=== PATIENT | female | born 1980 | race Caucasian/White ===

== ENCOUNTER 2020-05-21 07:53 | Outpatient (CLI) | payer OTHER, SELFPAY ==
[2020-05-21 08:39] LABS: Basophils # 0.1 10^3/uL (0.0-0.1); Basophils % 0.7 %; Eosinophils # 0.2 10^3/uL (0.0-0.8); Eosinophils % 2.9 %; Hematocrit 43.7 % (37.0-47.0); Hemoglobin 13.1 g/dL (11.5-15.3); Lymphocytes # 1.4 10^3/uL (0.8-4.8); Lymphocytes % 18.8 %; Mean Corpuscular Hemoglobin 26.8 pg (28.0-34.0); Mean Corpuscular Volume 89.4 fL (81-99); Mean Platelet Volume 10.6 fL (7.4-10.4); Monocytes # 0.5 10^3/uL (0.2-0.9); Monocytes % 6.6 %; Neutrophils # 5.1 10^3/uL (1.8-7.7); Neutrophils % 70.6 %; Nucleated Red Blood Cells % 0 %; Platelet Count 306 10^3/cmm (130-400); Red Blood Count 4.89 10^6/uL (4.1-5.3); White Blood Count 7.2 10^3/uL (4.0-10.0)
[2020-05-21] MEDS: sodium chloride 0.9% 250 ML 999 ML IV (12:40)
--- NOTE | 2020-05-23 17:30 | ONC CON_ITS ---
Dr. Garcia New Patient Note Patient: Reta Gipson Unit #: [id number]: 1980 Dicatated By: Kris Garcia M.D.Date of Visit: May 21, 2020 Onc MED New Patient/Consult Referring Physician: Viviana Gill A.P.N. History of Present Illness: . Ms. Dulce Gipson, is a 39-year-old female with a history of polycythemia vera Benja 2+, history of tiny subsegmental pulmonary embolism diagnosed in October 2019 since then she is on Eliquis 5 mg twice a day.As per patient she has history of diverticulitis and In addition to abdominal pain she was also having some chest pain so underwent CT scan of chest abdomen pelvis in October [address] scan of the chest showed small blood clot As per patient in 2016, she was having progressive headaches for which she went for evaluation found to have 'thick' blood, subsequently she was diagnosed with polycythemia as her hematocrit was more than 60, underwent twice a week phlebotomy initially followed by weekly and then every 2 weeks for 6 months to get her hematocrit to the target range e.g. below 43 patient was referred to family independence case manager and [facility] in [facility] where she underwent genetic testing and Bejna 2 mutation came back positive., As per patient she was treated with aspirin and phlebotomies on as-needed basis and last phlebotomy was done in November 2019, in December 2019 she also underwent bone marrow evaluation as her family independence case manager was considering hydroxyurea so she was started on hydroxyurea 1000 mg p.o. daily, which she took till March 2020 and then stopped taking as she ran out of prescription and she moved to [place] from [place] thus could not get prescription. Patient denies smoking, occasional alcohol. Denies any headaches blurred vision double vision today, denies any fever chills, denies any nausea vomiting denies any diarrhea or constipation. But generalized weakness and fatigue and some time restless sleep and excessive sleep during daytime. Past Medical History: Ms. Looney medical history consists of diverticulitis. Past Surgical History: Ms. Looney surgical/procedural history consists of tubal ligation. Medications: Eliquis 1 Tablet (of 5 mg) Oral b.i.d., Gabapentin 1 Capsule (of 300 mg) Oral b.i.d. Allergies: Esthela Allergy, Flagyl, and guaiFENesin. Social History: Ms. Gipson is and she is a disabled. Ms. Gipson has never smoked. She has no history of drinking. Ms. Gipson reports the following support systems: lives with spouse, significant other, family, or friends, lives in own house, supportive family/friends willing to assist with needs, and adequate transportation available for expected visits. Her diet consists of regular meals. She indicates her activity level as: regular exercise. Family History: Ms. Gipson's mother is alive. Ms. Gipson's father at age 78: melanoma. Review Of Symptoms: Review of Systems is not available for this patient. Vital Signs: Performed on May 21, 2020 11:21: 0, 45.71 (HIGH), 2.52 sq.m, 69.50 in, 98 %, 77 /min, 20 /min, 125/76 mm(hg), 98.0 F (LOW), and 314.0 lbs (HIGH). Performance Status: 0 - Fully active, able to carry on all predisease activities without restrictions. (ECOG) Physical Examination: ENMT - No mouth sores, no thrush, no jaundice, Respiratory - Lungs are clear, Cardiovascular - Regular rate and rhythm of heart, Abdomen - Soft, bowel sounds present, Extremities - No visible edema or rash. Lab/Imaging: Test performed on May 21, 2020 08:10 WBC 7.2 10 3/uL RBC 4.89 10 6/uL HGB 13.1 g/dL HCT 43.7 % MCV 89.4 fL MCH 26.8 pg MCHC 30.0 g/dL RDW 15.0 % Platelet Count 306 10 3/cmm MPV 10.6 fL Neutrophils 5.1 10 3/uL Lymphocytes 1.4 10 3/uL Monocytes 0.5 10 3/uL Eosinophils 0.2 10 3/uL Basophils 0.1 10 3/uL Neutrophil % 70.6 % Lymphocyte % 18.8 % Monocyte % 6.6 % Eosinophil % 2.9 % Basophils % 0.7 % NRBC % 0 % Impression: Polycythemia vera, Benja 2 mutation positive, diagnosed in 2016 in hematology clinic at [facility] in [facility] which she initially presented with hematocrit more than 60, treated with aggressive phlebotomies to get hematocrit below 43. Underwent bone marrow evaluation in November 2019 for hydroxyurea therapy, and patient was started on hydroxyurea thousand milligrams p.o. daily, which she tolerated well and then ran out of prescription in March 2020, since then she is off History of tiny subsegmental pulmonary embolism diagnosed in October 2019, on Eliquis 5 mg p.o. twice daily History of diverticulitis Obesity. 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 At this point we will consider phlebotomy to keep her hematocrit equal to or below 42 as she has history of pulmonary embolism and on anticoagulation. In the meantime we will suggest sleep study to rule out sleep apnea and if confirmed, she may benefit from CPAP machine and it may improve her polycythemia too.I will also obtain records from hematology clinic at [facility] in [place] in [place]. We will hold her hydroxyurea while continue with phlebotomy every 2 weeks to keep hematocrit equal to less than 42. While patient is being evaluated for sleep apnea and if confirmed then we will monitor her for any additional benefit from CPAP machine on the other hand if she required phlebotomies frequently then will consider restarting her on hydroxyurea. Patient was advised to continue daily aspirin and maintain good hydration. Return to clinic in 1 month with CBC Signed By: Kris Garcia M.D. <<Signature on File>>
== END 2020-05-21 07:54 | disposition home or self-care (01) ==
LOC: ONCMED 07:56
PROVIDERS: PCP Nurse Practitioner; Visit Provider Internal Medicine Hematology & Oncology
DX: D45 Polycythemia vera (principal); E66.9 Obesity, unspecified; R53.1 Weakness; R53.83 Other fatigue; G47.10 Hypersomnia, unspecified; Z86.711 Personal history of pulmonary embolism; Z79.01 Long term (current) use of anticoagulants; Z87.19 Personal history of other diseases of the digestive system; Z79.899 Other long term (current) drug therapy; Z79.82 Long term (current) use of aspirin
CPT/HCPCS: 36415; 85025; 99195; 99203; J7050

== ENCOUNTER 2020-06-04 09:01 | Outpatient (CLI) | payer OTHER, SELFPAY ==
[2020-06-04 09:50] LABS: Basophils # 0.1 10^3/uL (0.0-0.1); Basophils % 0.6 %; Eosinophils # 0.3 10^3/uL (0.0-0.8); Eosinophils % 3.2 %; Hematocrit 41.4 % (37.0-47.0); Hemoglobin 12.3 g/dL (11.5-15.3); Lymphocytes # 1.4 10^3/uL (0.8-4.8); Lymphocytes % 17.5 %; Mean Corpuscular HGB Conc 29.7 g/dL (30.0-36.0); Mean Corpuscular Hemoglobin 26.6 pg (28.0-34.0); Mean Corpuscular Volume 89.4 fL (81-99); Mean Platelet Volume 10.8 fL (7.4-10.4); Monocytes # 0.5 10^3/uL (0.2-0.9); Monocytes % 5.6 %; Neutrophils # 5.93 10^3/uL (1.8-7.7); Neutrophils % 72.4 %; Nucleated Red Blood Cells % 0 %; Platelet Count 348 10^3/cmm (130-400); Red Blood Count 4.63 10^6/uL (4.1-5.3); Red Cell Distribution Width 15.3 % (12.1-15.1); White Blood Count 8.2 10^3/uL (4.0-10.0)
== END 2020-06-04 09:02 | disposition home or self-care (01) ==
LOC: ONCMED 09:04
PROVIDERS: PCP Nurse Practitioner; Visit Provider Internal Medicine Hematology & Oncology
DX: D45 Polycythemia vera (principal)
CPT/HCPCS: 85025

== ENCOUNTER 2020-06-18 09:00 | Outpatient (CLI) | payer OTHER, SELFPAY ==
[2020-06-18 09:25] LABS: Basophils # 0.1 10^3/uL (0.0-0.1); Basophils % 0.7 %; Eosinophils # 0.2 10^3/uL (0.0-0.8); Eosinophils % 2.6 %; Hematocrit 42.7 % (37.0-47.0); Hemoglobin 12.5 g/dL (11.5-15.3); Lymphocytes # 1.4 10^3/uL (0.8-4.8); Mean Corpuscular HGB Conc 29.3 g/dL (30.0-36.0); Mean Corpuscular Hemoglobin 24.6 pg (28.0-34.0); Mean Corpuscular Volume 84.1 fL (81-99); Mean Platelet Volume 10.8 fL (7.4-10.4); Monocytes # 0.4 10^3/uL (0.2-0.9); Monocytes % 5.1 %; Neutrophils # 6.43 10^3/uL (1.8-7.7); Neutrophils % 75.1 %; Nucleated Red Blood Cells % 0 %; Platelet Count 352 10^3/cmm (130-400); Red Blood Count 5.08 10^6/uL (4.1-5.3); Red Cell Distribution Width 15.7 % (12.1-15.1); White Blood Count 8.6 10^3/uL (4.0-10.0)
--- NOTE | 2020-06-18 16:25 | ONC FU_ITS ---
Dr. Garcia follow up note Patient: Reta Gipson Unit #: [id number]: 1980 Dicatated By: Kris Garcia M.D.Date of Visit:Jun 18, 2020 Onc Med Follow-up/Prog Note History of Present Illness: Ms. Ms. Dulce Gipson, is a 39-year-old female with a history of polycythemia vera Benja 2+, history of tiny subsegmental pulmonary embolism diagnosed in October 2019 since then she is on Eliquis 5 mg twice a day.As per patient she has history of diverticulitis and In addition to abdominal pain she was also having some chest pain so underwent CT scan of chest abdomen pelvis in October [address] scan of the chest showed small blood clot As per patient in 2015, she was having progressive headaches for which she went for evaluation found to have 'thick' blood, subsequently she was diagnosed with polycythemia as her hematocrit was more than 60, underwent twice a week phlebotomy initially followed by weekly and then every 2 weeks for 6 months to get her hematocrit to the target range e.g. below 43 patient was referred to director chemistry and [facility] in [facility] where she underwent genetic testing and Benja 2 mutation came back positive., As per patient she was treated with aspirin and phlebotomies on as-needed basis and last phlebotomy was done in November 2019, in December 2019 she also underwent bone marrow evaluation as her director chemistry was considering hydroxyurea so she was started on hydroxyurea 1000 mg p.o. daily, which she took till March 2020 and then stopped taking as she ran out of prescription and she moved to [place] from [place] thus could not get prescription. Patient denies smoking, occasional alcohol. Came for follow-up, denies any specific complaints except occasional headaches, no fever chills, no nausea or vomiting, no diarrhea or constipation, no blurred vision or double vision, patient says she did talk to her PMD regarding sleep study and awaiting appointment. Patient said when she used to take hydroxyurea her headaches did resolve Medications: Eliquis 1 Tablet (of 5 mg) Oral b.i.d., Gabapentin 1 Capsule (of 300 mg) Oral b.i.d. Allergies: Esthela Allergy, Flagyl, and guaiFENesin. Review of Systems: Review of Systems is not available for this patient. Vital Signs: Performed on Jun 18, 2020 11:20 Height - 69.50 in Weight - 313.6 lbs (LOW) BSA - 2.51 sq.m BMI - 45.65 (HIGH) Temperature - 97.6 F (LOW) Pulse - 81 /min Respiration - 24 /min BP - 144/78 mm(hg) (HIGH) O2 Sat - 97 % Pain - 3 Performance Status: 0 - Fully active, able to carry on all predisease activities without restrictions. (ECOG) Physical Examination: ENMT - No mouth sores, no thrush, no jaundice, Respiratory - Lungs are clear, Cardiovascular - Regular rate and rhythm of heart, Abdomen - Soft, bowel sounds present, Extremities - No visible edema. Lab/Imaging: Test performed on Jun 18, 2020 09:08 WBC 8.6 10 3/uL RBC 5.08 10 6/uL HGB 12.5 g/dL HCT 42.7 % MCV 84.1 fL MCH 24.6 pg MCHC 29.3 g/dL RDW 15.7 % Platelet Count 352 10 3/cmm MPV 10.8 fL Neutrophils 6.43 10 3/uL Lymphocytes 1.4 10 3/uL Monocytes 0.4 10 3/uL Eosinophils 0.2 10 3/uL Basophils 0.1 10 3/uL Neutrophil % 75.1 % Lymphocyte % 16.0 % Monocyte % 5.1 % Eosinophil % 2.6 % Basophils % 0.7 % NRBC % 0 % Impression: Polycythemia vera, Benja 2 mutation positive, diagnosed in 2015 in hematology clinic at [facility] in [facility] which she initially presented with hematocrit more than 60, treated with aggressive phlebotomies to get hematocrit below 43. Underwent bone marrow evaluation in November 2019 for hydroxyurea therapy, and patient was started on hydroxyurea thousand milligrams p.o. daily, which she tolerated well and then ran out of prescription in March 2020, since then she is off History of tiny subsegmental pulmonary embolism diagnosed in October 2019, on Eliquis 5 mg p.o. twice daily History of diverticulitis Obesity. Plan: Discussed with patient regarding her labs white blood count 8.6 hemoglobin 12.5 g, hematocrit 42.7 platelets 352,000 Clinically, patient is doing well with no new signs symptoms except occasionally headaches but her hematocrit is in desirable range. At this point we will consider starting her on hydroxyurea 500 mg p.o. twice daily, patient was given prescription and she will obtain her medication from [facility], usually take about 1 week to get it in the mail. She will return to clinic in 3 weeks with a CBC, patient was also advised to call PMD office regarding sleep study to rule out sleep apnea as if confirmed, sleep apnea management can improve her polycythemia. Signed By: Kris Garcia M.D. <<Signature on File>>
== END 2020-06-18 09:01 | disposition home or self-care (01) ==
LOC: ONCMED 09:02
PROVIDERS: PCP Nurse Practitioner; Visit Provider Internal Medicine Hematology & Oncology
DX: D45 Polycythemia vera (principal); E66.9 Obesity, unspecified; Z86.711 Personal history of pulmonary embolism; Z79.01 Long term (current) use of anticoagulants; Z87.19 Personal history of other diseases of the digestive system; Z68.42 Body mass index [BMI] 45.0-49.9, adult
CPT/HCPCS: 85025; 99214

== ENCOUNTER 2020-07-09 09:17 | Outpatient (CLI) | payer OTHER, SELFPAY ==
[2020-07-09 09:50] LABS: Basophils # 0.1 10^3/uL (0.0-0.1); Basophils % 0.7 %; Eosinophils # 0.2 10^3/uL (0.0-0.8); Eosinophils % 2.4 %; Hemoglobin 12.8 g/dL (11.5-15.3); Lymphocytes # 1.3 10^3/uL (0.8-4.8); Lymphocytes % 18.6 %; Mean Corpuscular HGB Conc 29.1 g/dL (30.0-36.0); Mean Corpuscular Hemoglobin 24.3 pg (28.0-34.0); Mean Corpuscular Volume 83.7 fL (81-99); Monocytes # 0.4 10^3/uL (0.2-0.9); Monocytes % 4.9 %; Neutrophils # 5.24 10^3/uL (1.8-7.7); Neutrophils % 72.8 %; Nucleated Red Blood Cells % 0 %; Platelet Count 293 10^3/cmm (130-400); Red Blood Count 5.26 10^6/uL (4.1-5.3); Red Cell Distribution Width 17.3 % (12.1-15.1); White Blood Count 7.2 10^3/uL (4.0-10.0)
--- NOTE | 2020-07-09 14:02 | ONC FU_ITS ---
Dr. Garcia follow up note Patient: Reta Gipson Unit #: [id number]: 1980 Dicatated By: Kris Garcia M.D.Date of Visit:Jul 09, 2020 Onc Med Follow-up/Prog Note History of Present Illness: Ms. Ms. Dulce Gipson, is a 39-year-old female with a history of polycythemia vera Benja 2+, history of tiny subsegmental pulmonary embolism diagnosed in October 2019 since then she is on Eliquis 5 mg twice a day.As per patient she has history of diverticulitis and In addition to abdominal pain she was also having some chest pain so underwent CT scan of chest abdomen pelvis in October [address] scan of the chest showed small blood clot As per patient in 2016, she was having progressive headaches for which she went for evaluation found to have 'thick' blood, subsequently she was diagnosed with polycythemia as her hematocrit was more than 60, underwent twice a week phlebotomy initially followed by weekly and then every 2 weeks for 6 months to get her hematocrit to the target range e.g. below 43 patient was referred to mechanics supervisor and [facility] in [facility] where she underwent genetic testing and Benja 2 mutation came back positive., As per patient she was treated with aspirin and phlebotomies on as-needed basis and last phlebotomy was done in November 2019, in December 2019 she also underwent bone marrow evaluation as her mechanics supervisor was considering hydroxyurea so she was started on hydroxyurea 1000 mg p.o. daily, which she took till March 2020 and then stopped taking as she ran out of prescription and she moved to [place] from [place] thus could not get prescription. Patient denies smoking, occasional alcohol. Came for follow-up, denies any specific complaint except generalized weakness and fatigue otherwise no fever chills no nausea or vomiting no diarrhea constipation, no headaches blurred vision or double vision, tolerating hydroxyurea and as needed phlebotomy, well Medications: Eliquis 1 Tablet (of 5 mg) Oral b.i.d., Gabapentin 1 Capsule (of 300 mg) Oral b.i.d., Hydroxyurea 1 Capsule (of 500 mg) Oral b.i.d. Allergies: Esthela Allergy, Flagyl, and guaiFENesin. Review of Systems: Review of Systems is not available for this patient. Vital Signs: Performed on Jul 09, 2020 10:56 Height - 69.50 in Weight - 316.0 lbs (HIGH) BSA - 2.52 sq.m BMI - 46.00 (HIGH) Temperature - 97.9 F (LOW) Pulse - 94 /min Respiration - 20 /min BP - 115/73 mm(hg) O2 Sat - 96 % Pain - 0 Performance Status: 0 - Fully active, able to carry on all predisease activities without restrictions. (ECOG) Physical Examination: ENMT - No mouth sores, no thrush, no jaundice, Respiratory - Lungs are clear, Cardiovascular - Regular rate and rhythm of heart, Abdomen - Soft, bowel sounds present, Extremities - No visible edema or rash. Lab/Imaging: Test performed on Jun 18, 2020 09:08 WBC 8.6 10 3/uL RBC 5.08 10 6/uL HGB 12.5 g/dL HCT 42.7 % MCV 84.1 fL MCH 24.6 pg MCHC 29.3 g/dL RDW 15.7 % Platelet Count 352 10 3/cmm MPV 10.8 fL Neutrophils 6.43 10 3/uL Lymphocytes 1.4 10 3/uL Monocytes 0.4 10 3/uL Eosinophils 0.2 10 3/uL Basophils 0.1 10 3/uL Neutrophil % 75.1 % Lymphocyte % 16.0 % Monocyte % 5.1 % Eosinophil % 2.6 % Basophils % 0.7 % NRBC % 0 % Impression: Polycythemia vera, Benja 2 mutation positive, diagnosed in 2015 in hematology clinic at [facility] in [facility] which she initially presented with hematocrit more than 60, treated with aggressive phlebotomies to get hematocrit below 43. Underwent bone marrow evaluation in November 2019 for hydroxyurea therapy, and patient was started on hydroxyurea thousand milligrams p.o. daily, which she tolerated well and then ran out of prescription in March 2020, since then she is off, Restarted on June 18, 2020 History of tiny subsegmental pulmonary embolism diagnosed in October 2019, on Eliquis 5 mg p.o. twice daily History of diverticulitis Obesity. Plan: Discussed with patient regarding her labs white blood count 7.2 hemoglobin 12.8 hematocrit 44 platelets 293,000 Clinically, patient doing well, with no new signs symptom, tolerating hydroxyurea 500 mg p.o. twice daily, well, her follow-up lab is in a desirable range. We will continue with same and return to clinic in 2 months with CBC Patient is still awaiting for appointment with PMD regarding sleep apnea evaluation Signed By: Kris Garcia M.D. <<Signature on File>>
== END 2020-07-09 09:18 | disposition home or self-care (01) ==
LOC: ONCMED 09:21
PROVIDERS: PCP Nurse Practitioner; Visit Provider Internal Medicine Hematology & Oncology
DX: D45 Polycythemia vera (principal); E66.9 Obesity, unspecified; R53.1 Weakness; R53.83 Other fatigue; Z86.718 Personal history of other venous thrombosis and embolism; Z79.01 Long term (current) use of anticoagulants; Z79.899 Other long term (current) drug therapy; Z68.42 Body mass index [BMI] 45.0-49.9, adult; Z87.19 Personal history of other diseases of the digestive system
CPT/HCPCS: 85025; 99214

== ENCOUNTER 2020-09-02 12:00 | Outpatient (CLI) | payer OTHER, SELFPAY | END 2020-09-02 12:01 | disposition home or self-care (01) | LOC: SLEEP 09-06 11:50 | PROVIDERS: PCP Nurse Practitioner; Visit Provider Nurse Practitioner | DX: G47.33 Obstructive sleep apnea (adult) (pediatric) (principal); R06.83 Snoring | CPT/HCPCS: G0399 ==

== ENCOUNTER 2020-09-06 08:46 | Outpatient (CLI) | payer OTHER, SELFPAY ==
[2020-09-06 09:10] LABS: Basophils # 0.1 10^3/uL (0.0-0.1); Basophils % 1.2 %; Eosinophils # 0.1 10^3/uL (0.0-0.8); Eosinophils % 1.8 %; Hematocrit 44.8 % (37.0-47.0); Hemoglobin 12.9 g/dL (11.5-15.3); Lymphocytes # 1.2 10^3/uL (0.8-4.8); Lymphocytes % 18.2 %; Mean Corpuscular HGB Conc 28.8 g/dL (30.0-36.0); Mean Corpuscular Hemoglobin 24.6 pg (28.0-34.0); Mean Corpuscular Volume 85.5 fL (81-99); Mean Platelet Volume 9.8 fL (7.4-10.4); Monocytes # 0.4 10^3/uL (0.2-0.9); Monocytes % 5.2 %; Neutrophils # 4.91 10^3/uL (1.8-7.7); Neutrophils % 73.3 %; Nucleated Red Blood Cells % 0 %; Platelet Count 317 10^3/cmm (130-400); Red Blood Count 5.24 10^6/uL (4.1-5.3); White Blood Count 6.7 10^3/uL (4.0-10.0)
--- NOTE | 2020-09-06 11:20 | ONC FU_ITS ---
Dr. Garcia follow up note Patient: Reta Gipson Unit #: [id number]: 1980 Dicatated By: Kris Garcia M.D.Date of Visit:Sep 06, 2020 Onc Med Follow-up/Prog Note History of Present Illness: Ms. Ms. Dulce Gipson, is a 39-year-old female with a history of polycythemia vera Benja 2+, history of tiny subsegmental pulmonary embolism diagnosed in October 2019 since then she is on Eliquis 5 mg twice a day.As per patient she has history of diverticulitis and In addition to abdominal pain she was also having some chest pain so underwent CT scan of chest abdomen pelvis in October [address] scan of the chest showed small blood clot As per patient in 2016, she was having progressive headaches for which she went for evaluation found to have 'thick' blood, subsequently she was diagnosed with polycythemia as her hematocrit was more than 60, underwent twice a week phlebotomy initially followed by weekly and then every 2 weeks for 6 months to get her hematocrit to the target range e.g. below 43 patient was referred to finance insurance manager and [facility] in [facility] where she underwent genetic testing and Benja 2 mutation came back positive., As per patient she was treated with aspirin and phlebotomies on as-needed basis and last phlebotomy was done in November 2019, in December 2019 she also underwent bone marrow evaluation as her finance insurance manager was considering hydroxyurea so she was started on hydroxyurea 1000 mg p.o. daily, which she took till March 2020 and then stopped taking as she ran out of prescription and she moved to [place] from [place] thus could not get prescription. Patient denies smoking, occasional alcohol. Came for follow-up, denies any specific complaints, except generalized weakness and fatigue, and recently underwent overnight pulse oximetry as screening for sleep apnea/sleep study, otherwise no fever chills, no nausea or vomiting, no diarrhea constipation, Tolerating hydroxyurea well otherwise Medications: Eliquis 1 Tablet (of 5 mg) Oral b.i.d., Gabapentin 1 Capsule (of 300 mg) Oral b.i.d., Hydroxyurea 1 Capsule (of 500 mg) Oral b.i.d. Allergies: Esthela Allergy, Flagyl, and guaiFENesin. Review of Systems: Review of Systems is not available for this patient. Vital Signs: Performed on Sep 06, 2020 10:02 Height - 69.50 in Weight - 318.6 lbs (HIGH) BSA - 2.53 sq.m BMI - 46.37 (HIGH) Temperature - 98.2 F (LOW) Pulse - 69 /min Respiration - 24 /min BP - 140/82 mm(hg) O2 Sat - 96 % Pain - 0 Performance Status: 0 - Fully active, able to carry on all predisease activities without restrictions. (ECOG) Physical Examination: ENMT - No mouth sores, no thrush, no jaundice, Respiratory - Lungs are clear to auscultation, Cardiovascular - Regular rate and rhythm of heart, Abdomen - Soft, bowel sounds present, Extremities - No visible edema. Lab/Imaging: Test performed on Jul 09, 2020 09:30 WBC 7.2 10 3/uL RBC 5.26 10 6/uL HGB 12.8 g/dL HCT 44.0 % MCV 83.7 fL MCH 24.3 pg MCHC 29.1 g/dL RDW 17.3 % Platelet Count 293 10 3/cmm MPV 10.0 fL Neutrophils 5.24 10 3/uL Lymphocytes 1.3 10 3/uL Monocytes 0.4 10 3/uL Eosinophils 0.2 10 3/uL Basophils 0.1 10 3/uL Neutrophil % 72.8 % Lymphocyte % 18.6 % Monocyte % 4.9 % Eosinophil % 2.4 % Basophils % 0.7 % NRBC % 0 % Impression: Polycythemia vera, Benja 2 mutation positive, diagnosed in 2016 in hematology clinic at [facility] in [facility] which she initially presented with hematocrit more than 60, treated with aggressive phlebotomies to get hematocrit below 43. Underwent bone marrow evaluation in November 2019 for hydroxyurea therapy, and patient was started on hydroxyurea thousand milligrams p.o. daily, which she tolerated well and then ran out of prescription in March 2020, since then she is off, Restarted on June 18, 2020 History of tiny subsegmental pulmonary embolism diagnosed in October 2019, on Eliquis 5 mg p.o. twice daily History of diverticulitis Obesity. Plan: Discussed with patient regarding her labs white blood count 6.7 hemoglobin 12.9 hematocrit 44.8 platelets 317,000 Clinically, patient is doing well with no new signs symptom except chronic generalized weakness and fatigue which could be multifactorial including underlying sleep apnea, patient recently underwent overnight pulse oximetry as a screening for sleep study/sleep apnea, if it shows any abnormality then further testing will be done. In the meantime patient will continue with hydroxyurea as her follow-up labs shows hematocrit is under 45 which is a desired range, will continue to monitor return to clinic in 1 month with CBC Signed By: Kris Garcia M.D. <<Signature on File>>
== END 2020-09-06 08:47 | disposition home or self-care (01) ==
LOC: ONCMED 08:50
PROVIDERS: PCP Nurse Practitioner; Visit Provider Internal Medicine Hematology & Oncology
DX: D45 Polycythemia vera (principal); E66.9 Obesity, unspecified; R53.1 Weakness; R53.83 Other fatigue; Z79.899 Other long term (current) drug therapy; Z86.711 Personal history of pulmonary embolism; Z79.01 Long term (current) use of anticoagulants; Z68.42 Body mass index [BMI] 45.0-49.9, adult
CPT/HCPCS: 36415; 85025; 99214

== ENCOUNTER 2020-10-08 11:37 | Outpatient (CLI) | payer OTHER, SELFPAY ==
[2020-10-08 12:32] LABS: Alanine Aminotransferase 22 U/L (0-33); Aspartate Amino Transferase 19 U/L (0-32); Gamma Glutamyl Transferase 28 U/L (5-36); Lactate Dehydrogenase 183 U/L (135-214)
== END 2020-10-08 11:38 | disposition home or self-care (01) ==
LOC: ONCMED 11:40
PROVIDERS: Absent Provider Podiatrist Foot & Ankle Surgery; PCP Nurse Practitioner; Visit Provider Internal Medicine Hematology & Oncology
DX: B35.3 Tinea pedis (principal)
CPT/HCPCS: 36415; 82977; 83615; 84450; 84460

== ENCOUNTER → 2020-10-16 13:29 | Outpatient (BNVA) | payer OTHER, SELFPAY | PROVIDERS: PCP Nurse Practitioner; Visit Provider Obstetrics & Gynecology | DX: Z01.419 Encounter for gynecological examination (general) (routine) without abnormal findings (principal) | CPT/HCPCS: 88175 ==

== ENCOUNTER 2020-11-27 14:42 | Outpatient (CLI) | payer OTHER, SELFPAY ==
[2020-11-27 15:54] LABS: Basophils # 0.1 10^3/uL (0.0-0.1); Basophils % 1.2 %; Eosinophils # 0.2 10^3/uL (0.0-0.8); Eosinophils % 1.8 %; Hematocrit 47.8 % (37.0-47.0); Lymphocytes # 1.6 10^3/uL (0.8-4.8); Lymphocytes % 17.5 %; Mean Corpuscular HGB Conc 29.3 g/dL (30.0-36.0); Mean Corpuscular Hemoglobin 25.1 pg (28.0-34.0); Mean Corpuscular Volume 85.8 fL (81-99); Mean Platelet Volume 10.1 fL (7.4-10.4); Monocytes # 0.6 10^3/uL (0.2-0.9); Monocytes % 6.8 %; Neutrophils % 72.1 %; Nucleated Red Blood Cells % 0 %; Platelet Count 294 10^3/cmm (130-400); Red Blood Count 5.57 10^6/uL (4.1-5.3); Red Cell Distribution Width 17.8 % (12.1-15.1)
== END 2020-11-27 14:43 | disposition home or self-care (01) ==
LOC: ONCMED 14:44
PROVIDERS: PCP Nurse Practitioner; Visit Provider Internal Medicine Hematology & Oncology
DX: D75.1 Secondary polycythemia (principal)
CPT/HCPCS: 36415; 85025

== ENCOUNTER 2020-11-29 05:48 | Outpatient (CLI) | payer OTHER, MEDICARE, SELFPAY ==
--- NOTE | 2020-11-29 10:46 | ONC FU_ITS ---
Dr. Garcia follow up note Patient: Reta Gipson Unit #: [id number]: 1980 Dicatated By: Kris Garcia M.D.Date of Visit:Nov 29, 2020 Onc Med Follow-up/Prog Note History of Present Illness: Ms. Ms. Dulce Gipson, is a 40 -year-old female with a history of polycythemia vera Benja 2+, history of tiny subsegmental pulmonary embolism diagnosed in October 2019 since then she is on Eliquis 5 mg twice a day.As per patient she has history of diverticulitis and In addition to abdominal pain she was also having some chest pain so underwent CT scan of chest abdomen pelvis in October [address] scan of the chest showed small blood clot As per patient in 2016, she was having progressive headaches for which she went for evaluation found to have 'thick' blood, subsequently she was diagnosed with polycythemia as her hematocrit was more than 60, underwent twice a week phlebotomy initially followed by weekly and then every 2 weeks for 6 months to get her hematocrit to the target range e.g. 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 daily, which she took till March 2020 and then stopped taking as she ran out of prescription and she moved to [place] from [place] thus could not get prescription. Patient denies smoking, occasional alcohol. Tolerating hydroxyurea Came for follow-up, complaining of off and on headaches for the last 2 weeks, as per patient she did not take her hydroxyurea for the last couple of weeks because she ran out of her prescription and [facility] did not send it to her and when she inquired this it may take another week or 2 before she gets it, as per patient in the past every time when she do not take hydroxyurea her hemoglobin/hematocrit goes up and then give her headaches and in the past, her headaches used to improve with phlebotomy. But denies any blurred vision or double vision denies any chest pain or shortness of breath denies any nausea or vomiting denies any fever chills. Patient states she also had sleep study done in August 2020, we will obtain results and recommendations. Medications: Eliquis 1 Tablet (of 5 mg) Oral b.i.d., Gabapentin 1 Capsule (of 300 mg) Oral b.i.d., Hydroxyurea 1 Capsule (of 500 mg) Oral b.i.d., Terbinafine HCl 1 Tablet (of 250 mg) Oral daily Allergies: Esthela Allergy, Flagyl, and guaiFENesin. Review of Systems: Review of Systems is not available for this patient. Vital Signs: Performed on Nov 29, 2020 10:17 Height - 69.50 in Weight - 322.2 lbs (HIGH) BSA - 2.54 sq.m BMI - 46.90 (HIGH) Temperature - 98.4 F Pulse - 73 /min Respiration - 16 /min BP - 140/86 mm(hg) O2 Sat - 98 % Pain - 6 Performance Status: 0 - Fully active, able to carry on all predisease activities without restrictions. (ECOG) Physical Examination: ENMT - No mouth sores, no thrush, no jaundice, Respiratory - Lungs are clear to auscultation, Cardiovascular - Regular rate and rhythm of heart, Abdomen - Soft, bowel sounds present, Extremities - No visible edema. Lab/Imaging: Test performed on Sep 06, 2020 08:57 WBC 6.7 10 3/uL RBC 5.24 10 6/uL HGB 12.9 g/dL HCT 44.8 % MCV 85.5 fL MCH 24.6 pg MCHC 28.8 g/dL RDW 22.0 % Platelet Count 317 10 3/cmm MPV 9.8 fL Neutrophils 4.91 10 3/uL Lymphocytes 1.2 10 3/uL Monocytes 0.4 10 3/uL Eosinophils 0.1 10 3/uL Basophils 0.1 10 3/uL Neutrophil % 73.3 % Lymphocyte % 18.2 % Monocyte % 5.2 % Eosinophil % 1.8 % Basophils % 1.2 % NRBC % 0 % Impression: Polycythemia vera, Benja 2 mutation positive, diagnosed in 2016 in hematology clinic at [facility] in [facility] which she initially presented with hematocrit more than 60, treated with aggressive phlebotomies to get hematocrit below 43. Underwent bone marrow evaluation in November 2019 for hydroxyurea therapy, and patient was started on hydroxyurea thousand milligrams p.o. daily, which she tolerated well and then ran out of prescription in March 2020, since then she is off, Restarted on June 18, 2020 History of tiny subsegmental pulmonary embolism diagnosed in October 2019, on Eliquis 5 mg p.o. twice daily History of diverticulitis Obesity. Plan: Discussed with patient regarding her labs white blood count 9 hemoglobin 14 hematocrit 47.8 compared to 44.8 on September 06, 2020 and platelets 294,000 Clinically, patient doing reasonably well with no new signs symptom except off and on headaches for the last couple of weeks as she ran out of her hydroxyurea prescription and the last time she took hydroxyurea was about 2 weeks ago, patient said she gets her [facility], this has happened in the past too, and when she inquired from [facility], she was informed it might take a week or 2 before she get her medication. So patient is requesting prescription so we will give her prescription for hydroxyurea 1000 mg p.o. daily and because of her concern but headache and her hematocrit has gone up since last visit so we will consider phlebotomy with 500 cc and replacement with a 250 cc normal saline to avoid hypovolemia and she will return to clinic in 1 month after start taking hydroxyurea with CBC. Patient was advised in case her headaches persist or there is a worsening, she need to call us or go to hospital for evaluation. Signed By: Kris Garcia M.D. <<Signature on File>>
[2020-11-29] MEDS: sodium chloride 0.9% 250 ML 999 ML IV (11:00)
== END 2020-11-29 05:49 | disposition home or self-care (01) ==
PROVIDERS: PCP Nurse Practitioner; Visit Provider Internal Medicine Hematology & Oncology
DX: D75.1 Secondary polycythemia (principal); E66.01 Morbid (severe) obesity due to excess calories; Q50.39 Other congenital malformation of ovary; Z86.711 Personal history of pulmonary embolism; Z87.19 Personal history of other diseases of the digestive system
CPT/HCPCS: 76830; 99195; 99214; J7050

== ENCOUNTER 2020-12-10 13:21 | Emergency (ER) | payer OTHER, MEDICARE, SELFPAY ==
[2020-12-10 13:33] VITALS: BP 138/84; PULSE 77; RESP 16; TEMP 36.6; O2SAT 97; BMI 44.4
--- NOTE | 2020-12-10 13:53 | CT_ITS ---
WS: [id number] CT ABDOMEN PELVIS TECHNIQUE: Contrast-enhanced CT of the abdomen and pelvis with coronal and sagittal reformatted image s. CLINICAL INFORMATION: LLQ pain, left flank pain COMPARISON: Ultrasound November 29, 2020 DLP: 2019.[address] scans at [facility] use at least one of these dose optimization techniques: automat ed exposure control; mA and/or kV adjustment per patient size (includes targeted exams where dose is matched to clinical indication); or iterative reconstruction. FINDINGS: Sigmoid diverticulosis. No evidence of acute diverticulitis. Normal colon. No evidence of high-grade small or large bowel obstruction. Normal ileocecal valve. Mild diffuse fatty infiltration of the liver. Hepatomegaly and splenomegaly. Spleen measures 13.1 cm. Lung bases are well aerated. Normal GE junction. Normal pancreas and gallbladder. Normal portal vein and splenic vein. Normal caliber abdominal aorta. No abdominal or pelvic lymphadenopathy. No inguinal lymphadenopathy. Fibroid uterus with heterogeneou s enhancement. Enhancing left ovarian cyst measuring 2.5 x 3.1 CM. Soft tissue thickening at the endo cervical junction and internal cervical loss as described on the recent ultrasound. Neoplasm is not e xcluded. No free fluid in the pelvis. Normal lumbar spine. CT/CT abdomen pelvis w con* [id number] IMPRESSION: 1. Diverticulosis. No evidence of acute diverticulitis. 2. No obstructing renal or ureteral calculi. No hydronephrosis. 3. Heterogeneous lobulated fibroid uterus. Exophytic lesion at the dome of the uterus likely fibroid measuring 2.5 x 3.1 cm. Soft tissue thickening at the en docervical junction and internal cervical os as seen on the recent ultrasound. Neoplasm is not excluded and recommend [facility] [employer] consultation. 4. Heterogeneous enhancing left ovarian cyst measuring 2.5 x 3.1 cm 5. No abdominal or pelvic lymphadenopathy. 6. Hepatomegaly and splenomegaly.
[2020-12-10 14:40] VITALS: BP 128/90; PULSE 78; RESP 18; O2SAT 99
[2020-12-10 14:48] LABS: Basophils # 0.1 10^3/uL (0.0-0.1); Basophils % 1.1 %; Eosinophils # 0.2 10^3/uL (0.0-0.8); Eosinophils % 1.6 %; Hematocrit 47.1 % (37.0-47.0); Hemoglobin 13.3 g/dL (11.5-15.3); Lymphocytes # 1.6 10^3/uL (0.8-4.8); Lymphocytes % 16.5 %; Mean Corpuscular HGB Conc 28.2 g/dL (30.0-36.0); Mean Corpuscular Hemoglobin 24.7 pg (28.0-34.0); Mean Corpuscular Volume 87.4 fL (81-99); Mean Platelet Volume 10.5 fL (7.4-10.4); Monocytes # 0.4 10^3/uL (0.2-0.9); Monocytes % 4.7 %; Neutrophils # 7.18 10^3/uL (1.8-7.7); Neutrophils % 75.8 %; Nucleated Red Blood Cells % 0 %; Platelet Count 365 10^3/cmm (130-400); Red Blood Count 5.39 10^6/uL (4.1-5.3); Red Cell Distribution Width 17.6 % (12.1-15.1); White Blood Count 9.5 10^3/uL (4.0-10.0)
[2020-12-10 14:54] LABS: Add Urine Microscopic? YES; Bilirubin Urine Neg (Negative); Blood Urine Neg (Negative); Glucose Urine UA Norm (Normal); Ketones Urine Negative (Negative); Leukocyte Esterase Urine Negative (Negative); Nitrate Urine Negative (Negative); Protein Urine Neg (Negative); Urine Appearance Hazy (CLEAR); Urine Color Yellow (Yellow); Urobilinogen Urine Norm (Negative); pH Urine 7 (5-7)
[2020-12-10 14:55] LABS: HCG Qualitative Urine. Negative (Negative)
[2020-12-10 15:00] LABS: Add Urine Culture? No; Bacteria Urine 2+ /hpf; RBC Urine 0-4 /hpf (0-2); Squamous Epithelial Cell Urine 15-25 /hpf (0-5)
[2020-12-10] MEDS: iohexol 300 mg/mL 100 mL Btl IV (15:04)
[2020-12-10 15:08] LABS: Alanine Aminotransferase 25 U/L (0-33); Albumin Level 4.1 g/dL (3.5-5.2); Alkaline Phosphatase 110 IU/L (35-105); Blood Urea Nitrogen 9 mg/dL (6-20); C Reactive Protein 4.8 mg/L (0.0-4.9); Carbon Dioxide 23 mmol/L (22-29); Chloride 103 mmol/L (98-107); Creatine Phosphokinase 56 U/L (26-192); Globulin 3.3 g/dL (1.3-4.6); Glomerular Filtration Rate 92.7 mL/min (90-130); Glucose 84 mg/dL (65-115); Lipase 24 U/L (13-60); Osmolality Calculated 280 mOsm/kg (285-295); Sodium 136 mmol/L (136-145); Total Bilirubin 0.4 mg/dL (0.15-1.2); Total Protein 7.4 g/dL (6.6-8.7)
[2020-12-10 15:10] LABS: Anion Gap 14.2 (5-19); Potassium 4.2 mmol/L (3.5-5.1)
[2020-12-10 15:11] LABS: Aspartate Amino Transferase 33 U/L (0-32)
[2020-12-10 15:40] VITALS: BP 144/88; PULSE 88; RESP 18; O2SAT 99
[2020-12-10 16:00] VITALS: BP 132/90; PULSE 78; RESP 18; O2SAT 99
--- NOTE | 2020-12-10 16:12 | W.ED.ABDPA2 ---
HPI - Abdominal Pain General: Chief Complaint: Abdominal Pain Stated Complaint: abd pain/loss of appetite Time Seen by Provider: 12/10/20 13:49 Source: patient Mode of arrival: ambulatory Limitations: no limitations History of Present Illness: HPI narrative: Patient is a 40-year-old female with a history of diverticulitis who presents to the emergency department with left lower quadrant pain that has been on and off for about a week. She is concerned that this may be a recurrence of her diverticulitis. She is therefore here to be seen. She endorses nausea and diarrhea but no vomiting. She denies any fever, denies any urinary symptoms. She also has a prior history of kidney stones. MD elicited complaint: abdominal pain Onset (ago): week(s) (1) Pain Consistency: constant Location: Diffuse Severity: moderate Quality: cramping Radiation: LLQ Migration to: no migration Exacerbating factors: nothing Relieving factors: nothing Associated Symptoms: Reports GI cramping, diarrhea and nausea; Denies anorexia, belching, bloating, change in bowel habits, change in stool character, chills, coffee ground emesis, constipation, dyspepsia, dysuria, excessive flatus, fever(s), heartburn, hematochezia, hematuria, hematemesis, fecal incontinence, loose stools, melena, poor appetite, syncope and vomiting Treatments prior to arrival: NSAIDs Related Data: Date of Last Menstrual Period: 11/23/20 Review of Systems General: Reports: 10 or more systems reviewed and unremarkable except in HPI and below Const: Denies: fever(s) or chills Eyes: Denies: change in vision or blurry vision ENMT: Denies: throat pain, enlarged tonsils, odynophagia, hoarseness, mouth pain or swelling of lips/tongue Card: Denies: syncope Resp: Denies: dyspnea, productive cough or non-productive cough GI: Reports: nausea, diarrhea and GI cramping; Denies: vomiting, hematemesis, coffee ground emesis, heartburn, constipation, bloating, belching, excessive flatus, fecal incontinence, change in bowel habits, change in stool character, hematochezia or melena : Denies: dysuria or hematuria Musc: Denies: neck pain, back pain or extremity swelling Skin/Breast: Denies: rash, pruritus or erythema Neuro: Denies: headache(s), numbness in extremities or weakness in extremities Endo: Denies: polyuria, polydipsia or tired all the time PFSH ED PFSH: Medical History Diverticulitis Diagnosed in 2018- Enlarged thyroid gland This is currently being evaluated and managed by Dr. Ferro. She thinks that her thyroid levels were normal. Polycythemia vera Has had symptoms since about 2013 and was diagnosed in 2015. She currently sees heme oncology-Dr. Garcia and is on medication for this. Pulmonary embolism In November 2019 and she has been on Eliquis since then managed by her primary care provider. Denies history of DVT. Surgical History History of tubal ligation March 2009--laparoscopic procedure Family History Father Chronic kidney disease (CKD) Hypertension Sister Chronic kidney disease (CKD) Psychiatric illness Mother Thyroid disease Grandmother Thyroid disease Maternal Denies family history of Colon cancer Ovarian cancer Diabetes Heart disease Breast cancer Bleeding disorder Uterine cancer Stroke Social History Smoking and tobacco status: never smoked Alcohol intake: former Female Reproductive History: Date of last menstrual period: 11/23/20 Physical Exam Const: COMMON NORMALS: no acute distress, average body habitus, patient oriented x3, no limitations, healthy appearing, alert and well nourished HENMT: COMMON NORMALS: normocephalic, atraumatic and moist oral mucous membranes HEAD & SCALP: normocephalic and atraumatic Neck/C-Spine: COMMON NORMALS: no meningeal signs and no JVD Resp: COMMON NORMALS: normal respiratory effort, No retractions, No use of accessory muscles, clear to auscultation bilaterally and percussion normal AUSCULTATION: clear to auscultation bilaterally PERCUSSION: percussion normal Cardio: COMMON NORMALS: no JVD, regular rate, regular rhythm, S1 normal heart sound present, S2 normal heart sound present, No gallops present (Cardio), No clicks present (Cardio), No murmurs present (Cardio), No rub (Cardio) and Peripheral pulses 2+ throughout RATE: regular rate RHYTHM: regular rhythm HEART SOUNDS: S1 normal heart sound present and S2 normal heart sound present PERIPHERAL PULSES: Peripheral pulses 2+ throughout GI: COMMON NORMALS: Normal to inspection, nondistended, normoactive bowel sounds present, Soft to palpation, non-tender, No hepatosplenomegaly present, no masses and no bruits PALPATION: Yes Soft to palpation and Yes No hepatosplenomegaly present Back/Pelvis: GENERAL BACK: Yes CVA tenderness CVA tenderness: left Extremity: COMMON NORMALS: normal to inspection, full ROM, capillary refill normal, no calf tenderness and no pedal edema Neuro: COMMON NORMALS: patient oriented x3 SENSORIUM/ORIENTATION: Yes alert MENINGEAL SIGNS: Yes no meningeal signs Skin: COMMON NORMALS: no rashes or lesions noted, no wounds, turgor normal, no jaundice, no petechiae and no mottling GENERAL SKIN EXAM: no rashes or lesions noted and turgor normal Course Reevaluation(s): Reevaluation #1: Discussed her lab and imaging findings with her. No diverticulitis noticed, however she has fibroids and thickening of her cervix. She states she just had a Pap smear done and based on the report she is to get a further procedure that she calls a scope which I believe is likely a colposcopy. We will therefore discharge her home with no new orders. She voiced understanding and is in agreement with the plan. Time: 16:13 Vital Signs: Vital signs: Vital Signs Temperature 97.9 F 12/10/20 13:33 Pulse Rate 78 12/10/20 16:28 Respiratory Rate 18 12/10/20 16:28 Blood Pressure 132/90 12/10/20 16:28 Pulse Oximetry 99 12/10/20 16:28 MDM - Abdominal Pain MDM Narrative: Medical decision making narrative: 40 year old female with a history of diverticulitis presents to the ED with complaints of LLQ pain that she felt was a flare of diverticulitis. Evaluation in the ED was negative for diverticulitis or other acute findings. She however has fibroids and a thickening of her cervix concerning for malignancy. She recently had a pap smear and is scheduled for a colposcopy. She is discharged home with no new orders. Medical Records: Attestation: I reviewed the patient's medical records. Lab Data: Attestation: I reviewed the patient's lab results. Labs: Lab Results 12/10/20 12/10/20 12/10/20 Range/Units 14:30 14:30 14:30 WBC 9.5 (4.0-10.0) 10^3/ uL RBC 5.39 H (4.1-5.3) 10^6/u L Hgb 13.3 (11.5-15.3) g/dL Hct 47.1 H (37.0-47.0) % MCV 87.4 (81-99) fL MCH 24.7 L (28.0-34.0) pg MCHC 28.2 L (30.0-36.0) g/dL RDW 17.6 H (12.1-15.1) % Plt Count 365 (130-400) 10^3/c mm MPV 10.5 H (7.4-10.4) fL Neut % (Auto) 75.8 % Lymph % (Auto) 16.5 % Ashley % (Auto) 4.7 % Eos % (Auto) 1.6 % Baso % (Auto) 1.1 % Neut # (Auto) 7.18 (1.8-7.7) 10^3/u L Lymph # (Auto) 1.6 (0.8-4.8) 10^3/u L Ashley # (Auto) 0.4 (0.2-0.9) 10^3/u L Eos # (Auto) 0.2 (0.0-0.8) 10^3/u L Baso # (Auto) 0.1 (0.0-0.1) 10^3/u L Nucleated RBC % (a uto) 0 % Nucleated RBCs # 0.0 /100WBC Sodium 136 (136-145) mmol/L Potassium 4.2 (3.5-5.1) mmol/L Chloride 103 (98-107) mmol/L Carbon Dioxide 23 (22-29) mmol/L Anion Gap 14.2 (5-19) BUN 9 (6-20) mg/dL Creatinine 0.7 (0.5-0.9) mg/dL GFR Calculation 92.7 (90-130) mL/min Glucose 84 (65-115) mg/dL Calculated Osmolal ity 280 L (285-295) mOsm/k g Lactate 1.0 (0.5-2.2) mmol/L Calcium 9.0 (8.5-10.5) mg/dL Total Bilirubin 0.4 (0.15-1.2) mg/dL AST 33 H (0-32) U/L ALT 25 (0-33) U/L Alkaline Phosphata se 110 H (35-105) IU/L Creatine Kinase 56 (26-192) U/L C-Reactive Protein 4.8 (0.0-4.9) mg/L Total Protein 7.4 (6.6-8.7) g/dL Albumin 4.1 (3.5-5.2) g/dL Globulin 3.3 (1.3-4.6) g/dL Lipase 24 (13-60) U/L HCG, Qual (Negative) Urine Color (Yellow) Urine Appearance (CLEAR) Urine pH (5-7) Ur Specific Gravit y (1.005-1.030) Urine Protein (Negative) Urine Glucose (UA) (Normal) Urine Ketones (Negative) Urine Blood (Negative) Urine Nitrate (Negative) Urine Bilirubin (Negative) Urine Urobilinogen (Negative) mg/dL Ur Leukocyte Denice ase (Negative) Urine RBC (0-2) /hpf Urine WBC (0-5) /hpf Ur Squamous Epith Cells (0-5) /hpf Amorphous Sediment Urine Bacteria (NONE) /hpf 12/10/20 12/10/20 Range/Units 14:30 14:30 WBC (4.0-10.0) 10^3/ uL RBC (4.1-5.3) 10^6/u L Hgb (11.5-15.3) g/dL Hct (37.0-47.0) % MCV (81-99) fL MCH (28.0-34.0) pg MCHC (30.0-36.0) g/dL RDW (12.1-15.1) % Plt Count (130-400) 10^3/c mm MPV (7.4-10.4) fL Neut % (Auto) % Lymph % (Auto) % Ashley % (Auto) % Eos % (Auto) % Baso % (Auto) % Neut # (Auto) (1.8-7.7) 10^3/u L Lymph # (Auto) (0.8-4.8) 10^3/u L Ashley # (Auto) (0.2-0.9) 10^3/u L Eos # (Auto) (0.0-0.8) 10^3/u L Baso # (Auto) (0.0-0.1) 10^3/u L Nucleated RBC % (a uto) % Nucleated RBCs # /100WBC Sodium (136-145) mmol/L Potassium (3.5-5.1) mmol/L Chloride (98-107) mmol/L Carbon Dioxide (22-29) mmol/L Anion Gap (5-19) BUN (6-20) mg/dL Creatinine (0.5-0.9) mg/dL GFR Calculation (90-130) mL/min Glucose (65-115) mg/dL Calculated Osmolal ity (285-295) mOsm/k g Lactate (0.5-2.2) mmol/L Calcium (8.5-10.5) mg/dL Total Bilirubin (0.15-1.2) mg/dL AST (0-32) U/L ALT (0-33) U/L Alkaline Phosphata se (35-105) IU/L Creatine Kinase (26-192) U/L C-Reactive Protein (0.0-4.9) mg/L Total Protein (6.6-8.7) g/dL Albumin (3.5-5.2) g/dL Globulin (1.3-4.6) g/dL Lipase (13-60) U/L HCG, Qual Negative (Negative) Urine Color Yellow (Yellow) Urine Appearance Hazy A (CLEAR) Urine pH 7 (5-7) Ur Specific Gravit y 1.010 (1.005-1.030) Urine Protein Neg (Negative) Urine Glucose (UA) Norm (Normal) Urine Ketones Negative (Negative) Urine Blood Neg (Negative) Urine Nitrate Negative (Negative) Urine Bilirubin Neg (Negative) Urine Urobilinogen Norm (Negative) mg/dL Ur Leukocyte Denice ase Negative (Negative) Urine RBC 0-4 H (0-2) /hpf Urine WBC None (0-5) /hpf Ur Squamous Epith Cells 15-25 H (0-5) /hpf Amorphous Sediment Not Reportable Urine Bacteria 2+ H (NONE) /hpf Imaging Data ^: CT Abd/Pel: Attestation: I personally reviewed and interpreted this imaging study as follows: Radiologist's impression: [address] [address] XRay Report Signed Patient: Lluvia Norman #: [id number] : 09/03/1967Acct#:[id number] Age/Sex: 53 / FADM Date: 12/10/20 Loc: ERRoom/Bed: Attending Dr: Ordering Provider/Ordering MD: Letty Temple MD, [facility] [place] Date of Service: 12/10/20 Procedure(s): XR chest 1V portable [id number] Accession Number(s): [id number] Report Number: [id number] WS: [id number] Exam: XR chest 1V portable [id number] Date/Time of Exam: 12/10/2020 1:22 PM Reason For Exam: chest pain Comparison 01/26/2020. Findings: The lungs are clear and fully expanded. Costophrenic angles are sharp. No infiltrates. Bronchovascular relief appears normal. Cardiac silhouette is unremarkable. Bony elements are intact. XR/XR chest 1V portable [id number] IMPRESSION: Unremarkable chest radiograph. Dictated By:Marcelo Hoyt DO Signed By:Reina Hall Date/Time:12/10/20 1338 DD/ 1336 Discharge Plan Discharge Patient Disposition: Home Clinical Impression: Fibroids Abdominal pain Qualifiers: Abdominal location: left lower quadrant Qualified Code(s): R10.32 - Left lower quadrant pain Condition: Stable Prescriptions: Continued triamcinolone acetonide 0.1 % ointment 1 applic topical BID PRN (Reason: Skin Irritation) RF: 0 Eliquis 5 mg tablet 5 mg PO BID RF: 0 gabapentin 300 mg capsule 600 mg PO BEDTIME RF: 0 hydroxyurea 500 mg capsule 500 mg PO BID RF: 0 terbinafine HCl 250 mg tablet 250 mg PO DAILY 90 Days Qty: 30 RF: 0 Discharge Orders: Discharge ED (Routine); Ordered 12/10/20 Ordered By: Letty Temple Referrals: Viviana Gill FNP [Primary Care Provider] - 1-3 days Discharge Diet: Usual diet Discharge Activity: Increase activity as tolerated Patient Instructions: Abdominal Pain (ED) Activity Restrictions/Additional Instructions: Return for any new or worsening symptoms. Follow-up with your primary care provider within 3 days. 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
[2020-12-10 16:28] VITALS: BP 132/90; PULSE 78; RESP 18; O2SAT 99
== END 2020-12-10 16:28 | disposition home or self-care (01) ==
PROVIDERS: Emergency Provider Family Medicine; PCP Nurse Practitioner
DX: R10.32 Left lower quadrant pain (principal); D21.9 Benign neoplasm of connective and other soft tissue, unspecified; Z79.01 Long term (current) use of anticoagulants
CPT/HCPCS: 12345; 74177; 80053; 81001; 81025; 82550; 83605; 83690; 85025; 86140; 99283; Q9967

== ENCOUNTER 2021-01-10 07:54 | Outpatient (CLI) | payer OTHER, MEDICARE, SELFPAY ==
[2021-01-10 08:19] LABS: Basophils # 0.1 10^3/uL (0.0-0.1); Basophils % 1.1 %; Eosinophils # 0.1 10^3/uL (0.0-0.8); Eosinophils % 1.4 %; Hematocrit 45.9 % (37.0-47.0); Hemoglobin 13.2 g/dL (11.5-15.3); Lymphocytes # 1.2 10^3/uL (0.8-4.8); Lymphocytes % 14.8 %; Mean Corpuscular HGB Conc 28.8 g/dL (30.0-36.0); Mean Corpuscular Hemoglobin 24.8 pg (28.0-34.0); Mean Corpuscular Volume 86.3 fL (81-99); Mean Platelet Volume 9.7 fL (7.4-10.4); Monocytes # 0.6 10^3/uL (0.2-0.9); Monocytes % 6.6 %; Neutrophils # 6.31 10^3/uL (1.8-7.7); Neutrophils % 75.5 %; Nucleated Red Blood Cells % 0 %; Platelet Count 310 10^3/cmm (130-400); Red Blood Count 5.32 10^6/uL (4.1-5.3); White Blood Count 8.4 10^3/uL (4.0-10.0)
== END 2021-01-10 07:55 | disposition home or self-care (01) ==
LOC: ONCMED 07:55
PROVIDERS: PCP Nurse Practitioner; Visit Provider Internal Medicine Hematology & Oncology
DX: D75.1 Secondary polycythemia (principal)
CPT/HCPCS: 85025

== ENCOUNTER 2021-01-13 05:29 | Outpatient (CLI) | payer OTHER, MEDICARE, SELFPAY ==
[2021-01-13] MEDS: sodium chloride 0.9% 250 ML 999 ML IV (12:00)
--- NOTE | 2021-01-13 15:13 | ONC FU_ITS ---
Dr. Garcia follow up note Patient: Reta Gipson Unit #: [id number]: 1980 Dicatated By: Kris Garcia M.D.Date of Visit:Jan 13, 2021 Onc Med Follow-up/Prog Note History of Present Illness: Ms. Ms. Dulce Gipson, is a 40 -year-old female with a history of polycythemia vera Benja 2+, history of tiny subsegmental pulmonary embolism diagnosed in October 2019 since then she is on Eliquis 5 mg twice a day.As per patient she has history of diverticulitis and In addition to abdominal pain she was also having some chest pain so underwent CT scan of chest abdomen pelvis in October [address] scan of the chest showed small blood clot As per patient in 2016, she was having progressive headaches for which she went for evaluation found to have 'thick' blood, subsequently she was diagnosed with polycythemia as her hematocrit was more than 60, underwent twice a week phlebotomy initially followed by weekly and then every 2 weeks for 6 months to get her hematocrit to the target range e.g. 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 daily, which she took till March 2020 and then stopped taking as she ran out of prescription and she moved to [place] from [place] thus could not get prescription. Patient denies smoking, occasional alcohol. Tolerating hydroxyurea Came for follow-up, denies any specific complaints, no nausea or vomiting no diarrhea no fever no melena or hematochezia no abdominal pain as per patient she went to [facility] on December 10, 2020 with abdominal pain and CT scan of abdomen was done which showed enhancing left ovarian cyst measuring 2.5 x 3.1 cm. Soft tissue thickening at endocervical junction and internal cervical os, neoplasm is not excluded, as per patient she is being followed by [facility] for excessive menses, now colposcopy is under consideration. Otherwise tolerating hydroxyurea well and tolerated phlebotomy on November 29, 2020 well. Medications: Eliquis 1 Tablet (of 5 mg) Oral b.i.d., Gabapentin 1 Capsule (of 300 mg) Oral b.i.d., Hydroxyurea 1 Capsule (of 500 mg) Oral b.i.d., Terbinafine HCl 1 Tablet (of 250 mg) Oral daily Allergies: Esthela Allergy, Flagyl, and guaiFENesin. Review of Systems: Review of Systems is not available for this patient. Vital Signs: Performed on Jan 13, 2021 10:34 Height - 69.50 in Weight - 320.8 lbs (LOW) BSA - 2.54 sq.m BMI - 46.70 (HIGH) Temperature - 97.1 F (LOW) Pulse - 81 /min Respiration - 18 /min BP - 147/81 mm(hg) (HIGH) O2 Sat - 97 % Pain - 3 Fatigue - 4 Performance Status: 0 - Fully active, able to carry on all predisease activities without restrictions. (ECOG) Physical Examination: ENMT - No mouth sores, no thrush, no jaundice, Respiratory - Lungs are clear to auscultation, Cardiovascular - Regular rate and rhythm of heart, Abdomen - Soft, bowel sounds present, Extremities - No visible edema. Lab/Imaging: Test performed on Nov 27, 2020 15:45 WBC 9.0 10 3/uL RBC 5.57 10 6/uL HGB 14.0 g/dL HCT 47.8 % MCV 85.8 fL MCH 25.1 pg MCHC 29.3 g/dL RDW 17.8 % Platelet Count 294 10 3/cmm MPV 10.1 fL Neutrophils 6.50 10 3/uL Lymphocytes 1.6 10 3/uL Monocytes 0.6 10 3/uL Eosinophils 0.2 10 3/uL Basophils 0.1 10 3/uL Neutrophil % 72.1 % Lymphocyte % 17.5 % Monocyte % 6.8 % Eosinophil % 1.8 % Basophils % 1.2 % NRBC % 0 % Impression: Polycythemia vera, Benja 2 mutation positive, diagnosed in 2016 in hematology clinic at [facility] in [facility] which she initially presented with hematocrit more than 60, treated with aggressive phlebotomies to get hematocrit below 43. Underwent bone marrow evaluation in November 2019 for hydroxyurea therapy, and patient was started on hydroxyurea thousand milligrams p.o. daily, which she tolerated well and then ran out of prescription in March 2020, since then she is off, Restarted on June 18, 2020 History of tiny subsegmental pulmonary embolism diagnosed in October 2019, on Eliquis 5 mg p.o. twice daily History of diverticulitis Obesity. Plan: Discussed with patient regarding her labs white blood count 8.4 hemoglobin 13.2 hematocrit 45.9, platelets 310,000 Clinically, patient is doing well with no new signs symptoms, tolerating hydroxyurea well, her follow-up labs shows hematocrit more than 45%, plan is to keep it between 40 to 45%, will consider another phlebotomy with 500 cc with 250 cc normal saline replacement to prevent hypovolemia in the meantime she will continue with hydroxyurea 1000 mg daily return to clinic in 1 month with CBC. As far as endocervical abnormality seen on recently done CT scan of abdomen pelvis is concerned, patient is being followed by [facility] and as per patient, colposcopy is under consideration. Signed By: Kris Garcia M.D. <<Signature on File>>
== END 2021-01-13 05:30 | disposition home or self-care (01) ==
LOC: ONCMED 05:31
PROVIDERS: PCP Nurse Practitioner; Visit Provider Internal Medicine Hematology & Oncology
DX: D45 Polycythemia vera (principal); E66.9 Obesity, unspecified; K57.92 Diverticulitis of intestine, part unspecified, without perforation or abscess without bleeding; Z86.711 Personal history of pulmonary embolism; Z79.01 Long term (current) use of anticoagulants; Z79.899 Other long term (current) drug therapy
CPT/HCPCS: 99195; 99214; J7050

== ENCOUNTER 2021-01-22 12:51 | Outpatient (CLI) | payer OTHER, SELFPAY ==
--- NOTE | 2021-01-22 12:57 | MM_ITS ---
WS: [id number] BILATERAL DIGITAL SCREENING MAMMOGRAPHY WITH CAD CLINICAL INFORMATION: SCREENING HISTORY: Screening mammogram. No current complaints. COMPARISON: None. TECHNIQUE: Bilateral CC and MLO views. FINDINGS: Scattered fibroglandular densities bilaterally. No suspicious focal mass, asymmetry, calcifications, or architectural distortion. No evidence of malignancy. MM/[place] [id number] IMPRESSION: BI-RADS: 1-Negative FOLLOW UP: 1 Year Follow-up Recommend return to annual screening mammography.
== END 2021-01-22 12:52 | disposition home or self-care (01) ==
LOC: RADSHAW 12:53
PROVIDERS: PCP Nurse Practitioner; Visit Provider Nurse Practitioner
DX: Z12.31 Encounter for screening mammogram for malignant neoplasm of breast (principal)
CPT/HCPCS: 77067

== ENCOUNTER → 2021-01-31 10:30 | Outpatient (BNVA) | payer OTHER, MEDICARE, SELFPAY | PROVIDERS: PCP Nurse Practitioner; Referring Provider Obstetrics & Gynecology; Visit Provider Obstetrics & Gynecology | DX: N84.0 Polyp of corpus uteri (principal); N93.9 Abnormal uterine and vaginal bleeding, unspecified | CPT/HCPCS: 87635 ==

== ENCOUNTER 2021-02-06 10:59 | Day surgery (SDC) | payer OTHER, MEDICARE, SELFPAY ==
[2021-01-29 13:31] VITALS: BMI 45.8
--- NOTE | 2021-01-29 14:04 | ANES.PREANE2 ---
Pre-Anesthetic Assessment Pre-Anesthetic Assessment: Height/Weight: Height 1.78 m Weight 144.696 kg Proposed Procedure: Operation Date: 02/06/21 12:40 Proposed Procedures p Hysteroscopy 48129 [id number] N93.9 N84.0(Not Applicable) - Joselin Agrawal MD s Dilation And Curettage (D&C) with myosure(Not Applicable) - Joselin Agrawal MD Was Beta Ricki taken within 24 hours: N/A Was Clonidine taken within 24 hours: N/A Social: Social History: No alcohol and No tobacco Exam: Pre-Anes Outpt Exam: alert, oriented x 3, clear to auscultation bilaterally and regular rate & rhythm Airway: Submandibular: WNL Cervical ROM: WNL MP: 2 Dentition: Full CV/HEM: CV/HEM: DVT (PE) Comments: PCV--blood thinners Metabolic: Metabolic: Morbid obesity Anesthetic Plan: ASA status: 3 Anesthesia: General Risk of > 500 ml blood loss (7ml/kg in children): No PFSH Anesthesia PFSH: Medical History (Reviewed 12/10/20 @ 17:30 by Letty Temple MD, [facility] Diverticulitis Diagnosed in 2018- Enlarged thyroid gland This is currently being evaluated and managed by Dr. Ferro. She thinks that her thyroid levels were normal. Polycythemia vera Has had symptoms since about 2013 and was diagnosed in 2015. She currently sees heme oncology-Dr. Garcia and is on medication for this. Pulmonary embolism In November 2019 and she has been on Eliquis since then managed by her primary care provider. Denies history of DVT. Surgical History (Reviewed 12/10/20 @ 17:30 by Letty Temple MD, [facility] [place] History of tubal ligation March 2009--laparoscopic procedure Family History (Reviewed 12/10/20 @ 17:30 by Letty Temple MD, [facility] [place]) Father Chronic kidney disease (CKD) Hypertension Sister Chronic kidney disease (CKD) Psychiatric illness Mother Thyroid disease Grandmother Thyroid disease Maternal Denies family history of Colon cancer Ovarian cancer Diabetes Heart disease Breast cancer Bleeding disorder Uterine cancer Stroke Social History (Reviewed 12/10/20 @ 17:30 by Letty Temple MD, [facility] [place]) Smoking and tobacco status: never smoked Alcohol intake: former Female Reproductive History: Date of last menstrual period: 11/23/20 Data Anesthesia Cardiac Studies: No Data to Display
[2021-02-06] MEDS: sodium chloride 0.9% 1,000 ML 30 ML IV (11:00)
[2021-02-06 11:13] VITALS: BP 141/113; PULSE 87; RESP 16; TEMP 36.4; O2SAT 99
--- NOTE | 2021-02-06 11:29 | P.ANESUD_ITS ---
Pre-Anesthetic Update Pre-Anesthetic Assessment: Date of Surgery/Procedure: 02/06/21 Preop Elisha gnosis: Endometrial polyp Proposed Procedure: Operation Date: 02/06/21 12:40 Proposed Procedures p Hysteroscopy 03382 25071 N93.9 N84.0(Not Applicable) - Joselin Agrawal MD s Dilation And Curettage (D&C) with myosure(Not Applicable) - Joselin Gross MD Any changes to Pre-Anesthetic Assessment?: No Last Intake: Intake Last Liquid Date 02/05/21 Last Liquid Time 18:00 Last Solid Date 02/05/21 Last Solid Time 18:00 Vitals: Temperature 97.5 F L 02/06/21 11:13 Temperature Source Temporal Artery S can 02/06/21 11:13 Pulse Rate 87 02/06/21 11:13 Respiratory Rate 16 02/06/21 11:13 Blood Pressure 141/113 02/06/21 11:13 Blood Pressure Ioana n 122 02/06/21 11:13 Pulse Oximetry 99 02/06/21 11:13 Oxygen Delivery Me thod 02/06/21 11:13 Exam: Pre-Anes Outpt Exam: alert, oriented x 3, clear to auscultation bilaterally and regular rate & rhythm Cardiac Studies: No Data to Display
--- NOTE | 2021-02-06 11:30 | W.PM.OPSUD ---
Surgery/Procedure H&P Update DATE OF PROCEDURE: February 06, 2021 DATE H&P PERFORMED: 01/29/21 H&P UPDATE INFORMATION: I have reviewed H&P completed within last 30 days, I have examined patient prior to procedure, No changes to prior documentation and [place] [facility] indicated PREOP DIAGNOSIS: Endometrial polyp PLANNED PROCEDURE: Operation Date: 02/06/21 12:40 Proposed Procedures p Hysteroscopy 25873 82100 N93.9 N84.0(Not Applicable) - Joselin Agrawal MD s Dilation And Curettage (D&C) with myosure(Not Applicable) - Joselin Agrawal MD
[2021-02-06 11:46] LABS: Basophils # 0.1 10^3/uL (0.0-0.1); Basophils % 1.1 %; Eosinophils # 0.1 10^3/uL (0.0-0.8); Eosinophils % 1.7 %; Hemoglobin 13.1 g/dL (11.5-15.3); Lymphocytes # 1.4 10^3/uL (0.8-4.8); Lymphocytes % 17.4 %; Mean Corpuscular HGB Conc 29.8 g/dL (30.0-36.0); Mean Corpuscular Hemoglobin 25.4 pg (28.0-34.0); Mean Corpuscular Volume 85.4 fL (81-99); Mean Platelet Volume 10.4 fL (7.4-10.4); Monocytes # 0.5 10^3/uL (0.2-0.9); Monocytes % 6.4 %; Neutrophils # 6.04 10^3/uL (1.8-7.7); Neutrophils % 72.9 %; Nucleated Red Blood Cells % 0 %; Platelet Count 280 10^3/cmm (130-400); Red Blood Count 5.15 10^6/uL (4.1-5.3); Red Cell Distribution Width 17.7 % (12.1-15.1); White Blood Count 8.3 10^3/uL (4.0-10.0)
[2021-02-06] MEDS: silver nitrate applicator 1 EACH TOPICAL (12:29)
[2021-02-06 12:34] VITALS: BP 123/92; PULSE 82; RESP 18; TEMP 36.1; O2SAT 92
--- NOTE | 2021-02-06 12:35 | PM.OP ---
Operative Report Date of procedure: February 06, 2021 OPERATIVE REPORT Date of surgery: 02/06/2021 Date of dictation: 02/06/2021 Preoperative diagnosis: Menorrhagia, a UB, possible endocervical polyp Postoperative diagnosis/findings: 8-week size midposition anteverted uterus, grade 1 uterine descent, grade 1 cystocele, minimal rectocele. On hysteroscopy no lesions noted in the endocervical or endometrial canal, thickened endometrium. Procedure done: Hysteroscopy, D&C with MyoSure Specimens removed/disposition of specimens: Endometrial curettings Surgeon: Dr. Joselin Ambrose pest controller assistant:torey Anesthesia:MAC Estimated blood loss: 5 ml Intravenous fluids: 1000 mL of LR Urine output: 20 ml Medications: As per anesthesia records Complications: None, patient taken to the recovery room in a stable condition PROCEDURE: After consent was obtained patient was taken to the operating room where she is placed under MAC without any difficulty. She was placed supine on the table in lithotomy position. Care was taken to ensure that her legs were well positioned to avoid pressure points. She was then prepped and draped in the usual sterile fashion. Exam under anesthesia was done at this time which showed findings noted above. The weighted speculum and lateral vaginal wall retractors were placed in the vagina and the cervix was visualized. Cervix appeared normal. The cervix was dilated to a 15 Gerber dilator. This allowed placement of a the Myosure hysteroscope into the uterine cavity without any difficulty. Once the hysteroscope was placed in the uterine cavity, the endocervical canal was visualized and appeared normal .the uterine cavity was visualized and endometrium appeared thickened but normal. Bilateral ostia were visualized without any difficulty. No obvious clots were noted at the endocervical junction.Using the light [employer] sure D&C was performed and endometrial curettings were sent to pathology . No active bleeding was noted from the cervix. Tenaculum was removed and hemostasis was achieved with silver nitrate. Good hemostasis was achieved. All instruments were removed from the vagina. Patient was cleaned well and anesthesia was reversed without any difficulty. She was taken to the recovery in a stable condition. FOLLOW UP: Follow-up in 2 weeks and 6 weeks with surgeon MEDICATION ON DISCHARGE: Colace 100 mg by mouth every 12 hours when necessary constipation, 30 tablets, no refills Thayer 5/325 mg 1 tablet by mouth every 6 hours when necessary pain,10tablets, no refills Continue other home medication DISPOSITION: Home in a stable condition This documentation was created by [employer] punch press operator helper software (known for inherent punch press operator helper error). Every effort was made to assure accuracy of punch press operator helper. Any obvious errors or omissions should be clarified with the author of the document. Pre-op Diagnosis: Endometrial polyp
[2021-02-06 12:40] VITALS: BP 134/90; PULSE 78; RESP 16; O2SAT 98
[2021-02-06 12:45] VITALS: BP 130/89; PULSE 76; RESP 17; TEMP 36.5; O2SAT 98
[2021-02-06 12:54] VITALS: BP 125/95; PULSE 72; RESP 18; TEMP 36.5; O2SAT 100
[2021-02-06] MEDS: HYDROcodone-acetaminophen 5-325 mg Tablet 1 TAB PO (13:14)
[2021-02-06 13:23] VITALS: BP 135/91; PULSE 70; RESP 18; TEMP 36.5; O2SAT 99
--- NOTE | 2021-02-06 20:51 | ANE.PACU2 ---
Inpatient post-anesthesia follow up: Airway intact: Yes Vital signs: Temperature 97.7 F Pulse Rate 70 Respiratory Rate 18 Blood Pressure 135/91 Pulse Oximetry 99 Oxygen Delivery Me thod Room Air Oxygen Flow Rate Fraction of Inspir ed Oxygen Hydration adequate: Yes Nausea and vomiting: No Pain level: 2 Mental status: Baseline
== END 2021-02-06 13:35 | disposition home or self-care (01) ==
PROVIDERS: PCP Nurse Practitioner; Visit Provider Obstetrics & Gynecology
PROC: 0UDB8ZZ Extraction of Endometrium, Via Natural or Artificial Opening Endoscopic (ICD-10-PCS; CPT 58558; principal; 2021-02-06 12:30)
PROC: (CPT 58120; 2021-02-06 12:30)
DX: N92.0 Excessive and frequent menstruation with regular cycle (principal); Z86.718 Personal history of other venous thrombosis and embolism; Z86.711 Personal history of pulmonary embolism; E66.01 Morbid (severe) obesity due to excess calories; Z68.42 Body mass index [BMI] 45.0-49.9, adult
CPT/HCPCS: 58558; 36415; 85025; 88305; J2405; J2704; J3010; J7030

== ENCOUNTER 2021-02-10 13:44 | Emergency (ER) | payer OTHER, MEDICARE, SELFPAY ==
[2021-02-10 13:48] VITALS: BP 152/102; PULSE 101; RESP 16; TEMP 36.5; O2SAT 96; BMI 45.1
[2021-02-10 13:57] VITALS: BP 152/102; PULSE 89; RESP 16; O2SAT 96
--- NOTE | 2021-02-10 13:57 | ED_ITS ---
HPI - Abdominal Pain General: Chief Complaint: Abdominal Pain Stated Complaint: ABD PAIN/CONSTIPATION DUE TO PAIN MEDS AFTER DNC Time Seen by Provider: 02/10/21 13:49 History of Present Illness: HPI narrative: Patient is a 40-year-old female comes to the ED with abdominal pain and constipation. Patient had a D&C performed on February 06. She states that she has not had a bowel movement since February 05. She has been taking hydrocodone post surgery to help with pain. She states that yesterday she took 3 stool softener pills and some magnesium pills. She also took magnesium citrate today. She says she feels like she needs to have is a bowel movement when she sits down she cannot pass any stool. She says she has generalized abdominal pain. Denies any fever, chills, vomiting, dysuria or hematuria. Patient does report some nausea occasionally. Associated Symptoms: Reports constipation; Denies chills, diarrhea, dysuria, fever(s), hematochezia, hematuria, nausea and vomiting Related Data: Date of Last Menstrual Period: 11/23/20 Review of Systems Const: Denies: fever(s), chills or fatigue Eyes: Denies: change in vision or eye discomfort ENMT: Denies: throat pain, odynophagia, nasal discharge or nasal congestion Card: Denies: chest pain, palpitations, edema, swelling of feet/ankles, dyspnea on exertion or orthopnea Resp: Denies: dyspnea, productive cough or non-productive cough GI: Reports: abdominal pain and constipation; Denies: nausea, vomiting, diarrhea or hematochezia : Denies: flank pain, dysuria or hematuria Musc: Denies: neck pain, back pain or extremity swelling Skin/Breast: Denies: rash or new lesions Neuro: Denies: headache(s), numbness in extremities or weakness in extremities PFS ED PFSH: Medical History Diverticulitis Diagnosed in 2019- Enlarged thyroid gland This is currently being evaluated and managed by Dr. Ferro. She thinks that her thyroid levels were normal. No pertinent past medical history Denies diabetes, asthma, seizures, DVT. PMD: ABI [place] Polycythemia vera Has had symptoms since about 2013 and was diagnosed in 2016. She currently sees heme oncology-Dr. Garcia and is on medication for this. Pulmonary embolism In November 2019 and she has been on Eliquis since then managed by her primary care provider. Denies history of DVT. Surgical History History of tubal ligation March 2009--laparoscopic procedure Family History Father Chronic kidney disease (CKD) Hypertension Sister Chronic kidney disease (CKD) Psychiatric illness Mother Thyroid disease Grandmother Thyroid disease Maternal Denies family history of Colon cancer Ovarian cancer Diabetes Heart disease Breast cancer Bleeding disorder Uterine cancer Stroke Social History Smoking and tobacco status: never smoked Alcohol intake: former Female Reproductive History: Date of last menstrual period: 11/23/20 Physical Exam Const: COMMON NORMALS: no acute distress, patient oriented x3 and alert GENERAL APPEARANCE: cooperative and comfortable NUTRITIONAL APPEARANCE: obese HENMT: COMMON NORMALS: normocephalic HEAD & SCALP: normocephalic MOUTH: Normal oral and palatal mucosa present THROAT: posterior oropharynx normal and uvula midline Neck/C-Spine: COMMON NORMALS: supple GENERAL: Yes normal visual inspection Resp: COMMON NORMALS: normal respiratory effort, No retractions, No use of accessory muscles and clear to auscultation bilaterally AUSCULTATION: clear to auscultation bilaterally Cardio: COMMON NORMALS: regular rate, regular rhythm, S1 normal heart sound present, S2 normal heart sound present, No gallops present (Cardio), No clicks present (Cardio), No murmurs present (Cardio) and Peripheral pulses 2+ throughout RATE: regular rate RHYTHM: regular rhythm HEART SOUNDS: S1 normal heart sound present and S2 normal heart sound present PERIPHERAL PULSES: Peripheral pulses 2+ throughout GI: COMMON NORMALS: Normal to inspection, nondistended, normoactive bowel soun ds present, Soft to palpation and no masses INSPECTION: Yes central obesity PALPATION: Yes Soft to palpation and Yes Tenderness to palpation present (GI) (Generalized mild tenderness throughout the abdomen. No localized tendernes) : COMMON NORMALS: Yes no CVA tenderness BLADDER/KIDNEY EXAM: Yes no CVA tenderness Back/Pelvis: COMMON NORMALS: no CVA tenderness Extremity: COMMON NORMALS: normal to inspection Neuro: COMMON NORMALS: patient oriented x3 SENSORIUM/ORIENTATION: Yes alert GAIT: Yes Normal gait present Skin: GENERAL SKIN EXAM: dry skin Course Consultations: Consultation #1: pt did pass some stool after enema and felt relief. she is ready to go home. Vital Signs: Vital signs: Vital Signs Temperature 97.7 F 02/10/21 13:48 Pulse Rate 90 02/10/21 15:26 Respiratory Rate 16 02/10/21 15:26 Blood Pressure 142/79 02/10/21 15:26 Pulse Oximetry 98 02/10/21 15:26 MDM - Abdominal Pain MDM Narrative: Medical decision making narrative: pt is a 40 y/o female who comes to the ED with constipation and abdominal pain. Pt had D&C last and has not had a bowel movement since. She is taking hydrocodone for pain and just tried taking some stool softner and mag citrate within the last 24 hours. Exam remarkable for some generalized abdominal tenderness. Labs wer normal and vitals stable. pt appears non toxic and in no acute distress. ct abd showed low grade diverticulitis and impending fecal impaction. pt was given milk and molasses enema here in the ED and she past some stool and symptoms improved. She was diagnosed with diverticulitis and fecal impaction. Patient was discharged on Zofran, ciprofloxacin and Flagyl. She was told to continue taking stool softeners and take MiraLAX to help with bowel movements. Return to ED precautions given. Patient agreed with plan. Lab Data: Labs: Lab Results 02/10/21 02/10/21 Range/Units 15:15 15:15 WBC 12.2 H (4.0-10.0) 10^3/ uL RBC 5.21 (4.1-5.3) 10^6/u L Hgb 13.2 (11.5-15.3) g/dL Hct 44.7 (37.0-47.0) % MCV 85.8 (81-99) fL MCH 25.3 L (28.0-34.0) pg MCHC 29.5 L (30.0-36.0) g/dL RDW 17.7 H (12.1-15.1) % Plt Count 297 (130-400) 10^3/c mm MPV 10.3 (7.4-10.4) fL Neut % (Auto) 82.0 % Lymph % (Auto) 10.0 % [place] % (Auto) 5.8 % Eos % (Auto) 0.9 % Baso % (Auto) 0.7 % Neut # (Auto) 9.97 H (1.8-7.7) 10^3/u L Lymph # (Auto) 1.2 (0.8-4.8) 10^3/u L [place] # (Auto) 0.7 (0.2-0.9) 10^3/u L Eos # (Auto) 0.1 (0.0-0.8) 10^3/u L Baso # (Auto) 0.1 (0.0-0.1) 10^3/u L Nucleated RBC % (a uto) 0 % Nucleated RBCs # 0.0 /100WBC Sodium 139 (136-145) mmol/L Potassium 4.2 (3.5-5.1) mmol/L Chloride 102 (98-107) mmol/L Carbon Dioxide 25 (22-29) mmol/L Anion Gap 16.2 (5-19) BUN 9 (6-20) mg/dL Creatinine 0.7 (0.5-0.9) mg/dL GFR Calculation 92.7 (90-130) mL/min Glucose 94 (65-115) mg/dL Calculated Osmolal ity 286 (285-295) mOsm/k g Calcium 9.1 (8.5-10.5) mg/dL Total Bilirubin 0.5 (0.15-1.2) mg/dL AST 22 (0-32) U/L ALT 18 (0-33) U/L Alkaline Phosphata se 98 (35-105) IU/L Total Protein 7.5 (6.6-8.7) g/dL Albumin 4.2 (3.5-5.2) g/dL Globulin 3.3 (1.3-4.6) g/dL Lipase 18 (13-60) U/L Imaging Data ^: CT Abd/Pel: Attestation: I personally reviewed and interpreted this imaging study as follows: Radiologist's impression: [address] [address] [address] Scan Report Signed Patient: Reta Gipson Unit #: [id number] : 1980 [id number] Age/Sex: 40 / F ADM Date: 02/10/21 Loc: ER Room/Bed: Attending Dr: Ordering Provider/Ordering MD: Ovidio Boothe Date of Service: 02/10/21 Procedure(s): CT abdomen pelvis w con* [id number] Accession Number(s): [id number] Report Number: [id number] PROCEDURE INFORMATION: Exam: CT Abdomen And Pelvis With Contrast Exam date and time: 02/10/2021 2:26 PM Age: 40 years old Clinical indication: Constipation; Abdominal pain; Prior surgery; Surgery type: Tubal, d c; Additional info: Abdominal pain and constipation TECHNIQUE: Imaging protocol: Computed tomography of the abdomen and pelvis with contrast. Total images: 288 Radiation optimization: All CT scans at this facility use at least one of these dose optimization techniques: automated exposure control; mA and/or kV adjustment per patient size (includes targeted exams where dose is matched to clinical indication); or iterative reconstruction. Contrast material: OMNI 300; Contrast volume: 95 ml; Contrast route: INTRAVENOUS (IV); COMPARISON: CT abdomen pelvis w con* [id number] 12/10/2020 2:55 PM RADIATION DOSE METRICS: Total DLP (mGy-cm): 2122.96 FINDINGS: Lungs: Limited assessment of the lung bases fails to reveal evidence for active cardiopulmonary process. Stable tiny granuloma posterior basal segment right lower lobe. Liver: Mild hepatomegaly. No visible hepatic mass or cystic structure. Gallbladder and bile ducts: Normal. No calcified stones. No ductal dilation. Pancreas: Pancreas unremarkable. No visible pancreatic ductal ectasia. Spleen: Splenomegaly. Adrenal glands: Adrenal glands unremarkable. Kidneys and ureters: No hydronephrosis or perinephric fluid. No visible nephrolithiasis. No visible ureterolithiasis. Stomach and bowel: Low-grade uncomplicated acute proximal sigmoid diverticulitis. No visible diverticular abscess or extraluminal gas. Focal pericolonic fat inflammatory response. Potential fecal impaction. Nonobstructive bowel pattern. No visible significant adynamic or reactive ileus. Appendix: The appendix is visualized and appears noninflamed. Intraperitoneal space: No visible pneumoperitoneum or intraperitoneal ascites. Vasculature: Portal vein patent. The abdominal aorta is nonaneurysmal. Lymph nodes: No current visible evidence of active mesenteric or retroperitoneal lymphadenopathy. Urinary bladder: Urinary bladder unremarkable. Reproductive: Unremarkable as visualized. Bones/joints: No visible active or acute osseous pathology. Soft tissues: Small periumbilical ventral hernia containing fat only. Other findings: Marked obesity. CT/CT abdomen pelvis w con* [id number] IMPRESSION: 1. Low-grade uncomplicated acute proximal sigmoid diverticulitis. No visible diverticular abscess or extraluminal gas. Focal pericolonic fat inflammatory response. 2. Hepatosplenomegaly. 3. Potential fecal impaction. Radiation Dose CTDIVOL = (mGy): DLP = 2122.96 (mGy-cm) Dictated By: Jignesh Cervantes Signed By: Jignesh Cervantes Signed Date/Time: 02/10/211611 DD/ 11 Discharge Plan Discharge Patient Disposition: Home Clinical Impression: Fecal impaction, Diverticulitis Condition: Stable Prescriptions: New ciprofloxacin HCl 750 mg tablet 750 mg PO Q12H 7 Days Qty: 14 RF: 0 Zofran 4 mg tablet 4 mg PO Q8H Qty: 15 RF: 0 Flagyl 500 mg tablet 500 mg PO Q8H 7 Days Qty: 21 RF: 0 No Action triamcinolone acetonide 0.1 % ointment 1 applic topical BID PRN (Reason: Skin Irritation) RF: 0 Eliquis 5 mg tablet 5 mg PO BID RF: 0 gabapentin 300 mg capsule 600 mg PO BEDTIME RF: 0 hydroxyurea 500 mg capsule 500 mg PO BID RF: 0 hydrocodone-acetaminophen 5-325 mg tablet 1 tab PO Q6H Qty: 10 RF: 0 Discharge Orders: Discharge ED (Routine); Ordered 02/10/21 Ordered By: Ovidio Boothe Referrals: Viviana Gill FNP [Primary Care Provider] - Discharge Diet: Advance as tolerated Discharge Activity: Increase activity as tolerated Patient Instructions: Diverticulitis (ED), Diverticulitis Diet (ED), Fecal Impaction (ED) Activity Restrictions/Additional Instructions: Follow-up with medical provider as directed in 7 to 10 days for reevaluation. Take medications as prescribed. Advance diet as tolerated. Continue taking [id number] stool softeners and jxhl-sog-hadompd MiraLAX to help with bowel movements. Return to the ER or your medical provider if condition worsens. Please read and understand discharge instructions. If any questions, please ask. Coding Level of Care Code ED [employer] Manager for Chg Fwd Exam Comprehensive
--- NOTE | 2021-02-10 14:23 | CTR_ITS ---
PROCEDURE INFORMATION: Exam: CT Abdomen And Pelvis With Contrast Exam date and time: 02/10/2021 2:26 PM Age: 40 years old Clinical indication: Constipation; Abdominal pain; Prior surgery; Surgery type: Tubal, d & c; Additional info: Abdominal pain and constipation TECHNIQUE: Imaging protocol: Computed tomography of the abdomen and pelvis with contrast. Total images: 288 Radiation optimization: All CT scans at this facility use at least one of these dose optimization techniques: automated exposure control; mA and/or kV adjustment per patient size (includes targeted exams where dose is matched to clinical indication); or iterative reconstruction. Contrast material: OMNI 300; Contrast volume: 95 ml; Contrast route: INTRAVENOUS (IV); COMPARISON: CT abdomen pelvis w con* [id number] 12/10/2020 2:55 PM RADIATION DOSE METRICS: Total DLP (mGy-cm): 2122.96 FINDINGS: Lungs: Limited assessment of the lung bases fails to reveal evidence for active cardiopulmonary process. Stable tiny granuloma posterior basal segment right lower lobe. Liver: Mild hepatomegaly. No visible hepatic mass or cystic structure. Gallbladder and bile ducts: Normal. No calcified stones. No ductal dilation. Pancreas: Pancreas unremarkable. No visible pancreatic ductal ectasia. Spleen: Splenomegaly. Adrenal glands: Adrenal glands unremarkable. Kidneys and ureters: No hydronephrosis or perinephric fluid. No visible nephrolithiasis. No visible ureterolithiasis. Stomach and bowel: Low-grade uncomplicated acute proximal sigmoid diverticulitis. No visible diverticular abscess or extraluminal gas. Focal pericolonic fat inflammatory response. Potential fecal impaction. Nonobstructive bowel pattern. No visible significant adynamic or reactive ileus. Appendix: The appendix is visualized and appears noninflamed. Intraperitoneal space: No visible pneumoperitoneum or intraperitoneal ascites. Vasculature: Portal vein patent. The abdominal aorta is nonaneurysmal. Lymph nodes: No current visible evidence of active mesenteric or retroperitoneal lymphadenopathy. Urinary bladder: Urinary bladder unremarkable. Reproductive: Unremarkable as visualized. Bones/joints: No visible active or acute osseous pathology. Soft tissues: Small periumbilical ventral hernia containing fat only. Other findings: Marked obesity. CT/CT abdomen pelvis w con* [id number] IMPRESSION: 1. Low-grade uncomplicated acute proximal sigmoid diverticulitis. No visible diverticular abscess or extraluminal gas. Focal pericolonic fat inflammatory response. 2. Hepatosplenomegaly. 3. Potential fecal impaction. Radiation Dose CTDIVOL = (mGy): DLP = 2122.96 (mGy-cm)
[2021-02-10 15:26] VITALS: BP 142/79; PULSE 90; RESP 16; O2SAT 98
[2021-02-10 15:32] LABS: Basophils # 0.1 10^3/uL (0.0-0.1); Basophils % 0.7 %; Eosinophils # 0.1 10^3/uL (0.0-0.8); Eosinophils % 0.9 %; Hematocrit 44.7 % (37.0-47.0); Hemoglobin 13.2 g/dL (11.5-15.3); Lymphocytes # 1.2 10^3/uL (0.8-4.8); Mean Corpuscular HGB Conc 29.5 g/dL (30.0-36.0); Mean Corpuscular Hemoglobin 25.3 pg (28.0-34.0); Mean Corpuscular Volume 85.8 fL (81-99); Mean Platelet Volume 10.3 fL (7.4-10.4); Monocytes # 0.7 10^3/uL (0.2-0.9); Monocytes % 5.8 %; Neutrophils # 9.97 10^3/uL (1.8-7.7); Nucleated Red Blood Cells % 0 %; Platelet Count 297 10^3/cmm (130-400); Red Blood Count 5.21 10^6/uL (4.1-5.3); Red Cell Distribution Width 17.7 % (12.1-15.1); White Blood Count 12.2 10^3/uL (4.0-10.0)
[2021-02-10] MEDS: iohexol 300 mg/mL 100 mL Btl IV (15:37)
[2021-02-10 15:57] LABS: Alanine Aminotransferase 18 U/L (0-33); Albumin Level 4.2 g/dL (3.5-5.2); Alkaline Phosphatase 98 IU/L (35-105); Anion Gap 16.2 (5-19); Aspartate Amino Transferase 22 U/L (0-32); Blood Urea Nitrogen 9 mg/dL (6-20); Calcium 9.1 mg/dL (8.5-10.5); Carbon Dioxide 25 mmol/L (22-29); Chloride 102 mmol/L (98-107); Globulin 3.3 g/dL (1.3-4.6); Glomerular Filtration Rate 92.7 mL/min (90-130); Glucose 94 mg/dL (65-115); Lipase 18 U/L (13-60); Osmolality Calculated 286 mOsm/kg (285-295); Potassium 4.2 mmol/L (3.5-5.1); Sodium 139 mmol/L (136-145); Total Bilirubin 0.5 mg/dL (0.15-1.2); Total Protein 7.5 g/dL (6.6-8.7)
[2021-02-10] MEDS: metroNIDAZOLE 500 MG Tablet PO (17:53)
[2021-02-10] MEDS: ciprofloxacin 500 mg Tablet PO (17:53)
== END 2021-02-10 19:23 | disposition home or self-care (01) ==
PROVIDERS: Emergency Provider Physician Assistant; PCP Nurse Practitioner
DX: K56.41 Fecal impaction (principal); K57.92 Diverticulitis of intestine, part unspecified, without perforation or abscess without bleeding; Z79.01 Long term (current) use of anticoagulants
CPT/HCPCS: 36415; 74177; 80053; 83690; 85025; 99283; Q9967

== ENCOUNTER 2021-02-17 11:18 | Outpatient (CLI) | payer OTHER, MEDICARE, SELFPAY ==
[2021-02-17 11:50] LABS: Basophils # 0.1 10^3/uL (0.0-0.1); Basophils % 1.2 %; Eosinophils # 0.1 10^3/uL (0.0-0.8); Eosinophils % 1.7 %; Hematocrit 43.4 % (37.0-47.0); Hemoglobin 12.3 g/dL (11.5-15.3); Lymphocytes # 1.3 10^3/uL (0.8-4.8); Mean Corpuscular HGB Conc 28.3 g/dL (30.0-36.0); Mean Corpuscular Hemoglobin 24.9 pg (28.0-34.0); Mean Platelet Volume 10.8 fL (7.4-10.4); Monocytes # 0.4 10^3/uL (0.2-0.9); Monocytes % 5.6 %; Neutrophils # 5.44 10^3/uL (1.8-7.7); Neutrophils % 73.1 %; Nucleated Red Blood Cells % 0 %; Platelet Count 291 10^3/cmm (130-400); Red Blood Count 4.93 10^6/uL (4.1-5.3); Red Cell Distribution Width 17.1 % (12.1-15.1); White Blood Count 7.5 10^3/uL (4.0-10.0)
--- NOTE | 2021-02-17 14:06 | ONC FU_ITS ---
Dr. Garcia follow up note Patient: Reta Gipson Unit #: [id number]: 1980 Dicatated By: Kris Garcia M.D.Date of Visit:Feb 17, 2021 Onc Med Follow-up/Prog Note History of Present Illness: Ms. Ms. Dulce Gipson, is a 40 -year-old female with a history of polycythemia vera Benja 2+, history of tiny subsegmental pulmonary embolism diagnosed in October 2019 since then she is on Eliquis 5 mg twice a day.As per patient she has history of diverticulitis and In addition to abdominal pain she was also having some chest pain so underwent CT scan of chest abdomen pelvis in October [address] scan of the chest showed small blood clot As per patient in 2016, she was having progressive headaches for which she went for evaluation found to have 'thick' blood, subsequently she was diagnosed with polycythemia as her hematocrit was more than 60, underwent twice a week phlebotomy initially followed by weekly and then every 2 weeks for 6 months to get her hematocrit to the target range e.g. 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 daily, which she took till March 2020 and then stopped taking as she ran out of prescription and she moved to [place] from [place] thus could not get prescription. Patient denies smoking, occasional alcohol. Tolerating hydroxyurea, Phlebotomy done on January 13, 2021 for hematocrit more than 45 she went to [facility] on December 10, 2020 with abdominal pain and CT scan of abdomen was done which showed enhancing left ovarian cyst measuring 2.5 x 3.1 cm. Soft tissue thickening at endocervical junction and internal cervical os, neoplasm is not excluded, as per patient she is being followed by [employer] [facility] for excessive menses,And underwent D&C on February 06, 2021, as per patient no abnormality was seen Came for follow-up, denies any specific complaints, no fever chills, no nausea or vomiting, no diarrhea or constipation, no peripheral lymphadenopathy, no night sweats, no melena or hematochezia, no vaginal bleeding, no hematuria. Patient recently underwent D&C for excessive menses and soft tissue thickening seen at endocervical junction on CT scan of abdomen pelvis done on December 10, 2020.Patient underwent phlebotomy on January 13, 2021, tolerated well, now taking hydroxyurea 1000 mg p.o. daily and tolerating well Medications: Eliquis 1 Tablet (of 5 mg) Oral b.i.d., Gabapentin 1 Capsule (of 300 mg) Oral b.i.d., Hydroxyurea 1 Capsule (of 500 mg) Oral b.i.d., Terbinafine HCl 1 Tablet (of 250 mg) Oral daily Allergies: Esthela Allergy, Flagyl, and guaiFENesin. Review of Systems: Review of Systems is not available for this patient. Vital Signs: Vitals are not available for this patient. Performance Status: 0 - Fully active, able to carry on all predisease activities without restrictions. (ECOG) Physical Examination: ENMT - No mouth sores, no thrush, no jaundice, Respiratory - Lungs are clear to auscultation, Cardiovascular - Regular rate and rhythm of heart, Abdomen - Soft, Bowel sounds present, Extremities - No visible edema. Lab/Imaging: Test performed on Nov 27, 2020 15:45 WBC 9.0 10 3/uL RBC 5.57 10 6/uL HGB 14.0 g/dL HCT 47.8 % MCV 85.8 fL MCH 25.1 pg MCHC 29.3 g/dL RDW 17.8 % Platelet Count 294 10 3/cmm MPV 10.1 fL Neutrophils 6.50 10 3/uL Lymphocytes 1.6 10 3/uL Monocytes 0.6 10 3/uL Eosinophils 0.2 10 3/uL Basophils 0.1 10 3/uL Neutrophil % 72.1 % Lymphocyte % 17.5 % Monocyte % 6.8 % Eosinophil % 1.8 % Basophils % 1.2 % NRBC % 0 % Impression: Polycythemia vera, Benja 2 mutation positive, diagnosed in 2016 in hematology clinic at [facility] in [facility] [place] which she initially presented with hematocrit more than 60, treated with aggressive phlebotomies to get hematocrit below 43. Underwent bone marrow evaluation in November 2019 for hydroxyurea therapy, and patient was started on hydroxyurea thousand milligrams p.o. daily, which she tolerated well and then ran out of prescription in March 2020, since then she is off, Restarted on June 18, 2020 History of tiny subsegmental pulmonary embolism diagnosed in October 2019, on Eliquis 5 mg p.o. twice daily History of diverticulitis Obesity. Plan: Patient regarding her labs white blood count 7.5 hemoglobin 12.3, hematocrit 43.4 platelets 291,000 Clinically, patient doing well with no new signs symptoms tolerating hydroxyurea 1000 mg p.o. daily well, follow-up CBC shows hematocrit in a desirable range e.g. below 45, patient underwent phlebotomy for hematocrit more than 45.9, on January 13, 2021, tolerated well, will continue with phlebotomies on as-needed basis and the in the meantime she will continue hydroxyurea 1000 mg p.o. daily return to clinic in [address] scan of abdomen pelvis done on December 10, 2020 showed soft tissue thickening and endocervical area and patient underwent endometrial curettage on February 06, 2021 which shows no atypia, hyperplasia or malignancy identified Signed By: Kris Garcia M.D. <<Signature on File>>
== END 2021-02-17 11:19 | disposition home or self-care (01) ==
LOC: ONCMED 11:21
PROVIDERS: PCP Nurse Practitioner; Visit Provider Internal Medicine Hematology & Oncology
DX: D45 Polycythemia vera (principal); Z79.899 Other long term (current) drug therapy; Z86.711 Personal history of pulmonary embolism; Z79.01 Long term (current) use of anticoagulants
CPT/HCPCS: 36415; 85025; 99214

== ENCOUNTER 2021-02-17 11:32 | Outpatient (CLI) | payer OTHER, SELFPAY ==
--- NOTE | 2021-02-17 11:36 | US_ITS ---
WS: [id number] LEFT DIGITAL MAMMOGRAPHY WITH CAD CLINICAL INFORMATION: ABNORMAL MAMMOGRAM COMPARISON: January 22, 2021 TECHNIQUE: 3 views of the left breast were obtained. FINDINGS: Scattered fibroglandular densities of the left breast. Previously described 7 mm lesion upper outer l eft breast is again seen. No significant interval changes. Ultrasound is pending. ULTRASOUND BREAST LEFT TECHNIQUE: Ultrasound left breast focused area of concern. CLINICAL INFORMATION: ABNORMAL MAMMOGRAM COMPARISON: None. FINDINGS: Ultrasound left breast at the 12 to 3:00 position. No evidence of underlying mass or lesion. No cysti c or solid lesions. No lesions to target for biopsy. US/US breast LT limited* [id number] IMPRESSION: BI-RADS: 2-Benign FOLLOW UP: 1 Year Follow-up Recommend return to annual screening mammography.
== END 2021-02-17 11:33 | disposition home or self-care (01) ==
LOC: RADSHAW 11:33
PROVIDERS: PCP Nurse Practitioner; Visit Provider Nurse Practitioner
DX: R92.8 Other abnormal and inconclusive findings on diagnostic imaging of breast (principal)
CPT/HCPCS: 76642; 77065

== ENCOUNTER 2021-03-24 10:00 | Outpatient (CLI) | payer OTHER, SELFPAY ==
[2021-03-24 10:27] LABS: Basophils # 0.1 10^3/uL (0.0-0.1); Basophils % 1.2 %; Eosinophils # 0.1 10^3/uL (0.0-0.8); Eosinophils % 1.7 %; Hematocrit 45.4 % (37.0-47.0); Hemoglobin 13.1 g/dL (11.5-15.3); Lymphocytes # 1.3 10^3/uL (0.8-4.8); Lymphocytes % 15.9 %; Mean Corpuscular HGB Conc 28.9 g/dL (30.0-36.0); Mean Corpuscular Hemoglobin 25.5 pg (28.0-34.0); Mean Corpuscular Volume 88.3 fL (81-99); Mean Platelet Volume 10.2 fL (7.4-10.4); Monocytes # 0.6 10^3/uL (0.2-0.9); Monocytes % 6.6 %; Neutrophils # 6.19 10^3/uL (1.8-7.7); Neutrophils % 74.2 %; Nucleated Red Blood Cells % 0 %; Platelet Count 258 10^3/cmm (130-400); Red Blood Count 5.14 10^6/uL (4.1-5.3); Red Cell Distribution Width 17.2 % (12.1-15.1); White Blood Count 8.3 10^3/uL (4.0-10.0)
== END 2021-03-24 10:01 | disposition home or self-care (01) ==
LOC: ONCMED 10:01
PROVIDERS: PCP Nurse Practitioner; Visit Provider Internal Medicine Medical Oncology
DX: D75.1 Secondary polycythemia (principal)
CPT/HCPCS: 36415; 85025

== ENCOUNTER 2021-03-26 05:42 | Outpatient (CLI) | payer OTHER, MEDICARE, SELFPAY ==
--- NOTE | 2021-03-26 08:49 | ONC FU_ITS ---
Dr. Garcia follow up note Patient: Reta Gipson Unit #: [id number]: 1980 Dicatated By: Kris Garcia M.D.Date of Visit:March 26, 2021 Onc Med Follow-up/Prog Note History of Present Illness: Ms. Ms. Dulce Gipson, is a 40 -year-old female with a history of polycythemia vera Benja 2+, history of tiny subsegmental pulmonary embolism diagnosed in October 2019 since then she is on Eliquis 5 mg twice a day.As per patient she has history of diverticulitis and In addition to abdominal pain she was also having some chest pain so underwent CT scan of chest abdomen pelvis in October [address] scan of the chest showed small blood clot As per patient in 2016, she was having progressive headaches for which she went for evaluation found to have 'thick' blood, subsequently she was diagnosed with polycythemia as her hematocrit was more than 60, underwent twice a week phlebotomy initially followed by weekly and then every 2 weeks for 6 months to get her hematocrit to the target range e.g. below 43 patient was referred to dealer sales manager and [facility] in [facility] where she underwent genetic testing and Benja 2 mutation came back positive., As per patient she was treated with aspirin and phlebotomies on as-needed basis and last phlebotomy was done in November 2019, in December 2019 she also underwent bone marrow evaluation as her dealer sales manager was considering hydroxyurea so she was started on hydroxyurea 1000 mg p.o. daily, which she took till March 2020 and then stopped taking as she ran out of prescription and she moved to [place] from [place] thus could not get prescription. Patient denies smoking, occasional alcohol. Tolerating hydroxyurea, Phlebotomy done on January 13, 2021 for hematocrit more than 45 she went to [facility] on December 10, [address] with abdominal pain and CT scan of abdomen was done which showed enhancing left ovarian cyst measuring 2.5 x 3.1 cm. Soft tissue thickening at endocervical junction and internal cervical os, neoplasm is not excluded, as per patient she is being followed by [facility] for excessive menses,And underwent D&C on February 06, 2021, as per patient no abnormality was seen on hydroxyurea 1000 mg p.o. daily and tolerating well Came for follow-up, denies any specific complaints, no fever chills, no nausea or vomiting, no diarrhea constipation, no headaches or blurred vision or double vision, tolerating hydroxyurea 1000 mg p.o. daily well but patient admits she has been noncompliant missing her dose off and on. Patient also had sleep study done, and August or September 2020, at that time [facility] told her to come back for further investigation, as per patient she never got a call from them but now she will stop by a [facility] and reschedule her sleep study or any further work-up needed to confirm sleep apnea., As per patient she usually feels weak and tired during daytime, also after phlebotomy she feels weak for day or 2. Medications: Eliquis 1 Tablet (of 5 mg) Oral b.i.d., Gabapentin 1 Capsule (of 300 mg) Oral b.i.d., Hydroxyurea 1 Capsule (of 500 mg) Oral b.i.d., Terbinafine HCl 1 Tablet (of 250 mg) Oral daily Allergies: Esthela Allergy, Flagyl, and guaiFENesin. Review of Systems: Review of Systems is not available for this patient. Vital Signs: Performed on March 26, 2021 08:27 Height - 69.50 in Weight - 317.2 lbs (LOW) BSA - 2.53 sq.m BMI - 46.17 (HIGH) Temperature - 97.3 F (LOW) Pulse - 88 /min Respiration - 18 /min BP - 123/70 mm(hg) O2 Sat - 98 % Pain - 0 Fatigue - 2 Performance Status: 0 - Fully active, able to carry on all predisease activities without restrictions. (ECOG) Physical Examination: ENMT - No mouth sores, no thrush, no jaundice, Respiratory - Lungs are clear to auscultation, Cardiovascular - Regular rate and rhythm of heart, Abdomen - Soft, bowel sounds present, Extremities - No visible edema or rash. Lab/Imaging: Test performed on Nov 27, 2020 15:45 WBC 9.0 10 3/uL RBC 5.57 10 6/uL HGB 14.0 g/dL HCT 47.8 % MCV 85.8 fL MCH 25.1 pg MCHC 29.3 g/dL RDW 17.8 % Platelet Count 294 10 3/cmm MPV 10.1 fL Neutrophils 6.50 10 3/uL Lymphocytes 1.6 10 3/uL Monocytes 0.6 10 3/uL Eosinophils 0.2 10 3/uL Basophils 0.1 10 3/uL Neutrophil % 72.1 % Lymphocyte % 17.5 % Monocyte % 6.8 % Eosinophil % 1.8 % Basophils % 1.2 % NRBC % 0 % Impression: Polycythemia vera, Benja 2 mutation positive, diagnosed in 2016 in hematology clinic at [facility] in [facility] which she initially presented with hematocrit more than 60, treated with aggressive phlebotomies to get hematocrit below 43. Underwent bone marrow evaluation in November 2019 for hydroxyurea therapy, and patient was started on hydroxyurea thousand milligrams p.o. daily, which she tolerated well and then ran out of prescription in March 2020, since then she is off, Restarted on June 18, 2020 History of tiny subsegmental pulmonary embolism diagnosed in October 2019, on Eliquis 5 mg p.o. twice daily History of diverticulitis Obesity. Questionable sleep apnea CT scan of abdomen pelvis done on December 10, 2020 showed soft tissue thickening and endocervical area and patient underwent endometrial curettage on February 06, 2021 which shows no atypia, hyperplasia or malignancy identified Plan: Discussed with patient regarding her labs white blood count 8.3 hemoglobin 13.1 hematocrit 45.4 platelets 258,000 Clinically, patient doing well with no new signs symptoms, follow-up labs shows hematocrit slightly above 45 which is desirable range. As per patient she has been noncompliant with her recommended hydroxyurea dose, patient was advised to be diligent regarding her hydroxyurea dose and schedule and phlebotomy was offered but patient is reluctant and said usually she feels weak and tired a day and 2 after phlebotomy, clinically it appears, her polycythemia could be multifactorial, considering her weight and possibility of underlying sleep apnea, which may be contributing to her polycythemia, patient was advised to take her recommended hydroxyurea which is 1000 mg p.o. daily on a regular basis and then return to clinic in 1 month with CBC, in the meantime if she develops any new symptoms headaches or heaviness she need to call and if repeat CBC shows progressive polycythemia, will consider phlebotomy on the other hand patient was also advised to see or call [facility] physician regarding sleep study which was done earlier in September 2020 or if any further work-up is needed to confirm sleep apnea, as she may benefit from CPAP machine, which may improve her polycythemia and may reduce need for hydroxyurea and also may improve quality of life. Signed By: Kris Garcia M.D. <<Signature on File>>
== END 2021-03-26 05:43 | disposition home or self-care (01) ==
LOC: ONCMED 05:45
PROVIDERS: PCP Nurse Practitioner; Visit Provider Internal Medicine Hematology & Oncology
DX: D45 Polycythemia vera (principal); I26.99 Other pulmonary embolism without acute cor pulmonale; Z79.01 Long term (current) use of anticoagulants; K57.92 Diverticulitis of intestine, part unspecified, without perforation or abscess without bleeding; E66.9 Obesity, unspecified; G47.33 Obstructive sleep apnea (adult) (pediatric); Z79.899 Other long term (current) drug therapy
CPT/HCPCS: 99214

== ENCOUNTER 2021-03-30 15:15 | Emergency (ER) | payer OTHER, MEDICARE, SELFPAY ==
[2021-03-30 15:21] VITALS: BP 138/88; PULSE 89; RESP 17; TEMP 36.7; O2SAT 95; BMI 44.3
--- NOTE | 2021-03-30 15:42 | ED_ITS ---
HPI - GI Bleed General: Chief complaint: GI Bleed Stated complaint: BLOODY STO[facility] Time Seen by Provider: 03/30/21 15:30 History of Present Illness: HPI Narrative: Patient with a history of diverticulitis. Think she might be having a flareup. She denies abdominal pain. But she did have some blood with her stool yesterday. MD complaint: blood streaked stool Onset (ago): hour(s) Associated symptoms: Denies abdominal pain, chills, easy bruising, fever(s), headache(s), nausea, rash or vomiting Review of Systems Const: Denies: fever(s), chills or body aches Eyes: Denies: change in vision or blurry vision ENMT: Denies: throat pain or nasal congestion Card: Denies: chest pain or dyspnea on exertion Resp: Denies: dyspnea, productive cough or non-productive cough GI: Reports: hematochezia; Denies: abdominal pain, nausea, vomiting, melena, mucus in stool or white/light colored stool Musc: Denies: extremity pain Skin/Breast: Denies: rash Neuro: Denies: headache(s) Psych: Denies: anxiety or depression Tirso/Lymph: Denies: easy bruising PFSH ED PFSH: Medical History (Updated 03/30/21 @ 16:33 by JAIME Howard) Diverticulitis Diagnosed in 2018- Enlarged thyroid gland This is currently being evaluated and managed by Dr. Ferro. She thinks that her thyroid levels were normal. No pertinent past medical history Denies diabetes, asthma, seizures, DVT. PMD: ABI [place] Polycythemia vera Has had symptoms since about 2013 and was diagnosed in 2015. She currently sees heme oncology-Dr. Garcia and is on medication for this. Pulmonary embolism In November 2019 and she has been on Eliquis since then managed by her primary care provider. Denies history of DVT. Surgical History (Updated 03/20/21 @ 10:21 by Joselin Agrawal MD) History of tubal ligation March 2009--laparoscopic procedure Status post hysteroscopy 02/06/2021--hysteroscopy performed for possible endometrial polyp on ultrasound-performed by Dr. Ambrose at [facility]. At hysteroscopy no obvious intracavitary abnormalities including polyp identified. D&C performed and pathology showed secretory and proliferative endometrium without atypia hyperplasia or malignancy. Family History Father Chronic kidney disease (CKD) Hypertension Sister Chronic kidney disease (CKD) Psychiatric illness Mother Thyroid disease Grandmother Thyroid disease Maternal Denies family history of Colon cancer Ovarian cancer Diabetes Heart disease Breast cancer Bleeding disorder Uterine cancer Stroke Social History Smoking and tobacco status: never smoked Alcohol intake: former Female Reproductive History: Date of last menstrual period: 11/23/20 Physical Exam Const: COMMON NORMALS: no acute distress, average body habitus and patient oriented x3 HENMT: COMMON NORMALS: normocephalic HEAD & SCALP: normal to inspection and normocephalic FACE & SINUS: normal facial exam Eye: COMMON NORMALS: conjunctivae normal GENERAL EYE: appearance normal, both eyes and all related structures CONJUNCTIVA: Yes conjunctivae normal Neck/C-Spine: COMMON NORMALS: no JVD Chest: COMMONS NORMALS: normal inspection of the chest Resp: COMMON NORMALS: normal respiratory effort and clear to auscultation bilaterally AUSCULTATION: clear to auscultation bilaterally Cardio: COMMON NORMALS: no JVD, regular rate and regular rhythm RATE: regular rate RHYTHM: regular rhythm GI: COMMON NORMALS: Normal to inspection, nondistended, normoactive bowel so unds present PALPATION: Yes Tenderness to palpation present (GI) Details: LLQ Extremity: COMMON NORMALS: normal to inspection and full ROM Neuro: COMMON NORMALS: patient oriented x3 Course Vital Signs: Vital signs: Vital Signs Temperature 98.1 F 03/30/21 15:21 Pulse Rate 80 03/30/21 17:25 Respiratory Rate 17 03/30/21 15:21 Blood Pressure 138/88 03/30/21 15:21 Pulse Oximetry 98 03/30/21 17:25 MDM - GI Bleed MDM Narrative: Medical decision making narrative: Patient in no acute distress. Patient's 1 make sure blood was not too thin to possibly cause any stools. Patient remained stable throughout the visit H&H has not changed from labs she had done on Wednesday patient is encouraged to follow-up with her family medical provider[facility] Lab Data: Labs: Lab Results 03/30/21 03/30/21 Range/Units 15:57 15:57 WBC 7.4 (4.0-10.0) 10^3/ uL RBC 5.08 (4.1-5.3) 10^6/u L Hgb 13.1 (11.5-15.3) g/dL Hct 45.3 (37.0-47.0) % MCV 89.2 (81-99) fL MCH 25.8 L (28.0-34.0) pg MCHC 28.9 L (30.0-36.0) g/dL RDW 17.5 H (12.1-15.1) % Plt Count 401 H (130-400) 10^3/c mm MPV 9.8 (7.4-10.4) fL Neut % (Auto) 71.0 % Lymph % (Auto) 18.5 % Mariposa % (Auto) 6.8 % Eos % (Auto) 2.2 % Baso % (Auto) 1.1 % Neut # (Auto) 5.26 (1.8-7.7) 10^3/u L Lymph # (Auto) 1.4 (0.8-4.8) 10^3/u L Mar[place]osa # (Auto) 0.5 (0.2-0.9) 10^3/u L Eos # (Auto) 0.2 (0.0-0.8) 10^3/u L Baso # (Auto) 0.1 (0.0-0.1) 10^3/u L Nucleated RBC % (a uto) 0 % Nucleated RBCs # 0.0 /100WBC PT 13.70 (12.1-14.9) SECO NDS INR 1.02 (0.8-1.2) Discharge Plan Discharge Patient Disposition: Home Clinical Impression: Hematochezia Condition: Stable Prescriptions: New Cipro 500 mg tablet 500 mg PO BID Qty: 14 RF: 0 clindamycin HCl 300 mg capsule 300 mg PO Q8H 7 Days Qty: 21 RF: 0 No Action triamcinolone acetonide 0.1 % ointment 1 applic topical BID PRN (Reason: Skin Irritation) RF: 0 Eliquis 5 mg tablet 5 mg PO BID RF: 0 gabapentin 300 mg capsule 600 mg PO BEDTIME RF: 0 hydroxyurea 500 mg capsule 500 mg PO BID RF: 0 Discharge Orders: Discharge ED (Routine); Ordered 03/30/21 Ordered By: Alo Brennan Referrals: Viviana Gill FNP [Primary Care Provider] - Discharge Diet: Usual diet Discharge Activity: Resume usual activity Patient Instructions: Diverticulitis (ED), Diverticulitis Diet (ED) Activity Restrictions/Additional Instructions: Follow-up with medical provider as directed. Take medications as prescribed. Return to the ER or your medical provider if condition worsens. Please read and understand discharge instructions. If any questions ask please. Coding Level of Care Code ED Skein Straightener for Chg Fwd Exam Comprehensive
[2021-03-30] MEDS: ciprofloxacin 500 mg Tablet PO (15:50)
[2021-03-30] MEDS: sulfamethoxazole-trimeth DS 160-800 mg Tablet 1 TAB PO (15:50)
[2021-03-30 16:00] VITALS: PULSE 106; O2SAT 96
[2021-03-30 16:05] LABS: Basophils # 0.1 10^3/uL (0.0-0.1); Basophils % 1.1 %; Eosinophils # 0.2 10^3/uL (0.0-0.8); Eosinophils % 2.2 %; Hematocrit 45.3 % (37.0-47.0); Hemoglobin 13.1 g/dL (11.5-15.3); Lymphocytes # 1.4 10^3/uL (0.8-4.8); Lymphocytes % 18.5 %; Mean Corpuscular HGB Conc 28.9 g/dL (30.0-36.0); Mean Corpuscular Hemoglobin 25.8 pg (28.0-34.0); Mean Corpuscular Volume 89.2 fL (81-99); Mean Platelet Volume 9.8 fL (7.4-10.4); Monocytes # 0.5 10^3/uL (0.2-0.9); Monocytes % 6.8 %; Neutrophils # 5.26 10^3/uL (1.8-7.7); Nucleated Red Blood Cells % 0 %; Platelet Count 401 10^3/cmm (130-400); Red Blood Count 5.08 10^6/uL (4.1-5.3); Red Cell Distribution Width 17.5 % (12.1-15.1); White Blood Count 7.4 10^3/uL (4.0-10.0)
[2021-03-30 16:18] LABS: INR 1.02 (0.8-1.2)
[2021-03-30 17:25] VITALS: PULSE 80; O2SAT 98
== END 2021-03-30 17:25 | disposition home or self-care (01) ==
PROVIDERS: Emergency Provider Nurse Practitioner Family; PCP Nurse Practitioner
DX: K92.1 Melena (principal); Z79.01 Long term (current) use of anticoagulants
CPT/HCPCS: 85025; 85610; 99283

== ENCOUNTER → 2021-04-01 15:08 | Outpatient (BNVA) | payer OTHER, MEDICARE, SELFPAY | PROVIDERS: PCP Nurse Practitioner; Visit Provider Obstetrics & Gynecology | DX: Z30.9 Encounter for contraceptive management, unspecified (principal); N93.9 Abnormal uterine and vaginal bleeding, unspecified | CPT/HCPCS: 81025 ==

== ENCOUNTER 2021-04-14 11:30 | Emergency (ER) | payer OTHER, MEDICARE, SELFPAY ==
[2021-04-14 11:39] VITALS: BP 124/81; PULSE 86; RESP 18; TEMP 36.8; O2SAT 97; BMI 44.3
--- NOTE | 2021-04-14 11:43 | CTR_ITS ---
PROCEDURE INFORMATION: Exam: CTA Chest With Contrast Exam date and time: 04/14/2021 11:45 AM Age: 40 years old Clinical indication: Abdominal pain; Localized; Left lower quadrant (llq); Chest wall pain; Prior surgery; Surgery type: Tubal; Patient HX: Chest, back, and llq pain. History of pe and diverticulitis. Currently on blood thinners. Angio repeated. Best run submitted. ; Additional info: Chest pain similar to when had pe, llq pain, h/o diverticuli TECHNIQUE: Imaging protocol: Computed tomographic angiography of the chest with contrast. 3D rendering (Not supervised by radiologist): MIP and/or 3D reconstructed images were created by the technologist. Radiation optimization: All CT scans at this facility use at least one of these dose optimization techniques: automated exposure control; mA and/or kV adjustment per patient size (includes targeted exams where dose is matched to clinical indication); or iterative reconstruction. Contrast material: OMNI 350; Contrast volume: 155 ml; Contrast route: INTRAVENOUS (IV); COMPARISON: No relevant prior studies available. RADIATION DOSE METRICS: Total DLP (mGy-cm): 3338.06 FINDINGS: Pulmonary arteries: Normal. No pulmonary emboli. Aorta: Unremarkable. No aortic aneurysm. No aortic dissection. Lungs: Unremarkable. No consolidation. No masses. Pleural spaces: Unremarkable. No pneumothorax. No pleural effusion. Heart: Unremarkable. No cardiomegaly. No pericardial effusion. Lymph nodes: Unremarkable. No enlarged lymph nodes. Bones/joints: Unremarkable. No acute fracture. Soft tissues: Unremarkable. IMPRESSION: No pulmonary embolus or other acute pathology in the chest. PROCEDURE INFORMATION: Exam: CT Abdomen And Pelvis With Contrast Exam date and time: 04/14/2021 11:45 AM Age: 40 years old Clinical indication: Abdominal pain; Localized; Left lower quadrant (llq); Chest wall pain; Prior surgery; Surgery type: Tubal; Patient HX: Chest, back, and llq pain. History of pe and diverticulitis. Currently on blood thinners. Angio repeated. Best run submitted. ; Additional info: Chest pain similar to when had pe, llq pain, h/o diverticuli TECHNIQUE: Imaging protocol: Computed tomography of the abdomen and pelvis with contrast. Radiation optimization: All CT scans at this facility use at least one of these dose optimization techniques: automated exposure control; mA and/or kV adjustment per patient size (includes targeted exams where dose is matched to clinical indication); or iterative reconstruction. Contrast material: OMNI 350; Contrast volume: 155 ml; Contrast route: INTRAVENOUS (IV); COMPARISON: No relevant prior studies available. RADIATION DOSE METRICS: Total DLP (mGy-cm): 3338.06 FINDINGS: Liver: Normal. No mass. Gallbladder and bile ducts: Normal. No calcified stones. No ductal dilation. Pancreas: Normal. No ductal dilation. Spleen: Unchanged enlarged spleen measuring 16.3 cm in CC dimension. Adrenal glands: Normal. No mass. Kidneys and ureters: Normal. No hydronephrosis. Stomach and bowel: There is diverticulosis without evidence of diverticulitis. Appendix: No evidence of appendicitis. Intraperitoneal space: Unremarkable. No free air. No significant fluid collection. Vasculature: Unremarkable. No abdominal aortic aneurysm. Lymph nodes: Unremarkable. No enlarged lymph nodes. Urinary bladder: Unremarkable as visualized. Reproductive: An intrauterine device is in place. Normal uterus. Bones/joints: Unremarkable. No acute fracture. Soft tissues: A small fat containing umbilical hernia is present. CT/CT angio chest w abd pel w con IMPRESSION: No acute intra-abdominal or intrapelvic pathology. Radiation Dose CTDIVOL = (mGy): DLP = 3338.06~3338.06 (mGy-cm)
--- NOTE | 2021-04-14 11:44 | ECG_ITS ---
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 Measurements Intervals [facility] Rate: 81 P: 41 NE: 159 QRS: -34 QRSD: 93 T: 34 QT: 366 QTc: 426 Interpretive Statements SINUS RHYTHM LEFT AXIS DEVIATION [QRS AXIS < -30] LOW QRS VOLTAGE IN PRECORDIAL LEADS [QRS DEFLECTION < 1.0 mV IN CHEST LEADS] POSSIBLE ANTERIOR MYOCARDIAL INFARCTION , PROBABLY OLD [30 ms Q WAVE IN V3/V4, OR R < 0.2 mV IN V4] No previous ECG available for comparison Electronically Signed On 04-14-2021 18:23:52 CDT by Joel Voss M.D. [id number]
--- NOTE | 2021-04-14 11:46 | ED_ITS ---
HPI - Chest Pain General: Chief Complaint: Chest Pain Stated Complaint: Lower Stomach Pain/Chest Pain/Hx of Blood Clots Time Seen by Provider: 04/14/21 11:35 Source: patient Mode of arrival: ambulatory Limitations: no limitations History of Present Illness: HPI narrative: 40-year-old female patient presents to the emergency department with chest pain that started about 3 days ago. Pain is on bilateral chest and radiates to her back. She states that this feels exactly the same when she felt when she had PEs in the past. She is currently on Eliquis 5 mg twice daily but is concerned about a DVT. She also has left lower quadrant pain that has been going on around the same time, she has a history of diverticulitis. No diaphoresis, no nausea or vomiting. No diarrhea. No fever, no cough. MD complaint: chest pain Onset (ago): day(s) (3) Timing of current episode: episodic Prior episodes: Yes Onset: during rest Pain location: left chest and right chest Pain radiation: back Severity: moderate Quality: sharp Relieving factors: nothing Exacerbating factors: nothing Associated symptoms: Reports abdominal pain; Deny diaphoresis, dyspnea, fever(s), leg edema, nausea, palpitations, sense of impending doom, syncope or vomiting Review of Systems General: Reports: 10 or more systems reviewed and unremarkable except in HPI and below Const: Denies: fever(s) or diaphoresis Card: Denies: palpitations or syncope Resp: Denies: dyspnea GI: Reports: abdominal pain; Denies: nausea or vomiting [facility] ED PFSH: Medical History Diverticulitis Diagnosed in 2019- Enlarged thyroid gland This is currently being evaluated and managed by Dr. Ferro. She thinks that her thyroid levels were normal. No pertinent past medical history Denies diabetes, asthma, seizures, DVT. PMD: ABI Victoria Polycythemia vera Has had symptoms since about 2013 and was diagnosed in 2016. She currently sees heme oncology-Dr. Garcia and is on medication for this. Pulmonary embolism In November 2019 and she has been on Eliquis since then managed by her primary care provider. Denies history of DVT. Surgical History History of tubal ligation March 2009--laparoscopic procedure Status post hysteroscopy 02/06/2021--hysteroscopy performed for possible endometrial polyp on ultrasound-performed by Dr. Ambrose at [facility]. At hysteroscopy no obvious intracavitary abnormalities including polyp identified. D&C performed and pathology showed secretory and proliferative endometrium without atypia hyperplasia or malignancy. Family History Father Chronic kidney disease (CKD) Hypertension Sister Chronic kidney disease (CKD) Psychiatric illness Mother Thyroid disease Grandmother Thyroid disease Maternal Denies family history of Colon cancer Ovarian cancer Diabetes Heart disease Breast cancer Bleeding disorder Uterine cancer Stroke Social History Smoking and tobacco status: never smoked Alcohol intake: former Female Reproductive History: Date of last menstrual period: 11/23/20 Physical Exam Const: COMMON NORMALS: no acute distress, average body habitus, patient oriented x3, no limitations, healthy appearing, alert and well nourished HENMT: COMMON NORMALS: normocephalic, atraumatic and moist oral mucous membranes HEAD & SCALP: normocephalic and atraumatic Neck/C-Spine: COMMON NORMALS: no meningeal signs and no JVD Chest: COMMONS NORMALS: normal inspection of the chest and normal palpation of entire chest wall Resp: COMMON NORMALS: normal respiratory effort, No retractions, No use of accessory muscles, clear to auscultation bilaterally and percussion normal AUSCULTATION: clear to auscultation bilaterally PERCUSSION: percussion normal Cardio: COMMON NORMALS: no JVD, regular rate, regular rhythm, S1 normal heart sound present, S2 normal heart sound present, No gallops present (Cardio), No clicks present (Cardio), No murmurs present (Cardio), No rub (Cardio) and Peripheral pulses 2+ throughout RATE: regular rate RHYTHM: regular rhythm HEART SOUNDS: S1 normal heart sound present and S2 normal heart sound present PERIPHERAL PULSES: Peripheral pulses 2+ throughout GI: COMMON NORMALS: Normal to inspection, nondistended, normoactive bowel sounds present, Soft to palpation, non-tender, No hepatosplenomegaly present, no masses and no bruits PALPATION: Yes Soft to palpation and Yes No hepatosplenomegaly present Extremity: COMMON NORMALS: normal to inspection, full ROM, capillary refill n ormal, no calf tenderness and no pedal edema Neuro: COMMON NORMALS: patient oriented x3 SENSORIUM/ORIENTATION: Yes alert MENINGEAL SIGNS: Yes no meningeal signs Skin: COMMON NORMALS: no rashes or lesions noted, no wounds, turgor normal, no jaundice, no petechiae and no mottling GENERAL SKIN EXAM: no rashes or lesions noted and turgor normal Course Reevaluation(s): Reevaluation #1: Discussed her lab and imaging findings with her. Negative for PE, negative for diverticulitis. We will discharge her home with no new orders. She voiced understanding and is in agreement with the plan. Time: 13:54 Vital Signs: Vital signs: Vital Signs Temperature 98.2 F 04/14/21 11:39 Pulse Rate 77 04/14/21 14:03 Respiratory Rate 16 04/14/21 14:03 Blood Pressure 102/80 04/14/21 14:03 Pulse Oximetry 99 04/14/21 14:03 MDM - Chest Pain MDM Narrative: Medical decision making narrative: 40-year-old female patient with a prior history of pulmonary embolisms and diverticulitis who presents to the emergency department with chest pain that she said felt like she did when she was diagnosed with pulmonary embolism. She also had left lower quadrant pain. She is currently on Eliquis for anticoagulation. Evaluation in the emergency department was unremarkable and CTA of her lungs was negative for PE. CT of her abdomen and pelvis also negative for diverticulitis or other acute findings. She is discharged home with no new orders. Medical Records: Attestation: I reviewed the patient's medical records. Lab Data: Attestation: I reviewed the patient's lab results. Labs: Lab Results 04/14/21 04/14/21 04/14/21 Range/Units 11:55 11:55 11:55 WBC 7.4 (4.0-10.0) 10^3/ uL RBC 5.19 (4.1-5.3) 10^6/u L Hgb 13.4 (11.5-15.3) g/dL Hct 45.5 (37.0-47.0) % MCV 87.7 (81-99) fL MCH 25.8 L (28.0-34.0) pg MCHC 29.5 L (30.0-36.0) g/dL RDW 17.3 H (12.1-15.1) % Plt Count 254 (130-400) 10^3/c mm MPV 10.1 (7.4-10.4) fL Neut % (Auto) 75.3 % Lymph % (Auto) 16.1 % [place] % (Auto) 5.7 % Eos % (Auto) 1.4 % Baso % (Auto) 1.2 % Neut # (Auto) 5.54 (1.8-7.7) 10^3/u L Lymph # (Auto) 1.2 (0.8-4.8) 10^3/u L [place] # (Auto) 0.4 (0.2-0.9) 10^3/u L Eos # (Auto) 0.1 (0.0-0.8) 10^3/u L Baso # (Auto) 0.1 (0.0-0.1) 10^3/u L Nucleated RBC % (a uto) 0 % Nucleated RBCs # 0.0 /100WBC Sodium 139 (136-145) mmol/L Potassium 4.0 (3.5-5.1) mmol/L Chloride 105 (98-107) mmol/L Carbon Dioxide 24 (22-29) mmol/L Anion Gap 14.0 (5-19) BUN 10 (6-20) mg/dL Creatinine 0.8 (0.5-0.9) mg/dL GFR Calculation 79.4 L (90-130) mL/min Glucose 115 (65-115) mg/dL Calculated Osmolal ity 288 (285-295) mOsm/k g Calcium 8.9 (8.5-10.5) mg/dL Total Bilirubin 0.5 (0.15-1.2) mg/dL AST 19 (0-32) U/L ALT 22 (0-33) U/L Alkaline Phosphata se 93 (35-105) IU/L Troponin T Baselin e 6 (0-10) ng/L C-Reactive Protein 5.6 H (0.0-4.9) mg/L Total Protein 6.7 (6.6-8.7) g/dL Albumin 4.1 (3.5-5.2) g/dL Globulin 2.6 (1.3-4.6) g/dL Lipase 23 (13-60) U/L Imaging Data^: Other CT: Attestation: I personally reviewed and interpreted this imaging study as follows: Radiologist's impression: [facility] PowerV[facility] [id number] [facility].[place], [place] [address]CY Scan ReportSigned Patient: Nadia Gipson #: [id number]: 1980Acct#:[id number]/Sex: 40 / FADM Date: 04/14/21Loc: ER Room/Bed:Attending Dr: Ordering Provider/Ordering MD: Letty Temple MD, [facility] Date of Service: 04/14/21 Procedure(s): CT angio chest w abd pel w con Accession Number(s): [id number] Report Number: [id number] PROCEDURE INFORMATION: Exam: CTA Chest With Contrast Exam date and time: 04/14/2021 11:45 AM Age: 40 years old Clinical indication: Abdominal pain; Localized; Left lower quadrant (llq); Chest wall pain; Prior surgery; Surgery type: Tubal; Patient HX: Chest, back, and llq pain. History of pe and diverticulitis. Currently on blood thinners. Angio repeated. Best run submitted. ; Additional info: Chest pain similar to when had pe, llq pain, h/o diverticuli TECHNIQUE: Imaging protocol: Computed tomographic angiography of the chest with contrast. 3D rendering (Not supervised by radiologist): MIP and/or 3D reconstructed images were created by the technologist. Radiation optimization: All CT scans at this facility use at least one of these dose optimization techniques: automated exposure control; mA and/or kV adjustment per patient size (includes targeted exams where dose is matched to clinical indication); or iterative reconstruction. Contrast material: OMNI 350; Contrast volume: 155 ml; Contrast route: INTRAVENOUS (IV); COMPARISON: No relevant prior studies available. RADIATION DOSE METRICS: Total DLP (mGy-cm): 3338.06 FINDINGS: Pulmonary arteries: Normal. No pulmonary emboli. Aorta: Unremarkable. No aortic aneurysm. No aortic dissection. Lungs: Unremarkable. No consolidation. No masses. Pleural spaces: Unremarkable. No pneumothorax. No pleural effusion. Heart: Unremarkable. No cardiomegaly. No pericardial effusion. Lymph nodes: Unremarkable. No enlarged lymph nodes. Bones/joints: Unremarkable. No acute fracture. Soft tissues: Unremarkable. IMPRESSION: No pulmonary embolus or other acute pathology in the chest. PROCEDURE INFORMATION: Exam: CT Abdomen And Pelvis With Contrast Exam date and time: 04/14/2021 11:45 AM Age: 40 years old Clinical indication: Abdominal pain; Localized; Left lower quadrant (llq); Chest wall pain; Prior surgery; Surgery type: Tubal; Patient HX: Chest, back, and llq pain. History of pe and diverticulitis. Currently on blood thinners. Angio repeated. Best run submitted. ; Additional info: Chest pain similar to when had pe, llq pain, h/o diverticuli TECHNIQUE: Imaging protocol: Computed tomography of the abdomen and pelvis with contrast. Radiation optimization: All CT scans at this facility use at least one of these dose optimization techniques: automated exposure control; mA and/or kV adjustment per patient size (includes targeted exams where dose is matched to clinical indication); or iterative reconstruction. Contrast material: OMNI 350; Contrast volume: 155 ml; Contrast route: INTRAVENOUS (IV); COMPARISON: No relevant prior studies available. RADIATION DOSE METRICS: Total DLP (mGy-cm): 3338.06 FINDINGS: Liver: Normal. No mass. Gallbladder and bile ducts: Normal. No calcified stones. No ductal dilation. Pancreas: Normal. No ductal dilation. Spleen: Unchanged enlarged spleen measuring 16.3 cm in CC dimension. Adrenal glands: Normal. No mass. Kidneys and ureters: Normal. No hydronephrosis. Stomach and bowel: There is diverticulosis without evidence of diverticulitis. Appendix: No evidence of appendicitis. Intraperitoneal space: Unremarkable. No free air. No significant fluid collection. Vasculature: Unremarkable. No abdominal aortic aneurysm. Lymph nodes: Unremarkable. No enlarged lymph nodes. Urinary bladder: Unremarkable as visualized. Reproductive: An intrauterine device is in place. Normal uterus. Bones/joints: Unremarkable. No acute fracture. Soft tissues: A small fat containing umbilical hernia is present. CT/CT angio chest w abd pel w con IMPRESSION: No acute intra-abdominal or intrapelvic pathology. Radiation Dose CTDIVOL = (mGy): DLP = 3338.06~3338.06 (mGy-cm) Dictated By:Jim Gallo By:Jim Gallo Date/Time:04/14/21 1303DD/ 1301 EKG Data^: EKG 1: Attestation: I personally reviewed and interpreted this EKG as follows: EKG interpretation date: 04/14/21 EKG interpretation time: 11:58 Prior EKG tracings: not available for review Interpretation: Sinus rhythm. Heart rate 81 bpm. Left axis deviation. No ST changes. EKG 2: Attestation: I personally reviewed and interpreted this EKG as follows: EKG interpretation date: 04/14/21 EKG interpretation time: 13:49 Prior EKG tracings: available for review Interpretation: Sinus rhythm. Heart rate [address] changes. No significant change from earlier today Discharge Plan Discharge Patient Disposition: Home Clinical Impression: Non-cardiac chest pain Condition: Stable Prescriptions: Continued triamcinolone acetonide 0.1 % ointment 1 applic topical BID@0900,2100 PRN (Reason: Skin Irritation) RF: 0 Mirena 20 mcg/24 hours (6 yrs) 52 mg intrauterine device 1 device intrauterine .every 5 years Qty: 1 RF: 0 Eliquis 5 mg tablet 5 mg PO BID@0900,2100 RF: 0 gabapentin 300 mg capsule 600 mg PO BEDTIME@2100 RF: 0 hydroxyurea 500 mg capsule 500 mg PO BID@0900,2100 RF: 0 Discharge Orders: Discharge ED (Routine); Ordered 04/14/21 Ordered By: Letty Temple Referrals: Viviana Gill FNP [Primary Care Provider] - 1-3 days Discharge Diet: Usual diet Discharge Activity: Increase activity as tolerated Patient Instructions: Noncardiac Chest Pain (ED) Activity Restrictions/Additional Instructions: Return for any new or worsening symptoms. Follow-up with your primary care provider within 3 days. Continue home medications. Coding Level of Care Code ED Gis Mapping Technician for Chg Fwd Exam Comprehensive
[2021-04-14 12:05] LABS: Basophils # 0.1 10^3/uL (0.0-0.1); Basophils % 1.2 %; Eosinophils # 0.1 10^3/uL (0.0-0.8); Eosinophils % 1.4 %; Hematocrit 45.5 % (37.0-47.0); Hemoglobin 13.4 g/dL (11.5-15.3); Lymphocytes # 1.2 10^3/uL (0.8-4.8); Lymphocytes % 16.1 %; Mean Corpuscular HGB Conc 29.5 g/dL (30.0-36.0); Mean Corpuscular Hemoglobin 25.8 pg (28.0-34.0); Mean Corpuscular Volume 87.7 fL (81-99); Mean Platelet Volume 10.1 fL (7.4-10.4); Monocytes # 0.4 10^3/uL (0.2-0.9); Monocytes % 5.7 %; Neutrophils # 5.54 10^3/uL (1.8-7.7); Neutrophils % 75.3 %; Nucleated Red Blood Cells % 0 %; Platelet Count 254 10^3/cmm (130-400); Red Blood Count 5.19 10^6/uL (4.1-5.3); Red Cell Distribution Width 17.3 % (12.1-15.1); White Blood Count 7.4 10^3/uL (4.0-10.0)
[2021-04-14] MEDS: iohexol 350 mg/mL 100 mL Btl IV ×2 (12:11→12:20)
[2021-04-14 12:49] LABS: Troponin(5th) Baseline 6 ng/L (0-10)
[2021-04-14 12:50] LABS: Alanine Aminotransferase 22 U/L (0-33); Albumin Level 4.1 g/dL (3.5-5.2); Alkaline Phosphatase 93 IU/L (35-105); Aspartate Amino Transferase 19 U/L (0-32); Blood Urea Nitrogen 10 mg/dL (6-20); C Reactive Protein 5.6 mg/L (0.0-4.9); Calcium 8.9 mg/dL (8.5-10.5); Carbon Dioxide 24 mmol/L (22-29); Chloride 105 mmol/L (98-107); Globulin 2.6 g/dL (1.3-4.6); Glomerular Filtration Rate 79.4 mL/min (90-130); Glucose 115 mg/dL (65-115); Lipase 23 U/L (13-60); Osmolality Calculated 288 mOsm/kg (285-295); Sodium 139 mmol/L (136-145); Total Bilirubin 0.5 mg/dL (0.15-1.2); Total Protein 6.7 g/dL (6.6-8.7)
--- NOTE | 2021-04-14 13:44 | ECG_ITS ---
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 Measurements Intervals [place] Rate: 80 P: 45 OH: 162 QRS: -22 QRSD: 93 T: 17 QT: 370 QTc: 428 Interpretive Statements SINUS RHYTHM LOW QRS VOLTAGE IN PRECORDIAL LEADS [QRS DEFLECTION < 1.0 mV IN CHEST LEADS] POSSIBLE ANTERIOR MYOCARDIAL INFARCTION , PROBABLY OLD [30 ms Q WAVE IN V3/V4, OR R < 0.2 mV IN V4] Compared to ECG 04/14/2021 11:57:18 Left-axis deviation no longer present Myocardial infarct finding still present Electronically Signed On 04-14-2021 18:25:18 CDT by Joel Voss M.D. [email or web address]
[2021-04-14 14:03] VITALS: BP 102/80; PULSE 77; RESP 16; O2SAT 99
== END 2021-04-14 14:04 | disposition home or self-care (01) ==
PROVIDERS: Emergency Provider Family Medicine; PCP Nurse Practitioner
DX: R07.89 Other chest pain (principal); Z79.01 Long term (current) use of anticoagulants
CPT/HCPCS: 71275; 74177; 80053; 83690; 84484; 85025; 86140; 93005; 99283; Q9967

== ENCOUNTER 2021-04-18 16:23 | Emergency (ER) | payer OTHER, MEDICARE, SELFPAY ==
[2021-04-18 16:28] VITALS: BP 138/87; PULSE 91; RESP 18; TEMP 36.6; O2SAT 97; BMI 44.3
--- NOTE | 2021-04-18 17:14 | USR_ITS ---
PROCEDURE INFORMATION: Exam: US Duplex Right Lower Extremity Veins, Limited Exam date and time: 04/18/2021 5:33 PM Age: 40 years old Clinical indication: Pain; Arm, lower; Right; Additional info: Tenderness, swelling, high risk dvt TECHNIQUE: Imaging protocol: Real-time Duplex ultrasound of the Right Lower Extremity with 2-D restrepo scale, color Doppler flow and spectral waveform analysis with image documentation. Limited exam was focused on the right lower extremity veins. COMPARISON: No relevant prior studies available. FINDINGS: Real-time grayscale, Doppler, color Doppler and duplex imaging of the right lower extremity was performed. Spectral analysis was performed. There is normal flow and compressibility of the common femoral, superficial femoral and popliteal veins. There is normal augmentation. There is no intraluminal thrombus. The visualized calf veins were unremarkable. US/[place] [id number] IMPRESSION: No evidence for deep venous thrombosis.
--- NOTE | 2021-04-18 17:15 | ED_ITS ---
HPI - General Adult General: Chief complaint: General Medical Stated complaint: lumps on R. Leg/Hx of Blood Clots Time Seen by Provider: 04/18/21 17:03 History of Present Illness: HPI narrative: 40-year-old female comes in today for concerns of bruising and swelling to the right lower anterior extremity. Patient has a history of polycythemia vera which puts her at high risk for blood clots. Patient is concerned that she is developing a blood clot. Patient appears well. Patient appears in no acute distress. Distal pulses and sensations are intact. Patient does take apixaban and hydroxyurea routinely. Review of Systems General: Reports: 10 or more systems reviewed and unremarkable except in HPI and below Musc: Reports: other (Right lower leg area of bruising and swelling.) PFSH ED PFSH: Medical History (Reviewed 04/14/21 @ 11:48 by Letty Temple MD, [facility] [place]) Diverticulitis Diagnosed in 2019- Enlarged thyroid gland This is currently being evaluated and managed by Dr. Ferro. She thinks that her thyroid levels were normal. No pertinent past medical history Denies diabetes, asthma, seizures, DVT. PMD: ABI Victoria Polycythemia vera Has had symptoms since about 2013 and was diagnosed in 2016. She currently sees heme oncology-Dr. Garcia and is on medication for this. Pulmonary embolism In November 2019 and she has been on Eliquis since then managed by her primary care provider. Denies history of DVT. Surgical History (Reviewed 04/14/21 @ 11:48 by Letty Temple MD, [facility] [place] [facility]) History of tubal ligation March 2009--laparoscopic procedure Status post hysteroscopy 02/06/2021--hysteroscopy performed for possible endometrial polyp on ultrasound-performed by Dr. Ambrose at [facility] [place] [facility]. At hysteroscopy no obvious in tracavitary abnormalities including polyp identified. D&C performed and pathology showed secretory and proliferative endometrium without atypia hyperplasia or malignancy. Family History (Reviewed 04/14/21 @ 11:48 by Letty Temple MD, [facility] [place]) Father Chronic kidney disease (CKD) Hypertension Sister Chronic kidney disease (CKD) Psychiatric illness Mother Thyroid disease Grandmother Thyroid disease Maternal Denies family history of Colon cancer Ovarian cancer Diabetes Heart disease Breast cancer Bleeding disorder Uterine cancer Stroke Social History (Reviewed 05/31/21 @ 11:48 by Letty Temple MD, [facility] [place]) Smoking and tobacco status: never smoked Alcohol intake: former Female Reproductive History: Date of last menstrual period: 11/23/20 Physical Exam Const: COMMON NORMALS: no acute distress and patient oriented x3 GENERAL APPEARANCE: cooperative HENMT: COMMON NORMALS: normocephalic and Normal external nose present HEAD & SCALP: normal to inspection and normocephalic NOSE: Normal external nose present Eye: GENERAL EYE: appearance normal, both eyes and all related structures Neck/C-Spine: COMMON NORMALS: full ROM Chest: COMMONS NORMALS: normal inspection of the chest Resp: COMMON NORMALS: normal respiratory effort EFFORT & INSPECTION: Yes able to speak in complete sentences Cardio: COMMON NORMALS: regular rate and regular rhythm RATE: regular rate RHYTHM: regular rhythm GI: COMMON NORMALS: non-tender Extremity: COMMON NORMALS: normal to inspection NARRATIVE EXTREMITY EXAM: A 4 cm circular area of tenderness and ballottement noted to the anterior right lower leg. It appears to be a varicose valvular area. No calf or popliteal angle tenderness is noted. Distal pulses and sensation are normal. Neuro: COMMON NORMALS: patient oriented x3 and moves all extremities Psych: COMMON NORMALS: mental status grossly normal and cooperative Skin: COMMON NORMALS: no rashes or lesions noted GENERAL SKIN EXAM: no rashes or lesions noted Course Vital Signs: Vital signs: Vital Signs Temperature 97.8 F 04/18/21 16:28 Pulse Rate 91 04/18/21 16:28 Respiratory Rate 18 04/18/21 16:28 Blood Pressure 138/87 04/18/21 16:28 Pulse Oximetry 97 04/18/21 16:28 MDM - General Adult MDM Narrative: Medical decision making narrative: Patient comes in for an area of bruising to her right lower leg. On exam we note a fluctuant discolored area approximately 4 cm to the right lower anterior leg. No calf pain or popliteal pain was noted. Patient was concerned for a blood clot due to polycythemia vera diagnosis. Differential diagnosis includes varicose veins, hematoma, contusion, DVT. Ultrasound of the extremity noted no DVT. Reviewed exam with patient with recommendations for treatment and follow-up. Patient reported understanding and agreed to plan. Discharge Plan Discharge Patient Disposition: Home Clinical Impression: Contusion of right lower leg Qualifiers: Encounter type: initial encounter Qualified Code(s): S80.11XA - Contusion of right lower leg, initial encounter Varicose vein of leg Qualifiers: Varicose vein complication: unspecified Laterality: right Qualified Code(s): I83.91 - Asymptomatic varicose veins of right lower extremity Condition: Stable Prescriptions: No Action triamcinolone acetonide 0.1 % ointment 1 applic topical BID@0900,2100 PRN (Reason: Skin Irritation) RF: 0 Mirena 20 mcg/24 hours (6 yrs) 52 mg intrauterine device 1 device intrauterine .every 5 years Qty: 1 RF: 0 Eliquis 5 mg tablet 5 mg PO BID@0900,2100 RF: 0 gabapentin 300 mg capsule 600 mg PO BEDTIME@2100 RF: 0 hydroxyurea 500 mg capsule 500 mg PO BID@0900,2100 RF: 0 Discharge Orders: Discharge ED (Routine); Ordered 04/18/21 Ordered By: Jay Longoria Referrals: Viviana Gill FNP [Primary Care Provider] - Discharge Diet: Usual diet Discharge Activity: Increase activity as tolerated Patient Instructions: Contusion in Adults (ED), Opioid Safety Activity Restrictions/Additional Instructions: Home and rest. Activity as tolerated. Wear compression stockings to the lower extremities for varicosities. Continue with routine medications. Use ice or heat to the area for discomfort. Use acetaminophen for further pain relief. Follow-up with primary care as needed. Return to the emergency department for new concerns or worsening symptoms. Coding Level of Care Code ED Metal Alloy Scientist for Ezequiel Ulrich Exam Comprehensive
[2021-04-18 18:21] VITALS: BP 148/90; PULSE 73; RESP 18; O2SAT 96
[2021-04-18 18:22] VITALS: BP 148/90; PULSE 73; RESP 18; O2SAT 96
== END 2021-04-18 18:16 | disposition home or self-care (01) ==
PROVIDERS: Emergency Provider Nurse Practitioner Family; PCP Nurse Practitioner
DX: S80.11XA Contusion of right lower leg, initial encounter (principal); I83.91 Asymptomatic varicose veins of right lower extremity; Z79.01 Long term (current) use of anticoagulants; X58.XXXA Exposure to other specified factors, initial encounter
CPT/HCPCS: 93971; 99282

== ENCOUNTER 2021-05-23 09:20 | Outpatient (CLI) | payer OTHER, MEDICARE, SELFPAY ==
[2021-05-23 10:07] LABS: Basophils # 0.1 10^3/uL (0.0-0.1); Basophils % 1.3 %; Eosinophils # 0.1 10^3/uL (0.0-0.8); Eosinophils % 2.1 %; Hematocrit 45.2 % (37.0-47.0); Hemoglobin 13.2 g/dL (11.5-15.3); Lymphocytes # 1.2 10^3/uL (0.8-4.8); Lymphocytes % 18.9 %; Mean Corpuscular HGB Conc 29.2 g/dL (30.0-36.0); Mean Corpuscular Hemoglobin 26.8 pg (28.0-34.0); Mean Corpuscular Volume 91.9 fL (81-99); Mean Platelet Volume 9.9 fL (7.4-10.4); Monocytes # 0.4 10^3/uL (0.2-0.9); Monocytes % 7.2 %; Neutrophils # 4.27 10^3/uL (1.8-7.7); Neutrophils % 70.2 %; Nucleated Red Blood Cells % 0 %; Platelet Count 258 10^3/cmm (130-400); Red Blood Count 4.92 10^6/uL (4.1-5.3); Red Cell Distribution Width 17.3 % (12.1-15.1); White Blood Count 6.1 10^3/uL (4.0-10.0)
--- NOTE | 2021-06-08 17:24 | ONC FU_ITS ---
Dr. Garcia follow up note Patient: Reta Gipson Unit #: [id number]: 1980 Dicatated By: Kris Garcia M.D.Date of Visit:May 23, 2021 Onc Med Follow-up/Prog Note History of Present Illness: Ms. Ms. Dulce Gipson, is a 40 -year-old female with a history of polycythemia vera Benja 2+, history of tiny subsegmental pulmonary embolism diagnosed in October 2019 since then she is on Eliquis 5 mg twice a day.As per patient she has history of diverticulitis and In addition to abdominal pain she was also having some chest pain so underwent CT scan of chest abdomen pelvis in October [address] scan of the chest showed small blood clot As per patient in 2016, she was having progressive headaches for which she went for evaluation found to have 'thick' blood, subsequently she was diagnosed with polycythemia as her hematocrit was more than 60, underwent twice a week phlebotomy initially followed by weekly and then every 2 weeks for 6 months to get her hematocrit to the target range e.g. below 43 patient was referred to putty worker [facility] in [facility] where she underwent genetic testing and Benja 2 mutation came back positive., As per patient she was treated with aspirin and phlebotomies on as-needed basis and last phlebotomy was done in November 2019, in December 2019 she also underwent bone marrow evaluation as her putty worker was considering hydroxyurea so she was started on hydroxyurea 1000 mg p.o. daily, which she took till March 2020 and then stopped taking as she ran out of prescription and she moved to [place] from [place] thus could not get prescription. Patient denies smoking, occasional alcohol. Tolerating hydroxyurea, Phlebotomy done on January 13, 2021 for hematocrit more than 45 she went to [facility] ER on December 10, 2020 with abdominal pain and CT scan of abdomen was done which showed enhancing left ovarian cyst measuring 2.5 x 3.1 cm. Soft tissue thickening at endocervical junction and internal cervical os, neoplasm is not excluded, as per patient she is being followed by [facility] for excessive menses,And underwent D&C on February 06, 2021, as per patient no abnormality was seen on hydroxyurea 1000 mg p.o. daily and tolerating well Came for follow-up, denies any specific complaints, no fever chills, no nausea or vomiting, no diarrhea or constipation as per patient she is still taking hydroxyurea as recommended and compliant. But no headaches no blurred vision no double vision Medications: Eliquis 1 Tablet (of 5 mg) Oral b.i.d., Gabapentin 1 Capsule (of 300 mg) Oral b.i.d., Hydroxyurea 1 Capsule (of 500 mg) Oral b.i.d., Terbinafine HCl 1 Tablet (of 250 mg) Oral daily Allergies: Esthela Allergy, Flagyl, and guaiFENesin. Review of Systems: Review of Systems is not available for this patient. Vital Signs: Performed on May 23, 2021 11:12 Height - 69.50 in Weight - 314 lbs (LOW) BSA - 2.52 sq.m BMI - 45.71 (HIGH) Temperature - 97.3 F (LOW) Pulse - 73 /min Respiration - 18 /min BP - 138/85 mm(hg) O2 Sat - 98 % Pain - 0 Fatigue - 7 Performance Status: 0 - Fully active, able to carry on all predisease activities without restrictions. (ECOG) Physical Examination: ENMT - No mouth sores, no thrush, no jaundice, Respiratory - Lungs are clear to auscultation, Cardiovascular - Regular rate and rhythm of heart, Abdomen - Soft, bowel sounds present, Extremities - No visible edema. Lab/Imaging: Test performed on March 24, 2021 10:05 WBC 8.3 10 3/uL RBC 5.14 10 6/uL HGB 13.1 g/dL HCT 45.4 % MCV 88.3 fL MCH 25.5 pg MCHC 28.9 g/dL RDW 17.2 % Platelet Count 258 10 3/cmm MPV 10.2 fL Neutrophils 6.19 10 3/uL Lymphocytes 1.3 10 3/uL Monocytes 0.6 10 3/uL Eosinophils 0.1 10 3/uL Basophils 0.1 10 3/uL Neutrophil % 74.2 % Lymphocyte % 15.9 % Monocyte % 6.6 % Eosinophil % 1.7 % Basophils % 1.2 % NRBC % 0 % Impression: Polycythemia vera, Benja 2 mutation positive, diagnosed in 2016 in hematology clinic at [facility] in [facility] which she initially presented with hematocrit more than 60, treated with aggressive phlebotomies to get hematocrit below 43. Underwent bone marrow evaluation in November 2019 for hydroxyurea therapy, and patient was started on hydroxyurea thousand milligrams p.o. daily, which she tolerated well and then ran out of prescription in March 2020, since then she is off, Restarted on June 18, 2020 History of tiny subsegmental pulmonary embolism diagnosed in October 2019, on Eliquis 5 mg p.o. twice daily History of diverticulitis Obesity. Questionable sleep apnea CT scan of abdomen pelvis done on December 10, 2020 showed soft tissue thickening and endocervical area and patient underwent endometrial curettage on February 06, 2021 which shows no atypia, hyperplasia or malignancy identified Plan: Discussed with patient regarding her labs white blood count 6.1 hemoglobin 13.2 hematocrit 45.2 platelets 258,000 Clinically, patient doing well with no new signs symptoms, tolerating hydroxyurea well her follow-up CBC shows her hematocrit is above desired level which is less than 42, at this point will proceed with phlebotomy 250 cc and replacement with 250 C normal saline and then she will return to 2 weeks with CBC and if hematocrit still above 42, for phlebotomy while continue on hydroxyurea and return to clinic in 1 month with CBC at that time we will decide whether to increase hydroxyurea dose to minimize need for phlebotomies to keep hematocrit below 42 while maintaining white blood count and platelets normal range. Signed By: Kris Garcia M.D. <<Signature on File>>
== END 2021-05-23 09:21 | disposition home or self-care (01) ==
LOC: ONCMED 09:25
PROVIDERS: PCP Nurse Practitioner; Visit Provider Internal Medicine Hematology & Oncology
DX: D45 Polycythemia vera (principal); Z86.711 Personal history of pulmonary embolism; Z79.01 Long term (current) use of anticoagulants; Z79.899 Other long term (current) drug therapy; E66.9 Obesity, unspecified
CPT/HCPCS: 36415; 85025; 99195; 99214

== ENCOUNTER 2021-06-03 09:42 | Emergency (ER) | payer OTHER, MEDICARE, SELFPAY ==
[2021-06-03 09:55] VITALS: BP 119/89; PULSE 87; RESP 16; TEMP 36.5; O2SAT 99; BMI 45.4
--- NOTE | 2021-06-03 10:22 | ED_ITS ---
HPI - Extremity Problem General: Chief complaint: Extremity Problem,Nontraumatic Stated complaint: Left hip pain Time Seen by Provider: 06/03/21 10:07 History of Present Illness: HPI Narrative: Patient is a 40-year-old female comes to the ED with left hip pain. She denies any injury or trauma to cause pain. Symptoms have been going on for the past 3 months. Hip pain is worse whenever she weightbears or putting any pressure on sore area of hip. She says it hurts to lay on her left side. Denies any pain radiating down the legs or weakness to the legs. Denies any bladder or bowel incontinence or pelvic anesthesia. Associated symptoms: Deny chest pain, fever(s) or rash Review of Systems Const: Denies: fever(s), chills or fatigue Eyes: Denies: change in vision or eye discomfort ENMT: Denies: throat pain, odynophagia, nasal discharge or nasal congestion Card: Denies: chest pain, palpitations, edema, swelling of feet/ankles, dyspnea on exertion or orthopnea Resp: Denies: dyspnea, productive cough or non-productive cough GI: Denies: abdominal pain, nausea, vomiting, diarrhea, constipation or hematochezia : Denies: flank pain, dysuria or hematuria Musc: Reports: joint pain (left hip pain); Denies: neck pain, back pain or extremity swelling Skin/Breast: Denies: rash or new lesions Neuro: Denies: headache(s), numbness in extremities or weakness in extremities PFS ED PFSH: Medical History Diverticulitis Diagnosed in 2018- Enlarged thyroid gland This is currently being evaluated and managed by Dr. Ferro. She thinks that her thyroid levels were normal. No pertinent past medical history Denies diabetes, asthma, seizures, DVT. PMD: ABI [place] Polycythemia vera Has had symptoms since about 2013 and was diagnosed in 2016. She currently sees heme oncology-Dr. Garcia and is on medication for this. Pulmonary embolism In November 2019 and she has been on Eliquis since then managed by her primary care provider. Denies history of DVT. Surgical History History of tubal ligation March 2009--laparoscopic procedure Status post hysteroscopy 02/06/2021--hysteroscopy performed for possible endometrial polyp on ultrasound-performed by Dr. Ambrose at [facility]. At hysteroscopy no obvious intracavitary abnormalities including polyp identified. D&C performed and pathology showed secretory and proliferative endometrium without atypia hyperplasia or malignancy. Family History Father Chronic kidney disease (CKD) Hypertension Sister Chronic kidney disease (CKD) Psychiatric illness Mother Thyroid disease Grandmother Thyroid disease Maternal Denies family history of Colon cancer Ovarian cancer Diabetes Heart disease Breast cancer Bleeding disorder Uterine cancer Stroke Social History Smoking and tobacco status: never smoked Alcohol intake: former Female Reproductive History: Date of last menstrual period: 11/23/20 Physical Exam Const: COMMON NORMALS: no acute distress, patient oriented x3 and alert GENERAL APPEARANCE: cooperative and comfortable NUTRITIONAL APPEARANCE: obese HENMT: COMMON NORMALS: normocephalic HEAD & SCALP: normocephalic MOUTH: Normal oral and palatal mucosa present THROAT: posterior oropharynx normal and uvula midline Neck/C-Spine: COMMON NORMALS: supple GENERAL: Yes normal visual inspection Resp: COMMON NORMALS: normal respiratory effort, No retractions, No use of accessory muscles and clear to auscultation bilaterally AUSCULTATION: clear to auscultation bilaterally Cardio: COMMON NORMALS: regular rate, regular rhythm, S1 normal heart sound present, S2 normal heart sound present, No gallops present (Cardio), No clicks present (Cardio), No murmurs present (Cardio) and Peripheral pulses 2+ throughout RATE: regular rate RHYTHM: regular rhythm HEART SOUNDS: S1 normal heart sound present and S2 normal heart sound present PERIPHERAL PULSES: Peripheral pulses 2+ throughout GI: COMMON NORMALS: Normal to inspection, nondistended, normoactive bowel sounds present, Soft to palpation, non-tender and no masses PALPATION: Yes Soft to palpation : COMMON NORMALS: Yes no CVA tenderness BLADDER/KIDNEY EXAM: Yes no CVA tenderness Back/Pelvis: COMMON NORMALS: no CVA tenderness Extremity: NARRATIVE EXTREMITY EXAM: Left hip?patient has point tenderness over the trochanteric region of the left hip. GENERAL: Yes normal exam except as noted Neuro: COMMON NORMALS: patient oriented x3 and moves all extremities SENSORIUM/ORIENTATION: Yes alert Skin: GENERAL SKIN EXAM: dry skin Course Vital Signs: Vital signs: Vital Signs Temperature 97.7 F 06/03/21 09:55 Pulse Rate 80 06/03/21 11:38 Respiratory Rate 14 06/03/21 11:38 Blood Pressure 112/81 06/03/21 11:38 Pulse Oximetry 98 06/03/21 11:38 MDM - Extremity (Nontraumatic) MDM Narrative: Medical decision making narrative: Patient is a 40-year-old female comes to the ED with left hip pain. She has been having this pain for the past couple months. Denies any injury or trauma to cause pain. Exam with patient shows point tenderness on the lateral aspect of the hip over the trochanter region. Patient was diagnosed with hip bursitis and given a dose of Decadron while here in the ED. She was discharged home with a prescription for Decadron and Flexeril. Return to ED precautions given. Follow-up with PCP in 7 to 10 days. Patient understood agree with plan. Discharge Plan Discharge Patient Disposition: Home Clinical Impression: Bursitis of hip Qualifiers: Hip bursitis location: unspecified Laterality: left Qualified Code(s): M70.72 - Other bursitis of hip, left hip Condition: Stable Prescriptions: New Decadron 6 mg tablet 6 mg PO DAILY 7 Days Qty: 7 RF: 0 cyclobenzaprine 10 mg tablet 10 mg PO BID PRN (Reason: muscle spasm) Qty: 15 RF: 0 No Action triamcinolone acetonide 0.1 % ointment 1 applic topical BID@0900,2100 PRN (Reason: Skin Irritation) RF: 0 Eliquis 5 mg tablet 5 mg PO BID@0900,2100 RF: 0 gabapentin 300 mg capsule 600 mg PO BEDTIME@2100 RF: 0 hydroxyurea 500 mg capsule 500 mg PO BID@0900,2100 RF: 0 Discharge Orders: Discharge ED (Routine); Ordered 06/03/21 Ordered By: Ovidio Boothe Referrals: Viviana Gill FNP [Primary Care Provider] - Discharge Diet: Regular Discharge Activity: Increase activity as tolerated Patient Instructions: Hip Bursitis (ED) Activity Restrictions/Additional Instructions: Follow-up with medical provider as directed in 7 days for reevaluation. Stretch left hip, apply cold pack on hip and limit activity until improved symptoms. Take medications as prescribed. You can take [id number] Tylenol per bottle instructions for pain. Return to the ER or your medical provider if condition worsens. Please read and understand discharge instructions. Thank you for choosing [facility] for your healthcare needs today. Please realize this is an emergency room and that we are providing you with a medical screening exam and this may not be complete and all inclusive of all the testing and or work up that you may need to determine your ailment or severity of your illness. It is very important that you follow up as instructed or that you return to the Emergency Department should you have concerns or if your condition changes or worsens in any way. Coding Level of Care Code ED Drug And Alcohol Counselor for Ezequiel Fwmilagro Exam Comprehensive
[2021-06-03] MEDS: dexamethasone 10 mg/mL INJ IM (10:48)
[2021-06-03 10:59] VITALS: BP 112/81; PULSE 80; RESP 14; O2SAT 98
[2021-06-03 11:38] VITALS: BP 112/81; PULSE 80; RESP 14; O2SAT 98
== END 2021-06-03 11:04 | disposition home or self-care (01) ==
PROVIDERS: Emergency Provider Physician Assistant; PCP Nurse Practitioner
DX: M70.72 Other bursitis of hip, left hip (principal); Z79.01 Long term (current) use of anticoagulants; Z86.711 Personal history of pulmonary embolism
CPT/HCPCS: 96372; 99283; J1100

== ENCOUNTER 2021-06-06 05:55 | Outpatient (CLI) | payer OTHER, MEDICARE, SELFPAY ==
[2021-06-06 09:20] LABS: Basophils # 0.1 10^3/uL (0.0-0.1); Basophils % 0.8 %; Eosinophils # 0.1 10^3/uL (0.0-0.8); Eosinophils % 1.2 %; Hematocrit 46.3 % (37.0-47.0); Hemoglobin 13.6 g/dL (11.5-15.3); Lymphocytes # 1.6 10^3/uL (0.8-4.8); Mean Corpuscular HGB Conc 29.4 g/dL (30.0-36.0); Mean Corpuscular Hemoglobin 26.9 pg (28.0-34.0); Mean Corpuscular Volume 91.5 fL (81-99); Mean Platelet Volume 10.6 fL (7.4-10.4); Monocytes # 0.5 10^3/uL (0.2-0.9); Monocytes % 5.5 %; Neutrophils # 6.96 10^3/uL (1.8-7.7); Neutrophils % 74.7 %; Nucleated Red Blood Cells % 0 %; Platelet Count 287 10^3/cmm (130-400); Red Blood Count 5.06 10^6/uL (4.1-5.3); Red Cell Distribution Width 16.5 % (12.1-15.1); White Blood Count 9.3 10^3/uL (4.0-10.0)
[2021-06-06] MEDS: sodium chloride 0.9% 250 ML 999 ML IV (11:00)
== END 2021-06-06 05:56 | disposition home or self-care (01) ==
LOC: ONCMED 05:58
PROVIDERS: PCP Nurse Practitioner; Visit Provider Internal Medicine Hematology & Oncology
DX: D45 Polycythemia vera (principal); Z86.711 Personal history of pulmonary embolism; Z79.01 Long term (current) use of anticoagulants; Z79.899 Other long term (current) drug therapy; E66.9 Obesity, unspecified
CPT/HCPCS: 36415; 85025; 99195; J7050

== ENCOUNTER 2021-06-21 17:58 | Emergency (ER) | payer OTHER, MEDICARE, SELFPAY ==
--- NOTE | 2021-06-21 18:00 | ECG_ITS ---
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 Measurements Intervals [place] Rate: 75 P: 44 MD: 163 QRS: -20 QRSD: 98 T: 34 QT: 385 QTc: 433 Interpretive Statements SINUS RHYTHM Compared to ECG 04/14/2021 13:49:26 Myocardial infarct finding no longer present Electronically Signed On 06-26-2021 9:39:00 CDT by Emilee Garcia M.D. [email or web address] [id number]
[2021-06-21 18:18] VITALS: BP 152/108; PULSE 77; RESP 18; TEMP 37.1; O2SAT 96; BMI 45.8
[2021-06-21 19:55] LABS: Basophils # 0.1 10^3/uL (0.0-0.1); Basophils % 0.9 %; Eosinophils # 0.1 10^3/uL (0.0-0.8); Eosinophils % 1.7 %; Hematocrit 43.2 % (37.0-47.0); Hemoglobin 12.7 g/dL (11.5-15.3); Lymphocytes # 1.5 10^3/uL (0.8-4.8); Lymphocytes % 18.1 %; Mean Corpuscular HGB Conc 29.4 g/dL (30.0-36.0); Mean Corpuscular Volume 91.9 fL (81-99); Mean Platelet Volume 10.6 fL (7.4-10.4); Monocytes # 0.6 10^3/uL (0.2-0.9); Monocytes % 7.4 %; Neutrophils # 5.82 10^3/uL (1.8-7.7); Neutrophils % 71.5 %; Nucleated Red Blood Cells % 0 %; Platelet Count 178 10^3/cmm (130-400); White Blood Count 8.1 10^3/uL (4.0-10.0)
--- NOTE | 2021-06-21 19:58 | CTR_ITS ---
PROCEDURE INFORMATION: Exam: CTA Chest With Contrast Exam date and time: 06/21/2021 7:58 PM Age: 40 years old Clinical indication: Pain; Chest pressure; Patient HX: C/O cp w HX of pe TECHNIQUE: Imaging protocol: Computed tomographic angiography of the chest with contrast. 3D rendering (Not supervised by radiologist): MIP and/or 3D reconstructed images were created by the technologist. Radiation optimization: All CT scans at this facility use at least one of these dose optimization techniques: automated exposure control; mA and/or kV adjustment per patient size (includes targeted exams where dose is matched to clinical indication); or iterative reconstruction. Contrast material: OMNI 350; Contrast volume: 63 ml; Contrast route: INTRAVENOUS (IV); COMPARISON: CT angio chest w abd pel w con 04/14/2021 12:02 PM RADIATION DOSE METRICS: Total DLP (mGy-cm): 543.43 FINDINGS: Pulmonary arteries: No pulmonary embolus or aortic dissection. Aorta: Unremarkable. No aortic aneurysm. No aortic dissection. Lungs: Unremarkable. No consolidation. No masses. Pleural spaces: Unremarkable. No pneumothorax. No pleural effusion. Heart: Unremarkable. No cardiomegaly. No pericardial effusion. Lymph nodes: Unremarkable. No enlarged lymph nodes. Spleen: 13.3 cm mild splenomegaly. Bones/joints: Unremarkable. No acute fracture. Soft tissues: Unremarkable. CT/CT angio chest PE protcl [id number] IMPRESSION: 1. No pulmonary embolus or aortic dissection. 2. 13.3 cm mild splenomegaly. Radiation Dose CTDIVOL = (mGy): DLP = 543.43 (mGy-cm)
--- NOTE | 2021-06-21 20:00 | ECG_ITS ---
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 Measurements Intervals [place] Rate: 74 P: 46 AL: 173 QRS: -20 QRSD: 96 T: 22 QT: 390 QTc: 435 Interpretive Statements SINUS RHYTHM Compared to ECG 04/14/2021 13:49:26 Myocardial infarct finding no longer present Electronically Signed On 06-22-2021 12:22:29 CDT by Joel Voss M.D. [email or web address] [email or web address] [email or web address] [facility] [email or web address]/store/[id number]
--- NOTE | 2021-06-21 20:07 | ED_ITS ---
HPI - Chest Pain General: Chief Complaint: Chest Pain Stated Complaint: Chest pain Time Seen by Provider: 06/21/21 19:59 Source: patient Mode of arrival: ambulatory Limitations: no limitations History of Present Illness: HPI narrative: 40-year-old female history of blood clots states she been having chest pain over the last day. States been sharp in nature was concerned due to her history of blood clot. She is on Eliquis. She denies any worsening improving factors. States her pain is currently a 2 out of 10. Denies any shortness of breath or nausea. Associated symptoms: Deny abdominal pain, dyspnea, fever(s), nausea or vomiting Review of Systems Const: Denies: fever(s), chills, body aches or change in appetite Eyes: Denies: blurry vision or eye discomfort ENMT: Denies: throat pain or dental pain Card: Reports: chest pain Resp: Denies: dyspnea GI: Denies: abdominal pain, nausea, vomiting or diarrhea : Denies: dysuria Musc: Denies: neck pain or back pain Skin/Breast: Denies: rash Neuro: Denies: headache(s) Psych: Denies: depression Tirso/Lymph: Denies: easy bruising All/Imm: Denies: urticaria PFSH ED PFSH: Medical History Diverticulitis Diagnosed in 2019- Enlarged thyroid gland This is currently being evaluated and managed by Dr. Ferro. She thinks that her thyroid levels were normal. No pertinent past medical history Denies diabetes, asthma, seizures, DVT. PMD: ABI Victoria Polycythemia vera Has had symptoms since about 2013 and was diagnosed in 2016. She currently sees heme oncology-Dr. Garcia and is on medication for this. Pulmonary embolism In November 2019 and she has been on Eliquis since then managed by her primary care provider. Denies history of DVT. Surgical History History of tubal ligation March 2009--laparoscopic procedure Status post hysteroscopy 02/06/2021--hysteroscopy performed for possible endometrial polyp on ultrasound[place] Amb[place] [facility] [place] At hysteroscopy no obvious intracavitary abnormalities including polyp identified. D&C performed and pathology showed secretory and proliferative endometrium without atypia hyperplasia or malignancy. Family History Father Chronic kidney disease (CKD) Hypertension Sister Chronic kidney disease (CKD) Psychiatric illness Mother Thyroid disease Grandmother Thyroid disease Maternal Denies family history of Colon cancer Ovarian cancer Diabetes Heart disease Breast cancer Bleeding disorder Uterine cancer Stroke Social History Smoking and tobacco status: never smoked Alcohol intake: former Female Reproductive History: Date of last menstrual period: 11/23/20 Physical Exam Const: COMMON NORMALS: no acute distress, patient oriented x3 and healthy appearing HENMT: COMMON NORMALS: normocephalic and atraumatic HEAD & SCALP: normocephalic and atraumatic Eye: COMMON NORMALS: Equal, round and reactive pupils present and EOMs intact bilaterally PUPIL: Yes Equal, round and reactive pupils present Neck/C-Spine: COMMON NORMALS: full ROM and supple Chest: COMMONS NORMALS: normal inspection of the chest and normal palpation of entire chest wall Resp: COMMON NORMALS: normal respiratory effort, No retractions, No use of accessory muscles and clear to auscultation bilaterally AUSCULTATION: clear to auscultation bilaterally Cardio: COMMON NORMALS: regular rate, regular rhythm and No murmurs present (Cardio) RATE: regular rate RHYTHM: regular rhythm GI: COMMON NORMALS: Normal to inspection, nondistended, normoactive bowel sounds present, Soft to palpation, non-tender and no masses PALPATION: Yes Soft to palpation Extremity: COMMON NORMALS: normal to inspection and full ROM Neuro: COMMON NORMALS: patient oriented x3, moves all extremities and no focal motor deficits Psych: COMMON NORMALS: mental status grossly normal, Normal thought process present and cooperative THOUGHT PROCESS: Normal thought process present Skin: COMMON NORMALS: no rashes or lesions noted and no wounds GENERAL SKIN EXAM: no rashes or lesions noted Course Vital Signs: Vital signs: Vital Signs Temperature 98.7 F 06/21/21 18:18 Pulse Rate 75 06/21/21 22:00 Respiratory Rate 18 06/21/21 22:00 Blood Pressure 125/87 06/21/21 22:00 Pulse Oximetry 100 06/21/21 22:00 MDM - Chest Pain MDM Narrative: Medical decision making narrative: Patient presents here with chest pain concern for pulmonary embolism. Troponins EKG and CT here are all normal. Patient is stable for discharge and she feels improved here. She has had no pain here. She is to return to ER if worsening. She is to follow-up with PCP in 3 to 5 days. Lab Data: Labs: Lab Results 06/21/21 06/21/21 06/21/21 Range/Units 19:32 19:32 19:32 WBC 8.1 (4.0-10.0) 10^3/ uL RBC 4.70 (4.1-5.3) 10^6/u L Hgb 12.7 (11.5-15.3) g/dL Hct 43.2 (37.0-47.0) % MCV 91.9 (81-99) fL MCH 27.0 L (28.0-34.0) pg MCHC 29.4 L (30.0-36.0) g/dL RDW 16.0 H (12.1-15.1) % Plt Count 178 (130-400) 10^3/c mm MPV 10.6 H (7.4-10.4) fL Neut % (Auto) 71.5 % Lymph % (Auto) 18.1 % [place] % (Auto) 7.4 % Eos % (Auto) 1.7 % Baso % (Auto) 0.9 % Neut # (Auto) 5.82 (1.8-7.7) 10^3/u L Lymph # (Auto) 1.5 (0.8-4.8) 10^3/u L [place] # (Auto) 0.6 (0.2-0.9) 10^3/u L Eos # (Auto) 0.1 (0.0-0.8) 10^3/u L Baso # (Auto) 0.1 (0.0-0.1) 10^3/u L Nucleated RBC % (a uto) 0 % Nucleated RBCs # 0.0 /100WBC PT (12.1-14.9) SECO NDS INR (0.8-1.2) Sodium 140 (136-145) mmol/L Potassium 4.3 (3.5-5.1) mmol/L Chloride 104 (98-107) mmol/L Carbon Dioxide 26 (22-29) mmol/L Anion Gap 14.3 (5-19) BUN 13 (6-20) mg/dL Creatinine 0.8 (0.5-0.9) mg/dL GFR Calculation 79.4 L (90-130) mL/min Glucose 86 (65-115) mg/dL Calculated Osmolal ity 289 (285-295) mOsm/k g Calcium 9.1 (8.5-10.5) mg/dL Total Bilirubin 0.4 (0.15-1.2) mg/dL AST 18 (0-32) U/L ALT 24 (0-33) U/L Alkaline Phosphata se 87 (35-105) IU/L Troponin T Baselin e 6 (0-10) ng/L Troponin T 120 Min beaver (0-10) ng/L Delta Troponin T (0-10) ABS# Total Protein 6.3 L (6.6-8.7) g/dL Albumin 4.1 (3.5-5.2) g/dL Globulin 2.2 (1.3-4.6) g/dL Lipase 26 (13-60) U/L HCG, Qual (Negative) Urine Color (Yellow) Urine Appearance (CLEAR) Urine pH (5-7) Ur Specific Gravit y (1.005-1.030) Urine Protein (Negative) Urine Glucose (UA) (Normal) Urine Ketones (Negative) Urine Blood (Negative) Urine Nitrate (Negative) Urine Bilirubin (Negative) Urine Urobilinogen (Negative) mg/dL Ur Leukocyte Denice ase (Negative) Urine RBC (0-2) /hpf Urine WBC (0-5) /hpf Ur Squamous Epith Cells (0-5) /hpf Amorphous Sediment Urine Bacteria (NONE) /hpf 06/21/21 06/21/21 06/21/21 Range/Units 19:32 20:40 20:52 WBC (4.0-10.0) 10^3/ uL RBC (4.1-5.3) 10^6/u L Hgb (11.5-15.3) g/dL Hct (37.0-47.0) % MCV (81-99) fL MCH (28.0-34.0) pg MCHC (30.0-36.0) g/dL RDW (12.1-15.1) % Plt Count (130-400) 10^3/c mm MPV (7.4-10.4) fL Neut % (Auto) % Lymph % (Auto) % [place] % (Auto) % Eos % (Auto) % Baso % (Auto) % Neut # (Auto) (1.8-7.7) 10^3/u L Lymph # (Auto) (0.8-4.8) 10^3/u L [place] # (Auto) (0.2-0.9) 10^3/u L Eos # (Auto) (0.0-0.8) 10^3/u L Baso # (Auto) (0.0-0.1) 10^3/u L Nucleated RBC % (a uto) % Nucleated RBCs # /100WBC PT 13.50 (12.1-14.9) SECO NDS INR 1.00 (0.8-1.2) Sodium (136-145) mmol/L Potassium (3.5-5.1) mmol/L Chloride (98-107) mmol/L Carbon Dioxide (22-29) mmol/L Anion Gap (5-19) BUN (6-20) mg/dL Creatinine (0.5-0.9) mg/dL GFR Calculation (90-130) mL/min Glucose (65-115) mg/dL Calculated Osmolal ity (285-295) mOsm/k g Calcium (8.5-10.5) mg/dL Total Bilirubin (0.15-1.2) mg/dL AST (0-32) U/L ALT (0-33) U/L Alkaline Phosphata se (35-105) IU/L Troponin T Baselin e (0-10) ng/L Troponin T 120 Min beaver (0-10) ng/L Delta Troponin T (0-10) ABS# Total Protein (6.6-8.7) g/dL Albumin (3.5-5.2) g/dL Globulin (1.3-4.6) g/dL Lipase (13-60) U/L HCG, Qual Negative (Negative) Urine Color Yellow (Yellow) Urine Appearance Clear (CLEAR) Urine pH 5 (5-7) Ur Specific Gravit y 1.025 (1.005-1.030) Urine Protein Neg (Negative) Urine Glucose (UA) Norm (Normal) Urine Ketones Negative (Negative) Urine Blood 2+ H (Negative) Urine Nitrate Negative (Negative) Urine Bilirubin Neg (Negative) Urine Urobilinogen Norm (Negative) mg/dL Ur Leukocyte Dencie ase Negative (Negative) Urine RBC 5-10 H (0-2) /hpf Urine WBC 0-4 H (0-5) /hpf Ur Squamous Epith Cells 10-15 H (0-5) /hpf Amorphous Sediment Not Reportable Urine Bacteria 1+ H (NONE) /hpf 06/21/21 Range/Units 21:54 WBC (4.0-10.0) 10^3/ uL RBC (4.1-5.3) 10^6/u L Hgb (11.5-15.3) g/dL Hct (37.0-47.0) % MCV (81-99) fL MCH (28.0-34.0) pg MCHC (30.0-36.0) g/dL RDW (12.1-15.1) % Plt Count (130-400) 10^3/c mm MPV (7.4-10.4) fL Neut % (Auto) % Lymph % (Auto) % [place] % (Auto) % Eos % (Auto) % Baso % (Auto) % Neut # (Auto) (1.8-7.7) 10^3/u L Lymph # (Auto) (0.8-4.8) 10^3/u L [place] # (Auto) (0.2-0.9) 10^3/u L Eos # (Auto) (0.0-0.8) 10^3/u L Baso # (Auto) (0.0-0.1) 10^3/u L Nucleated RBC % (a uto) % Nucleated RBCs # /100WBC PT (12.1-14.9) SECO NDS INR (0.8-1.2) Sodium (136-145) mmol/L Potassium (3.5-5.1) mmol/L Chloride (98-107) mmol/L Carbon Dioxide (22-29) mmol/L Anion Gap (5-19) BUN (6-20) mg/dL Creatinine (0.5-0.9) mg/dL GFR Calculation (90-130) mL/min Glucose (65-115) mg/dL Calculated Osmolal ity (285-295) mOsm/k g Calcium (8.5-10.5) mg/dL Total Bilirubin (0.15-1.2) mg/dL AST (0-32) U/L ALT (0-33) U/L Alkaline Phosphata se (35-105) IU/L Troponin T Baselin e (0-10) ng/L Troponin T 120 Min beaver 6.00 (0-10) ng/L Delta Troponin T 0 (0-10) ABS# Total Protein (6.6-8.7) g/dL Albumin (3.5-5.2) g/dL Globulin (1.3-4.6) g/dL Lipase (13-60) U/L HCG, Qual (Negative) Urine Color (Yellow) Urine Appearance (CLEAR) Urine pH (5-7) Ur Specific Gravit y (1.005-1.030) Urine Protein (Negative) Urine Glucose (UA) (Normal) Urine Ketones (Negative) Urine Blood (Negative) Urine Nitrate (Negative) Urine Bilirubin (Negative) Urine Urobilinogen (Negative) mg/dL Ur Leukocyte Denice ase (Negative) Urine RBC (0-2) /hpf Urine WBC (0-5) /hpf Ur Squamous Epith Cells (0-5) /hpf Amorphous Sediment Urine Bacteria (NONE) /hpf Imaging Data^: CT Chest: Radiologist's impression: [address] [address] [address] Scan Report Signed Patient: Reta Gipson Unit #: [id number] : 1980 Age/Sex: 40 / F ADM Date: 06/21/21 Loc: ER Room/Bed: Attending Dr: Ordering Provider/Ordering MD: Jean Gonzales MD Date of Service: 06/21/21 Procedure(s): CT angio chest PE protcl [id number] Accession Number(s): [id number] Report Number: [id number] PROCEDURE INFORMATION: Exam: CTA Chest With Contrast Exam date and time: 06/21/2021 7:58 PM Age: 40 years old Clinical indication: Pain; Chest pressure; Patient HX: C/O cp w HX of pe TECHNIQUE: Imaging protocol: Computed tomographic angiography of the chest with contrast. 3D rendering (Not supervised by radiologist): MIP and/or 3D reconstructed images were created by the technologist. Radiation optimization: All CT scans at this facility use at least one of these dose optimization techniques: automated exposure control; mA and/or kV adjustment per patient size (includes targeted exams where dose is matched to clinical indication); or iterative reconstruction. Contrast material: OMNI 350; Contrast volume: 63 ml; Contrast route: INTRAVENOUS (IV); COMPARISON: CT angio chest w abd pel w con 04/14/2021 12:02 PM RADIATION DOSE METRICS: Total DLP (mGy-cm): 543.43 FINDINGS: Pulmonary arteries: No pulmonary embolus or aortic dissection. Aorta: Unremarkable. No aortic aneurysm. No aortic dissection. Lungs: Unremarkable. No consolidation. No masses. Pleural spaces: Unremarkable. No pneumothorax. No pleural effusion. Heart: Unremarkable. No cardiomegaly. No pericardial effusion. Lymph nodes: Unremarkable. No enlarged lymph nodes. Spleen: 13.3 cm mild splenomegaly. Bones/joints: Unremarkable. No acute fracture. Soft tissues: Unremarkable. CT/CT angio chest PE protcl [id number] IMPRESSION: 1. No pulmonary embolus or aortic dissection. 2. 13.3 cm mild splenomegaly. Radiation Dose CTDIVOL = (mGy): DLP = 543.43 (mGy-cm) Dictated By: Lloyd Mazariegos MD Signed By: Lloyd Mazariegos MD Signed Date/Time: 06/21/212243 DD/ 41 EKG Data^: EKG 1: Attestation: I personally reviewed and interpreted this EKG as follows: EKG interpretation date: 06/21/21 EKG interpretation time: 18:29 Interpretation: nsr hr [address] or t wave abnormalities qrs 92 qtc 392 EKG 2: Attestation: I personally reviewed and interpreted this EKG as follows: EKG interpretation date: 06/21/21 EKG interpretation time: 20:18 Interpretation: nsr hr [address] or t wave abnormalities qrs 98 qtc 415 Discharge Plan Discharge Patient Disposition: Home Clinical Impression: Chest pain Qualifiers: Chest pain type: unspecified Qualified Code(s): R07.9 - Chest pain, unspecified Condition: Stable Prescriptions: No Action triamcinolone acetonide 0.1 % ointment 1 applic topical BID@00,2099 PRN (Reason: Skin Irritation) RF: 0 Eliquis 5 mg tablet 5 mg PO BID@899,2099 RF: 0 gabapentin 300 mg capsule 600 mg PO BEDTIME@2099 RF: 0 hydroxyurea 500 mg capsule 500 mg PO BID@899,2099 RF: 0 cyclobenzaprine 10 mg tablet 10 mg PO BID PRN (Reason: muscle spasm) Qty: 15 RF: 0 Discharge Orders: Discharge ED (Routine); Ordered 06/21/21 Ordered By: Jean Gonzales Referrals: [facility] [Primary Care Provider] - Discharge Diet: Advance as tolerated Discharge Activity: Resume usual activity Patient Instructions: Chest Pain (ED) Coding Level of Care Code ED Retail Marketing Executive for Chg Fwd Exam Comprehensive
[2021-06-21 20:15] LABS: Alanine Aminotransferase 24 U/L (0-33); Albumin Level 4.1 g/dL (3.5-5.2); Alkaline Phosphatase 87 IU/L (35-105); Anion Gap 14.3 (5-19); Aspartate Amino Transferase 18 U/L (0-32); Blood Urea Nitrogen 13 mg/dL (6-20); Calcium 9.1 mg/dL (8.5-10.5); Carbon Dioxide 26 mmol/L (22-29); Chloride 104 mmol/L (98-107); Globulin 2.2 g/dL (1.3-4.6); Glomerular Filtration Rate 79.4 mL/min (90-130); Glucose 86 mg/dL (65-115); Lipase 26 U/L (13-60); Osmolality Calculated 289 mOsm/kg (285-295); Potassium 4.3 mmol/L (3.5-5.1); Sodium 140 mmol/L (136-145); Total Bilirubin 0.4 mg/dL (0.15-1.2); Total Protein 6.3 g/dL (6.6-8.7)
[2021-06-21 20:23] LABS: HCG, Serum Qual Negative (Negative)
[2021-06-21 20:36] LABS: Troponin(5th) Baseline 6 ng/L (0-10)
[2021-06-21 21:00] VITALS: BP 128/88; PULSE 80; RESP 18; O2SAT 100
[2021-06-21 21:35] LABS: Add Urine Microscopic? YES; Bilirubin Urine Neg (Negative); Blood Urine 2+ (Negative); Glucose Urine UA Norm (Normal); Ketones Urine Negative (Negative); Leukocyte Esterase Urine Negative (Negative); Nitrate Urine Negative (Negative); Protein Urine Neg (Negative); Specific Gravity, Urine 1.025 (1.005-1.030); Urine Appearance Clear (CLEAR); Urine Color Yellow (Yellow); Urobilinogen Urine Norm (Negative); pH Urine 5 (5-7)
[2021-06-21 21:38] LABS: Add Urine Culture? No; Bacteria Urine 1+ /hpf; WBC Urine 0-4 /hpf (0-5)
[2021-06-21 22:00] VITALS: BP 125/87; PULSE 75; RESP 18; O2SAT 100
[2021-06-21] MEDS: iohexol 350 mg/mL 100 mL Btl IV (22:16)
[2021-06-21 22:56] LABS: Troponin 5 2HR Delta 0 ABS# (0-10)
[2021-06-21 23:00] VITALS: BP 125/85; PULSE 70; RESP 18; O2SAT 98
== END 2021-06-21 23:18 | disposition home or self-care (01) ==
PROVIDERS: Nurse Practitioner Family; Emergency Provider Emergency Medicine
DX: R07.9 Chest pain, unspecified (principal); Z79.01 Long term (current) use of anticoagulants; Z86.711 Personal history of pulmonary embolism
CPT/HCPCS: 71275; 80053; 81001; 83690; 84484; 84703; 85025; 85610; 93005; 99284; Q9967

== ENCOUNTER 2021-06-23 06:00 | Outpatient (CLI) | payer OTHER, MEDICARE, SELFPAY ==
[2021-06-23 14:26] LABS: Basophils # 0.1 10^3/uL (0.0-0.1); Basophils % 1.1 %; Eosinophils # 0.1 10^3/uL (0.0-0.8); Eosinophils % 2.1 %; Hematocrit 39.1 % (37.0-47.0); Hemoglobin 11.6 g/dL (11.5-15.3); Lymphocytes # 1.2 10^3/uL (0.8-4.8); Lymphocytes % 18.5 %; Mean Corpuscular HGB Conc 29.7 g/dL (30.0-36.0); Mean Corpuscular Volume 90.9 fL (81-99); Mean Platelet Volume 10.6 fL (7.4-10.4); Monocytes # 0.3 10^3/uL (0.2-0.9); Monocytes % 5.2 %; Neutrophils # 4.82 10^3/uL (1.8-7.7); Neutrophils % 72.9 %; Nucleated Red Blood Cells % 0 %; Platelet Count 247 10^3/cmm (130-400); White Blood Count 6.6 10^3/uL (4.0-10.0)
--- NOTE | 2021-06-23 15:40 | ONC FU_ITS ---
Dr. Garcia follow up note Patient: Reta Gipson Unit #: [id number]: 1980 Dicatated By: Kris Garcia M.D.Date of Visit:Jun 23, 2021 Onc Med Follow-up/Prog Note History of Present Illness: Ms. Ms. Dulce Gipson, is a 40 -year-old female with a history of polycythemia vera Benja 2+, history of tiny subsegmental pulmonary embolism diagnosed in October 2019 since then she is on Eliquis 5 mg twice a day.As per patient she has history of diverticulitis and In addition to abdominal pain she was also having some chest pain so underwent CT scan of chest abdomen pelvis in October [address] scan of the chest showed small blood clot As per patient in 2016, she was having progressive headaches for which she went for evaluation found to have 'thick' blood, subsequently she was diagnosed with polycythemia as her hematocrit was more than 60, underwent twice a week phlebotomy initially followed by weekly and then every 2 weeks for 6 months to get her hematocrit to the target range e.g. below 43 patient was referred to command and control officer and [facility] in [facility] where she underwent genetic testing and Benja 2 mutation came back positive., As per patient she was treated with aspirin and phlebotomies on as-needed basis and last phlebotomy was done in November 2019, in December 2019 she also underwent bone marrow evaluation as her command and control officer was considering hydroxyurea so she was started on hydroxyurea 1000 mg p.o. daily, which she took till March 2020 and then stopped taking as she ran out of prescription and she moved to [place] from [place] thus could not get prescription. Patient denies smoking, occasional alcohol. Tolerating hydroxyurea, Phlebotomy done on January 13, 2021 for hematocrit more than 45 she went [place] [facility] on December 10, [address] with abdominal pain and CT scan of abdomen was done which showed enhancing left ovarian cyst measuring 2.5 x 3.1 cm. Soft tissue thickening at endocervical junction and internal cervical os, neoplasm is not excluded, as per patient she is being followed by [employer] for excessive menses,And underwent D&C on February 06, 2021, as per patient no abnormality was seen on hydroxyurea 1000 mg p.o. daily and tolerating well Came for follow-up, denies any specific complaint except heavy menstrual periods since Wednesday, now with blood clots as per patient before the used to last 4 days but now heavier and last longer. Denies any melena or hematochezia denies any hemoptysis or hematemesis denies any nosebleed or gum bleed denies any hematuria denies any jaundice denies any shortness of breath or chest pain, tolerating hydroxyurea well Medications: Eliquis 1 Tablet (of 5 mg) Oral b.i.d., Gabapentin 1 Capsule (of 300 mg) Oral b.i.d., Hydroxyurea 1 Capsule (of 500 mg) Oral b.i.d., Terbinafine HCl 1 Tablet (of 250 mg) Oral daily Allergies: Esthela Allergy, Flagyl, and guaiFENesin. Review of Systems: Review of Systems is not available for this patient. Vital Signs: Performed on Jun 23, 2021 15:15 Height - 69.50 in Weight - 310.2 lbs (LOW) BSA - 2.50 sq.m BMI - 45.15 (HIGH) Temperature - 97.4 F (LOW) Pulse - 87 /min Respiration - 18 /min BP - 131/76 mm(hg) O2 Sat - 98 % Pain - 0 Performance Status: 0 - Fully active, able to carry on all predisease activities without restrictions. (ECOG) Physical Examination: ENMT - No mouth sores, no thrush, no jaundice, Respiratory - Lungs are clear to auscultation, Cardiovascular - Regular rate and rhythm of heart, Abdomen - Soft, bowel sounds present, Extremities - No visible edema. Lab/Imaging: Test performed on March 24, 2021 10:05 WBC 8.3 10 3/uL RBC 5.14 10 6/uL HGB 13.1 g/dL HCT 45.4 % MCV 88.3 fL MCH 25.5 pg MCHC 28.9 g/dL RDW 17.2 % Platelet Count 258 10 3/cmm MPV 10.2 fL Neutrophils 6.19 10 3/uL Lymphocytes 1.3 10 3/uL Monocytes 0.6 10 3/uL Eosinophils 0.1 10 3/uL Basophils 0.1 10 3/uL Neutrophil % 74.2 % Lymphocyte % 15.9 % Monocyte % 6.6 % Eosinophil % 1.7 % Basophils % 1.2 % NRBC % 0 % Impression: Polycythemia vera, Benja 2 mutation positive, diagnosed in 2016 in hematology clinic at [facility] in [facility] which she initially presented with hematocrit more than 60, treated with aggressive phlebotomies to get hematocrit below 43. Underwent bone marrow evaluation in November 2019 for hydroxyurea therapy, and patient was started on hydroxyurea thousand milligrams p.o. daily, which she tolerated well and then ran out of prescription in March 2020, since then she is off, Restarted on June 18, 2020 History of tiny subsegmental pulmonary embolism diagnosed in October 2019, on Eliquis 5 mg p.o. twice daily History of diverticulitis Obesity. Questionable sleep apnea CT scan of abdomen pelvis done on December 10, 2020 showed soft tissue thickening and endocervical area and patient underwent endometrial curettage on February 06, 2021 which shows no atypia, hyperplasia or malignancy identified Plan: Discussed with patient regarding her labs white blood count 6.6 hemoglobin 11.6 g compared to 13.6 on June 06, 2021 hematocrit 39.1 platelets 247,000 Clinically, patient doing well with no new signs symptom, her follow-up labs shows significant drop in her hemoglobin/hematocrit probably due to heavy menstrual periods. Patient is being followed by [employer], But patient is not symptomatic, tolerating hydroxyurea well will continue with same and return to clinic in 1 month with CBC Signed By: Kris Garcia M.D. <<Signature on File>>
== END 2021-06-23 06:01 | disposition home or self-care (01) ==
LOC: ONCMED 06:03
PROVIDERS: PCP Nurse Practitioner; Visit Provider Internal Medicine Hematology & Oncology
DX: D45 Polycythemia vera (principal); Z86.711 Personal history of pulmonary embolism; Z79.01 Long term (current) use of anticoagulants; Z79.899 Other long term (current) drug therapy; E66.9 Obesity, unspecified
CPT/HCPCS: 36415; 85025; 99214

== ENCOUNTER 2021-06-26 15:58 | Emergency (ER) | payer OTHER, MEDICARE, SELFPAY ==
[2021-06-26 16:28] VITALS: BP 141/86; PULSE 85; RESP 18; TEMP 36.2; O2SAT 99; BMI 45.8
[2021-06-26 18:08] VITALS: BP 125/81; PULSE 78; RESP 16; O2SAT 100
[2021-06-26 18:55] LABS: Basophils # 0.1 10^3/uL (0.0-0.1); Basophils % 0.6 %; Eosinophils # 0.2 10^3/uL (0.0-0.8); Eosinophils % 2.2 %; Hemoglobin 10.9 g/dL (11.5-15.3); Lymphocytes # 1.7 10^3/uL (0.8-4.8); Lymphocytes % 21.6 %; Mean Corpuscular HGB Conc 29.5 g/dL (30.0-36.0); Mean Corpuscular Hemoglobin 27.7 pg (28.0-34.0); Mean Corpuscular Volume 93.9 fL (81-99); Mean Platelet Volume 10.2 fL (7.4-10.4); Monocytes # 0.5 10^3/uL (0.2-0.9); Neutrophils # 5.36 10^3/uL (1.8-7.7); Neutrophils % 69.1 %; Nucleated Red Blood Cells % 0 %; Platelet Count 385 10^3/cmm (130-400); Red Blood Count 3.94 10^6/uL (4.1-5.3); Red Cell Distribution Width 16.4 % (12.1-15.1); White Blood Count 7.8 10^3/uL (4.0-10.0)
--- NOTE | 2021-06-26 19:04 | USR_ITS ---
PROCEDURE INFORMATION: Exam: US Pelvis Complete, Transabdominal and US Pelvis, Transvaginal Exam date and time: 06/26/2021 7:04 PM Age: 40 years old Clinical indication: Menstruation abnormalities; Excessive menstruation; With regular cycle; Prior surgery; Surgery date: 6+ months; Surgery type: Tubal; Patient HX: ; Additional info: Vaginal bleeding TECHNIQUE: Imaging protocol: Real-time transabdominal and transvaginal pelvic ultrasound (complete) with image documentation. Transvaginal imaging was used for better evaluation of the endometrium, adnexa, and/or cervix. COMPARISON: CT abdomen pelvis w con* [id number] 02/10/2021 3:49 PM FINDINGS: Uterus/cervix: The uterus is and flexed and measures 8.1 x 3.8 x 4.3 cm. Slightly inhomogeneous echotexture with no masses seen. The endometrial stripe measures less than 5 mm in thickness. Right adnexa: Limited visibility secondary to body habitus and bowel. Ovary not identified. No abnormality seen. Left adnexa: Limited visibility secondary to body habitus and bowel. Ovary not identified. No abnormality seen. Intraperitoneal space: No free fluid. Urinary bladder: Normal. US/US pelvic with transvaginal IMPRESSION: 1. Normal ultrasound of the uterus/endometrium. 2. The ovaries are not identified.
[2021-06-26 19:16] LABS: Anion Gap 13.8 (5-19); Blood Urea Nitrogen 7 mg/dL (6-20); Calcium 8.2 mg/dL (8.5-10.5); Carbon Dioxide 24 mmol/L (22-29); Chloride 105 mmol/L (98-107); Glomerular Filtration Rate 92.7 mL/min (90-130); Glucose 76 mg/dL (65-115); Osmolality Calculated 285 mOsm/kg (285-295); Potassium 3.8 mmol/L (3.5-5.1); Sodium 139 mmol/L (136-145)
[2021-06-26 20:00] VITALS: BP 119/75; PULSE 89; RESP 18; O2SAT 98
[2021-06-26 21:16] VITALS: BP 113/84; PULSE 90; RESP 16; O2SAT 100
--- NOTE | 2021-06-26 21:21 | ED_ITS ---
HPI - Female Genitourinary General: Chief complaint: Vaginal Bleeding Stated complaint: continuous Vaginal bLeeding Time Seen by Provider: 06/26/21 18:11 Source: patient Mode of arrival: ambulatory Limitations: no limitations History of Present Illness: HPI Narrative: This is a 40-year-old female patient with a history of prior pulmonary embolism and DVT, on oral anticoagulation, polycythemia vera and gets regular phlebotomies. She had an IUD placed but due to issues with tolerance of the IUD it was taken out about a month ago. She started her regular menstrual cycle about a week ago and the day after the bleeding became much heavier. She says she has been using about 3 pads every hour. She denies dizziness or loss of consciousness. She denies a fever or urinary symptoms. No abdominal pain. No diarrhea or constipation. She called her primary care provider's office today who advised that she come to the emergency department to be evaluated. MD elicited complaint: vaginal bleeding Onset (ago): day(s) (7) Vaginal bleeding: heavy and # pads per hour (3) Exacerbating factors: none Relieving factors: none Associated symptoms: Deny abdominal pain, short of breath, fevers/chills, headache(s), nausea, rash, seizures, syncope, vaginal discharge or weakness Treatment prior to arrival: none Patient : No Date of Last Menstrual Period: 11/23/20 Review of Systems General: Reports: 10 or more systems reviewed and unremarkable except in HPI and below Card: Denies: syncope GI: Denies: abdominal pain or nausea : Denies: vaginal discharge Neuro: Denies: headache(s) [facility] ED PFSH: Medical History Diverticulitis Diagnosed in 2019- Enlarged thyroid gland This is currently being evaluated and managed by Dr. Ferro. She thinks that her thyroid levels were normal. No pertinent past medical history Denies diabetes, asthma, seizures, DVT. PMD: ABI Victoria Polycythemia vera Has had symptoms since about 2013 and was diagnosed in 2015. She currently sees heme oncology-Dr. Garcia and is on medication for this. Pulmonary embolism In November 2019 and she has been on Eliquis since then managed by her primary care provider. Denies history of DVT. Surgical History History of tubal ligation March 2009--laparoscopic procedure Status post hysteroscopy 02/06/2021--hysteroscopy performed for possible endometrial polyp on ultrasound-performed by Dr. Ambrose at [facility]. At hysteroscopy no obvious intracavitary abnormalities including polyp identified. D&C performed and pathology showed secretory and proliferative endometrium without atypia hyperplasia or malignancy. Family History Father Chronic kidney disease (CKD) Hypertension Sister Chronic kidney disease (CKD) Psychiatric illness Mother Thyroid disease Grandmother Thyroid disease Maternal Denies family history of Colon cancer Ovarian cancer Diabetes Heart disease Breast cancer Bleeding disorder Uterine cancer Stroke Social History Smoking and tobacco status: never smoked Alcohol intake: former Female Reproductive History: Date of last menstrual period: 11/23/20 Physical Exam Const: COMMON NORMALS: no acute distress, average body habitus, patient oriented x3, no limitations, healthy appearing, alert and well nourished HENMT: COMMON NORMALS: normocephalic, atraumatic and moist oral mucous membranes HEAD & SCALP: normocephalic and atraumatic Neck/C-Spine: COMMON NORMALS: no meningeal signs and no JVD Resp: COMMON NORMALS: normal respiratory effort, No retractions, No use of accessory muscles, clear to auscultation bilaterally and percussion normal AUSCULTATION: clear to auscultation bilaterally PERCUSSION: percussion normal Cardio: COMMON NORMALS: no JVD, regular rate, regular rhythm, S1 normal heart sound present, S2 normal heart sound present, No gallops present (Cardio), No clicks present (Cardio), No murmurs present (Cardio), No rub (Cardio) and Peripheral pulses 2+ throughout RATE: regular rate RHYTHM: regular rhythm HEART SOUNDS: S1 normal heart sound present and S2 normal heart sound present PERIPHERAL PULSES: Peripheral pulses 2+ throughout GI: COMMON NORMALS: Normal to inspection, nondistended, normoactive bowel sounds present, Soft to palpation, non-tender, No hepatosplenomegaly present, no masses and no bruits PALPATION: Yes Soft to palpation and Yes No hepatosplenomegaly present Extremity: COMMON NORMALS: normal to inspection, full ROM, capillary refill normal, no calf tenderness and no pedal edema Neuro: COMMON NORMALS: patient oriented x3 SENSORIUM/ORIENTATION: Yes alert MENINGEAL SIGNS: Yes no meningeal signs Skin: COMMON NORMALS: no rashes or lesions noted, no wounds, turgor normal, no jaundice, no petechiae and no mottling GENERAL SKIN EXAM: no rashes or lesions noted and turgor normal Course Reevaluation(s): Reevaluation #1: Discussed her lab and imaging findings with her. Unremarkable. Hemoglobin is 10.9 which is not significantly low. Ultrasound of her pelvis was unremarkable. Advised that she follow-up with her prison teacher, she should call her prison teacher office tomorrow for further advice. Will not give her oral contraceptives or hormones due to the increased risk of DVT in this patient with a prior history of PEs and with polycythemia. She voiced understanding and is in agreement with the plan. Time: 21:21 Vital Signs: Vital signs: Vital Signs Temperature 97.2 F L 06/26/21 21:31 Pulse Rate 90 06/26/21 21:31 Respiratory Rate 16 06/26/21 21:31 Blood Pressure 113/84 06/26/21 21:31 Pulse Oximetry 100 06/26/21 21:31 MDM - Female MDM Narrative: Medical decision making narrative: 40-year-old female patient who presents to the emergency department with menorrhagia. She is on anticoagulation, apixaban. Evaluation in the emergency department is unremarkable and she is discharged home to follow-up with her prison teacher. Medical Records: Attestation: I reviewed the patient's medical records. Lab Data: Attestation: I reviewed the patient's lab results. Labs: Lab Results 06/26/21 06/26/21 Range/Units 18:08 18:08 WBC 7.8 (4.0-10.0) 10^3/ uL RBC 3.94 L (4.1-5.3) 10^6/u L Hgb 10.9 L (11.5-15.3) g/dL Hct 37.0 (37.0-47.0) % MCV 93.9 (81-99) fL MCH 27.7 L (28.0-34.0) pg MCHC 29.5 L (30.0-36.0) g/dL RDW 16.4 H (12.1-15.1) % Plt Count 385 (130-400) 10^3/c mm MPV 10.2 (7.4-10.4) fL Neut % (Auto) 69.1 % Lymph % (Auto) 21.6 % [place] % (Auto) 6.0 % Eos % (Auto) 2.2 % Baso % (Auto) 0.6 % Neut # (Auto) 5.36 (1.8-7.7) 10^3/u L Lymph # (Auto) 1.7 (0.8-4.8) 10^3/u L [place] # (Auto) 0.5 (0.2-0.9) 10^3/u L Eos # (Auto) 0.2 (0.0-0.8) 10^3/u L Baso # (Auto) 0.1 (0.0-0.1) 10^3/u L Nucleated RBC % (a uto) 0 % Nucleated RBCs # 0.0 /100WBC Sodium 139 (136-145) mmol/L Potassium 3.8 (3.5-5.1) mmol/L Chloride 105 (98-107) mmol/L Carbon Dioxide 24 (22-29) mmol/L Anion Gap 13.8 (5-19) BUN 7 (6-20) mg/dL Creatinine 0.7 (0.5-0.9) mg/dL GFR Calculation 92.7 (90-130) mL/min Glucose 76 (65-115) mg/dL Calculated Osmolal ity 285 (285-295) mOsm/k g Calcium 8.2 L (8.5-10.5) mg/dL Ser , [place] i-Qnt 0.50 mIU/mL Imaging Data: US: Attestation: I personally reviewed and interpreted this imaging study as follows: Radiologist's impression: [address] [id number] ReportSigned Patient: Nadia Gipson #: [id number]: [id number]#:[id number]/Sex: 40 / FADM Date: 06/26/21Loc: ERRoom/Bed:Attending Dr: Ordering Provider/Ordering MD: Letty Temple MD, [facility] Date of Service: 06/26/21 Procedure(s): US pelvic with transvaginal Accession Number(s): [id number] Report Number: [id number] PROCEDURE INFORMATION: Exam: US Pelvis Complete, Transabdominal and US Pelvis, Transvaginal Exam date and time: 06/26/2021 7:04 PM Age: 40 years old Clinical indication: Menstruation abnormalities; Excessive menstruation; With regular cycle; Prior surgery; Surgery date: 6+ months; Surgery type: Tubal; Patient HX: ; Additional info: Vaginal bleeding TECHNIQUE: Imaging protocol: Real-time transabdominal and transvaginal pelvic ultrasound (complete) with image documentation. Transvaginal imaging was used for better evaluation of the endometrium, adnexa, and/or cervix. COMPARISON: CT abdomen pelvis w con* [id number] 02/10/2021 3:49 PM FINDINGS: Uterus/cervix: The uterus is and flexed and measures 8.1 x 3.8 x 4.3 cm. Slightly inhomogeneous echotexture with no masses seen. The endometrial stripe measures less than 5 mm in thickness. Right adnexa: Limited visibility secondary to body habitus and bowel. Ovary not identified. No abnormality seen. Left adnexa: Limited visibility secondary to body habitus and bowel. Ovary not identified. No abnormality seen. Intraperitoneal space: No free fluid. Urinary bladder: Normal. US/US pelvic with transvaginal IMPRESSION: 1. Normal ultrasound of the uterus/endometrium. 2. The ovaries are not identified. Dictated By:Jignesh Luna MDSigned By:Jignesh Luna MDSigned Date/Time:06/26/212106DD/ 04 Discharge Plan Discharge Patient Disposition: Home Clinical Impression: Chronic anticoagulation Menorrhagia Qualifiers: Menorrhagia type: with regular cycle Qualified Code(s): N92.0 - Excessive and frequent menstruation with regular cycle Condition: Stable Prescriptions: Continued triamcinolone acetonide 0.1 % ointment 1 applic topical BID@0900,2100 PRN (Reason: Skin Irritation) RF: 0 Eliquis 5 mg tablet 5 mg PO BID@0900,2100 RF: 0 gabapentin 300 mg capsule 600 mg PO BEDTIME@2099 RF: 0 hydroxyurea 500 mg capsule 500 mg PO BID@00,2099 RF: 0 Discharge Orders: Discharge ED (Routine); Ordered 06/26/21 Ordered By: Letty Temple Referrals: Joselin Agrawal MD [Physician] - (call tomorrow to schedule an appointment) Viviana Gill FNP [Primary Care Provider] - Discharge Diet: Usual diet Discharge Activity: Increase activity as tolerated Patient Instructions: Menorrhagia (ED) Activity Restrictions/Additional Instructions: Return for any new or worsening symptoms. Follow-up with your air and missile defense crewmember, Dr. Ambrose as soon as possible. Call her office tomorrow to schedule an appointment to be evaluated. Continue your home medications. If you feel dizzy, lightheaded or like you are going to faint call for an ambulance or return to the emergency department to be evaluated. Coding Level of Care Code ED Certified Medical Assistant for Ezequiel Ulrich
[2021-06-26 21:31] VITALS: BP 113/84; PULSE 90; RESP 16; TEMP 36.2; O2SAT 100
== END 2021-06-26 21:33 | disposition home or self-care (01) ==
PROVIDERS: Emergency Medicine; Emergency Provider Family Medicine; PCP Nurse Practitioner
DX: N92.0 Excessive and frequent menstruation with regular cycle (principal); D45 Polycythemia vera; Z79.01 Long term (current) use of anticoagulants; Z86.711 Personal history of pulmonary embolism
CPT/HCPCS: 76830; 76856; 80048; 84702; 85025; 99283

== ENCOUNTER 2021-07-24 13:01 | Outpatient (CLI) | payer OTHER, MEDICARE, SELFPAY ==
[2021-07-24 14:28] LABS: Basophils # 0.1 10^3/uL (0.0-0.1); Eosinophils # 0.2 10^3/uL (0.0-0.8); Eosinophils % 2.7 %; Hematocrit 35.8 % (37.0-47.0); Hemoglobin 10.4 g/dL (11.5-15.3); Lymphocytes # 1.6 10^3/uL (0.8-4.8); Lymphocytes % 22.2 %; Mean Corpuscular HGB Conc 29.1 g/dL (30.0-36.0); Mean Corpuscular Hemoglobin 25.7 pg (28.0-34.0); Mean Corpuscular Volume 88.4 fl (81-99); Mean Platelet Volume 10.6 fL (7.4-10.4); Monocytes # 0.4 10^3/uL (0.2-0.9); Monocytes % 5.2 %; Neutrophils # 4.77 10^3/uL (1.8-7.7); Neutrophils % 68.3 %; Nucleated Red Blood Cells % 0 %; Platelet Count 364 10^3/cmm (130-400); Red Blood Count 4.05 10^6/uL (4.1-5.3); Red Cell Distribution Width 15.3 % (12.1-15.1)
--- NOTE | 2021-07-25 13:58 | ONC FU_ITS ---
Dr. Garcia follow up note Patient: Reta Gipson Unit #: [id number]: [id number] Dicatated By: Kris Garcia M.D.Date of Visit:Jul 24, 2021 Onc Med Follow-up/Prog Note History of Present Illness: Ms. Ms. Dulce Gipson, is a 40 -year-old female with a history of polycythemia vera Benja 2+, history of tiny subsegmental pulmonary embolism diagnosed in October 2019 since then she is on Eliquis 5 mg twice a day.As per patient she has history of diverticulitis and In addition to abdominal pain she was also having some chest pain so underwent CT scan of chest abdomen pelvis in October [address] scan of the chest showed small blood clot As per patient in 2016, she was having progressive headaches for which she went for evaluation found to have 'thick' blood, subsequently she was diagnosed with polycythemia as her hematocrit was more than 60, underwent twice a week phlebotomy initially followed by weekly and then every 2 weeks for 6 months to get her hematocrit to the target range e.g. 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 daily, which she took till March 2020 and then stopped taking as she ran out of prescription and she moved to [place] from [place] thus could not get prescription. Patient denies smoking, occasional alcohol. Tolerating hydroxyurea, Phlebotomy done on January 13, 2021 for hematocrit more than 45 she went to [facility] on December 10, 2020 with abdominal pain and CT scan of abdomen was done which showed enhancing left ovarian cyst measuring 2.5 x 3.1 cm. Soft tissue thickening at endocervical junction and internal cervical os, neoplasm is not excluded, as per patient she is being followed by RESOURCES REPRESENTATIVE for excessive menses,And underwent D&C on February 06, 2021, as per patient no abnormality was seen on hydroxyurea 1000 mg p.o. daily and tolerating well Came for follow-up, denies any specific complaint except generalized weakness and fatigue, patient still having heavy menses and she is scheduled for simple hysterectomy without oophorectomy next week. No chest pain or palpitation but dyspnea on exertion. Patient says she was evaluated for sleep apnea which was confirmed but [facility] informed her that CPAP machine is not available yet., Patient is tolerating hydroxyurea 1000 mg p.o. daily well otherwise., Denies any melena or hematochezia denies any hemoptysis or hematemesis or jaundice Medications: Eliquis 1 Tablet (of 5 mg) Oral b.i.d., Gabapentin 1 Capsule (of 300 mg) Oral b.i.d., Hydroxyurea 1 Capsule (of 500 mg) Oral b.i.d., Terbinafine HCl 1 Tablet (of 250 mg) Oral daily Allergies: Esthela Allergy, Flagyl, and guaiFENesin. Review of Systems: Review of Systems is not available for this patient. Vital Signs: Performed on Jul 24, 2021 16:09 Height - 69.50 in Weight - 308.6 lbs (LOW) BSA - 2.50 sq.m BMI - 44.92 (HIGH) Temperature - 97.9 F (LOW) Pulse - 94 /min Respiration - 18 /min BP - 131/89 mm(hg) O2 Sat - 98 % Pain - 0 Fatigue - 6 Performance Status: 0 - Fully active, able to carry on all predisease activities without restrictions. (ECOG) Physical Examination: ENMT - Mouth sores, no thrush, no jaundice, Respiratory - Lungs are clear to auscultation, Cardiovascular - Regular rate and rhythm of heart, Abdomen - Soft, bowel sounds present, Extremities - No visible edema. Lab/Imaging: Test performed on March 24, 2021 10:05 WBC 8.3 10 3/uL RBC 5.14 10 6/uL HGB 13.1 g/dL HCT 45.4 % MCV 88.3 fL MCH 25.5 pg MCHC 28.9 g/dL RDW 17.2 % Platelet Count 258 10 3/cmm MPV 10.2 fL Neutrophils 6.19 10 3/uL Lymphocytes 1.3 10 3/uL Monocytes 0.6 10 3/uL Eosinophils 0.1 10 3/uL Basophils 0.1 10 3/uL Neutrophil % 74.2 % Lymphocyte % 15.9 % Monocyte % 6.6 % Eosinophil % 1.7 % Basophils % 1.2 % NRBC % 0 % Impression: Polycythemia vera, Benja 2 mutation positive, diagnosed in 2016 in hematology clinic at [facility] in [facility] which she initially presented with hematocrit more than 60, treated with aggressive phlebotomies to get hematocrit below 43. Underwent bone marrow evaluation in November 2019 for hydroxyurea therapy, and patient was started on hydroxyurea thousand milligrams p.o. daily, which she tolerated well and then ran out of prescription in March 2020, since then she is off, Restarted on June 18, 2020 History of tiny subsegmental pulmonary embolism diagnosed in October 2019, on Eliquis 5 mg p.o. twice daily History of diverticulitis Obesity. Questionable sleep apnea CT scan of abdomen pelvis done on December 10, 2020 showed soft tissue thickening and endocervical area and patient underwent endometrial curettage on February 06, 2021 which shows no atypia, hyperplasia or malignancy identified Plan: Discussed with patient regarding her labs white blood count 7 hemoglobin 10.4 g compared to 11.6 g previously hematocrit 35.8 platelets 364,000 Clinically, patient is doing reasonably well now with progressive generalized weakness and fatigue probably due to iron deficiency anemia due to heavy menstrual and as needed phlebotomy for polycythemia. At this point, will hold her hydroxyurea and check her iron studies and patient was advised to take oral iron 1 tablet daily and patient will return to clinic in 1 month with CBC, if hemoglobin normalized, will consider restarting hydroxyurea Patient was advised to follow-up with her PMD at [facility] regarding CPAP machine as with sleep apnea management, her polycythemia may improve. Signed By: Kris Garcia M.D. <<Signature on File>>
== END 2021-07-24 13:02 | disposition home or self-care (01) ==
LOC: ONCMED 13:04
PROVIDERS: PCP Nurse Practitioner; Visit Provider Internal Medicine Hematology & Oncology
DX: D45 Polycythemia vera (principal); D50.9 Iron deficiency anemia, unspecified; Z87.19 Personal history of other diseases of the digestive system; Z86.711 Personal history of pulmonary embolism; Z79.01 Long term (current) use of anticoagulants; Z79.899 Other long term (current) drug therapy
CPT/HCPCS: 36415; 85025; 99214

== ENCOUNTER → 2021-07-25 09:02 | Outpatient (BNVA) | payer OTHER, MEDICARE, SELFPAY | PROVIDERS: PCP Nurse Practitioner; Visit Provider Obstetrics & Gynecology | DX: N93.9 Abnormal uterine and vaginal bleeding, unspecified (principal) | CPT/HCPCS: 87635 ==

== ENCOUNTER 2021-07-30 15:10 | Observation (INO) | payer OTHER, SELFPAY ==
[2021-07-28 12:11] VITALS: BMI 45.1
[2021-07-28 12:28] LABS: Add Urine Microscopic? NO; Charge for UA Resulting for Rev
[2021-07-28 12:32] LABS: Basophils # 0.1 10^3/uL (0.0-0.1); Basophils % 1.2 %; Eosinophils # 0.1 10^3/uL (0.0-0.8); Eosinophils % 2.1 %; Hematocrit 36.9 % (37.0-47.0); Hemoglobin 10.6 g/dL (11.5-15.3); Lymphocytes # 0.5 10^3/uL (0.8-4.8); Lymphocytes % 10.2 %; Mean Corpuscular HGB Conc 28.7 g/dL (30.0-36.0); Mean Corpuscular Hemoglobin 25.8 pg (28.0-34.0); Mean Corpuscular Volume 89.8 fl (81-99); Mean Platelet Volume 10.1 fL (7.4-10.4); Monocytes # 0.4 10^3/uL (0.2-0.9); Monocytes % 7.7 %; Neutrophils # 3.75 10^3/uL (1.8-7.7); Nucleated Red Blood Cells % 0 %; Platelet Count 321 10^3/cmm (130-400); Red Blood Count 4.11 10^6/uL (4.1-5.3); Red Cell Distribution Width 15.9 % (12.1-15.1); White Blood Count 4.8 10^3/uL (4.0-10.0)
[2021-07-28 12:44] LABS: INR 0.95 (0.8-1.2)
[2021-07-28 12:45] LABS: Partial Thromboplastin Time 30.4 SECONDS (23.9-36.7)
[2021-07-28 12:49] LABS: Alanine Aminotransferase 20 U/L (0-33); Albumin Level 4.1 g/dL (3.5-5.2); Alkaline Phosphatase 87 IU/L (35-105); Anion Gap 10.8 (5-19); Aspartate Amino Transferase 25 U/L (0-32); Blood Urea Nitrogen 9 mg/dL (6-20); Calcium 8.1 mg/dL (8.5-10.5); Carbon Dioxide 28 mmol/L (22-29); Chloride 103 mmol/L (98-107); Globulin 2.6 g/dL (1.3-4.6); Glomerular Filtration Rate 92.2 mL/min (90-130); Glucose 76 mg/dL (65-115); Osmolality Calculated 283 mOsm/kg (285-295); Potassium 3.8 mmol/L (3.5-5.1); Sodium 138 mmol/L (136-145); Total Bilirubin 0.3 mg/dL (0.15-1.2); Total Protein 6.7 g/dL (6.6-8.7)
[2021-07-28 12:56] LABS: Bilirubin Urine Neg (Negative); Blood Urine Neg (Negative); Glucose Urine UA Norm (Normal); Ketones Urine Negative (Negative); Leukocyte Esterase Urine Negative (Negative); Nitrate Urine Negative (Negative); OR HCG Qualitative Urine Negative (Negative); Protein Urine Neg (Negative); Specific Gravity, Urine 1.025 (1.005-1.030); Urine Appearance Clear (CLEAR); Urine Color Yellow (Yellow); Urobilinogen Urine Norm (Negative); pH Urine 5 (5-7)
--- NOTE | 2021-07-28 12:57 | P.ANESASSM_ITS ---
Pre-Anesthetic Assessment Pre-Anesthetic Assessment: Height/Weight: Height 1.75 m Weight 138.799 kg Preop Diagnosis: Endometrial polyp Proposed Procedure: Operation Date: 07/30/21 09:25 Proposed Procedures p Total Vaginal Hysterectomy 05670 N93.9(Not Applicable) - Dino Reza MD Was Beta Ricki taken within 24 hours: N/A Social: Social History: No alcohol and No tobacco Exam: Pre-Anes Outpt Exam: alert, oriented x 3, clear to auscultation bilaterally and regular rate & rhythm Airway: Submandibular: WNL Cervical ROM: WNL MP: 2 Dentition: Full CV/HEM: CV/HEM: DVT Metabolic: Metabolic: Morbid obesity Neuropsych: Neuropsych: Neuropathy Anesthetic Plan: ASA status: 3 Anesthesia: General Risk of > 500 ml blood loss (7ml/kg in children): Yes, adequate IV access and fluids planned PFSH Anesthesia PFSH: Medical History Diverticulitis Diagnosed in 2018- Enlarged thyroid gland This is currently being evaluated and managed by Dr. Ferro. She thinks that her thyroid levels were normal. No pertinent past medical history Denies diabetes, asthma, seizures, DVT. PMD: ABI Victoria Polycythemia vera Has had symptoms since about 2013 and was diagnosed in 2016. She currently s s heme oncology-Dr. Garcia and is on medication for this. Pulmonary embolism In November 2019 and she has been on Eliquis since then managed by her primary care provider. Denies history of DVT. Surgical History History of tubal ligation March 2009--laparoscopic procedure Status post hysteroscopy 02/06/2021--hysteroscopy performed for possible endometrial polyp on ultrasound-performed by Dr. Ambrose at [facility]. At hysteroscopy no obvious intracavitary abnormalities including polyp identified. D&C performed and pa thology showed secretory and proliferative endometrium without atypia hyperplasia or malignancy. Family History Father Chronic kidney disease (CKD) Hypertension Sister Chronic kidney disease (CKD) Psychiatric illness Mother Thyroid disease Grandmother Thyroid disease Maternal Denies family history of Colon cancer Ovarian cancer Diabetes Heart disease Breast cancer Bleeding disorder Uterine cancer Stroke Social History Smoking and tobacco status: never smoked Alcohol intake: former Female Reproductive History: Date of last menstrual period: 07/18/21 Data Anesthesia CBC & Chem 7: 07/28/21 12:00 07/28/21 12:00 Other Labs: Laboratory Results - last 48 hr 07/28/21 07/28/21 07/28/21 12:00 12:00 12:00 WBC 4.8 RBC 4.11 Hgb 10.6 L Hct 36.9 L MCV 89.8 MCH 25.8 L MCHC 28.7 L RDW 15.9 H Plt Count 321 MPV 10.1 Neut % (Auto) 78.0 Lymph % (Auto) 10.2 [place] % (Auto) 7.7 Eos % (Auto) 2.1 Baso % (Auto) 1.2 Neut # (Auto) 3.75 Lymph # (Auto) 0.5 L [place] # (Auto) 0.4 Eos # (Auto) 0.1 Baso # (Auto) 0.1 Nucleated RBC % (auto) 0 Nucleated RBCs # 0.0 PT INR APTT Sodium Potassium Chloride Carbon Dioxide Anion Gap BUN Creatinine GFR Calculation Glucose Calculated Osmolality Calcium Total Bilirubin AST ALT Alkaline Phosphatase Total Protein Albumin Globulin Urine Color Yellow Urine Appearance Clear Urine pH 5 Ur Specific [place] 1.025 Urine Protein Neg Urine Glucose (UA) Norm Urine Ketones Negative Urine Blood Neg Urine Nitrate Negative Urine Bilirubin Neg Urine Urobilinogen Norm Ur Leukocyte Esterase Negative Urine HCG, Qual Negative 07/28/21 07/28/21 12:00 12:00 WBC RBC Hgb Hct MCV MCH MCHC RDW Plt Count MPV Neut % (Auto) Lymph % (Auto) [place] % (Auto) Eos % (Auto) Baso % (Auto) Neut # (Auto) Lymph # (Auto) [place] # (Auto) Eos # (Auto) Baso # (Auto) Nucleated RBC % (auto) Nucleated RBCs # PT 13.00 INR 0.95 APTT 30.4 Sodium 138 Potassium 3.8 Chloride 103 Carbon Dioxide 28 Anion Gap 10.8 BUN 9 Creatinine 0.7 GFR Calculation 92.2 Glucose 76 Calculated Osmolality 283 L Calcium 8.1 L Total Bilirubin 0.3 AST 25 ALT 20 Alkaline Phosphatase 87 Total Protein 6.7 Albumin 4.1 Globulin 2.6 Urine Color Urine Appearance Urine pH Ur Specific [place] Urine Protein Urine Glucose (UA) Urine Ketones Urine Blood Urine Nitrate Urine Bilirubin Urine Urobilinogen Ur Leukocyte Esterase Urine HCG, Qual Cardiac Studies: No Data to Display
[2021-07-30] VITALS (19 sets, daily range): BP systolic 108–150; BP diastolic 72–100; PULSE 67–98; RESP 15–19; TEMP 36.3–37.3; O2SAT 93–98
[2021-07-30] MEDS: sodium chloride 0.9% 500 ML IV (12:00)
[2021-07-30] MEDS: enoxaparin 30 mg/0.3 mL Syringe SUBCUT (12:02)
--- NOTE | 2021-07-30 12:15 | P.ANESUD_ITS ---
Pre-Anesthetic Update Pre-Anesthetic Assessment: Date of Surgery/Procedure: 07/30/21 Preop Elisha gnosis: Abnormal uterine bleeding: Menorrhagia Proposed Procedure: Operation Date: 07/30/21 13:05 Proposed Procedures p Total Vaginal Hysterectomy 22187 N93.9(Not Applicable) - Dino Reza MD Any changes to Pre-Anesthetic Assessment?: No Last Intake: Intake Last Liquid Date 07/29/21 Last Liquid Time 20:00 Last Solid Date 07/29/21 Last Solid Time 18:00 Labs Last 48hrs: Laboratory Results - last 48 hr 07/28/21 07/28/21 07/28/21 12:00 12:00 12:00 WBC 4.8 RBC 4.11 Hgb 10.6 L Hct 36.9 L MCV 89.8 MCH 25.8 L MCHC 28.7 L RDW 15.9 H Plt Count 321 MPV 10.1 Neut % (Auto) 78.0 Lymph % (Auto) 10.2 [place] % (Auto) 7.7 Eos % (Auto) 2.1 Baso % (Auto) 1.2 Neut # (Auto) 3.75 Lymph # (Auto) 0.5 L [place] # (Auto) 0.4 Eos # (Auto) 0.1 Baso # (Auto) 0.1 Nucleated RBC % (a uto) 0 Nucleated RBCs # 0.0 PT INR APTT Sodium Potassium Chloride Carbon Dioxide Anion Gap BUN Creatinine GFR Calculation Glucose Calculated Osmolal ity Calcium Total Bilirubin AST ALT Alkaline Phosphata se Total Protein Albumin Globulin Urine Color Yellow Urine Appearance Clear Urine pH 5 Ur Specific Gravit y 1.025 Urine Protein Neg Urine Glucose (UA) Norm Urine Ketones Negative Urine Blood Neg Urine Nitrate Negative Urine Bilirubin Neg Urine Urobilinogen Norm Ur Leukocyte Denice ase Negative Urine HCG, Qual Negative Blood Type Rho(D) Type Antibody Screen 07/28/21 07/28/21 07/28/21 12:00 12:00 12:00 WBC RBC Hgb Hct MCV MCH MCHC RDW Plt Count MPV Neut % (Auto) Lymph % (Auto) [place] % (Auto) Eos % (Auto) Baso % (Auto) Neut # (Auto) Lymph # (Auto) [place] # (Auto) Eos # (Auto) Baso # (Auto) Nucleated RBC % (a uto) Nucleated RBCs # PT 13.00 INR 0.95 APTT 30.4 Sodium 138 Potassium 3.8 Chloride 103 Carbon Dioxide 28 Anion Gap 10.8 BUN 9 Creatinine 0.7 GFR Calculation 92.2 Glucose 76 Calculated Osmolal ity 283 L Calcium 8.1 L Total Bilirubin 0.3 AST 25 ALT 20 Alkaline Phosphata se 87 Total Protein 6.7 Albumin 4.1 Globulin 2.6 Urine Color Urine Appearance Urine pH Ur Specific Gravit y Urine Protein Urine Glucose (UA) Urine Ketones Urine Blood Urine Nitrate Urine Bilirubin Urine Urobilinogen Ur Leukocyte Denice ase Urine HCG, Qual Blood Type O Positive Rho(D) Type Positive Antibody Screen Negative Vitals: Temperature 97.8 F 07/30/21 11:31 Temperature Source Temporal Artery S can 07/30/21 11:31 Pulse Rate 90 07/30/21 11:31 Respiratory Rate 18 07/30/21 11:31 Blood Pressure 132/89 07/30/21 11:31 Blood Pressure Ioana n 103 07/30/21 11:31 Pulse Oximetry 98 07/30/21 11:31 Oxygen Delivery Me thod 07/30/21 11:31 Exam: Pre-Anes Outpt Exam: alert, oriented x 3, clear to auscultation bilaterally and regular rate & rhythm Cardiac Studies: No Data to Display
[2021-07-30] MEDS: sodium chloride 0.9% 1,000 ML 30 ML IV (12:30)
--- NOTE | 2021-07-30 12:46 | W.PM.OPSUD ---
Surgery/Procedure H&P Update DATE OF PROCEDURE: July 30, 2021 DATE H&P PERFORMED: 07/28/21 H&P UPDATE INFORMATION: I have reviewed H&P completed within last 30 days, I have examined patient prior to procedure and No changes to prior documentation PREOP DIAGNOSIS: Abnormal uterine bleeding: Menorrhagia PLANNED PROCEDURE: Operation Date: 07/30/21 13:05 Proposed Procedures p Total Vaginal Hysterectomy 10828 N93.9(Not Applicable) - Dino Reza MD
[2021-07-30] MEDS: scopolamine 1.5 Patch 1 PATCH TRANSDERMA (12:50)
[2021-07-30] MEDS: ceFAZolin 3,000 MG in sodium chloride 0.9% (100 ml) 100 ML 200 MG IV (12:53)
--- NOTE | 2021-07-30 14:02 | PM.OP ---
Operative Report Date of procedure: July 30, 2021 Pre-op Diagnosis: Abnormal uterine bleeding: Menorrhagia Post-op diagnosis: same Post-op Findings: Enlarged uterus Procedure Done: Total vaginal hysterectomy Specimens removed/disposition: Uterus Pathology: Uterus Surgeon: Dino Reza MD Anesthesia: General Estimated blood loss (mL): 75 IV fluids (mL): 800 Urine output (mL): 100 Complications: None Condition: stable Disposition: PACU Procedure: After informed consent and risks, benefits, indications and alternatives reviewed with the patient was taken to the operating room. The patient was placed in dorsal lithotomy position prepped, and draped in the usual sterile fashion. The pre-procedure timeout verifying the correct patient, procedure, site and side, could not requirements was performed and acknowledge by the OR team. A Mmcillan catheter was placed. A Bookwalter vaginal retractor was placed into the vagina in usual manner visualize the cervix. Cervix was grasped with a single tooth tenaculum and circumferentially infiltrated with 2% lidocaine with epinephrine. Then cervix was circumferentially incised with bovie and the bladder was dissected off the pubovesical cervical fascia anteriorly with a sponge stick and Metzenbaum scissors. The anterior peritoneal reflection was identified and the anterior cul-de-sac was entered sharply with Metzenbaum scissors. The same procedure was performed posteriorly and a posterior colpotomy was made through the posterior cul-de-sac space without difficulty and the posterior blade of the Bookwalter vaginal retractor was advanced posteriorly into the cul-de-sac. At this time, the left and right uterosacral ligaments were isolated and ligated with 0 Vicryl. The Enseal device was placed over the uterosacral ligaments on either side and was then used in a serial fashion up through the cardinal ligaments bilaterally cross-clamped, cut, and sealed with the Enseal device. Finally, the uterine arteries were cross-clamped, cut, sealed and ligated with the Enseal device. Hemostasis was assured. The broad ligaments were then serially clamped, sealed and cut with the Enseal device on both sides. Excellent hemostasis was visualized. Both cornua were clamped, sealed and cut with the Enseal device. Then the pedicles were then suture ligated with excellent hemostasis. The uterus was excised and submitted for pathologic evaluation. No other abnormalities were noted in the pelvic cavity. The peritoneum was then closed in a pursestring fashion with 0 Vicryl suture. The vaginal cuff angles were closed with pramli-oz-aotof #0 Vicryl suture on both sides and transfixed with the ipsilateral cardinal and uterosacral ligaments. The remainder of the vaginal cuff was closed with #0 Vicryl in a running locked fashion. At this time, instruments were removed from the vagina at hemostasis assured. Mcmillan catheter was then noted yielding clear stephenie urine. The patient was taken out of dorsal lithotomy position and awakened from the general anesthesia. The patient tolerated the procedure well and was taken to the PACU recovery room in a stable condition. Sponge, lap, needle and instruments counts were correct x3.
[2021-07-30] MEDS: ondansetron 2 mg/ML SDV 2 mL 4 MG IVP (14:28)
[2021-07-30] MEDS: HYDROmorphone 1 mg/mL INJ 1 mL 0.5 MG IVP (14:31)
--- NOTE | 2021-07-30 15:23 | SUR.PHASEI ---
1428 PT AWAKE ALERT HOB AT 30 DEGREES ABD SOFT PT C/O OF NAUSEA SEE MED GIVEN NO EMESIS NOTED COOL CLOTH TO FOREHEAD 1431 PT NOW C/O OF NAUSEA AND PAIN SEE MED GIVEN 1450 PT SLEEPS IF NOT DISTURBED PT AWAKES AND C/O OF ( I FEEL DIZZY , IT MAKES ME SICK) PT DENIES NAUSE IF EYES ARE CLOSED PT ENCOURAGED TO REST, 1515 PT ROOM NOW ASSIGNED AND PT REPORT CALLED TO FLOOR, PT AWAKE ALERT DENIES PAIN DR DAUGHERTY AT BEDSIDE PT STILL C/O OF (DIZZINESS) IF EYES OPEN BUT TAKING OCC ICE CHIPS WITHOUT NAUSEA. VSS. PT TO FLOOR PER CART WITH RN, PT S/O NOTIFIED OF PT LEAVING NOW IN STABLE CONDITION TO ROOM 263
--- NOTE | 2021-07-30 15:46 | ANE.PACU2 ---
Inpatient post-anesthesia follow up: Airway intact: Yes Vital signs: Temperature 97.3 F Pulse Rate 74 Respiratory Rate 18 Blood Pressure 114/72 Pulse Oximetry 94 Oxygen Delivery Me thod Nasal Cannula Oxygen Flow Rate 3 Fraction of Inspir ed Oxygen Hydration adequate: Yes Nausea and vomiting: No Pain level: 3 Mental status: Baseline
[2021-07-30] MEDS: ketorolac 30 mg/mL INJ IVP ×2 (17:22→22:53)
[2021-07-30] MEDS: docusate sodium 100 mg Capsule PO (17:22)
[2021-07-30] MEDS: dextrose 5%-lactated ringers 1,000 ML 125 ML IV (17:23)
[2021-07-30] MEDS: gabapentin 300 mg Capsule 600 MG PO (20:08)
[2021-07-31 00:10] VITALS: BP 120/83; PULSE 68; RESP 14; TEMP 36.7; O2SAT 95
[2021-07-31] MEDS: dextrose 5%-lactated ringers 1,000 ML 125 ML IV (01:42)
[2021-07-31 04:00] VITALS: BP 105/68; PULSE 75; RESP 16; TEMP 36.6; O2SAT 94
[2021-07-31] MEDS: ketorolac 30 mg/mL INJ IVP (04:33)
[2021-07-31 05:53] LABS: Hematocrit 33.5 % (37.0-47.0); Hemoglobin 9.6 g/dL (11.5-15.3); Mean Corpuscular HGB Conc 28.7 g/dL (30.0-36.0); Mean Corpuscular Hemoglobin 25.8 pg (28.0-34.0); Mean Corpuscular Volume 90.1 fl (81-99); Mean Platelet Volume 10.2 fL (7.4-10.4); Platelet Count 255 10^3/cmm (130-400); Red Blood Count 3.72 10^6/uL (4.1-5.3); Red Cell Distribution Width 16.5 % (12.1-15.1); White Blood Count 3.3 10^3/uL (4.0-10.0)
[2021-07-31 07:16] VITALS: BP 100/64; PULSE 86; RESP 17; TEMP 36.6; O2SAT 91
[2021-07-31] MEDS: acetaminophen 325 mg Tablet 650 MG PO (09:23)
[2021-07-31] MEDS: apixaban 5 mg Tablet PO (09:24)
[2021-07-31] MEDS: docusate sodium 100 mg Capsule PO (09:24)
[2021-07-31] MEDS: enoxaparin 40 mg/0.4 mL Syringe SUBCUT (09:24)
--- NOTE | 2021-07-31 09:54 | P.DS_ITS ---
Discharge Providers DIRECTOR NICU Date of Admission: 07/30/21 15:10 Date of Discharge: 07/31/21 Attending Provider at Admission: Dino Reza MD Attending Provider at Discharge: Dino Reza MD Primary Care Provider: JAIME Gonzáles Diagnoses at Discharge Discharge Diagnosis (1) Abnormal uterine bleeding (AUB): Status: Acute Reason for Visit Reason for Visit: abnormal uterine bleeding Hospital Course Hospital Course Mrs. Gipson 41-year-old female admitted for planned total vaginal hysterectomy. The TVH was performed without complications. She is postoperative day 1, afebrile and hemodynamically stable. Ambulating without difficulty. Passing flatus. Tolerating diet well. Adequate urine output. Pain under control. Physical Exam Narrative: EXAM NARRATIVE: GA: Alert and oriented ?3. HEENT: WNL. Heart: Regular rate and rhythm. Lungs: Clear to auscultation bilaterally. Abdomen: Bowel sounds present, nontender. SENIOR CONTRACTS ADMINISTRATOR: Scant bleeding. Extremities: No edema, no cyanosis, no calves pain. Urinary Catheter Management^: Mcmillan: Cath Placed During This Visit: yes Urinary Catheter Date of Insertion: 07/30/21 Urinary Catheter Time of Insertion: 13:16 Discharge Data Data Completed and Pending: Pending at discharge Category Date Time Status Pathology: Surgic al [PTH] Routine Pth 07/30/21 13:46 Received Labs from last 24 hours 07/31/21 05:47 WBC 3.3 L RBC 3.72 L Hgb 9.6 L Hct 33.5 L MCV 90.1 MCH 25.8 L MCHC 28.7 L RDW 16.5 H Plt Count 255 MPV 10.2 Vitals: Last Vital Signs Temp 97.9 F 07/31/21 07:16 Pulse 86 07/31/21 07:16 Resp 17 07/31/21 07:16 BP 100/64 07/31/21 07:16 Pulse Ox 91 07/31/21 07:16 Discharge Plan Discharge Patient Disposition: Home Condition: Stable Prescriptions: New ibuprofen 800 mg tablet 800 mg PO TID PRN (Reason: pain) Qty: 60 RF: 0 hydrocodone-acetaminophen 5-325 mg tablet 1 tab PO Q4H PRN (Reason: pain) Qty: 30 RF: 0 acetaminophen 325 mg capsule 325 mg PO Q4H PRN (Reason: fever or pain) Qty: 60 RF: 0 Continued triamcinolone acetonide 0.1 % ointment 1 applic topical BID@899,2099 PRN (Reason: Skin Irritation) RF: 0 Eliquis 5 mg tablet 5 mg PO BID@899,2099 RF: 0 gabapentin 300 mg capsule 600 mg PO BEDTIME@2099 RF: 0 enoxaparin [Lovenox] 40 mg/0.4 mL syringe 40 mg SUBCUT DAILY Qty: 0.4 RF: 4 Discharge Orders: Discharge Order (Routine); Ordered 07/31/21 Ordered By: Dino Reza Referrals: Dino Reza MD [Physician] - 2 weeks Discharge Diet: Usual diet Discharge Activity: Increase activity as tolerated Patient Instructions: Vaginal Hysterectomy (DC), Opioid Safety Activity Restrictions/Additional Instructions: 1. Please call [facility] on next working day to make your post-operative appointment in 2 weeks. 2. Please stay home until you come back to the clinic on first post-operative check up. 3. Please follow instructions on your medications CAREFULLY. 4. If you have abdominal incision, do not cover it unless dressing is necessary because of drainage. OK to shower, but avoid bath. Leave steri-strips until they fall off. If they are still on one week after surgery, you may remove them. 5. If you had vaginal surgery or vaginal repair, Dr. Reza may instruct you to take SITZ bath. 6. Yellow, blood tinged odorous vaginal discharge is usually normal after hysterectomy or vaginal surgeries. 7. No sexual intercourse, tampons, or douches until you are completely released from the post-operative care. 8. Avoid constipation by eating right and maybe using some Metamucil or Milk of Magnesia. 9. All prescription refills are given during the working hours. Please do no wait till it runs out. Call the clinic at [phone] before your medication runs out. The clinic will get in touch with your doctor to prescribe medications if necessary. 10. Please remain within 40 mile radius from our hospital because emergencies do happen now and then during the post-operative period. 11. If you have stairs at home, take one step at a time slowly and minimize the number of trips. It helps to stay in one floor for the next few days. No lifting except what you can lift by one hand until you are released from the post-operative care. 12. Driving is discouraged until you are well healed. It may be 3-4 weeks before you feel strong enough to drive. You should be able to turn and look through the rear window without pain and you should be able to push the brake pedal very hard without pain before you drive. No fast rules, but SAFETY should be your primary concern. DO NOT drive if you are on sedating medications such as narcotics. 13. Call the clinic (during working hours) to make urgent appointment or go to the Emergency room, if any of the following occurs: i. Vaginal bleeding becomes heavy, more than a period. ii. Incision becomes red and sore, or drains pus. iii. Your temperature is over 100.4 or you have chill. iv. IV site becomes red and swollen (a little ``knot?? is usually OK) v. Persistent nausea and vomiting vi. Persistent constipation or diarrhea vii. Rash or allergic reaction to medications. Discharge Attestations DIRECTOR NICU Time Spent in Discharge Care*: greater than 30 min Coding Level of Care Code Acute Human Resources Communications Manager for g Fwd Diagnoses Abnormal uterine bleeding (AUB) N93.9
--- NOTE | 2021-07-31 10:01 | PC.CHAP ---
Pastoral Care Encounter/Spiritual Assessment Type of Contact [] Declined automatic outsole cutter visit [] Patient/Family/Request visit [] Outpatient visit [] Follow-up visit [] Physician referral [] Code/Alert [x] Routine visit [] Staff referral [] Actively dying [] Patient sleeping [] Family support [] [] Out of room [] Palliative care [] [x] Receiving care in room [] Pre-surgical visit [] Trauma [] Long length of stay [] ICU visit [] Other: Relational/Emotional Strength [x] Patient feels connected with others/family/visitors/staff [] Distress [] Loneliness/isolation [] Abandonment Spirituality of Patient [x] Person of Liza [] Attends Confucianist of their Liza [x] Believes in Prayer [] Reads Bible or Latter Day materials [] There are Spiritual issues to be addressed Plastic Sheets Supervisor Interventions [x] Prayer [x] Active listening [x] Non-anxious presence [x] Spiritual/emotional support [] Crisis/trauma care [x] Spiritual counseling [] Bereavement support [] Provided bereavement packet [] Provided Bible/devotional materials [] Provided toy/stuffed animal, coloring book to patient or family member [] Provided Communion [] Anointing/[place] [] Salvation [x] Completed spiritual assessment [] Other: Impact on Illness or Injury [] Angry [] Fearful [x] Anxious [] Often cries [] Exhaustion [] Unable to work [] Unable to attend orthodoxy [] Unable to walk/stand [] Unable to read [] Unable to drive [] Unable to eat/drink [] Unable to sleep [] Unable to be with family [] Patient intubated [] Other: Summary Had Hystorectomy yesterday has a good atittude going home Time spent with patient
--- NOTE | 2021-07-31 10:07 | PC.CHAP ---
Pastoral Care Encounter/Spiritual Assessment Type of Contact [] Declined sales representative meats visit [] Patient/Family/Request visit [] Outpatient visit [] Follow-up visit [] Physician referral [] Code/Alert [] Routine visit [] Staff referral [] Actively dying [] Patient sleeping [] Family support [] [] Out of room [] Palliative care [] [] Receiving care in room [] Pre-surgical visit [] Trauma [] Long length of stay [] ICU visit [] Other: Relational/Emotional Strength [] Patient feels connected with others/family/visitors/staff [] Distress [] Loneliness/isolation [] Abandonment Spirituality of Patient [] Person of Liza [] Attends Pentecostalism of their Liza [] Believes in Prayer [] Reads Bible or Sabianism materials [] There are Spiritual issues to be addressed Manager Fixed Income Interventions [] Prayer [] Active listening [] Non-anxious presence [] Spiritual/emotional support [] Crisis/trauma care [] Spiritual counseling [] Bereavement support [] Provided bereavement packet [] Provided Bible/devotional materials [] Provided toy/stuffed animal, coloring book to patient or family member [] Provided Communion [] Anointing/[place] [] Salvation [] Completed spiritual assessment [] Other: Impact on Illness or Injury [] Angry [] Fearful [] Anxious [] Often cries [] Exhaustion [] Unable to work [] Unable to attend islam [] Unable to walk/stand [] Unable to read [] Unable to drive [] Unable to eat/drink [] Unable to sleep [] Unable to be with family [] Patient intubated [] Other: Summary Time spent with patient 10 mins
[2021-07-31 11:44] VITALS: BP 97/67; PULSE 67; RESP 18; TEMP 36.7; O2SAT 96
[2021-07-31 12:52] VITALS: BP 97/67; PULSE 67; RESP 18; TEMP 36.7; O2SAT 96
--- NOTE | 2021-08-01 11:15 | PC.SOCIAL ---
discharge follow up call made. patient is taking medications as prescribed. patient reports she is having cramping. denies any excessive bleeding, reports that she is having a fever of 100-102, in her discharge instructions she was instructed to go to the ED if she spiked a fever. typewriter mechanic called and spoke with Dr. Reza's nurse, she spoke with Dr. Reza and he wants patient to go to the ED. Clinical Trainer called patient and let her know that she needed to go to the ED.
== END 2021-07-31 12:54 | disposition home or self-care (01) ==
LOC: MEDSURG 15:10
PROVIDERS: Anesthesiology; Admitting Provider Obstetrics & Gynecology; PCP Nurse Practitioner; Visit Provider Obstetrics & Gynecology
PROC: (CPT 58260; principal; 2021-07-30 12:55)
DX: N93.9 Abnormal uterine and vaginal bleeding, unspecified (principal); N92.0 Excessive and frequent menstruation with regular cycle; Z86.718 Personal history of other venous thrombosis and embolism; E66.01 Morbid (severe) obesity due to excess calories; Z68.42 Body mass index [BMI] 45.0-49.9, adult
CPT/HCPCS: 58260; 36415; 51702; 80053; 81003; 81025; 84703; 85025; 85027; 85610; 85730; 86850; 86900; 88307; 96372; 96374; G0378; J0690; J1100; J1170; J1650; J1885; J2405; J2704; J2710; J3010; J3490; J7030; J7040; Q9968

== ENCOUNTER 2021-08-01 11:25 | Emergency (ER) | payer OTHER, SELFPAY ==
[2021-08-01 12:17] VITALS: BP 112/73; PULSE 103; RESP 20; TEMP 37.2; O2SAT 95; BMI 45.1
[2021-08-01 13:35] LABS: Hematocrit 36.7 % (37.0-47.0); Hemoglobin 10.5 g/dL (11.5-15.3); Lymphocytes # 0.4 10^3/uL (0.8-4.8); Lymphocytes % 9.8 %; Mean Corpuscular HGB Conc 28.6 g/dL (30.0-36.0); Mean Corpuscular Hemoglobin 25.4 pg (28.0-34.0); Mean Corpuscular Volume 88.6 fl (81-99); Mean Platelet Volume 10.4 fL (7.4-10.4); Monocytes # 0.4 10^3/uL (0.2-0.9); Monocytes % 8.4 %; Neutrophils # 3.39 10^3/uL (1.8-7.7); Neutrophils % 81.3 %; Nucleated Red Blood Cells % 0 %; Platelet Count 240 10^3/cmm (130-400); Red Blood Count 4.14 10^6/uL (4.1-5.3); Red Cell Distribution Width 16.6 % (12.1-15.1); White Blood Count 4.2 10^3/uL (4.0-10.0)
[2021-08-01 13:52] LABS: Alanine Aminotransferase 48 U/L (0-33); Albumin Level 3.9 g/dL (3.5-5.2); Alkaline Phosphatase 80 IU/L (35-105); Anion Gap 15.1 (5-19); Aspartate Amino Transferase 52 U/L (0-32); Blood Urea Nitrogen 7 mg/dL (6-20); Calcium 7.9 mg/dL (8.5-10.5); Carbon Dioxide 24 mmol/L (22-29); Chloride 101 mmol/L (98-107); Globulin 2.6 g/dL (1.3-4.6); Glomerular Filtration Rate 92.2 mL/min (90-130); Glucose 94 mg/dL (65-115); Osmolality Calculated 280 mOsm/kg (285-295); Potassium 4.1 mmol/L (3.5-5.1); Sodium 136 mmol/L (136-145); Total Bilirubin 0.4 mg/dL (0.15-1.2); Total Protein 6.5 g/dL (6.6-8.7)
--- NOTE | 2021-08-01 14:31 | W.ED.FEVER ---
HPI - Fever General: Chief Complaint: Fever Stated Complaint: HYSTERECTOMY .15,D/C 09.16;FEVER 100-102 Time Seen by Provider: 08/01/21 12:28 History of Present Illness: HPI Narrative: Patient is a 41-year-old female past medical history of pulmonary embolism postoperative fever and dermatitis. She is status post day 2 from a hysterectomy with transvaginal approach. She has had fever as high as 100-101 off and on for last 2 days. Does respond to her hydrocodone. She has only had mild abdominal pain no vaginal bleeding or discharge. She does state that her urine is green. She was told by her surgeon's office to come here for further evaluation. Does not have any nausea or vomitings able to keep medicines down scheduled to start her Eliquis back up today. Denies chills chest pain nausea vomiting altered mental status syncope or rash vaginal bleeding or discharge Review of Systems General: Reports: 10 or more systems reviewed and unremarkable except in HPI and below PFSH ED PFSH: Medical History Diverticulitis Diagnosed in 2019- Enlarged thyroid gland This is currently being evaluated and managed by Dr. eFrro. She thinks that her thyroid levels were normal. No pertinent past medical history Denies diabetes, asthma, seizures, DVT. PMD: ABI [place] Polycythemia vera Has had symptoms since about 2013 and was diagnosed in 2015. She currently sees heme oncology-Dr. Garcia and is on medication for this. Pulmonary embolism In November 2019 and she has been on Eliquis since then managed by her primary care provider. Denies history of DVT. Surgical History History of tubal ligation March 2009--laparoscopic procedure Status post hysteroscopy 02/06/2021--hysteroscopy performed for possible endometrial polyp on ultrasound-performed by Dr. Ambrose at [facility] [place]. At hysteroscopy no obvious intracavitary abnormalities including polyp identified. D&C performed and pathology showed secretory and proliferative endometrium without atypia hyperplasia or malignancy. Family History Father Chronic kidney disease (CKD) Hypertension Sister Chronic kidney disease (CKD) Psychiatric illness Mother Thyroid disease Grandmother Thyroid disease Maternal Denies family history of Colon cancer Ovarian cancer Diabetes Heart disease Breast cancer Bleeding disorder Uterine cancer Stroke Social History Smoking and tobacco status: never smoked Alcohol intake: former Female Reproductive History: Date of last menstrual period: 07/18/21 Physical Exam Const: COMMON NORMALS: no acute distress, average body habitus, patient oriented x3, no limitations, healthy appearing, alert and well nourished HENMT: COMMON NORMALS: normocephalic, atraumatic, hearing grossly normal bilaterally, external ears normal, EAC's normal, TM's normal bilaterally, Normal external nose present, Normal nasal mucous membranes and turbinates present, moist oral mucous membranes, oropharynx normal, dentition normal and gingiva normal HEAD & SCALP: normocephalic and atraumatic NOSE: Normal external nose present and Normal nasal mucous membranes and turbinates present EXTERNAL EAR: Yes external ears normal EXTERNAL AUDITORY CANAL: EAC's normal TYMPANIC MEMBRANE: TM's normal bilaterally Eye: COMMON NORMALS: Equal, round and reactive pupils present, EOMs intact bilaterally, conjunctivae normal and normal visual caba by confrontation CONJUNCTIVA: Yes conjunctivae normal PUPIL: Yes Equal, round and reactive pupils present Neck/C-Spine: COMMON NORMALS: no JVD Resp: COMMON NORMALS: normal respiratory effort, No retractions, No use of accessory muscles and clear to auscultation bilaterally AUSCULTATION: clear to auscultation bilaterally Cardio: COMMON NORMALS: no JVD, regular rate, regular rhythm, S1 normal heart sound present, S2 normal heart sound present, No gallops present (Cardio), No clicks present (Cardio), No murmurs present (Cardio), No rub (Cardio) and Peripheral pulses 2+ throughout RATE: regular rate RHYTHM: regular rhythm HEART SOUNDS: S1 normal heart sound present and S2 normal heart sound present PERIPHERAL PULSES: Peripheral pulses 2+ throughout GI: COMMON NORMALS: Normal to inspection, nondistended, normoactive bowel sounds present, Soft to palpation, non-tender, No hepatosplenomegaly present, no masses and no bruits PALPATION: Yes Soft to palpation, Yes Tenderness to palpation present (GI) (Mild tenderness to palpation throughout the abdomen no rebound or guarding) and Yes No hepatosplenomegaly present Neuro: COMMON NORMALS: patient oriented x3 SENSORIUM/ORIENTATION: Yes alert Course ED course: Patient did not have leukocytosis or shift. She does not have any substantial abdominal pain outside what I would expect outside of a postoperative case. No vaginal bleeding. Has not had a fever here feel this is standard postoperative fever will have her follow-up with her surgeon or return with any other new or worsening symptoms at this point she does need does not need any advanced imaging or further work-up or emergent consultation Vital Signs: Vital signs: Vital Signs Temperature 99.0 F 08/01/21 12:17 Pulse Rate 103 H 08/01/21 12:17 Respiratory Rate 20 H 08/01/21 12:17 Blood Pressure 112/73 08/01/21 12:17 Pulse Oximetry 95 08/01/21 12:17 MDM - Fever MDM Narrative: Medical decision making narrative: Patient is a 41-year-old female 2 days postop of a transvaginal hysterectomy for polyps. [place] includes postoperative fever pulmonary embolism postoperative infection postoperative bleeding Patient does not have a substantial tenderness or pain guarding or rebound on exam is well-appearing vital signs are normal is afebrile here we will check blood count on her. She does have a leukocytosis may do some further evaluation or consult BLOW DOWN OPERATOR for her. Does not need any resuscitation immediate IV antibiotics or respiratory support Lab Data: Labs: Lab Results 08/01/21 08/01/21 Range/Units 13:22 13:22 WBC 4.2 (4.0-10.0) 10^3/ uL RBC 4.14 (4.1-5.3) 10^6/u L Hgb 10.5 L (11.5-15.3) g/dL Hct 36.7 L (37.0-47.0) % MCV 88.6 (81-99) fl MCH 25.4 L (28.0-34.0) pg MCHC 28.6 L (30.0-36.0) g/dL RDW 16.6 H (12.1-15.1) % Plt Count 240 (130-400) 10^3/c mm MPV 10.4 (7.4-10.4) fL Neut % (Auto) 81.3 % Lymph % (Auto) 9.8 % [place] % (Auto) 8.4 % Eos % (Auto) 0.0 % Baso % (Auto) 0.0 % Neut # (Auto) 3.39 (1.8-7.7) 10^3/u L Lymph # (Auto) 0.4 L (0.8-4.8) 10^3/u L [place] # (Auto) 0.4 (0.2-0.9) 10^3/u L Eos # (Auto) 0.0 (0.0-0.8) 10^3/u L Baso # (Auto) 0.0 (0.0-0.1) 10^3/u L Nucleated RBC % (a uto) 0 % Nucleated RBCs # 0.0 /100WBC Sodium 136 (136-145) mmol/L Potassium 4.1 (3.5-5.1) mmol/L Chloride 101 (98-107) mmol/L Carbon Dioxide 24 (22-29) mmol/L Anion Gap 15.1 (5-19) BUN 7 (6-20) mg/dL Creatinine 0.7 (0.5-0.9) mg/dL GFR Calculation 92.2 (90-130) mL/min Glucose 94 (65-115) mg/dL Calculated Osmolal ity 280 L (285-295) mOsm/k g Calcium 7.9 L (8.5-10.5) mg/dL Total Bilirubin 0.4 (0.15-1.2) mg/dL AST 52 H (0-32) U/L ALT 48 H (0-33) U/L Alkaline Phosphata se 80 (35-105) IU/L Total Protein 6.5 L (6.6-8.7) g/dL Albumin 3.9 (3.5-5.2) g/dL Globulin 2.6 (1.3-4.6) g/dL Discharge Plan Discharge Patient Disposition: Home Clinical Impression: Fever postop Condition: Stable Prescriptions: No Action triamcinolone acetonide 0.1 % ointment 1 applic topical BID@0900,2100 PRN (Reason: Skin Irritation) RF: 0 Eliquis 5 mg tablet 5 mg PO BID@0900,2100 MDD see pharmacy comment RF: 0 gabapentin 300 mg capsule 600 mg PO BEDTIME@2099 RF: 0 ibuprofen 800 mg tablet 800 mg PO TID PRN (Reason: pain) Qty: 60 RF: 0 hydrocodone-acetaminophen 5-325 mg tablet 1 tab PO Q4H PRN (Reason: pain) Qty: 30 RF: 0 acetaminophen 325 mg capsule 325 mg PO Q4H PRN (Reason: fever or pain) Qty: 60 RF: 0 Discharge Orders: Discharge ED (Routine); Ordered 08/01/21 Ordered By: Homero Wilkins Referrals: Viviana Gill FNP [Primary Care Provider] - Patient Instructions: Post Operative Pain Activity Restrictions/Additional Instructions: Follow-up with your primary care provider in 3 to 5 days. Follow-up with your surgeon as scheduled. Return the emergency department with consistent fever over one 1.3 that does not respond to your medications. You can also use a heating pad for postoperative pain. Also return with severe nausea vomiting feeling ill or any other new or worsening symptoms Coding Level of Care Code ED Roast Master for Ezequiel Ulrich
[2021-08-01 14:48] VITALS: BP 138/108; PULSE 94; RESP 14; O2SAT 95
== END 2021-08-01 14:49 | disposition home or self-care (01) ==
PROVIDERS: Emergency Provider Family Medicine; PCP Nurse Practitioner
DX: R50.82 Postprocedural fever (principal); Z79.01 Long term (current) use of anticoagulants; Z86.711 Personal history of pulmonary embolism; Z90.710 Acquired absence of both cervix and uterus
CPT/HCPCS: 80053; 85025; 99281

== ENCOUNTER 2021-08-06 11:54 | Inpatient (IN) | payer OTHER, MEDICARE, SELFPAY ==
[2021-08-06] VITALS (11 sets, daily range): BP systolic 111–150; BP diastolic 72–88; PULSE 65–103; RESP 18–22; TEMP 36.6–36.9; O2SAT 84–99; BMI 29.0; BMI 44.3; BMI 47.0
--- NOTE | 2021-08-06 12:19 | ECG_ITS ---
[facility] Test Date: 2021-08-06 Pat Name: Reta Gipson Department: Room: Gender: Female Special Service Officer: : 1980 Requested By: Ovidio Boothe Order Number: [id number] Markel MD: Francine Robertson M.D. Measurements Intervals [place] Rate: 96 P: 9 MD: 156 QRS: -27 QRSD: 92 T: -8 QT: 336 QTc: 426 Interpretive Statements SINUS RHYTHM LOW QRS VOLTAGE IN PRECORDIAL LEADS [QRS DEFLECTION < 1.0 mV IN CHEST LEADS] POSSIBLE ANTERIOR MYOCARDIAL INFARCTION , PROBABLY OLD [30 ms Q WAVE IN V3/V4, OR R < 0.2 mV IN V4] Compared to ECG 06/21/2021 22:16:39 Low QRS voltage now present Myocardial infarct finding now Electronically Signed On 08-06-2021 23:33:27 CDT by Francine Robertson M.D. [id number]
--- NOTE | 2021-08-06 12:45 | XR_ITS ---
WS: [id number] Portable AP upright chest, 08/06/2021 Clinical Data: SOB Comparison: None. Findings: Bilateral patchy pulmonary opacities are present consistent with pneumonia. No nodules, mas ses or effusions are seen. The heart is normal. No pneumothorax is seen. XR/XR chest 1V portable [id number] Impression: Bilateral patchy pulmonary opacities consistent with pneumonia.
--- NOTE | 2021-08-06 12:46 | ED_ITS ---
HPI - SOB/Dyspnea General: Chief Complaint: Shortness of Breath/Dyspnea Stated Complaint: HYSTERECTOMY 07.30:SEEN 08.01,NOW WORSE Time Seen by Provider: 08/06/21 12:37 History of Present Illness: HPI Narrative: Patient is a 41-year-old female comes to the ED with shortness of breath. Patient is approximately 7 days postop hysterectomy. She has had an on and off fever for the past couple days. Patient says she has had increased shortness of breath over the past 3 days and she also has a productive cough. She says her surgical site is healing well and she has minimal to no abdominal pain currently. Denies any vomiting, nausea, bladder or bowel symptoms. Associated symptoms: Deny abdominal pain, chest pain, fever(s), nausea, orthopnea, palpitations or vomiting Review of Systems Const: Denies: fever(s), chills or fatigue Eyes: Denies: change in vision or eye discomfort ENMT: Denies: throat pain, odynophagia, nasal discharge or nasal congestion Card: Denies: chest pain, palpitations, edema, swelling of feet/ankles, dyspnea on exertion or orthopnea Resp: Reports: dyspnea and productive cough; Denies: non-productive cough GI: Denies: abdominal pain, nausea, vomiting, diarrhea, constipation or hematochezia : Denies: flank pain, dysuria or hematuria Musc: Denies: neck pain, back pain or extremity swelling Skin/Breast: Denies: rash or new lesions Neuro: Denies: headache(s), numbness in extremities or weakness in extremities PFS ED PFSH: Medical History Diverticulitis Diagnosed in 2019- Enlarged thyroid gland This is currently being evaluated and managed by Dr. Ferro. She thinks that her thyroid levels were normal. No pertinent past medical history Denies diabetes, asthma, seizures, DVT. PMD: ABI [place] Polycythemia vera Has had symptoms since about 2013 and was diagnosed in 2016. She currently sees heme oncology-Dr. Garcia and is on medication for this. Pulmonary embolism In November 2019 and she has been on Eliquis since then managed by her primary care provider. Denies history of DVT. Surgical History History of tubal ligation March 2009--laparoscopic procedure Status post hysteroscopy 02/06/2021--hysteroscopy performed for possible endometrial polyp on ultrasound[place] Amb[place] [facility] [place] At hysteroscopy no obvious intracavitary abnormalities including polyp identified. D&C performed and pathology showed secretory and proliferative endometrium without atypia hyperplasia or malignancy. Family History Father Chronic kidney disease (CKD) Hypertension Sister Chronic kidney disease (CKD) Psychiatric illness Mother Thyroid disease Grandmother Thyroid disease Maternal Denies family history of Colon cancer Ovarian cancer Diabetes Heart disease Breast cancer Bleeding disorder Uterine cancer Stroke Social History Smoking and tobacco status: never smoked Alcohol intake: former Female Reproductive History: Date of last menstrual period: 07/18/21 Physical Exam Const: COMMON NORMALS: patient oriented x3 and alert GENERAL APPEARANCE: cooperative and in distress (Patient is having labored breathing.) NUTRITIONAL APPEARANCE: obese HENMT: COMMON NORMALS: normocephalic HEAD & SCALP: normocephalic MOUTH: Normal oral and palatal mucosa present THROAT: posterior oropharynx normal and uvula midline Eye: COMMON NORMALS: Equal, round and reactive pupils present PUPIL: Yes Equal, round and reactive pupils present Neck/C-Spine: COMMON NORMALS: supple GENERAL: Yes normal visual inspection Resp: COMMON NORMALS: normal respiratory effort, No retractions and No use of accessory muscles EFFORT & INSPECTION: Yes able to speak in complete sentences, Yes tachypneic, No respiratory distress and Yes labored AUSCULTATION: wheezes expiratory wheezes and upper bilaterally and diminished lung sounds bilateral in the lower lung caba Cardio: COMMON NORMALS: regular rate, regular rhythm, S1 normal heart sound present, S2 normal heart sound present, No gallops present (Cardio), No clicks present (Cardio), No murmurs present (Cardio) and Peripheral pulses 2+ throughout RATE: regular rate RHYTHM: regular rhythm HEART SOUNDS: S1 normal heart sound present and S2 normal heart sound present PERIPHERAL PULSES: Peripheral pulses 2+ throughout GI: COMMON NORMALS: Normal to inspection, nondistended, normoactive bowel sounds present, Soft to palpation, non-tender and no masses PALPATION: Yes Soft to palpation : COMMON NORMALS: Yes no CVA tenderness BLADDER/KIDNEY EXAM: Yes no CVA tenderness Back/Pelvis: COMMON NORMALS: no CVA tenderness Extremity: COMMON NORMALS: normal to inspection Neuro: COMMON NORMALS: patient oriented x3 and moves all extremities SENSORIUM/ORIENTATION: Yes alert Skin: GENERAL SKIN EXAM: dry skin Course Consultations: Consultation #1: I spoke with the hospitalist Dr. Rossi about patient case. He agreed to have patient admitted into the hospital. Time: 16:30 Vital Signs: Vital signs: Vital Signs Temperature 97.9 F 08/07/21 04:00 Pulse Rate 90 08/07/21 04:05 Respiratory Rate 22 H 08/07/21 04:05 Blood Pressure 119/80 08/07/21 04:00 Pulse Oximetry 91 08/07/21 04:05 MDM - SOB/Dyspnea MDM Narrative: Medical decision making narrative: Patient is a 41-year-old female who comes to the ED with shortness of breath. Patient is 7 days postop a hysterectomy. Patient was seen here in the ED back on July 22 for post op fever. she has had a fever on and off again as well. Respirations 22, O2 saturation 84% on room air. Patient's breathing appears labored. ABG- pH 7.5, pO2 49, Hgb O2 saturation 86.9. Chest x-ray shows bilateral patchy pulmonary opacities consistent with pneumonia. D-dimer 0.88. CTA of chest shows Multilobar ground-glass opacities, consistent with pneumonia. This pattern is typical of COVID-19 pneumonia but can also be seen with influenza and organizing pneumonia. Patient requiring 3 L of oxygen while here in the ED. I talked to Dr. Doty about patient case and he agreed patient would be a good candidate for admission since she is 7 days postop this is her second visit to the ED since postop and she is got multifocal pneumonia and required oxygen. I contacted Dr. Rossi and told outpatient case and he agreed to have patient admitted. Lab Data: Attestation: I reviewed the patient's lab results. Labs: Lab Results 08/06/21 08/06/21 08/06/21 13:05 13:42 13:42 WBC 3.2 10^3/uL L 10^ 3/uL (4.0-10.0) RBC 4.59 10^6/uL 10^6 /uL (4.1-5.3) Hgb 11.4 g/dL L g/dL (11.5-15.3) Hct 39.4 % % (37.0-47.0) MCV 85.8 fl fl (81-99) MCH 24.8 pg L pg (28.0-34.0) MCHC 28.9 g/dL L g/dL (30.0-36.0) RDW 16.7 % H % (12.1-15.1) Plt Count 185 10^3/cmm 10^3 /cmm (130-400) MPV 11.9 fL H fL (7.4-10.4) Neut % (Auto) 75.2 % % Lymph % (Auto) 17.1 % % [place] % (Auto) 6.8 % % Eos % (Auto) 0.0 % % Baso % (Auto) 0.3 % % Neut # (Auto) 2.42 10^3/uL 10^3 /uL (1.8-7.7) Lymph # (Auto) 0.6 10^3/uL L 10^ 3/uL (0.8-4.8) [place] # (Auto) 0.2 10^3/uL 10^3/ uL (0.2-0.9) Eos # (Auto) 0.0 10^3/uL 10^3/ uL (0.0-0.8) Baso # (Auto) 0.0 10^3/uL 10^3/ uL (0.0-0.1) Nucleated RBC % (a uto) 0 % % Nucleated RBCs # 0.0 /100WBC /100W BC D-Dimer Specimen Type Arterial Sample Site Radial, left ABG pH 7.50 H (7.35-7.45) ABG pCO2 29.8 mmHg L mmHg (35-45) ABG pO2 49.4 mmHg L mmHg (80.0-100.0) ABG HCO3 23.1 mmol/L mmol/ L (22-26) ABG O2 Saturation 89.1 ABG Base Excess 0.5 mmol/L mmol/L (-2.0-2.0) Yair Test Pos A-a O2 Gradient 8.3 mmHg mmHg (5-10) Hematocrit 34.9 % L % (37-47) Hgb O2 Saturation 86.9 % L % (95-100) Carboxyhemoglobin 1.9 %THgb %THgb (0.4-20.1) Methemoglobin 0.6 % % (0.4-1.5) Total Hemoglobin 11.4 g/dL L g/dL (12-16) Sodium 135.0 mmol/L mmol /L 132 mmol/L L mmol /L (131-143) (136-145) Potassium 4.2 mmol/L mmol/L 4.5 mmol/L mmol/L (3.5-5.0) (3.5-5.1) Glucose 110.0 mg/dL mg/dL 108 mg/dL mg/dL (70-115) (65-115) Ionized Calcium 1.1 mmol/L mmol/L (1.1-1.4) O2 Delivery Device Room air Doorperson Or Luggage Porter ID Gd Chloride 98 mmol/L mmol/L (98-107) Carbon Dioxide 22 mmol/L mmol/L (22-29) Anion Gap 16.5 (5-19) BUN 10 mg/dL mg/dL (6-20) Creatinine 0.8 mg/dL mg/dL (0.5-0.9) GFR Calculation 79.0 mL/min L mL/ min (90-130) Calculated Osmolal ity 274 mOsm/kg L mOs m/kg (285-295) Lactic Acid Calcium 8.3 mg/dL L mg/dL (8.5-10.5) Total Bilirubin 0.7 mg/dL mg/dL (0.15-1.2) AST 82 U/L H U/L (0-32) ALT 51 U/L H U/L (0-33) Alkaline Phosphata se 95 IU/L IU/L (35-105) Troponin T Baselin e Troponin T [address] [place] Troponin T C-Reactive Protein NT-Pro-B Natriuret Pep Total Protein 6.4 g/dL L g/dL (6.6-8.7) Albumin 3.9 g/dL g/dL (3.5-5.2) Globulin 2.5 g/dL g/dL (1.3-4.6) Lipase 29 U/L U/L (13-60) Procalcitonin SARS-CoV-2 Ag (Rap id) 08/06/21 08/06/21 08/06/21 13:42 13:42 13:42 WBC RBC Hgb Hct MCV MCH MCHC RDW Plt Count MPV Neut % (Auto) Lymph % (Auto) [place] % (Auto) Eos % (Auto) Baso % (Auto) Neut # (Auto) Lymph # (Auto) [place] # (Auto) Eos # (Auto) Baso # (Auto) Nucleated RBC % (a uto) Nucleated RBCs # D-Dimer 0.71 ug/mIFEU H u g/mIFEU (0-0.59) Specimen Type Sample Site ABG pH ABG pCO2 ABG pO2 ABG HCO3 ABG O2 Saturation ABG Base Excess Yair Test A-a O2 Gradient Hematocrit Hgb O2 Saturation Carboxyhemoglobin Methemoglobin Total Hemoglobin Sodium Potassium Glucose Ionized Calcium O2 Delivery Device Doorperson Or Luggage Porter ID Chloride Carbon Dioxide Anion Gap BUN Creatinine GFR Calculation Calculated Osmolal ity Lactic Acid 1.3 mmol/L mmol/L (0.5-2.2) Calcium Total Bilirubin AST ALT Alkaline Phosphata se Troponin T Baselin e 6 ng/L ng/L (0-10) Troponin T [address] [place] Troponin T C-Reactive Protein NT-Pro-B Natriuret Pep Total Protein Albumin Globulin Lipase Procalcitonin SARS-CoV-2 Ag (Rap id) 08/06/21 08/06/21 08/06/21 14:04 16:20 16:20 WBC RBC Hgb Hct MCV MCH MCHC RDW Plt Count MPV Neut % (Auto) Lymph % (Auto) [place] % (Auto) Eos % (Auto) Baso % (Auto) Neut # (Auto) Lymph # (Auto) [place] # (Auto) Eos # (Auto) Baso # (Auto) Nucleated RBC % (a uto) Nucleated RBCs # D-Dimer Specimen Type Sample Site ABG pH ABG pCO2 ABG pO2 ABG HCO3 ABG O2 Saturation ABG Base Excess Yair Test A-a O2 Gradient Hematocrit Hgb O2 Saturation Carboxyhemoglobin Methemoglobin Total Hemoglobin Sodium Potassium Glucose Ionized Calcium O2 Delivery Device Doorperson Or Luggage Porter ID Chloride Carbon Dioxide Anion Gap BUN Creatinine GFR Calculation Calculated Osmolal ity Lactic Acid Calcium Total Bilirubin AST ALT Alkaline Phosphata se Troponin T Baselin e Troponin T [address] [place] 6.00 ng/L ng/L (0-10) Delta Troponin T 0 ABS# ABS# (0-10) C-Reactive Protein 46.3 mg/L H mg/L (0.0-4.9) NT-Pro-B Natriuret Pep 48 pg/mL pg/mL (0-125) Total Protein Albumin Globulin Lipase Procalcitonin 0.11 ng/mL ng/mL (0-0.5) SARS-CoV-2 Ag (Rap id) Negative (Negative) Imaging Data^: CXR: Attestation: I personally reviewed and interpreted this imaging study as follows: Radiologist's impression: [employer] [address] XRay Report Signed Patient: Reta Gipson Unit #: [id number] : 1980 Age/Sex: 41 / F ADM Date: 08/06/21 Loc: ER Room/Bed: Attending Dr: Ordering Provider/Ordering MD: Ovidio Boothe Date of Service: 08/06/21 Procedure(s): XR chest 1V portable [id number] Accession Number(s): [id number] Report Number: [id number] WS: [id number] Portable AP upright chest, 08/06/2021 Clinical Data: SOB Comparison: None. Findings: Bilateral patchy pulmonary opacities are present consistent with pneumonia. No nodules, masses or effusions are seen. The heart is normal. No pneumothorax is seen. XR/XR chest 1V portable [id number] Impression: Bilateral patchy pulmonary opacities consistent with pneumonia. Dictated By: Nayeli Bryson MD Signed By: Nayeli Bryson MD Signed Date/Time: 08/06/218 DD/ 1317 CTA Chest: Attestation: I personally reviewed and interpreted this imaging study as follows: Radiologist's impression: [employer] [address] [place] [address] CT Scan Report Signed Patient: Reta Gipson Unit #: [id number] : 1980 Age/Sex: 41 / F ADM Date: 08/06/21 Loc: ER Room/Bed: Attending Dr: Ordering Provider/Ordering MD: Ovidio Boothe Date of Service: 08/06/21 Procedure(s): CT angio chest PE protcl [id number] Accession Number(s): [id number] Report Number: [id number] PROCEDURE INFORMATION: Exam: CTA Chest With Contrast Exam date and time: 08/06/2021 2:25 PM Age: 41 years old Clinical indication: Angina and dyspnea; Additional info: SOB, elevated d dimer, 7 days post op hysterectomy, history of pe TECHNIQUE: Imaging protocol: Computed tomographic angiography of the chest with contrast. 3D rendering (Not supervised by radiologist): MIP and/or 3D reconstructed images were created by the technologist. Radiation optimization: All CT scans at this facility use at least one of these dose optimization techniques: automated exposure control; mA and/or kV adjustment per patient size (includes targeted exams where dose is matched to clinical indication); or iterative reconstruction. Contrast material: OMNI 350; Contrast volume: 68 ml; Contrast route: INTRAVENOUS (IV); COMPARISON: CT angio chest PE [facility] [id number] 06/21/2021 10:07 PM RADIATION DOSE METRICS: Total DLP (mGy-cm): 533.55 FINDINGS: Pulmonary arteries: Normal. No pulmonary emboli. Aorta: Unremarkable. No aortic aneurysm. No aortic dissection. Thyroid: 0.5 cm nodule or cyst in the left thyroid lobe. No follow-up imaging is recommended. Lungs: Diffuse patchy peripheral ground-glass opacities throughout both lungs. Pleural spaces: Unremarkable. No pneumothorax. No pleural effusion. Heart: Unremarkable. No cardiomegaly. No pericardial effusion. Lymph nodes: Prominent mediastinal and hilar lymph nodes are most likely reactive. Bones/joints: Unremarkable. No acute fracture. Soft tissues: Unremarkable. CT/CT angio chest PE prot [id number] IMPRESSION: 1. No evidence for pulmonary embolus. 2. Multilobar ground-glass opacities, consistent with pneumonia. This pattern is typical of COVID-19 pneumonia but can also be seen with influenza and organizing pneumonia. COMMENTS: Consistent with the [place] [employer]'s Incidental Findings Committee white paper (J Am Christian Radiol 2015): In patients aged 35 years and older with an incidental thyroid nodule equal to or greater than 1.[address], MRI or extrathyroidal US, further evaluation with dedicated thyroid US is recommended for patients with normal life expectancy and without comorbidities. For smaller nodules without suspicious features, no further evaluation or follow up is recommended. Radiation Dose CTDIVOL = (mGy): DLP = 533.55 (mGy-cm) Dictated By: Constantin العلي Signed By: Constantni العلي Signed Date/Time: 08/06/21 160 DD/ 160 EKG Data^: EKG 1: Attestation: I personally reviewed and interpreted this EKG as follows: EKG Interpretation Date: 08/06/21 Interpretation: Sinus tachycardia, 102 bpm, no ST segment elevation or depression seen. Discharge Plan Discharge Patient Disposition: Admitted As Inpatient Admit Provider: Christophe Rossi Clinical Impression: Multifocal pneumonia Condition: Stable Coding Level of Care Code ED Picker Operator for Chg Fwd Exam Comprehensive
[2021-08-06] MEDS: ipratropium-albuterol 3 mL Neb 6 ML INHALATION (13:10)
[2021-08-06 13:23] LABS: ABG PCO2 29.8 mmHg (35-45); Alveolar-Arterial Oxygen Gradi 8.3 mmHg (5-10); Arterial Blood Gas Hematocrit 34.9 % (37-47); Base Excess ABG 0.5 mmol/L (-2.0-2.0); Blood Gas Allen Test Pos; Blood Gas Operator Identificat GD; Blood Gas Sample Site Radial, left; Blood Gas Sample Type Arterial; Carboxyhemoglobin 1.9 %THgb (0.4-20.1); HCO3 ABG 23.1 mmol/L (22-26); HGB O2 Sat 86.9 % (95-100); Ionized Calcium Level - ABG 1.1 mmol/L (1.1-1.4); Methemoglobin 0.6 % (0.4-1.5); Oxygen Device ROOM AIR; Oxygen Saturation ABG 89.1; PO2 ABG 49.4 mmHg (80.0-100.0); Potassium Level - ABG 4.2 mmol/L (3.5-5.0); Total Hemoglobin 11.4 g/dL (12-16)
[2021-08-06 14:00] LABS: Basophils % 0.3 %; Hematocrit 39.4 % (37.0-47.0); Hemoglobin 11.4 g/dL (11.5-15.3); Lymphocytes # 0.6 10^3/uL (0.8-4.8); Lymphocytes % 17.1 %; Mean Corpuscular HGB Conc 28.9 g/dL (30.0-36.0); Mean Corpuscular Hemoglobin 24.8 pg (28.0-34.0); Mean Corpuscular Volume 85.8 fl (81-99); Mean Platelet Volume 11.9 fL (7.4-10.4); Monocytes # 0.2 10^3/uL (0.2-0.9); Monocytes % 6.8 %; Neutrophils # 2.42 10^3/uL (1.8-7.7); Neutrophils % 75.2 %; Nucleated Red Blood Cells % 0 %; Platelet Count 185 10^3/cmm (130-400); Red Blood Count 4.59 10^6/uL (4.1-5.3); Red Cell Distribution Width 16.7 % (12.1-15.1); White Blood Count 3.2 10^3/uL (4.0-10.0)
--- NOTE | 2021-08-06 14:03 | PC.PHAR ---
PT STATES SHE TAKES CARE OF HER OWN MEDICATIONS-PT STATES SHE NORMALLY TAKES HYDROXYUREA 500MG BID PT STATES HER DR HAS THIS MEDICATION ON HOLD PT STATES THIS MEDICATION HAS BEEN ON HOLD FOR ABOUT 2 WEEKS
[2021-08-06 14:18] LABS: D Dimer 0.71 ug/mIFEU (0-0.59)
--- NOTE | 2021-08-06 14:19 | ECG_ITS ---
[facility] Test Date: 2021-08-06 Pat Name: Reta Gipson Department: Room: Gender: Female Director Of Testing: : 1980 Requested By: Ovidio Boothe Order Number: [id number] Markel MD: Francine Robertson M.D. Measurements Intervals [place] Rate: 102 P: 24 MO: 147 QRS: -27 QRSD: 91 T: -4 QT: 331 QTc: 432 Interpretive Statements SINUS TACHYCARDIA LOW QRS VOLTAGE IN PRECORDIAL LEADS [QRS DEFLECTION < 1.0 mV IN CHEST LEADS] POSSIBLE ANTERIOR MYOCARDIAL INFARCTION , PROBABLY OLD [30 ms Q WAVE IN V3/V4, OR R < 0.2 mV IN V4] ABNORMAL RHYTHM ECG Compared to ECG 06/21/2021 22:16:39 Low QRS voltage now present Nonspecific T wave changes appear to be new Myocardial infarct finding now present Sinus rhythm no longer present Electronically Signed On 08-06-2021 23:51:18 CDT by Francine Robertson M.D. [id number]
[2021-08-06 14:21] LABS: Lactic Sepsis W/Reflex 1.3 mmol/L (0.5-2.2)
--- NOTE | 2021-08-06 14:25 | CTR_ITS ---
PROCEDURE INFORMATION: Exam: CTA Chest With Contrast Exam date and time: 08/06/2021 2:25 PM Age: 41 years old Clinical indication: Angina and dyspnea; Additional info: SOB, elevated d dimer, 7 days post op hysterectomy, history of pe TECHNIQUE: Imaging protocol: Computed tomographic angiography of the chest with contrast. 3D rendering (Not supervised by radiologist): MIP and/or 3D reconstructed images were created by the technologist. Radiation optimization: All CT scans at this facility use at least one of these dose optimization techniques: automated exposure control; mA and/or kV adjustment per patient size (includes targeted exams where dose is matched to clinical indication); or iterative reconstruction. Contrast material: OMNI 350; Contrast volume: 68 ml; Contrast route: INTRAVENOUS (IV); COMPARISON: CT angio chest PE protcl [id number] 06/21/2021 10:07 PM RADIATION DOSE METRICS: Total DLP (mGy-cm): 533.55 FINDINGS: Pulmonary arteries: Normal. No pulmonary emboli. Aorta: Unremarkable. No aortic aneurysm. No aortic dissection. Thyroid: 0.5 cm nodule or cyst in the left thyroid lobe. No follow-up imaging is recommended. Lungs: Diffuse patchy peripheral ground-glass opacities throughout both lungs. Pleural spaces: Unremarkable. No pneumothorax. No pleural effusion. Heart: Unremarkable. No cardiomegaly. No pericardial effusion. Lymph nodes: Prominent mediastinal and hilar lymph nodes are most likely reactive. Bones/joints: Unremarkable. No acute fracture. Soft tissues: Unremarkable. CT/CT angio chest PE protcl [id number] IMPRESSION: 1. No evidence for pulmonary embolus. 2. Multilobar ground-glass opacities, consistent with pneumonia. This pattern is typical of COVID-19 pneumonia but can also be seen with influenza and organizing pneumonia. COMMENTS: Consistent with the [place] [employer]'s Incidental Findings Committee white paper (J Am Christian Radiol 2015): In patients aged 35 years and older with an incidental thyroid nodule equal to or greater than 1.[address], MRI or extrathyroidal US, further evaluation with dedicated thyroid US is recommended for patients with normal life expectancy and without comorbidities. For smaller nodules without suspicious features, no further evaluation or follow up is recommended. Radiation Dose CTDIVOL = (mGy): DLP = 533.55 (mGy-cm)
[2021-08-06 14:32] LABS: Troponin(5th) Baseline 6 ng/L (0-10)
[2021-08-06 14:33] LABS: Alanine Aminotransferase 51 U/L (0-33); Albumin Level 3.9 g/dL (3.5-5.2); Alkaline Phosphatase 95 IU/L (35-105); Anion Gap 16.5 (5-19); Aspartate Amino Transferase 82 U/L (0-32); Blood Urea Nitrogen 10 mg/dL (6-20); Calcium 8.3 mg/dL (8.5-10.5); Carbon Dioxide 22 mmol/L (22-29); Chloride 98 mmol/L (98-107); Globulin 2.5 g/dL (1.3-4.6); Glucose 108 mg/dL (65-115); Lipase 29 U/L (13-60); Osmolality Calculated 274 mOsm/kg (285-295); Potassium 4.5 mmol/L (3.5-5.1); Sodium 132 mmol/L (136-145); Total Bilirubin 0.7 mg/dL (0.15-1.2); Total Protein 6.4 g/dL (6.6-8.7)
[2021-08-06 14:44] LABS: SARS Covid-2 Antigen Negative (Negative)
[2021-08-06] MEDS: iohexol 350 mg/mL 100 mL Btl IV (15:23)
[2021-08-06 17:05] LABS: Troponin 5 2HR Delta 0 ABS# (0-10)
--- NOTE | 2021-08-06 17:14 | P.HP_ITS ---
Providers/Chief Complaint Primary Care Provider: JAIME Gonzáles Chief Complaint: HYSTERECTOMY 07.30:SEEN 08.01,NOW WORSE History of Present Illness Reta Gipson is a 41 year old female with a past medical history of polycy themia vera last therapeutic phlebotomy was in May 2021, currently off hydroxyurea due to concerns for anemia, history of pulmonary embolism on Eliquis, history of diverticulitis, who presents to [facility] due to complaints of shortness of breath, cough, fatigue, malaise. Patient tells me that she had a total hysterectomy by Dr. Reza on July 30 for abnormal vaginal bleeding, her Covid PCR was - 07/25/2021, right after surgery she was doing okay, however she started to develop fatigue, malaise, shortness of breath with exertion, intermittent fevers, no chills, no nausea, no vomiting, no chest pain, denies smoking, no history of vaping use, no history of lung disease, no history of asthma, no history of heart disease. No known Covid exposure, she has not received Covid vaccines, in the emergency room rapid Covid was negative, CTA showed multilobar groundglass opacities, she is requiring 2 L, slightly tachycardic, temp 98.4, normotensive, hospitalist team was called for admission Review of Systems Const: Reports: fever(s), fatigue and malaise ENMT: Denies: nasal congestion Card: Reports: dyspnea on exertion; Denies: chest pain, palpitations or edema Resp: Reports: dyspnea, non-productive cough and wheezing GI: Denies: abdominal pain, nausea, vomiting, hematemesis, diarrhea or constipation : Denies: flank pain, dysuria or urinary frequency Musc: Denies: neck pain Neuro: Denies: headache(s) or dizziness Endo: Denies: polyuria Medications/Allergies Home Medications Medication Instructions Recorded Confirmed Last Taken Type apixaban 5 mg tablet 5 mg PO BID 10/07/20 08/06/21 08/05/21 History gabapentin 300 mg capsule 600 mg PO BEDTIME@2100 10/07/20 08/06/21 08/05/21 History triamcinolone acetonide 0.1 % 1 applic TOPICAL BID PRN g 12/03/20 08/06/21 Unknown History topical ointment hydrocodone-acetaminophen 1 tab PO Q4H PRN #30 tab 07/31/21 08/06/21 Unknown Rx ibuprofen 800 mg PO TID PRN #60 tab 07/31/21 08/06/21 Unknown Rx acetaminophen [Tylenol Extra 1,000 mg PO Q4H PRN 08/06/21 08/06/21 08/06/21 09:00 History Strength] hydrocortisone acetate 25 mg TX BID PRN 08/06/21 08/06/21 Unknown History hydroxyurea See Rx Instructions .ROUTE .COMPLEX 08/06/21 08/06/21 Unknown History iron 325 mg PO DAILY 08/06/21 08/06/21 08/05/21 History Allergies Allergy/AdvReac Type Severity Reaction Status Date / Time guaifenesin Allergy ALGY-Hives Verified 08/06/21 14:02 metronidazole [From Flagyl] AdvReac LIghtheaded, Verified 08/06/21 14:02 flushed PFSH Acute PFSH: Medical History Diverticulitis Diagnosed in 2018- Enlarged thyroid gland This is currently being evaluated and managed by Dr. Ferro. She thinks that her thyroid levels were normal. No pertinent past medical history Denies diabetes, asthma, seizures, DVT. PMD: ABI Victoria Polycythemia vera Has had symptoms since about 2013 and was diagnosed in 2015. She currently sees heme oncology-Dr. Garcia and is on medication for this. Pulmonary embolism In November 2019 and she has been on Eliquis since then managed by her primary care provider. Denies history of DVT. Surgical History History of tubal ligation March 2009--laparoscopic procedure Status post hysteroscopy 02/06/2021--hysteroscopy performed for possible endometrial polyp on ultrasound-performed by Dr. Ambrose at [facility] [place]. At hysteroscopy no obvious intracavitary abnormalities including polyp identified. D&C performed and pathology showed secretory and proliferative endometrium without atypia hyperplasia or malignancy. Family History Father Chronic kidney disease (CKD) Hypertension Sister Chronic kidney disease (CKD) Psychiatric illness Mother Thyroid disease Grandmother Thyroid disease Maternal Denies family history of Colon cancer Ovarian cancer Diabetes Heart disease Breast cancer Bleeding disorder Uterine cancer Stroke Social History Smoking and tobacco status: never smoked Alcohol intake: former Female Reproductive History: Date of last menstrual period: 07/18/21 Vitals/I&O/Wt Last Vital Signs Temp 98.4 F 08/06/21 12:14 Pulse 103 H 08/06/21 14:23 Resp 20 H 08/06/21 13:17 BP 121/72 08/06/21 14:23 Pulse Ox 94 08/06/21 14:23 Weight last 48 hrs Weight 136.078 kg Weight 94.347 kg Data : 08/06/21 13:42 08/06/21 13:42 Micro: Microbiology 08/06/21 16:18 Blood Culture - Preliminary Blood SPECIMEN COLLECTED 08/06/21 16:20 Blood Culture - Preliminary Blood SPECIMEN COLLECTED A&P Assessment and plan (1) Multifocal pneumonia: Multifocal pneumonia Plan -Admit to general medical floors -Covid PCR, Covid precautions -Continue Rocephin and azithromycin -Continue Decadron -Albuterol, budesonide -Vitamin C, zinc, vitamin D - incentive spirometer, flutter valve -Follow blood cultures, sputum cultures, urine bacterial antigens -Full code -Eliquis for DVT prophylaxis Polycythemia vera, no evidence of polycythemia, continue to monitor History of pulmonary embolism, continue Eliquis Status: Acute Attestations Medical Necessity Statement*: Patient requires hospitalization, inpatient, greater than 2 midnights, for multifocal pneumonia Coding Level of Care Code Acute Clerk Analyst for [facility] [place]gan Diagnoses Multifocal pneumonia J18.9
[2021-08-06] MEDS: sodium chloride 0.9% 1,000 ML 999 ML IV (17:26)
[2021-08-06] MEDS: cefTRIAXone 1,000 MG in sodium chloride 0.9% (plus) 50 ML 100 MG IV (17:27)
[2021-08-06 17:36] LABS: NT Pro B Type Natriuretic Pept 48 pg/mL (0-125); Procalcitonin 0.11 ng/mL (0-0.5)
[2021-08-06 17:48] LABS: C Reactive Protein 46.3 mg/L (0.0-4.9)
[2021-08-06] MEDS: azithromycin 500 MG in sodium chloride 0.9% 250 ML 250 MG IV (18:12)
--- NOTE | 2021-08-06 19:44 | PC.NURSE ---
Patient low O2 Patient O2 SAT 88% on 5L nasal Cannula. This nurse placed patient on non rebreather at 10L. Patient O2 Sat is now at 97%. Patient denies discomfort at this time.
[2021-08-06 20:45] LABS: Troponin 5 6HR 6.14 ng/L (0-10); Troponin 5 6HR Delta 0.14 ng/L (0-12)
[2021-08-06 21:50] LABS: Thyroid Stimulating Hormone 5.38 uIU/mL (0.27-4.20)
[2021-08-06] MEDS: dexamethasone 10 mg/mL INJ 6 MG IVP (22:48)
[2021-08-06] MEDS: ascorbic acid 500 mg Tablet PO (22:48)
[2021-08-06] MEDS: apixaban 5 mg Tablet PO (22:48)
[2021-08-06] MEDS: gabapentin 300 mg Capsule 600 MG PO (22:48)
[2021-08-06] MEDS: albuterol 8 gm MDI 2 PUFF INHALATION (23:50)
[2021-08-06] MEDS: budesonide 0.5 mg/2 mL Neb INHALATION (23:50)
[2021-08-07] VITALS (53 sets, daily range): BP systolic 96–140; BP diastolic 68–88; PULSE 71–90; RESP 16–32; TEMP 36.4–36.6; O2SAT 87–96
[2021-08-07 05:43] LABS: Hematocrit 35.8 % (37.0-47.0); Hemoglobin 10.2 g/dL (11.5-15.3); Lymphocytes # 0.2 10^3/uL (0.8-4.8); Lymphocytes % 9.3 %; Mean Corpuscular HGB Conc 28.5 g/dL (30.0-36.0); Mean Corpuscular Hemoglobin 24.9 pg (28.0-34.0); Mean Corpuscular Volume 87.3 fl (81-99); Mean Platelet Volume 11.7 fL (7.4-10.4); Monocytes # 0.1 10^3/uL (0.2-0.9); Monocytes % 4.3 %; Neutrophils # 2.19 10^3/uL (1.8-7.7); Neutrophils % 85.2 %; Nucleated Red Blood Cells % 0 %; Platelet Count 177 10^3/cmm (130-400); Red Cell Distribution Width 16.8 % (12.1-15.1); White Blood Count 2.6 10^3/uL (4.0-10.0)
[2021-08-07 05:58] LABS: D Dimer 0.88 ug/mIFEU (0-0.59)
[2021-08-07 06:11] LABS: Alanine Aminotransferase 37 U/L (0-33); Albumin Level 3.5 g/dL (3.5-5.2); Alkaline Phosphatase 78 IU/L (35-105); Anion Gap 15.7 (5-19); Aspartate Amino Transferase 45 U/L (0-32); Blood Urea Nitrogen 10 mg/dL (6-20); Calcium 8.2 mg/dL (8.5-10.5); Carbon Dioxide 21 mmol/L (22-29); Chloride 103 mmol/L (98-107); Globulin 3.2 g/dL (1.3-4.6); Glomerular Filtration Rate 110.2 mL/min (90-130); Glucose 129 mg/dL (65-115); Magnesium 2.2 mg/dL (1.7-2.3); Osmolality Calculated 281 mOsm/kg (285-295); Phosphorus 2.8 mg/dL (2.5-4.5); Potassium 4.7 mmol/L (3.5-5.1); Sodium 135 mmol/L (136-145); Total Bilirubin 0.4 mg/dL (0.15-1.2); Total Protein 6.7 g/dL (6.6-8.7)
[2021-08-07] MEDS: apixaban 5 mg Tablet PO (09:17)
[2021-08-07] MEDS: ascorbic acid 500 mg Tablet PO ×2 (09:17→18:12)
[2021-08-07] MEDS: cholecalciferol (vitamin D3) 1,000 unit Tablet 1000 UNIT PO (09:17)
[2021-08-07] MEDS: pantoprazole DR 40 mg Tablet PO (09:17)
[2021-08-07] MEDS: ferrous sulfate EC 325 mg Tablet PO (09:17)
[2021-08-07] MEDS: zinc gluconate 50 mg Tablet PO (09:17)
[2021-08-07] MEDS: albuterol 8 gm MDI 2 PUFF INHALATION ×3 (09:24→20:05)
[2021-08-07] MEDS: budesonide 0.5 mg/2 mL Neb INHALATION ×2 (09:24→20:03)
[2021-08-07] MEDS: cefepime 2,000 MG in sodium chloride 0.9% (plus) 50 ML 100 MG IV ×2 (11:01→23:34)
[2021-08-07] MEDS: vancomycin 1,500 MG/300 ML PIGGYBACK 200 MG IV ×2 (11:46→20:25)
[2021-08-07 12:32] LABS: Influenza A by IFA Negative (Negative); Influenza B by IFA Negative (Negative)
--- NOTE | 2021-08-07 15:38 | PC.NURSE ---
Sputum taken to lab and delivered to Nayeli Morris.
--- NOTE | 2021-08-07 17:45 | P.PN_ITS ---
Subjective Subjective: Interval history: Patient was seen this morning, she denies any fevers, no chills, she sitting up in a chair, she is on 40 L, 80%, her Covid is still pending Vitals/I&O/Wt Last Vital Signs Temp 97.7 F 08/07/21 08:00 Pulse 82 08/07/21 16:00 Resp 26 H 08/07/21 16:00 BP 122/84 08/07/21 16:00 Pulse Ox 93 08/07/21 16:00 08/07/21 08/07/21 08/07/21 06:59 14:59 22:59 Intake Total 50 / 50 Output Total 800 / 1100 Balance -800 / 200 50 / 50 Weight last 48 hrs Weight 136.395 kg Weight 136.078 kg Weight 94.347 kg Physical Exam Const: COMMON NORMALS: no acute distress and patient oriented x3 Resp: COMMON NORMALS: normal respiratory effort, No retractions and No use of accessory muscles AUSCULTATION: diminished lung sounds Cardio: COMMON NORMALS: regular rate, regular rhythm, S1 normal heart sound present and S2 normal heart sound present RATE: regular rate RHYTHM: regular rhythm HEART SOUNDS: S1 normal heart sound present and S2 normal heart sound present GI: COMMON NORMALS: Normal to inspection, nondistended, normoactive bowel sounds present, Soft to palpation and non-tender PALPATION: Yes Soft to palpation Extremity: COMMON NORMALS: no pedal edema Neuro: COMMON NORMALS: patient oriented x3 Psych: COMMON NORMALS: mental status grossly normal Data : 08/07/21 05:32 08/07/21 05:32 Micro: Microbiology 08/06/21 16:20 Blood Culture - Preliminary Blood NEGATIVE TO DATE 08/06/21 16:18 Blood Culture - Preliminary Blood NEGATIVE TO DATE A&P Assessment and plan (1) Multifocal pneumonia: Multifocal pneumonia Plan -Given increased oxygen requirements, will moved to the ICU -Covid PCR, Covid precautions -Broaden antibiotic coverage to vancomycin, cefepime, Levaquin -Continue Decadron -Albuterol, budesonide -Vitamin C, zinc, vitamin D - incentive spirometer, flutter valve -Follow blood cultures, sputum cultures, urine bacterial antigens -We will do cardiac echo, bilateral extremity ultrasound for DVT -Full code -DVT prophylaxis, stop Eliquis question therapeutic Lovenox Polycythemia vera, no evidence of polycythemia, continue to monitor History of pulmonary embolism, continue Eliquis Status: Acute Attestations Medical Necessity Statement*: Patient requires hospitalization acute respiratory failure, multifocal pneumonia, Covid PUI Coding Level of Care Code Acute Hospice Volunteer for g [facility] Diagnoses Multifocal pneumonia J18.9
[2021-08-07] MEDS: levofloxacin-dextrose 5 % 750 MG/150 ML PREMIX 100 MG IV (18:11)
[2021-08-07] MEDS: gabapentin 300 mg Capsule 600 MG PO (22:01)
[2021-08-07] MEDS: enoxaparin 80 mg/0.8 mL Syringe 140 MG SUBCUT (22:02)
[2021-08-07] MEDS: dexamethasone 10 mg/mL INJ 6 MG IVP (22:02)
[2021-08-08] VITALS (56 sets, daily range): BP systolic 84–143; BP diastolic 65–94; PULSE 64–98; RESP 17–43; TEMP 36.6–36.9; O2SAT 85–97
[2021-08-08] MEDS: HYDROcodone-acetaminophen 5-325 mg Tablet 1 TAB PO (01:07)
[2021-08-08 01:22] LABS: Bilirubin Urine Neg (Negative); Blood Urine 2+ (Negative); Glucose Urine UA Norm (Normal); Ketones Urine 1+ (Negative); Nitrate Urine Negative (Negative); Protein Urine Neg (Negative); Specific Gravity, Urine 1.015 (1.005-1.030); Urine Appearance Clear (CLEAR); Urine Color Straw (Yellow); Urobilinogen Urine Norm (Negative); pH Urine 5 (5-7)
[2021-08-08 01:23] LABS: Add Urine Culture? Yes; Add Urine Microscopic? YES; Bacteria Urine 2+ /hpf; Leukocyte Esterase Urine 2+ (Negative); Mucus Urine 1+ /hpf; WBC Urine 40-55 /hpf (0-5)
[2021-08-08] MEDS: vancomycin 1,500 MG/300 ML PIGGYBACK 150 MG IV ×3 (03:08→19:34)
[2021-08-08] MEDS: albuterol 8 gm MDI 2 PUFF INHALATION ×3 (03:34→20:56)
[2021-08-08 04:06] LABS: Basophils % 0.3 %; Hematocrit 34.9 % (37.0-47.0); Lymphocytes # 0.4 10^3/uL (0.8-4.8); Lymphocytes % 10.9 %; Mean Corpuscular HGB Conc 28.7 g/dL (30.0-36.0); Mean Corpuscular Volume 87.3 fl (81-99); Mean Platelet Volume 11.3 fL (7.4-10.4); Monocytes # 0.2 10^3/uL (0.2-0.9); Monocytes % 6.6 %; Neutrophils # 2.96 10^3/uL (1.8-7.7); Neutrophils % 80.8 %; Nucleated Red Blood Cells % 0 %; Platelet Count 204 10^3/cmm (130-400); Red Cell Distribution Width 16.5 % (12.1-15.1); White Blood Count 3.7 10^3/uL (4.0-10.0)
[2021-08-08 04:29] LABS: Alanine Aminotransferase 32 U/L (0-33); Albumin Level 3.4 g/dL (3.5-5.2); Alkaline Phosphatase 74 IU/L (35-105); Anion Gap 15.8 (5-19); Aspartate Amino Transferase 38 U/L (0-32); Blood Urea Nitrogen 11 mg/dL (6-20); C Reactive Protein 19.8 mg/L (0.0-4.9); Calcium 8.7 mg/dL (8.5-10.5); Carbon Dioxide 22 mmol/L (22-29); Chloride 103 mmol/L (98-107); Globulin 3.1 g/dL (1.3-4.6); Glomerular Filtration Rate 110.2 mL/min (90-130); Glucose 119 mg/dL (65-115); Osmolality Calculated 283 mOsm/kg (285-295); Phosphorus 2.3 mg/dL (2.5-4.5); Potassium 4.8 mmol/L (3.5-5.1); Sodium 136 mmol/L (136-145); Total Bilirubin 0.4 mg/dL (0.15-1.2); Total Protein 6.5 g/dL (6.6-8.7)
[2021-08-08 04:33] LABS: NT Pro B Type Natriuretic Pept 143 pg/mL (0-125); Procalcitonin 0.07 ng/mL (0-0.5)
[2021-08-08 04:44] LABS: Creatine Phosphokinase 30 U/L (26-192)
[2021-08-08 04:45] LABS: D Dimer 0.75 ug/mIFEU (0-0.59)
[2021-08-08 05:07] LABS: ABG PCO2 34.7 mmHg (35-45); ABG PH Result 7.43 (7.35-7.45); Arterial Blood Gas Hematocrit 31.5 % (37-47); Base Excess ABG -1.1 mmol/L (-2.0-2.0); Blood Gas Allen Test Pos; Blood Gas Sample Type Arterial; HCO3 ABG 22.9 mmol/L (22-26); PO2 ABG 85.1 mmHg (80.0-100.0)
[2021-08-08 05:09] LABS: Blood Gas Sample Site Radial, right
[2021-08-08 05:32] LABS: Oxygen Device HHFNC
--- NOTE | 2021-08-08 05:35 | PC.NURSE ---
Patient in chair at beginning of shift, able to ambulated with standby assist back to bed. Vital signs remains stable, patient remains on HHF, appears to be comfortable with no distress or desaturation episodes noted. Repositioned as need. Will continue to monitor.
--- NOTE | 2021-08-08 07:00 | XRR_ITS ---
PROCEDURE INFORMATION: Exam: XR Chest Exam date and time: 08/08/2021 7:00 AM Age: 41 years old Clinical indication: Condition or disease; Lung condition and disease; Patient HX: F/u pneumonia. Pending pcr results. On high flow 02. ; Additional info: SOB TECHNIQUE: Imaging protocol: XR of the chest. Views: 1 view. COMPARISON: 1. CR XR chest 1V portable [id number] 08/06/2021 1:[address] angio chest PE protcl [id number] 08/06/2021 3:19:32 PM FINDINGS: Lungs: Poor inspiration. Decreased lung volumes. Some worsening of bilateral, multifocal, somewhat peripheral pulmonary opacities. The pattern would be consistent with COVID-19 pneumonia. Pleural spaces: No pleural effusion or pneumothorax. Heart/Mediastinum: The cardiac silhouette is not enlarged. The mediastinal contours are unchanged. Bones/joints: There are multilevel bridging osteophytes in the spine. XR/XR chest 1V portable [id number] IMPRESSION: Some worsening of bilateral pneumonia. Suspect COVID-19 pneumonia.
[2021-08-08] MEDS: budesonide 0.5 mg/2 mL Neb INHALATION ×2 (09:35→20:56)
[2021-08-08] MEDS: zinc gluconate 50 mg Tablet PO (09:48)
[2021-08-08] MEDS: cholecalciferol (vitamin D3) 1,000 unit Tablet 1000 UNIT PO (09:48)
[2021-08-08] MEDS: enoxaparin 80 mg/0.8 mL Syringe 140 MG SUBCUT ×2 (09:48→20:39)
[2021-08-08] MEDS: ascorbic acid 500 mg Tablet PO ×2 (09:48→18:24)
[2021-08-08] MEDS: ferrous sulfate EC 325 mg Tablet PO (09:48)
[2021-08-08] MEDS: pantoprazole DR 40 mg Tablet PO (09:48)
[2021-08-08 11:25] LABS: Vancomycin Trough 17.1 ug/mL (10-15)
--- NOTE | 2021-08-08 11:34 | P.PN_ITS ---
Subjective Subjective: Interval history: Patient was seen this morning, she is is doing well, no fevers, chills, nausea, vomiting, no chest pain, is on 40 L, 60% Vitals/I&O/Wt Last Vital Signs Temp 98.1 F 08/08/21 04:00 Pulse 72 08/08/21 09:45 Resp 20 H 08/08/21 09:45 BP 117/76 08/08/21 09:30 Pulse Ox 90 08/08/21 09:45 08/07/21 08/08/21 08/08/21 22:59 06:59 14:59 Intake Total 690 / 1040 600 / 1640 240 / 240 Output Total 300 / 300 800 / 1100 300 / 300 Balance 390 / 740 -200 / 540 -60 / -60 Weight last 48 hrs Weight 136.395 kg Weight 136.078 kg Weight 94.347 kg Physical Exam Const: COMMON NORMALS: no acute distress and patient oriented x3 Resp: COMMON NORMALS: normal respiratory effort, No retractions, No use of accessory muscles and clear to auscultation bilaterally AUSCULTATION: clear to auscultation bilaterally Cardio: COMMON NORMALS: regular rate, regular rhythm, S1 normal heart sound present and S2 normal heart sound present RATE: regular rate RHYTHM: regular rhythm HEART SOUNDS: S1 normal heart sound present and S2 normal heart sound present GI: COMMON NORMALS: Normal to inspection, nondistended, normoactive bowel sounds present, Soft to palpation and non-tender PALPATION: Yes Soft to palpation Extremity: COMMON NORMALS: no pedal edema Neuro: COMMON NORMALS: patient oriented x3 Psych: COMMON NORMALS: mental status grossly normal Data : 08/08/21 03:15 08/08/21 03:15 Micro: Microbiology 08/06/21 16:20 Blood Culture - Preliminary Blood NEGATIVE TO DATE 08/06/21 16:18 Blood Culture - Preliminary Blood NEGATIVE TO DATE A&P Assessment and plan (1) Multifocal pneumonia: Multifocal pneumonia Plan -Currently being monitored in the ICU, on 40 L 60% -Covid PCR negative, repeat Covid PCR, Covid precautions -Broaden antibiotic coverage to vancomycin, cefepime, Levaquin -Continue Decadron -Albuterol, budesonide -Vitamin C, zinc, vitamin D - incentive spirometer, flutter valve -Follow blood cultures, sputum cultures, urine bacterial antigens -Cardiac echocardiogram shows an EF of 55 to 60%, normal diastolic function, bilateral extremity ultrasound negative for DVT -Full code -DVT prophylaxis, on therapeutic Lovenox Polycythemia vera, no evidence of polycythemia, continue to monitor History of pulmonary embolism, on therapeutic Lovenox Status: Acute (2) Acute respiratory failure with hypoxia: Status: Acute Attestations Medical Necessity Statement*: Patient requires hospitalization for multifocal pneumonia, Covid PUI Coding Level of Care Code Acute Peer Health Promoter for [facility] [place]jgan Diagnoses Multifocal pneumonia J18.9 Acute respiratory failure with hypoxia J96.01
[2021-08-08] MEDS: cefepime 2,000 MG in sodium chloride 0.9% (plus) 50 ML 100 MG IV ×2 (13:51→22:06)
[2021-08-08 14:55] LABS: Coronavirus Test Green County Detected
--- NOTE | 2021-08-08 14:59 | PC.CHAP ---
Pastoral Care Encounter/Spiritual Assessment Type of Contact [] Declined prepared foods supervisor visit [] Patient/Family/Request visit [] Outpatient visit [xx] Follow-up visit [] Physician referral [] Code/Alert [] Routine visit [] Staff referral [] Actively dying [] Patient sleeping [] Family support [] [] Out of room [] Palliative care [] [] Receiving care in room [] Pre-surgical visit [] Trauma [] Long length of stay [xx] ICU visit [] Other: Relational/Emotional Strength [] Patient feels connected with others/family/visitors/staff [] Distress [] Loneliness/isolation [] Abandonment Spirituality of Patient [] Person of Liza [] Attends Jehovah[employer] Witness of their Liza [] Believes in Prayer [] Reads Bible or Jewish materials [] There are Spiritual issues to be addressed Senior Sustainability Advisor Interventions [xx] Prayer [] Active listening [] Non-anxious presence [] Spiritual/emotional support [] Crisis/trauma care [] Spiritual counseling [] Bereavement support [] Provided bereavement packet [] Provided Bible/devotional materials [] Provided toy/stuffed animal, coloring book to patient or family member [] Provided Communion [] Anointing/[place] [] Salvation [] Completed spiritual assessment [] Other: Impact on Illness or Injury [] Angry [] Fearful [] Anxious [] Often cries [] Exhaustion [] Unable to work [] Unable to attend holiness [] Unable to walk/stand [] Unable to read [] Unable to drive [] Unable to eat/drink [] Unable to sleep [] Unable to be with family [] Patient intubated [] Other: Summary Senior Sustainability Advisor not allowed in room so prayed for patient outside room. Time spent with patient 2 minutes
[2021-08-08] MEDS: remdesivir 200 MG in sodium chloride 0.9% (100 ml) 60 ML 100 MG IV (17:00)
--- NOTE | 2021-08-08 17:25 | USCV_ITS ---
Reta Gipson Age: 41 Gender: F : 1980 Exam Date: 08/08/2021 06:21 Ordering Phys: Chirstophe Rossi MD Technologist: [place] [facility] [place]: SOB BP: 124 / 77 HR: 73 Rhythm: Sinus Technical Quality: Adequate MEASUREMENTS (Male / Female) Normal Values 2D ECHO LVOT Diameter 2.0 cm LV Ejection Fraction MOD 2C 42.7 % LV Ejection Fraction 2C AL 42.9 % LA Diameter 2.9 cm LA Width 3.4 cm LA Height 5.3 cm RA Width 3.5 cm RA Height 5.6 cm M-MODE LV Diastolic Diameter MM 4.2 cm 4.2 - 5.9 / 3.9 - 5.3 cm LV Systolic Diameter MM 3.1 cm LV Ejection Fraction MM Teich 50.6 % IVS Diastolic Thickness MM 1.2 cm 0.6 - 1.0 / 0.6 - 0.9 cm IVS Systolic Thickness MM 1.9 cm LVPW Diastolic Thickness MM 1.4 cm 0.6 - 1.0 / 0.6 - 0.9 cm LVPW Systolic Thickness MM 1.6 cm RV Diastolic Diameter MM 1.9 cm MV E Point Septal Separation 0.8 cm DOPPLER AV Peak Velocity 124.0 cm/s LVOT Peak Velocity 108.0 cm/s AV Area Cont Eq vti 2.8 cm squared AV Area Cont Eq pk 2.8 cm squared MV Area PHT 5.0 cm squared Mitral E to A Ratio 1.1 MV E' Velocity 47.5 cm/s Mitral E to MV E' Ratio 6.9 Mitral E to LV E' Lateral Ratio 6.4 Mitral E to LV E' Septal Ratio 7.6 TR Peak Velocity 173.3 cm/s TR Peak Gradient 12.0 mmHg TV Peak E Velocity 85.0 cm/s Right Atrial Pressure 3.0 mmHg Pulmonary Artery Systolic Pressu 15.0 mmHg FINDINGS Left Ventricle Normal left ventricular size.. LV systolic function with EF of 55-60%. No regional wall motion abnormalities. Normal diastolic filling pattern. Right Ventricle The right ventricle is normal in size and function. Right Atrium The right atrium is normal in size. Left Atrium The left atrium is normal in size. Mitral Valve Structurally normal mitral valve without significant stenosis or prolapse. There is no mitral regurgitation. Aortic Valve Structurally normal aortic valve without significant sclerosis or stenosis. There is no aortic regurgitation. Tricuspid Valve Structurally normal tricuspid valve without significant stenosis or regurgitation. Insufficient TR jet to calculate RVSP Pulmonic Valve Structurally normal pulmonic valve without significant stenosis. There is no pulmonic regurgitation. Pericardium Normal pericardium without effusion. Aorta Normal ascending aorta dimension. CONCLUSIONS LV systolic function is normal with EF of 55-60% Diastolic function is normal No significant valvular heart disease No comparison studies are available Joel Voss MD (Electronically Signed) Final Date: 08 August 2021 10:04 S
--- NOTE | 2021-08-08 17:25 | USCV_ITS ---
Reta Gipson Age: 41 Gender: F : 1980 Exam Date: 08/08/2021 06:38 Ordering Phys: Christophe Rossi MD Technologist: Exam Location: [facility] [place] Indication: EDEMA HISTORY: Lower extremity swelling. PROCEDURES: The venous duplex Doppler examination of both lower extremities was performed in the standard fashion. The following venous structures were evaluated: common femoral vein, profunda vein, proximal portion of the greater saphenous vein, superficial femoral vein, and the popliteal vein. FINDINGS: Normal 2-D Doppler and augmentation and compressibility throughout the lower extremity venous structures. Additional imaging through the proximal calf veins also reveals no thrombus. Limited evaluation of the greater saphenous vein is patent with no thrombus.. CONCLUSIONS No evidence of right lower extremity DVT. No evidence of left lower extremity DVT. Dion Quijano MD (Electronically Signed) Final Date: 08 August 2021 10:09 S
[2021-08-08] MEDS: levofloxacin-dextrose 5 % 750 MG/150 ML PREMIX 100 MG IV (18:24)
[2021-08-08] MEDS: ondansetron 2 mg/ML SDV 2 mL 4 MG IVP (19:33)
[2021-08-08] MEDS: gabapentin 300 mg Capsule 600 MG PO (20:39)
[2021-08-08] MEDS: dexamethasone 10 mg/mL INJ 6 MG IVP (20:39)
[2021-08-08] MEDS: polyethylene glycol 3350 Pkt 17 gm PO (22:44)
[2021-08-09] VITALS (46 sets, daily range): BP systolic 109–147; BP diastolic 68–97; PULSE 63–86; RESP 18–37; TEMP 36.6–36.9; O2SAT 85–97
[2021-08-09] MEDS: vancomycin 1,500 MG/300 ML PIGGYBACK 150 MG IV ×2 (02:12→11:45)
[2021-08-09 04:59] LABS: ABG PCO2 33.3 mmHg (35-45); ABG PH Result 7.43 (7.35-7.45); Arterial Blood Gas Hematocrit 31.4 % (37-47); Blood Gas Allen Test Pos; Blood Gas Sample Site Radial, left; Blood Gas Sample Type Arterial; HCO3 ABG 21.8 mmol/L (22-26); Oxygen Device HAG; PO2 ABG 72.3 mmHg (80.0-100.0)
[2021-08-09 05:25] LABS: Basophils % 0.2 %; Hematocrit 35.7 % (37.0-47.0); Lymphocytes # 0.5 10^3/uL (0.8-4.8); Lymphocytes % 8.8 %; Mean Corpuscular Hemoglobin 24.8 pg (28.0-34.0); Mean Corpuscular Volume 88.6 fl (81-99); Mean Platelet Volume 11.7 fL (7.4-10.4); Monocytes # 0.3 10^3/uL (0.2-0.9); Monocytes % 5.8 %; Neutrophils # 4.45 10^3/uL (1.8-7.7); Neutrophils % 82.8 %; Nucleated Red Blood Cells % 0 %; Platelet Count 262 10^3/cmm (130-400); Red Blood Count 4.03 10^6/uL (4.1-5.3); Red Cell Distribution Width 16.9 % (12.1-15.1); White Blood Count 5.4 10^3/uL (4.0-10.0)
[2021-08-09 05:41] LABS: D Dimer 0.53 ug/mIFEU (0-0.59)
[2021-08-09 05:58] LABS: NT Pro B Type Natriuretic Pept 205 pg/mL (0-125); Procalcitonin 0.07 ng/mL (0-0.5)
[2021-08-09 06:02] LABS: Albumin Level 3.3 g/dL (3.5-5.2); Alkaline Phosphatase 74 IU/L (35-105); Blood Urea Nitrogen 14 mg/dL (6-20); C Reactive Protein 6.2 mg/L (0.0-4.9); Calcium 8.6 mg/dL (8.5-10.5); Carbon Dioxide 19 mmol/L (22-29); Chloride 105 mmol/L (98-107); Globulin 3.3 g/dL (1.3-4.6); Glomerular Filtration Rate 110.2 mL/min (90-130); Glucose 112 mg/dL (65-115); Magnesium 2.1 mg/dL (1.7-2.3); Osmolality Calculated 283 mOsm/kg (285-295); Phosphorus 3.6 mg/dL (2.5-4.5); Sodium 136 mmol/L (136-145); Total Bilirubin 0.4 mg/dL (0.15-1.2); Total Protein 6.6 g/dL (6.6-8.7)
[2021-08-09 06:03] LABS: Anion Gap 16.7 (5-19); Potassium 4.7 mmol/L (3.5-5.1)
[2021-08-09 06:04] LABS: Alanine Aminotransferase 38 U/L (0-33); Aspartate Amino Transferase 44 U/L (0-32)
[2021-08-09 06:09] LABS: Creatine Phosphokinase 25 U/L (26-192)
--- NOTE | 2021-08-09 06:36 | PC.NURSE ---
Patient remains stable throughout shift. Oxygen requirement stayed the same, however patient continues to be very dyspneic on sitting/ambulating. Patient up to BSC multiple times throughout shift. Will continue to monitor.
[2021-08-09] MEDS: budesonide 0.5 mg/2 mL Neb INHALATION ×2 (08:03→20:12)
[2021-08-09] MEDS: albuterol 8 gm MDI 2 PUFF INHALATION ×3 (08:04→20:13)
[2021-08-09] MEDS: ferrous sulfate EC 325 mg Tablet PO (09:32)
[2021-08-09] MEDS: cholecalciferol (vitamin D3) 1,000 unit Tablet 1000 UNIT PO (09:32)
[2021-08-09] MEDS: ascorbic acid 500 mg Tablet PO ×2 (09:32→17:40)
[2021-08-09] MEDS: enoxaparin 80 mg/0.8 mL Syringe 140 MG SUBCUT ×2 (09:32→21:04)
[2021-08-09] MEDS: pantoprazole DR 40 mg Tablet PO (09:33)
[2021-08-09] MEDS: polyethylene glycol 3350 Pkt 17 gm PO (09:33)
[2021-08-09] MEDS: zinc gluconate 50 mg Tablet PO (09:33)
--- NOTE | 2021-08-09 10:42 | PC.SOCIAL ---
IMM update IMM not updated as patient isn't expected to DC in the next 24-48 hours.
[2021-08-09] MEDS: cefepime 2,000 MG in sodium chloride 0.9% (plus) 50 ML 100 MG IV (11:09)
--- NOTE | 2021-08-09 14:37 | PC.RESP ---
RT Shift Note Frequent safety and respiratory rounds continue. Orders completed as indicated. Patient monitored pre and post treatments throughout shift. Patient [Did.] tolerate treatments appropriately. Condition [I.DidNotChange]. Patient and/or route service representative educated on respiratory treatment and medications. Patient and/or route service representative [verbalized understanding]. Will continue to monitor patient progress.
--- NOTE | 2021-08-09 14:40 | PM.PN ---
Subjective Subjective: Interval history: Patient was seen this morning, she sitting up in a chair, she tells me that she does feel short of breath with exertion, but currently is on 40% 40 L, no fevers, chills, nausea, vomiting, chest pain Vitals/I&O/Wt Last Vital Signs Temp 98.3 F 08/09/21 04:00 Pulse 73 08/09/21 14:33 Resp 18 08/09/21 14:33 BP 147/97 08/09/21 12:00 Pulse Ox 91 08/09/21 14:33 08/08/21 08/09/21 08/09/21 22:59 06:59 14:59 Intake Total 720 / 1310 800 / 2110 710 / 710 Output Total 900 / 1200 1000 / 1000 Balance 720 / 1010 -100 / 910 -290 / -290 Physical Exam Const: COMMON NORMALS: no acute distress and patient oriented x3 Resp: COMMON NORMALS: normal respiratory effort, No retractions and No use of accessory muscles AUSCULTATION: wheezes Cardio: COMMON NORMALS: regular rate, regular rhythm, S1 normal heart sound present and S2 normal heart sound present RATE: regular rate RHYTHM: regular rhythm HEART SOUNDS: S1 normal heart sound present and S2 normal heart sound present GI: COMMON NORMALS: Normal to inspection, nondistended, normoactive bowel sounds present, Soft to palpation and non-tender PALPATION: Yes Soft to palpation Extremity: COMMON NORMALS: no pedal edema Neuro: COMMON NORMALS: patient oriented x3 Psych: COMMON NORMALS: mental status grossly normal Data : 08/09/21 04:35 08/09/21 04:35 Micro: Microbiology 08/08/21 16:00 MRSA Culture - Final Nose 08/08/21 01:00 Urine Culture - Preliminary Urine,Clean Catch A&P Assessment and plan (1) Acute respiratory failure with hypoxia: Secondary to COVID-19 pneumonia, with acute respiratory distress syndrome -Initially it was thought that patient's acute respiratory failure was secondary multifocal pneumonia, as her initial Covid PCR back on 07/31/2020 was negative and her rapid Covid on admission was negative, however she remains afebrile, pro-Dwayne 7 unremarkable, cultures have been unremarkable -As her COVID-19 PCR returned back positive yesterday, likely her acute respiratory failure is secondary to multifocal Covid infection, less likely pneumonia, she was started on treatment for COVID-19 Plan -Currently being monitored in the ICU, on 40 L 60% -Continue remdesivir -Continue Decadron -We will consider Actemra, as there was initial concerns for multifocal pneumonia, this does complicate things, will monitor for fevers for the next 24 hours, monitor pro-Dwayne, monitor cultures if they remain negative and her oxygen requirements continued to increase or she develops increased respiratory distress will start Actemra -MRSA PCR negative, discontinue vancomycin, de-escalate antibiotic therapy to Zosyn -Albuterol, budesonide -Vitamin C, zinc, vitamin D - incentive spirometer, flutter valve -Continue to follow cultures -Cardiac echocardiogram shows an EF of 55 to 60%, normal diastolic function, bilateral extremity ultrasound negative for DVT -Full code -DVT prophylaxis, on therapeutic Lovenox Polycythemia vera, JAK2 positive no evidence of polycythemia, continue to monitor History of pulmonary embolism, on therapeutic Lovenox Status: Acute (2) Pneumonia due to COVID-19 virus: Status: Acute (3) Acute respiratory failure with hypoxia: Status: Acute (4) Pulmonary embolism: Status: Acute (5) Acute respiratory distress syndrome (ARDS): Status: Acute Attestations Medical Necessity Statement*: Requires hospitalization for acute respiratory failure secondary to COVID-19 Coding Level of Care Code Acute Forest Fire Specialist Supervisor for [facility] Diagnoses Acute respiratory failure with hypoxia J96.01 Pneumonia due to COVID-19 virus U07.1; J12.82 Acute respiratory failure with hypoxia J96.01 Pulmonary embolism I26.99 Acute respiratory distress syndrome (ARDS) J80
[2021-08-09] MEDS: piperacillin-tazobactam 3.375 GM in sodium chloride 0.9% (plus) 50 ML IV ×2 (15:30→23:20)
[2021-08-09 16:48] LABS: Iron 30 ug/dL (37-145)
[2021-08-09] MEDS: remdesivir 100 MG in sodium chloride 0.9% (100 ml) 80 ML IV (18:39)
--- NOTE | 2021-08-09 18:56 | NUR.SHIFT ---
Shift Note Frequent safety and comfort rounds continue. Orders and/or nursing care completed as indicated. Patient monitored for response to intervention and treatment(s). Education provided includes[]. Patient and/or senior patient account representative [ResponseToTeaching]. Will continue to monitor. up in chair today monitor closely occasion c/o tightness chest and some short of breath with activity
[2021-08-09] MEDS: dexamethasone 10 mg/mL INJ 6 MG IVP (21:04)
[2021-08-09] MEDS: gabapentin 300 mg Capsule 600 MG PO (21:04)
[2021-08-10] VITALS (54 sets, daily range): BP systolic 108–142; BP diastolic 68–94; PULSE 58–83; RESP 16–33; TEMP 36.7–37.1; O2SAT 84–98
[2021-08-10 03:36] LABS: ABG PCO2 34.4 mmHg (35-45); ABG PH Result 7.44 (7.35-7.45); Arterial Blood Gas Hematocrit 32.1 % (37-47); Base Excess ABG -0.7 mmol/L (-2.0-2.0); Blood Gas Allen Test Pos; Blood Gas Sample Site Radial, right; Blood Gas Sample Type Arterial; HCO3 ABG 23.1 mmol/L (22-26); Oxygen Device NC; PO2 ABG 94.9 mmHg (80.0-100.0)
[2021-08-10 03:58] LABS: Basophils % 0.2 %; Eosinophils % 0.2 %; Hematocrit 34.2 % (37.0-47.0); Hemoglobin 9.9 g/dL (11.5-15.3); Lymphocytes # 0.5 10^3/uL (0.8-4.8); Lymphocytes % 7.6 %; Mean Corpuscular HGB Conc 28.9 g/dL (30.0-36.0); Mean Corpuscular Hemoglobin 24.9 pg (28.0-34.0); Mean Corpuscular Volume 86.1 fl (81-99); Mean Platelet Volume 11.3 fL (7.4-10.4); Monocytes # 0.3 10^3/uL (0.2-0.9); Monocytes % 4.6 %; Neutrophils # 5.09 10^3/uL (1.8-7.7); Nucleated Red Blood Cells % 0 %; Platelet Count 272 10^3/cmm (130-400); Red Blood Count 3.97 10^6/uL (4.1-5.3); Red Cell Distribution Width 16.7 % (12.1-15.1); White Blood Count 5.9 10^3/uL (4.0-10.0)
[2021-08-10 04:24] LABS: Alanine Aminotransferase 65 U/L (0-33); Albumin Level 3.3 g/dL (3.5-5.2); Alkaline Phosphatase 87 IU/L (35-105); Anion Gap 16.5 (5-19); Aspartate Amino Transferase 52 U/L (0-32); Blood Urea Nitrogen 13 mg/dL (6-20); C Reactive Protein 7.4 mg/L (0.0-4.9); Calcium 8.4 mg/dL (8.5-10.5); Carbon Dioxide 21 mmol/L (22-29); Chloride 104 mmol/L (98-107); Globulin 3.1 g/dL (1.3-4.6); Glomerular Filtration Rate 92.2 mL/min (90-130); Glucose 128 mg/dL (65-115); Osmolality Calculated 286 mOsm/kg (285-295); Potassium 4.5 mmol/L (3.5-5.1); Sodium 137 mmol/L (136-145); Total Bilirubin 0.5 mg/dL (0.15-1.2); Total Protein 6.4 g/dL (6.6-8.7)
[2021-08-10 04:33] LABS: NT Pro B Type Natriuretic Pept 109 pg/mL (0-125)
[2021-08-10 04:46] LABS: Creatine Phosphokinase 24 U/L (26-192)
[2021-08-10 05:02] LABS: Magnesium 2.1 mg/dL (1.7-2.3); Phosphorus 3.1 mg/dL (2.5-4.5)
--- NOTE | 2021-08-10 06:29 | NUR.SHIFT ---
Patient remained stable throughout shift. Patient up to chair until approximately 2200. Patient still very dyspneic on exertion. Good urine output. Vitals remain stable. Oxygen requirement stay at 40L/60%. Will continue to monitor.
[2021-08-10] MEDS: piperacillin-tazobactam 3.375 GM in sodium chloride 0.9% (plus) 50 ML IV ×3 (07:14→23:07)
[2021-08-10] MEDS: budesonide 0.5 mg/2 mL Neb INHALATION ×2 (08:22→20:17)
[2021-08-10] MEDS: albuterol 8 gm MDI 2 PUFF INHALATION ×3 (08:22→20:17)
[2021-08-10] MEDS: ascorbic acid 500 mg Tablet PO ×2 (09:53→18:21)
[2021-08-10] MEDS: zinc gluconate 50 mg Tablet PO (09:53)
[2021-08-10] MEDS: cholecalciferol (vitamin D3) 1,000 unit Tablet 1000 UNIT PO (09:53)
[2021-08-10] MEDS: docusate sodium 100 mg Capsule PO ×2 (09:54→18:21)
[2021-08-10] MEDS: enoxaparin 80 mg/0.8 mL Syringe 140 MG SUBCUT ×2 (09:54→20:11)
[2021-08-10] MEDS: ferrous sulfate EC 325 mg Tablet PO (09:55)
[2021-08-10] MEDS: pantoprazole DR 40 mg Tablet PO (09:56)
[2021-08-10] MEDS: polyethylene glycol 3350 Pkt 17 gm PO (09:56)
--- NOTE | 2021-08-10 11:10 | PM.PN ---
Subjective Subjective: Interval history: Patient was seen this morning, she denies any fevers overnight, mild cough, some shortness of with with exertion, overall she feels better, but is still on 35 L and 55%, Vitals/I&O/Wt Last Vital Signs Temp 98.0 F 08/10/21 04:00 Pulse 77 08/10/21 08:34 Resp 24 H 08/10/21 08:34 BP 119/68 08/10/21 08:30 Pulse Ox 92 08/10/21 08:34 08/09/21 08/10/21 08/10/21 22:59 06:59 14:59 Intake Total 369.375 / 1079.375 250 / 1329.375 240 / 240 Output Total 600 / 1600 200 / 200 Balance 369.375 / 79.375 -350 / -270.625 40 / 40 Physical Exam Const: COMMON NORMALS: no acute distress and patient oriented x3 Resp: COMMON NORMALS: normal respiratory effort, No retractions, No use of accessory muscles and clear to auscultation bilaterally AUSCULTATION: clear to auscultation bilaterally Cardio: COMMON NORMALS: regular rate, regular rhythm, S1 normal heart sound present and S2 normal heart sound present RATE: regular rate RHYTHM: regular rhythm HEART SOUNDS: S1 normal heart sound present and S2 normal heart sound present GI: COMMON NORMALS: Normal to inspection, nondistended, normoactive bowel sounds present, Soft to palpation and non-tender PALPATION: Yes Soft to palpation Extremity: COMMON NORMALS: no pedal edema Neuro: COMMON NORMALS: patient oriented x3 Psych: COMMON NORMALS: mental status grossly normal Data : 08/10/21 03:02 08/10/21 03:02 Micro: Microbiology 08/08/21 01:00 Urine Culture - Final Urine,Clean Catch 08/08/21 16:00 MRSA Culture - Final Nose A&P Assessment and plan (1) Acute respiratory failure with hypoxia: Secondary to COVID-19 pneumonia, with acute respiratory distress syndrome -Initially it was thought that patient's acute respiratory failure was secondary bacterial multifocal pneumonia, as her initial Covid PCR back on 07/31/2020 was negative and her rapid Covid on admission was negative, however she remains afebrile, pro-Dwayne unremarkable, CRP 7.4, cultures have shown no growth so far -As her COVID-19 PCR returned back positive 08/08/2021, likely her acute respiratory failure is secondary to multifocal Covid pneumonia, less likely bacterial pneumonia, she was started on treatment for COVID-19 Plan -Currently being monitored in the ICU, on 35 L and 55% -Continue remdesivir -Continue Decadron - as there was initial concerns for multifocal pneumonia, this does complicate things, afebrile, pro-Dwayne unremarkable CRP 7.4, culture so far negative afebrile since hospital admission, oxygen requirements still are around 35 L 55% clinically it is less likely that she has a bacterial component to her pneumonia, but there is a small possibility that there might be although unlikely, discussed risks and benefits of baricitinib, voiced understanding, all questions answered, agreed to proceed -MRSA PCR negative, continue Zosyn -Albuterol, budesonide -Vitamin C, zinc, vitamin D - incentive spirometer, flutter valve -Continue to follow cultures -Cardiac echocardiogram shows an EF of 55 to 60%, normal diastolic function, bilateral extremity ultrasound negative for DVT -Full code -DVT prophylaxis, on therapeutic Lovenox Polycythemia vera, JAK2 positive no evidence of polycythemia, continue to monitor History of pulmonary embolism, on therapeutic Lovenox Status: Acute (2) Pneumonia due to COVID-19 virus: Status: Acute (3) Pulmonary embolism: Status: Acute (4) Acute respiratory distress syndrome (ARDS): Status: Acute Attestations Medical Necessity Statement*: Patient requires hospitalization for acute respiratory failure, acute respiratory distress, secondary COVID-19 pneumonia Coding Level of Care Code Acute Manager Operational for [facility] Diagnoses Acute respiratory failure with hypoxia J96.01 Pneumonia due to COVID-19 virus U07.1; J12.82 Pulmonary embolism I26.99 Acute respiratory distress syndrome (ARDS) J80
[2021-08-10] MEDS: remdesivir 100 MG in sodium chloride 0.9% (100 ml) 80 ML IV (18:21)
[2021-08-10] MEDS: dexamethasone 10 mg/mL INJ 6 MG IVP (20:11)
[2021-08-10] MEDS: gabapentin 300 mg Capsule 600 MG PO (20:11)
[2021-08-11] VITALS (53 sets, daily range): BP systolic 95–148; BP diastolic 48–94; PULSE 59–88; RESP 16–28; TEMP 36.5–37.2; O2SAT 88–98
[2021-08-11 04:45] LABS: Basophils % 0.2 %; Eosinophils % 0.4 %; Hematocrit 34.6 % (37.0-47.0); Lymphocytes # 0.7 10^3/uL (0.8-4.8); Lymphocytes % 12.1 %; Mean Corpuscular HGB Conc 28.9 g/dL (30.0-36.0); Mean Corpuscular Hemoglobin 25.3 pg (28.0-34.0); Mean Corpuscular Volume 87.4 fl (81-99); Mean Platelet Volume 11.7 fL (7.4-10.4); Monocytes # 0.3 10^3/uL (0.2-0.9); Monocytes % 4.5 %; Neutrophils # 4.54 10^3/uL (1.8-7.7); Neutrophils % 80.8 %; Nucleated Red Blood Cells % 0 %; Platelet Count 283 10^3/cmm (130-400); Red Blood Count 3.96 10^6/uL (4.1-5.3); Red Cell Distribution Width 16.7 % (12.1-15.1); White Blood Count 5.6 10^3/uL (4.0-10.0)
[2021-08-11 05:18] LABS: Alanine Aminotransferase 64 U/L (0-33); Albumin Level 3.2 g/dL (3.5-5.2); Alkaline Phosphatase 78 IU/L (35-105); Blood Urea Nitrogen 14 mg/dL (6-20); C Reactive Protein 9.9 mg/L (0.0-4.9); Calcium 8.3 mg/dL (8.5-10.5); Carbon Dioxide 23 mmol/L (22-29); Chloride 103 mmol/L (98-107); Globulin 2.9 g/dL (1.3-4.6); Glomerular Filtration Rate 110.2 mL/min (90-130); Glucose 117 mg/dL (65-115); Magnesium 2.2 mg/dL (1.7-2.3); Osmolality Calculated 282 mOsm/kg (285-295); Phosphorus 3.4 mg/dL (2.5-4.5); Sodium 135 mmol/L (136-145); Total Bilirubin 0.4 mg/dL (0.15-1.2); Total Protein 6.1 g/dL (6.6-8.7)
[2021-08-11 05:26] LABS: Anion Gap 13.6 (5-19); Aspartate Amino Transferase 42 U/L (0-32); NT Pro B Type Natriuretic Pept 59 pg/mL (0-125); Potassium 4.6 mmol/L (3.5-5.1)
[2021-08-11 05:44] LABS: Creatine Phosphokinase 85 U/L (26-192)
--- NOTE | 2021-08-11 07:00 | XRR_ITS ---
PROCEDURE INFORMATION: Exam: XR Chest Exam date and time: 08/11/2021 7:00 AM Age: 41 years old Clinical indication: Shortness of breath; Patient HX: Covid; Additional info: SOB TECHNIQUE: Imaging protocol: XR of the chest. Views: 1 view. COMPARISON: CR XR chest 1V portable [id number] 08/08/2021 4:52 AM FINDINGS: Lungs: Low lung volumes. Persistent bilateral airspace opacities. No large pleural effusion or pneumothorax. Pleural spaces: See Lungs finding. Heart/Mediastinum: Stable cardiomediastinal silhouette. Bones/joints: No acute osseous injury identified. Degenerative changes of the spine seen. XR/XR chest 1V portable [id number] IMPRESSION: Persistent bilateral airspace opacities.
[2021-08-11] MEDS: piperacillin-tazobactam 3.375 GM in sodium chloride 0.9% (plus) 50 ML IV ×3 (08:23→23:04)
[2021-08-11] MEDS: zinc gluconate 50 mg Tablet PO (08:24)
[2021-08-11] MEDS: polyethylene glycol 3350 Pkt 17 gm PO (08:24)
[2021-08-11] MEDS: cholecalciferol (vitamin D3) 1,000 unit Tablet 1000 UNIT PO (08:24)
[2021-08-11] MEDS: ferrous sulfate EC 325 mg Tablet PO (08:24)
[2021-08-11] MEDS: ascorbic acid 500 mg Tablet PO ×2 (08:24→17:44)
[2021-08-11] MEDS: docusate sodium 100 mg Capsule PO ×2 (08:24→17:44)
[2021-08-11] MEDS: pantoprazole DR 40 mg Tablet PO (08:24)
[2021-08-11] MEDS: enoxaparin 80 mg/0.8 mL Syringe 140 MG SUBCUT ×2 (08:25→20:10)
[2021-08-11] MEDS: albuterol 8 gm MDI 2 PUFF INHALATION (09:29)
[2021-08-11] MEDS: budesonide 0.5 mg/2 mL Neb INHALATION ×2 (09:29→20:10)
--- NOTE | 2021-08-11 09:53 | PC.CHAP ---
Pastoral Care Encounter/Spiritual Assessment Type of Contact [] Declined perinatology physician visit [] Patient/Family/Request visit [] Outpatient visit [] Follow-up visit [] Physician referral [] Code/Alert [x] Routine visit [] Staff referral [] Actively dying [] Patient sleeping [] Family support [] [] Out of room [] Palliative care [] [x] Receiving care in room [] Pre-surgical visit [] Trauma [] Long length of stay [x] ICU visit [x] Other: patient setting up in chair... Relational/Emotional Strength [] Patient feels connected with others/family/visitors/staff [] Distress [] Loneliness/isolation [] Abandonment Spirituality of Patient [] Person of Liza [] Attends Catholic of their Liza [] Believes in Prayer [] Reads Bible or Lutheran materials [] There are Spiritual issues to be addressed Life Enrichment Specialist Interventions [x] Prayer [] Active listening [] Non-anxious presence [] Spiritual/emotional support [] Crisis/trauma care [] Spiritual counseling [] Bereavement support [] Provided bereavement packet [] Provided Bible/devotional materials [] Provided toy/stuffed animal, coloring book to patient or family member [] Provided Communion [] Anointing/[place] [] Salvation [x] Completed spiritual assessment [] Other: Impact on Illness or Injury [] Angry [] Fearful [] Anxious [] Often cries [] Exhaustion [] Unable to work [] Unable to attend methodist [] Unable to walk/stand [] Unable to read [] Unable to drive [] Unable to eat/drink [] Unable to sleep [] Unable to be with family [] Patient intubated [] Other: Summary Time spent with patient
--- NOTE | 2021-08-11 10:25 | P.PN_ITS ---
Subjective Subjective: Interval history: Patient was seen and examined this morning, SOB has improved,still has cough,she is also complaining of slight vaginal bleeding on wiping. Currently she has been transitioned to HFNC 10Ls/Min Medications: Reviewed: Yes Vitals/I&O/Wt Last Vital Signs Temp 97.8 F 08/11/21 07:17 Pulse 77 08/11/21 09:58 Resp 18 08/11/21 09:58 BP 136/85 08/11/21 07:17 Pulse Ox 97 08/11/21 09:58 08/10/21 08/11/21 08/11/21 22:59 06:59 14:59 Intake Total 250 / 540 300 / 840 Output Total 500 / 1100 Balance 250 / -60 -200 / -260 Physical Exam Const: COMMON NORMALS: patient oriented x3 HENMT: COMMON NORMALS: normocephalic and atraumatic HEAD & SCALP: normocephalic and atraumatic Resp: COMMON NORMALS: clear to auscultation bilaterally AUSCULTATION: clear to auscultation bilaterally Cardio: COMMON NORMALS: regular rate, regular rhythm, S1 normal heart sound present, S2 normal heart sound present, No gallops present (Cardio), No murmurs present (Cardio), No rub (Cardio) and Peripheral pulses 2+ throughout RATE: regular rate RHYTHM: regular rhythm HEART SOUNDS: S1 normal heart sound present and S2 normal heart sound present PERIPHERAL PULSES: Peripheral pulses 2+ throughout GI: COMMON NORMALS: Normal to inspection, nondistended, normoactive bowel sounds present, Soft to palpation, non-tender, No hepatosplenomegaly present and no masses AUSCULTATION: Yes normoactive bowel sounds PALPATION: Yes Soft to palpation and Yes No hepatosplenomegaly present RECTAL EXAM: deferred Extremity: COMMON NORMALS: no clubbing, cyanosis or edema and no pedal edema Neuro: COMMON NORMALS: patient oriented x3 Data : 08/11/21 03:55 08/11/21 03:55 Micro: Microbiology 08/08/21 01:00 Urine Culture - Final Urine,Clean Catch A&P Assessment and plan (1) Acute respiratory failure with hypoxia: Secondary to COVID-19 pneumonia, with acute respiratory distress syndrome -Initially it was thought that patient's acute respiratory failure was secondary bacterial multifocal pneumonia, as her initial Covid PCR back on 07/31/2020 was negative and her rapid Covid on admission was negative, however she remains afebrile, pro-Dwayne unremarkable, CRP 7.4, cultures have shown no growth so far -As her COVID-19 PCR returned back positive 08/08/2021, likely her acute respiratory failure is secondary to multifocal Covid pneumonia, less likely bacterial pneumonia, she was started on treatment for COVID-19 Plan -Continue remdesivir for 5 days -Continue Decadron for 10 Days - as there was initial concerns for multifocal pneumonia, this does complicate things, afebrile, pro-Dwayne unremarkable CRP 7.4, culture so far negative afebrile since hospital admission, oxygen requirements still are around 35 L 55% clinically it is less likely that she has a bacterial component to her pneumoni a, but there is a small possibility that there might be although unlikely, discussed risks and benefits of baricitinib, voiced understanding, all questions answered, agreed to proceed -MRSA PCR negative, continue Zosyn -Albuterol, budesonide -Vitamin C, zinc, vitamin D - incentive spirometer, flutter valve -Continue to follow cultures -Cardiac echocardiogram shows an EF of 55 to 60%, normal diastolic function, bilateral extremity ultrasound negative for DVT -Full code -DVT prophylaxis, on therapeutic Lovenox Polycythemia vera, JAK2 positive no evidence of polycythemia, continue to monitor History of pulmonary embolism, on therapeutic Lovenox Status: Acute (2) Pneumonia due to COVID-19 virus: Status: Acute (3) Pulmonary embolism: Status: Acute (4) Acute respiratory distress syndrome (ARDS): Status: Acute Attestations Medical Necessity Statement*: Patient needs to be in hospital for the management of COVID PNA. Coding Level of Care Code Acute Component Inspector for [facility] Fwd Diagnoses Acute respiratory failure with hypoxia J96.01 Pneumonia due to COVID-19 virus U07.1; J12.82 Pulmonary embolism I26.99 Acute respiratory distress syndrome (ARDS) J80
[2021-08-11] MEDS: remdesivir 100 MG in sodium chloride 0.9% (100 ml) 80 ML IV (17:44)
[2021-08-11] MEDS: gabapentin 300 mg Capsule 600 MG PO (20:10)
[2021-08-11] MEDS: dexamethasone 10 mg/mL INJ 6 MG IVP (20:10)
[2021-08-12] VITALS (26 sets, daily range): BP systolic 94–118; BP diastolic 54–83; PULSE 63–89; RESP 18–27; TEMP 36.3–37.2; O2SAT 89–97
[2021-08-12 04:45] LABS: Basophils % 0.2 %; Eosinophils % 0.6 %; Hematocrit 36.6 % (37.0-47.0); Hemoglobin 10.7 g/dL (11.5-15.3); Lymphocytes # 0.6 10^3/uL (0.8-4.8); Lymphocytes % 9.3 %; Mean Corpuscular HGB Conc 29.2 g/dL (30.0-36.0); Mean Corpuscular Hemoglobin 25.4 pg (28.0-34.0); Mean Corpuscular Volume 86.9 fl (81-99); Mean Platelet Volume 10.9 fL (7.4-10.4); Monocytes # 0.3 10^3/uL (0.2-0.9); Monocytes % 4.9 %; Neutrophils # 5.43 10^3/uL (1.8-7.7); Nucleated Red Blood Cells % 0 %; Platelet Count 353 10^3/cmm (130-400); Red Blood Count 4.21 10^6/uL (4.1-5.3); Red Cell Distribution Width 16.9 % (12.1-15.1); White Blood Count 6.5 10^3/uL (4.0-10.0)
[2021-08-12 05:15] LABS: NT Pro B Type Natriuretic Pept 72 pg/mL (0-125); Procalcitonin 0.06 ng/mL (0-0.5)
[2021-08-12 05:24] LABS: Alanine Aminotransferase 55 U/L (0-33); Albumin Level 3.2 g/dL (3.5-5.2); Alkaline Phosphatase 67 IU/L (35-105); Anion Gap 12.7 (5-19); Aspartate Amino Transferase 26 U/L (0-32); Blood Urea Nitrogen 15 mg/dL (6-20); C Reactive Protein 5.4 mg/L (0.0-4.9); Calcium 8.3 mg/dL (8.5-10.5); Carbon Dioxide 24 mmol/L (22-29); Chloride 102 mmol/L (98-107); Globulin 3.1 g/dL (1.3-4.6); Glomerular Filtration Rate 110.2 mL/min (90-130); Glucose 121 mg/dL (65-115); Magnesium 2.2 mg/dL (1.7-2.3); Osmolality Calculated 280 mOsm/kg (285-295); Phosphorus 3.1 mg/dL (2.5-4.5); Potassium 4.7 mmol/L (3.5-5.1); Sodium 134 mmol/L (136-145); Total Bilirubin 0.4 mg/dL (0.15-1.2); Total Protein 6.3 g/dL (6.6-8.7)
[2021-08-12 05:26] LABS: Creatine Phosphokinase 82 U/L (26-192)
[2021-08-12] MEDS: piperacillin-tazobactam 3.375 GM in sodium chloride 0.9% (plus) 50 ML IV ×3 (07:23→22:35)
[2021-08-12] MEDS: budesonide 0.5 mg/2 mL Neb INHALATION ×2 (08:33→21:05)
[2021-08-12] MEDS: enoxaparin 80 mg/0.8 mL Syringe 140 MG SUBCUT ×2 (09:17→20:38)
[2021-08-12] MEDS: zinc gluconate 50 mg Tablet PO (09:18)
[2021-08-12] MEDS: ascorbic acid 500 mg Tablet PO ×2 (09:19→17:26)
[2021-08-12] MEDS: pantoprazole DR 40 mg Tablet PO (09:19)
[2021-08-12] MEDS: ferrous sulfate EC 325 mg Tablet PO (09:19)
[2021-08-12] MEDS: cholecalciferol (vitamin D3) 1,000 unit Tablet 1000 UNIT PO (09:19)
--- NOTE | 2021-08-12 09:43 | PC.NURSE ---
Head to toe assessment, pain assessment, medication administration with education completed this morning. Patient refused miralax stating that she had a normal bowel movement overnight and did not need any help with it.
--- NOTE | 2021-08-12 11:06 | PM.PN ---
Subjective Subjective: Interval history: Patient was seen and examined this morning, SOB has improved,though she is still complaining of SOB with minimal exertion, appetite is improving,good urine output. Has remained afebrile, supplemental oxygen requirement is slowly going down. Medications: Reviewed: Yes Vitals/I&O/Wt Last Vital Signs Temp 98.1 F 08/12/21 04:00 Pulse 75 08/12/21 09:00 Resp 22 H 08/12/21 09:00 BP 116/66 08/12/21 09:00 Pulse Ox 96 08/12/21 09:00 08/11/21 08/12/21 08/12/21 22:59 06:59 14:59 Intake Total 380 / 680 150 / 830 Output Total 600 / 600 1000 / 1600 Balance -220 / 80 -850 / -770 Physical Exam Const: COMMON NORMALS: patient oriented x3 HENMT: COMMON NORMALS: normocephalic and atraumatic HEAD & SCALP: normocephalic and atraumatic Resp: OTHER: Diminished air entry b/l Cardio: COMMON NORMALS: regular rate, regular rhythm, S1 normal heart sound present, S2 normal heart sound present, No gallops present (Cardio), No murmurs present (Cardio), No rub (Cardio) and Peripheral pulses 2+ throughout RATE: regular rate RHYTHM: regular rhythm HEART SOUNDS: S1 normal heart sound present and S2 normal heart sound present PERIPHERAL PULSES: Peripheral pulses 2+ throughout GI: COMMON NORMALS: Normal to inspection, nondistended, normoactive bowel sounds present, Soft to palpation, non-tender, No hepatosplenomegaly present and no masses AUSCULTATION: Yes normoactive bowel sounds PALPATION: Yes Soft to palpation and Yes No hepatosplenomegaly present RECTAL EXAM: deferred Extremity: COMMON NORMALS: no clubbing, cyanosis or edema and no pedal edema Neuro: COMMON NORMALS: patient oriented x3 Data : 08/12/21 04:03 08/12/21 04:03 Micro: Microbiology 08/06/21 16:18 Blood Culture - Final Blood NO GROWTH AFTER 5 DAYS 08/06/21 16:20 Blood Culture - Final Blood NO GROWTH AFTER 5 DAYS A&P Assessment and plan (1) Acute respiratory failure with hypoxia: Secondary to COVID-19 pneumonia, with acute respiratory distress syndrome -Initially it was thought that patient's acute respiratory failure was secondary bacterial multifocal pneumonia, as her initial Covid PCR back on 07/31/2020 was negative and her rapid Covid on admission was negative, however she remains afebrile, pro-Dwayne unremarkable, CRP 7.4, cultures have shown no growth so far -As her COVID-19 PCR returned back positive 08/08/2021, likely her acute respiratory failure is secondary to multifocal Covid pneumonia, less likely bacterial pneumonia, she was started on treatment for COVID-19 Plan -Continue remdesivir for 5 days -Continue Decadron for 10 Days - as there was initial concerns for multifocal pneumonia, this does complicate things, afebrile, pro-Dwayne unremarkable CRP 7.4, culture so far negative afebrile since hospital admission, oxygen requirements still are around 35 L 55% clinically it is less likely that she has a bacterial component to her pneumonia, but there is a small possibility that there might be although unlikely, discussed risks and benefits of baricitinib, voiced understanding, all questions answered, agreed to proceed -MRSA PCR negative, continue Zosyn -Albuterol, budesonide -Vitamin C, zinc, vitamin D - incentive spirometer, flutter valve -Continue to follow cultures -Cardiac echocardiogram shows an EF of 55 to 60%, normal diastolic function, bilateral extremity ultrasound negative for DVT -Full code -DVT prophylaxis, on therapeutic Lovenox Polycythemia vera, JAK2 positive no evidence of polycythemia, continue to monitor History of pulmonary embolism, on therapeutic Lovenox Status: Acute (2) Pneumonia due to COVID-19 virus: Status: Acute (3) Pulmonary embolism: Status: Acute (4) Acute respiratory distress syndrome (ARDS): Status: Acute Attestations Medical Necessity Statement*: Patient needs to be in hospital for the management of COVID PNA Coding Level of Care Code Acute Learning And Development Intern for [facility] Diagnoses Acute respiratory failure with hypoxia J96.01 Pneumonia due to COVID-19 virus U07.1; J12.82 Pulmonary embolism I26.99 Acute respiratory distress syndrome (ARDS) J80
--- NOTE | 2021-08-12 13:09 | PC.NURSE ---
Patient is up to bedside chair, resting comfortably. O2 is at 93% on 7L.
--- NOTE | 2021-08-12 15:55 | PC.NURSE ---
At 1555 patient resting comfortably in bedside chair. 2 Round O Room 266. Reyna RN preforming physical assessment, any and all questions answered. Transfer complete.
[2021-08-12] MEDS: remdesivir 100 MG in sodium chloride 0.9% (100 ml) 80 ML IV (17:26)
[2021-08-12] MEDS: gabapentin 300 mg Capsule 600 MG PO (20:38)
[2021-08-12] MEDS: dexamethasone 10 mg/mL INJ 6 MG IVP (21:11)
[2021-08-13] VITALS (13 sets, daily range): BP systolic 99–119; BP diastolic 59–79; PULSE 59–78; RESP 16–18; TEMP 36.3–36.7; O2SAT 93–99
[2021-08-13 05:28] LABS: Basophils % 0.2 %; Eosinophils # 0.1 10^3/uL (0.0-0.8); Eosinophils % 0.9 %; Hematocrit 35.7 % (37.0-47.0); Hemoglobin 10.2 g/dL (11.5-15.3); Lymphocytes # 0.6 10^3/uL (0.8-4.8); Mean Corpuscular HGB Conc 28.6 g/dL (30.0-36.0); Mean Corpuscular Hemoglobin 24.7 pg (28.0-34.0); Mean Corpuscular Volume 86.4 fl (81-99); Mean Platelet Volume 10.8 fL (7.4-10.4); Monocytes # 0.3 10^3/uL (0.2-0.9); Monocytes % 4.6 %; Neutrophils # 4.64 10^3/uL (1.8-7.7); Neutrophils % 81.7 %; Nucleated Red Blood Cells % 0 %; Platelet Count 369 10^3/cmm (130-400); Red Blood Count 4.13 10^6/uL (4.1-5.3); Red Cell Distribution Width 16.9 % (12.1-15.1); White Blood Count 5.7 10^3/uL (4.0-10.0)
[2021-08-13 05:45] LABS: Alanine Aminotransferase 48 U/L (0-33); Albumin Level 3.2 g/dL (3.5-5.2); Alkaline Phosphatase 62 IU/L (35-105); Anion Gap 12.9 (5-19); Aspartate Amino Transferase 22 U/L (0-32); Blood Urea Nitrogen 18 mg/dL (6-20); C Reactive Protein 3.4 mg/L (0.0-4.9); Calcium 8.3 mg/dL (8.5-10.5); Carbon Dioxide 24 mmol/L (22-29); Chloride 105 mmol/L (98-107); Globulin 2.9 g/dL (1.3-4.6); Glomerular Filtration Rate 110.2 mL/min (90-130); Glucose 122 mg/dL (65-115); Magnesium 2.3 mg/dL (1.7-2.3); Osmolality Calculated 287 mOsm/kg (285-295); Phosphorus 3.4 mg/dL (2.5-4.5); Potassium 4.9 mmol/L (3.5-5.1); Sodium 137 mmol/L (136-145); Total Bilirubin 0.4 mg/dL (0.15-1.2); Total Protein 6.1 g/dL (6.6-8.7)
[2021-08-13 05:57] LABS: NT Pro B Type Natriuretic Pept 31 pg/mL (0-125); Procalcitonin 0.06 ng/mL (0-0.5)
[2021-08-13 06:08] LABS: Creatine Phosphokinase 41 U/L (26-192)
[2021-08-13] MEDS: piperacillin-tazobactam 3.375 GM in sodium chloride 0.9% (plus) 50 ML IV (06:30)
[2021-08-13] MEDS: cholecalciferol (vitamin D3) 1,000 unit Tablet 1000 UNIT PO (08:00)
[2021-08-13] MEDS: polyethylene glycol 3350 Pkt 17 gm PO (08:00)
[2021-08-13] MEDS: ascorbic acid 500 mg Tablet PO ×2 (08:00→16:33)
[2021-08-13] MEDS: pantoprazole DR 40 mg Tablet PO (08:00)
[2021-08-13] MEDS: enoxaparin 80 mg/0.8 mL Syringe 140 MG SUBCUT ×2 (08:00→20:19)
[2021-08-13] MEDS: ferrous sulfate EC 325 mg Tablet PO (08:00)
[2021-08-13] MEDS: zinc gluconate 50 mg Tablet PO (08:01)
[2021-08-13] MEDS: budesonide 0.5 mg/2 mL Neb INHALATION ×2 (08:08→20:26)
--- NOTE | 2021-08-13 12:17 | PM.PN ---
Subjective Subjective: Interval history: Patient was seen and examined this morning, SOB has improved,supplemental oxygen requirement is going down, she does have nagging non productive cough. Her Vitals and labs have been reviewed. Medications: Reviewed: Yes Vitals/I&O/Wt Last Vital Signs Temp 97.4 F L 08/13/21 08:00 Pulse 68 08/13/21 08:00 Resp 18 08/13/21 08:00 BP 99/59 08/13/21 08:00 Pulse Ox 93 08/13/21 08:00 08/12/21 08/13/21 08/13/21 22:59 06:59 14:59 Intake Total 490 / 540 50 / 590 470 / 470 Output Total 550 / 550 Balance 490 / 540 -500 / 40 470 / 470 Physical Exam Const: COMMON NORMALS: patient oriented x3 HENMT: COMMON NORMALS: normocephalic and atraumatic HEAD & SCALP: normocephalic and atraumatic Resp: COMMON NORMALS: clear to auscultation bilaterally AUSCULTATION: clear to auscultation bilaterally OTHER: Diminished air entry b/l Cardio: COMMON NORMALS: regular rate, regular rhythm, S1 normal heart sound present, S2 normal heart sound present, No gallops present (Cardio), No murmurs present (Cardio), No rub (Cardio) and Peripheral pulses 2+ throughout RATE: regular rate RHYTHM: regular rhythm HEART SOUNDS: S1 normal heart sound present and S2 normal heart sound present PERIPHERAL PULSES: Peripheral pulses 2+ throughout GI: COMMON NORMALS: Normal to inspection, nondistended, normoactive bowel sounds present, Soft to palpation, non-tender, No hepatosplenomegaly present and no masses AUSCULTATION: Yes normoactive bowel sounds PALPATION: Yes Soft to palpation and Yes No hepatosplenomegaly present RECTAL EXAM: deferred Extremity: COMMON NORMALS: no clubbing, cyanosis or edema and no pedal edema Neuro: COMMON NORMALS: patient oriented x3 Data : 08/13/21 04:41 08/13/21 04:41 Micro: Microbiology 08/07/21 14:45 Gram Stain - Final Sputum - Expectorated Sputum Sputum Culture - Preliminary 08/12/21 13:00 Bacterial Antigens - Final Urine,Voided A&P Assessment and plan (1) Acute respiratory failure with hypoxia: Secondary to COVID-19 pneumonia, with acute respiratory distress syndrome -Initially it was thought that patient's acute respiratory failure was secondary bacterial multifocal pneumonia, as her initial Covid PCR back on 07/31/2020 was negative and her rapid Covid on admission was negative, however she remains afebrile, pro-Dwayne unremarkable, CRP 7.4, cultures have shown no growth so far -As her COVID-19 PCR returned back positive 08/08/2021, likely her acute respiratory failure is secondary to multifocal Covid pneumonia, less likely bacterial pneumonia, she was started on treatment for COVID-19 Plan -Continue remdesivir for 5 days -Continue Decadron for 10 Days - as there was initial concerns for multifocal pneumonia, this does complicate things, afebrile, pro-Dwayne unremarkable CRP 7.4, culture so far negative afebrile since hospital admission, oxygen requirements still are around 35 L 55% clinically it is less likely that she has a bacterial component to her pneumonia, but there is a small possibility that there might be although unlikely, discussed risks and benefits of baricitinib, voiced understanding, all questions answered, agreed to proceed -MRSA PCR negative, continue Zosyn -Albuterol, budesonide -Vitamin C, zinc, vitamin D - incentive spirometer, flutter valve -Continue to follow cultures -Cardiac echocardiogram shows an EF of 55 to 60%, normal diastolic function, bilateral extremity ultrasound negative for DVT -Full code -DVT prophylaxis, on therapeutic Lovenox Polycythemia vera, JAK2 positive no evidence of polycythemia, continue to monitor History of pulmonary embolism, on therapeutic Lovenox Status: Acute (2) Pneumonia due to COVID-19 virus: Status: Acute (3) Pulmonary embolism: Status: Acute (4) Acute respiratory distress syndrome (ARDS): Status: Acute Attestations Medical Necessity Statement*: Patient needs to be in hospital for the management of PNA Coding Level of Care Code Acute Police Manager for [facility] Fwd Exam Detailed Diagnoses Acute respiratory failure with hypoxia J96.01 Pneumonia due to COVID-19 virus U07.1; J12.82 Pulmonary embolism I26.99 Acute respiratory distress syndrome (ARDS) J80
[2021-08-13] MEDS: benzonatate 100 mg Capsule PO ×2 (16:33→20:20)
[2021-08-13] MEDS: gabapentin 300 mg Capsule 600 MG PO (20:20)
[2021-08-13] MEDS: albuterol 8 gm MDI 2 PUFF INHALATION (20:27)
[2021-08-13] MEDS: dexamethasone 10 mg/mL INJ 6 MG IVP (20:30)
[2021-08-14] VITALS (8 sets, daily range): BP systolic 91–139; BP diastolic 66–85; PULSE 66–75; RESP 16–18; TEMP 36.4–36.8; O2SAT 94–98
[2021-08-14 05:25] LABS: Basophils % 0.4 %; Eosinophils % 0.4 %; Hematocrit 37.7 % (37.0-47.0); Hemoglobin 10.7 g/dL (11.5-15.3); Lymphocytes # 0.5 10^3/uL (0.8-4.8); Lymphocytes % 9.5 %; Mean Corpuscular HGB Conc 28.4 g/dL (30.0-36.0); Mean Corpuscular Hemoglobin 25.3 pg (28.0-34.0); Mean Corpuscular Volume 89.1 fl (81-99); Mean Platelet Volume 10.7 fL (7.4-10.4); Monocytes # 0.3 10^3/uL (0.2-0.9); Monocytes % 4.4 %; Neutrophils # 4.67 10^3/uL (1.8-7.7); Neutrophils % 82.1 %; Nucleated Red Blood Cells % 0 %; Platelet Count 390 10^3/cmm (130-400); Red Blood Count 4.23 10^6/uL (4.1-5.3); Red Cell Distribution Width 16.8 % (12.1-15.1); White Blood Count 5.7 10^3/uL (4.0-10.0)
[2021-08-14 05:47] LABS: Alanine Aminotransferase 47 U/L (0-33); Albumin Level 3.3 g/dL (3.5-5.2); Alkaline Phosphatase 62 IU/L (35-105); Anion Gap 14.7 (5-19); Aspartate Amino Transferase 21 U/L (0-32); Blood Urea Nitrogen 15 mg/dL (6-20); Calcium 8.6 mg/dL (8.5-10.5); Carbon Dioxide 24 mmol/L (22-29); Chloride 104 mmol/L (98-107); Globulin 2.7 g/dL (1.3-4.6); Glucose 126 mg/dL (65-115); Osmolality Calculated 288 mOsm/kg (285-295); Potassium 4.7 mmol/L (3.5-5.1); Sodium 138 mmol/L (136-145); Total Bilirubin 0.3 mg/dL (0.15-1.2)
[2021-08-14] MEDS: benzonatate 100 mg Capsule PO ×3 (07:44→20:32)
[2021-08-14] MEDS: ascorbic acid 500 mg Tablet PO ×2 (07:44→16:30)
[2021-08-14] MEDS: cholecalciferol (vitamin D3) 1,000 unit Tablet 1000 UNIT PO (07:45)
[2021-08-14] MEDS: enoxaparin 80 mg/0.8 mL Syringe 140 MG SUBCUT ×2 (07:45→20:32)
[2021-08-14] MEDS: zinc gluconate 50 mg Tablet PO (07:45)
[2021-08-14] MEDS: ferrous sulfate EC 325 mg Tablet PO (07:45)
[2021-08-14] MEDS: levofloxacin-dextrose 5 % 750 MG/150 ML PREMIX 100 MG IV (07:45)
[2021-08-14] MEDS: pantoprazole DR 40 mg Tablet PO (07:45)
[2021-08-14] MEDS: albuterol 8 gm MDI 2 PUFF INHALATION (10:10)
[2021-08-14] MEDS: budesonide 0.5 mg/2 mL Neb INHALATION ×2 (10:10→20:09)
--- NOTE | 2021-08-14 10:34 | PC.CHAP ---
Pastoral Care Encounter/Spiritual Assessment Type of Contact [] Declined speech and hearing clinic director visit [] Patient/Family/Request visit [] Outpatient visit [] Follow-up visit [] Physician referral [] Code/Alert [] Routine visit [] Staff referral [] Actively dying [] Patient sleeping [] Family support [] [] Out of room [] Palliative care [] [] Receiving care in room [] Pre-surgical visit [] Trauma [] Long length of stay [] ICU visit [x] Other: Isolation Relational/Emotional Strength [] Patient feels connected with others/family/visitors/staff [] Distress [] Loneliness/isolation [] Abandonment Spirituality of Patient [] Person of Liza [] Attends Oriental Orthodox of their Liza [] Believes in Prayer [] Reads Bible or Restoration materials [] There are Spiritual issues to be addressed Crisis Clinician Interventions [] Prayer [] Active listening [] Non-anxious presence [] Spiritual/emotional support [] Crisis/trauma care [] Spiritual counseling [] Bereavement support [] Provided bereavement packet [] Provided Bible/devotional materials [] Provided toy/stuffed animal, coloring book to patient or family member [] Provided Communion [] Anointing/[place] [] Salvation [c] Completed spiritual assessment [] Other: Impact on Illness or Injury [] Angry [] Fearful [c] Anxious [] Often cries [] Exhaustion [] Unable to work [] Unable to attend restorationist [] Unable to walk/stand [] Unable to read [] Unable to drive [] Unable to eat/drink [] Unable to sleep [] Unable to be with family [] Patient intubated [] Other: Summary Isolation Time spent with patient 5 mins
--- NOTE | 2021-08-14 11:34 | PM.PN ---
Subjective Subjective: Interval history: Overall patient is doing better, so far she has responded well to the medical management, SOB has improved a lot, appetite is better, energy level is improving. Supplemental oxygen requirement has decreased a lot. Currently she is requiring 4Ls oxygen via NC. has remained afebrile. H&h is stable. Medications: Reviewed: Yes Vitals/I&O/Wt Last Vital Signs Temp 97.9 F 08/14/21 08:00 Pulse 72 08/14/21 10:10 Resp 18 08/14/21 10:10 BP 102/68 08/14/21 08:00 Pulse Ox 98 08/14/21 10:10 08/13/21 08/14/21 08/14/21 22:59 06:59 14:59 Intake Total 360 / 1310 750 / 750 Output Total 800 / 800 Balance -440 / 510 750 / 750 Physical Exam Const: COMMON NORMALS: patient oriented x3 HENMT: COMMON NORMALS: normocephalic and atraumatic HEAD & SCALP: normocephalic and atraumatic Resp: COMMON NORMALS: clear to auscultation bilaterally AUSCULTATION: clear to auscultation bilaterally Cardio: COMMON NORMALS: regular rate, regular rhythm, S1 normal heart sound present, S2 normal heart sound present, No gallops present (Cardio), No murmurs present (Cardio), No rub (Cardio) and Peripheral pulses 2+ throughout RATE: regular rate RHYTHM: regular rhythm HEART SOUNDS: S1 normal heart sound present and S2 normal heart sound present PERIPHERAL PULSES: Peripheral pulses 2+ throughout GI: COMMON NORMALS: Normal to inspection, nondistended, normoactive bowel sounds present, Soft to palpation, non-tender, No hepatosplenomegaly present and no masses AUSCULTATION: Yes normoactive bowel sounds PALPATION: Yes Soft to palpation and Yes No hepatosplenomegaly present RECTAL EXAM: deferred Extremity: COMMON NORMALS: no clubbing, cyanosis or edema and no pedal edema Neuro: COMMON NORMALS: patient oriented x3 Data : 08/14/21 05:08 08/14/21 05:08 Micro: Microbiology 08/07/21 14:45 Gram Stain - Final Sputum - Expectorated Sputum Sputum Culture - Preliminary A&P Assessment and plan (1) Acute respiratory failure with hypoxia: Secondary to COVID-19 pneumonia, with acute respiratory distress syndrome -Initially it was thought that patient's acute respiratory failure was secondary bacterial multifocal pneumonia, as her initial Covid PCR back on 07/31/2020 was negative and her rapid Covid on admission was negative, however she remains afebrile, pro-Dwayne unremarkable, CRP 7.4, cultures have shown no growth so far -As her COVID-19 PCR returned back positive 08/08/2021, likely her acute respiratory failure is secondary to multifocal Covid pneumonia, less likely bacterial pneumonia, she was started on treatment for COVID-19 Plan -Continue remdesivir for 5 days -Continue Decadron for 10 Days - as there was initial concerns for multifocal pneumonia, this does complicate things, afebrile, pro-Dwayne unremarkable CRP 7.4, culture so far negative afebrile since hospital admission, clinically it is less likely that she has a bacterial component to her pneumonia, but there is a small possibility that there might be although unlikely, discussed risks and benefits of baricitinib, voiced understanding, all questions answered, agreed to proceed -MRSA PCR negative, initially on Zosyn has been stopped to deescalate the Abxs currently on levofloxacin. -Albuterol, budesonide -Vitamin C, zinc, vitamin D - incentive spirometer, flutter valve -Cardiac echocardiogram shows an EF of 55 to 60%, normal diastolic function, -bilateral extremity ultrasound negative for DVT Polycythemia vera, JAK2 positive no evidence of polycythemia, continue to monitor History of pulmonary embolism, on therapeutic Lovenox Status: Acute (2) Pneumonia due to COVID-19 virus: Status: Acute (3) Pulmonary embolism: Status: Acute (4) Acute respiratory distress syndrome (ARDS): Status: Acute Attestations Medical Necessity Statement*: Patient needs to be in hospital for the management of PNA. Coding Level of Care Code Acute Senior Operations Analyst for [facility] [place] Diagnoses Acute respiratory failure with hypoxia J96.01 Pneumonia due to COVID-19 virus U07.1; J12.82 Pulmonary embolism I26.99 Acute respiratory distress syndrome (ARDS) J80
[2021-08-14 18:32] LABS: Adenovirus Not Detected (Not Detected); Human Metapneumovirus Not Detected (Not Detected); Human Parainflu Virus 1 Not Detected (Not Detected); Human Parainflu Virus 2 Not Detected (Not Detected); Human Parainflu Virus 3 Not Detected (Not Detected); Human Rsv A Not Detected (Not Detected); Influenza A Not Detected (Not Detected); Influenza B Not Detected (Not Detected); Rhinovirus/Enterovirus Not Detected (Not Detected)
[2021-08-14] MEDS: gabapentin 300 mg Capsule 600 MG PO (20:33)
[2021-08-14] MEDS: dexamethasone 10 mg/mL INJ 6 MG IVP (21:06)
[2021-08-15] VITALS (7 sets, daily range): BP systolic 105–119; BP diastolic 71–76; PULSE 69–81; RESP 16–22; TEMP 36.6–36.9; O2SAT 82–98
[2021-08-15 06:00] LABS: Eosinophils % 0.2 %; Hematocrit 36.7 % (37.0-47.0); Hemoglobin 10.2 g/dL (11.5-15.3); Lymphocytes # 0.5 10^3/uL (0.8-4.8); Lymphocytes % 8.9 %; Mean Corpuscular HGB Conc 27.8 g/dL (30.0-36.0); Mean Corpuscular Hemoglobin 24.9 pg (28.0-34.0); Mean Corpuscular Volume 89.5 fl (81-99); Monocytes # 0.2 10^3/uL (0.2-0.9); Monocytes % 3.3 %; Neutrophils # 4.62 10^3/uL (1.8-7.7); Neutrophils % 85.4 %; Nucleated Red Blood Cells % 0 %; Platelet Count 373 10^3/cmm (130-400); Red Cell Distribution Width 16.8 % (12.1-15.1); White Blood Count 5.4 10^3/uL (4.0-10.0)
[2021-08-15 06:19] LABS: Alanine Aminotransferase 39 U/L (0-33); Albumin Level 3.1 g/dL (3.5-5.2); Alkaline Phosphatase 62 IU/L (35-105); Aspartate Amino Transferase 18 U/L (0-32); Blood Urea Nitrogen 17 mg/dL (6-20); Calcium 8.2 mg/dL (8.5-10.5); Carbon Dioxide 22 mmol/L (22-29); Chloride 102 mmol/L (98-107); Globulin 2.6 g/dL (1.3-4.6); Glucose 167 mg/dL (65-115); Osmolality Calculated 281 mOsm/kg (285-295); Sodium 133 mmol/L (136-145); Total Bilirubin 0.3 mg/dL (0.15-1.2); Total Protein 5.7 g/dL (6.6-8.7)
[2021-08-15 06:21] LABS: Anion Gap 13.5 (5-19); Potassium 4.5 mmol/L (3.5-5.1)
[2021-08-15] MEDS: budesonide 0.5 mg/2 mL Neb INHALATION (08:45)
[2021-08-15] MEDS: albuterol 8 gm MDI 2 PUFF INHALATION (08:56)
[2021-08-15] MEDS: pantoprazole DR 40 mg Tablet PO (08:59)
[2021-08-15] MEDS: benzonatate 100 mg Capsule PO (08:59)
[2021-08-15] MEDS: enoxaparin 80 mg/0.8 mL Syringe 140 MG SUBCUT (08:59)
[2021-08-15] MEDS: cholecalciferol (vitamin D3) 1,000 unit Tablet 1000 UNIT PO (08:59)
[2021-08-15] MEDS: zinc gluconate 50 mg Tablet PO (08:59)
[2021-08-15] MEDS: ferrous sulfate EC 325 mg Tablet PO (08:59)
[2021-08-15] MEDS: levofloxacin-dextrose 5 % 750 MG/150 ML PREMIX 100 MG IV (09:10)
[2021-08-15] MEDS: ascorbic acid 500 mg Tablet PO (09:10)
--- NOTE | 2021-08-15 10:18 | PC.SOCIAL ---
IMM Update Pg. 2of IMM updated and reviewed with patient over the phone who verbalized understanding.
--- NOTE | 2021-08-15 11:12 | PM.DCS ---
Discharge Providers Date of Admission: 08/06/21 16:33 Date of Discharge: August 15, 2021 Attending Provider at Admission: Christophe Rossi MD Attending Provider at Discharge: Ever Glover MD Primary Care Provider: JAIME Gonzáles Diagnoses at Discharge Discharge Diagnosis (1) Acute respiratory failure with hypoxia: Status: Resolved (2) Pneumonia due to COVID-19 virus: Status: Resolved (3) Pulmonary embolism: Status: Acute Permanent problem details: In November 2019 and she has been on Eliquis since then managed by her primary care provider. Denies history of DVT. (4) Acute respiratory distress syndrome (ARDS): Status: Acute Reason for Visit Reason for Visit: HYSTERECTOMY 07.30:SEEN 08.01,NOW WORSE Hospital Course Hospital Course 41 year old female with a past medical history of polycythemia vera last therapeutic phlebotomy was in May 2021, currently off hydroxyurea due to concerns for anemia, history of pulmonary embolism on Eliquis, history of diverticulitis, recent total hysterectomy for abnormal vaginal bleeding , who presents to [facility] due to complaints of shortness of breath, cough, fatigue, malaise. She was admitted for management of acute hypoxic respiratory failure secondary to Covid pneumonia she was kept on Covid protocol (remdesivir, steroids, nebs, inhaler, received 6 doses of baricitinib 4 mg p.o. daily, was not continued on discharge, as the patient significantly improved, supplemental oxygen as needed, and other empirically on antibiotics , therapeutic anticoagulation, conservative respiratory support measures ).Patient responded well to above medical management at the time of discharge her shortness of breath has improved a lot,currently she is requiring 4 ls oxygen on ambulation. Cultures were negative at the time of discharge, urine bacterial antigen panel was negative. Patient responded well to the above medical management and is being discharged in stable condition to home. Physical Exam Const: COMMON NORMALS: patient oriented x3 HENMT: COMMON NORMALS: normocephalic and atraumatic HEAD & SCALP: normocephalic and atraumatic Resp: COMMON NORMALS: normal respiratory effort, No retractions, No use of accessory muscles and clear to auscultation bilaterally AUSCULTATION: clear to auscultation bilaterally Cardio: COMMON NORMALS: regular rate, regular rhythm, S1 normal heart sound present, S2 normal heart sound present, No gallops present (Cardio), No murmurs present (Cardio), No rub (Cardio) and Peripheral pulses 2+ throughout RATE: regular rate RHYTHM: regular rhythm HEART SOUNDS: S1 normal heart sound present and S2 normal heart sound present PERIPHERAL PULSES: Peripheral pulses 2+ throughout GI: COMMON NORMALS: Normal to inspection, nondistended, normoactive bowel sounds present, Soft to palpation, non-tender, No hepatosplenomegaly present and no masses AUSCULTATION: Yes normoactive bowel sounds PALPATION: Yes Soft to palpation and Yes No hepatosplenomegaly present RECTAL EXAM: deferred Extremity: COMMON NORMALS: no clubbing, cyanosis or edema and no pedal edema Neuro: COMMON NORMALS: patient oriented x3 Discharge Data Data Completed and Pending: Completed Studies During Hospitalization Category Date Time Status CT angio chest PE protcl [id number] Urge nt Cat Scan 08/06/21 14:25 Completed XR chest 1V santiago ble [id number] Routine Exams 08/08/21 07:00 Completed XR chest 1V santiago ble [id number] Routine Exams 08/11/21 07:00 Completed XR chest 1V santiago ble [id number] Stat Exams 08/06/21 12:45 [place] [id number] Routin e Ultrasound 08/08/21 17:25 Completed CV. echo complete * [id number] Routine Ultrasound 08/08/21 17:25 Completed Pending at discharge Category Date Time Status Complete Blood Co unt w/Auto AM LABS Lab 08/16/21 04:00 Ordered Comprehensive Met abolic Panel AM LA BS Lab 08/16/21 04:00 Ordered Sputum Culture an d Gram Stain Laura ne Lab 08/07/21 14:45 Results Labs from last 24 hours 08/15/21 08/15/21 08/08/21 05:16 05:16 08:25 WBC 5.4 RBC 4.10 Hgb 10.2 L Hct 36.7 L MCV 89.5 MCH 24.9 L MCHC 27.8 L RDW 16.8 H Plt Count 373 MPV 11.0 H Neut % (Auto) 85.4 Lymph % (Auto) 8.9 Dickens % (Auto) 3.3 Eos % (Auto) 0.2 Baso % (Auto) 0.0 Neut # (Auto) 4.62 Lymph # (Auto) 0.5 L Dickens # (Auto) 0.2 Eos # (Auto) 0.0 Baso # (Auto) 0.0 Nucleated RBC % (a uto) 0 Nucleated RBCs # 0.0 Sodium 133 L Potassium 4.5 Chloride 102 Carbon Dioxide 22 Anion Gap 13.5 BUN 17 Creatinine 0.5 GFR Calculation 136.0 H Glucose 167 H Calculated Osmolal ity 281 L Calcium 8.2 L Total Bilirubin 0.3 AST 18 ALT 39 H Alkaline Phosphata se 62 Total Protein 5.7 L Albumin 3.1 L Globulin 2.6 RSV Nasal Swab Not detected RSV Nasal Swab Int Cntl Not detected Adenovirus (PCR) Not detected Human Metapneumovi r PCR Not detected Influenza A (RT-PC R) Not detected Influenza A (H1) P CR Not detected Influenza A (H3) P CR Not detected Influenza B (RT-PC R) Not detected Parainfluenzae Typ e 1 Not detected Parainfluenzae Typ e 2 Not detected Parainfluenzae Typ e 3 Not detected RSV Ab Comment see note Rhinovirus (PCR) Not detected Vitals: Last Vital Signs Temp 97.9 F 08/15/21 07:57 Pulse 81 08/15/21 08:50 Resp 16 08/15/21 08:50 BP 110/73 08/15/21 07:57 Pulse Ox 82 L 08/15/21 11:10 Discharge Plan Discharge Patient Disposition: Home Condition: Stable Prescriptions: New budesonide 90 mcg/actuation aerosol powdr breath activated 1 inh inhalation BID Qty: 1 RF: 0 ProAir HFA 90 mcg/actuation HFA aerosol inhaler 1 inh inhalation Q6H PRN (Reason: shortness of breath or wheezing) Qty: 8.5 RF: 0 Tessalon Perles 100 mg capsule 100 mg PO TID PRN (Reason: cough) Qty: 30 RF: 0 dexamethasone 2 mg tablet 2 mg PO DAILY Qty: 7 RF: 0 Continued triamcinolone acetonide 0.1 % ointment 1 applic topical BID PRN (Reason: Skin Irritation) RF: 0 Eliquis 5 mg tablet 5 mg PO BID RF: 0 gabapentin 300 mg capsule 600 mg PO BEDTIME@2100 RF: 0 ibuprofen 800 mg tablet 800 mg PO TID PRN (Reason: pain) Qty: 60 RF: 0 hydrocodone-acetaminophen 5-325 mg tablet 1 tab PO Q4H PRN (Reason: pain) Qty: 30 RF: 0 Tylenol Extra Strength 500 mg Tablet 1,000 mg PO Q4H PRN (Reason: Pain) RF: 0 hydrocortisone acetate 25 mg Suppository 25 mg [place] BID PRN (Reason: Hemorrhoids) RF: 0 iron 325 mg (65 mg iron) Tablet 325 mg PO DAILY RF: 0 Held hydroxyurea 500 mg capsule See Rx Instructions .ROUTE .COMPLEX RF: 0 Hold Instructions: Resume on 09/14/21. Discharge Orders: Discharge Order (Routine); Ordered 08/15/21 Ordered By: Ever Glover Other Ambulatory Orders: DME: Oxygen (Order) Location: None Selected Ordered By: Ever lGover [place] [facility] [place] Datar,Reece Ervin MD [Physician] - 2 weeks (Please call Wednesday to make the follow up with Pulmonology in two weeks. ) Discharge Diet: Regular Discharge Activity: Increase activity as tolerated Patient Instructions: Benzonatate (By mouth), Albuterol (By breathing), Dexamethasone (By mouth), Budesonide (By mouth), Viral Pneumonia (DC), SARS (Severe Acute Respiratory Syndrome) (DC), Opioid Safety Discharge Attestations Time Spent in Discharge Care*: less than 30 min Specific Discharge Activities: educating patient, educating and/or supporting family/caregiver, discussing with pcp/other providers, discussing with bilingual patient support caseworker/social workers/dc planners, documenting/other paperwork and evaluating patient/reviewing data Status at Discharge: Cognitive status at discharge: cognitively intact, Behavioral status at discharge: cooperative, Functional status at discharge: independent ambulation Overall status at discharge: patient is progressing back to baseline Quality Metrics Clinical Quality Measures During this hospital stay, did patient experience: None Coding Level of Care Code Acute Chg FW DC note Exam Detailed Diagnoses Acute respiratory failure with hypoxia J96.01 Pneumonia due to COVID-19 virus U07.1; J12.82 Pulmonary embolism I26.99 Acute respiratory distress syndrome (ARDS) J80
--- NOTE | 2021-08-19 10:34 | PC.SOCIAL ---
discharge follow up call made. nurse called patient yesterday and today, no answer, message left.
== END 2021-08-15 15:23 | disposition home or self-care (01) | DRG 177 ==
LOC: ER 16:51 → MEDSURG 17:53 → ICU 08-07 13:11 → MEDSURG 08-12 15:42
PROVIDERS: Emergency Medicine; Admitting Provider Family Medicine; Emergency Provider Physician Assistant; PCP Nurse Practitioner; Visit Provider Internal Medicine
DX: U07.1 COVID-19 (principal); J12.82 Pneumonia due to coronavirus disease 2019; J80 Acute respiratory distress syndrome; E04.9 Nontoxic goiter, unspecified; D45 Polycythemia vera; Z86.711 Personal history of pulmonary embolism; Z79.891 Long term (current) use of opiate analgesic
CPT/HCPCS: 36415; 36600; 71045; 71275; 80051; 80053; 80202; 81001; 82330; 82550; 82803; 82805; 83540; 83605; 83690; 83735; 83880; 84100; 84145; 84443; 84484; 85025; 85378; 86140; 86403; 87040; 87070; 87086; 87205; 87426; 87635; 87641; 87804; 93005; 93306; 93970; 94640; 94762; 96365; 96367; 96372; 99285; J0456; J0692; J0696; J1100; J1650; J1956; J2405; J2543; J3370; J3535; J7030; J7050; J7626; Q9967

== ENCOUNTER 2021-10-01 13:02 | Outpatient (CLI) | payer OTHER, SELFPAY ==
[2021-10-01 13:42] LABS: Basophils # 0.1 10^3/uL (0.0-0.1); Eosinophils # 0.2 10^3/uL (0.0-0.8); Eosinophils % 2.7 %; Hemoglobin 12.9 g/dL (11.5-15.3); Lymphocytes # 1.7 10^3/uL (0.8-4.8); Lymphocytes % 24.6 %; Mean Corpuscular Volume 86.7 fl (81-99); Mean Platelet Volume 9.9 fL (7.4-10.4); Monocytes # 0.6 10^3/uL (0.2-0.9); Monocytes % 8.3 %; Neutrophils # 4.27 10^3/uL (1.8-7.7); Neutrophils % 63.1 %; Nucleated Red Blood Cells % 0 %; Platelet Count 320 10^3/cmm (130-400); Red Blood Count 4.96 10^6/uL (4.1-5.3); Red Cell Distribution Width 15.9 % (12.1-15.1); White Blood Count 6.8 10^3/uL (4.0-10.0)
[2021-10-01 14:26] LABS: Ferritin 14 ng/mL (15-150); Iron 18 ug/dL (37-145); Percent Saturation 5.2 % (20-50); Total Iron Binding Capacity 343 mcg/dl; Unsaturated Iron Binding 325 ug/dL (112-347)
--- NOTE | 2021-10-01 16:13 | ONC FU_ITS ---
Dr. Garcia follow up note Patient: Reta Gipson Unit #: [id number]: [id number] Dicatated By: Kris Garcia M.D.Date of Visit:Oct 01, 2021 Onc Med Follow-up/Prog Note History of Present Illness: Ms. Ms. Dulce Gipson, is a 41 -year-old female with a history of polycythemia vera Benja 2+, history of tiny subsegmental pulmonary embolism diagnosed in October 2019 since then she is on Eliquis 5 mg twice a day.As per patient she has history of diverticulitis and In addition to abdominal pain she was also having some chest pain so underwent CT scan of chest abdomen pelvis in October [address] scan of the chest showed small blood clot As per patient in 2016, she was having progressive headaches for which she went for evaluation found to have 'thick' blood, subsequently she was diagnosed with polycythemia as her hematocrit was more than 60, underwent twice a week phlebotomy initially followed by weekly and then every 2 weeks for 6 months to get her hematocrit to the target range e.g. 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 daily, which she took till March 2020 and then stopped taking as she ran out of prescription and she moved to [place] from [place] thus could not get prescription. Patient denies smoking, occasional alcohol. Tolerating hydroxyurea, Phlebotomy done on January 13, 2021 for hematocrit more than 45 she went to [facility] on December 10, [address] with abdominal pain [address] scan of abdomen was done which showed enhancing left ovarian cyst measuring 2.5 x 3.1 cm. Soft tissue thickening at endocervical junction and internal cervical os, neoplasm is not excluded, as per patient she is being followed by [facility] for excessive menses,And underwent D&C on February 06, 2021, as per patient no abnormality was seen on hydroxyurea 1000 mg p.o. daily and tolerating well Came for follow-up, denies any specific complaint except mild cough, as per patient on July 30, 2021 she underwent hysterectomy for heavy menses, tolerated procedure well but on August 07, 2021 she went back to [facility] with progressive shortness of breath and desaturation, patient was admitted to hospital and was diagnosed with Covid infection, she was treated with remdesivir/steroids in ICU, as per patient she was not intubated but slowly gradually her symptoms improved but persistent cough and dyspnea on exertion now awaiting pulmonology evaluation as outpatient. Patient said she did start taking her hydroxyurea about 2 weeks ago as prior to that it was put on hold because of moderate anemia, patient is on oral iron tolerating reasonably well but sometimes itching. Denies any melena or hematochezia denies any hemoptysis or hematemesis denies any nausea or vomiting denies any diarrhea or constipation denies any fever chills Medications: Eliquis 1 Tablet (of 5 mg) Oral b.i.d., Gabapentin 1 Capsule (of 300 mg) Oral b.i.d., Hydroxyurea 1 Capsule (of 500 mg) Oral b.i.d., Terbinafine HCl 1 Tablet (of 250 mg) Oral daily Allergies: Esthlea Allergy, Flagyl, and guaiFENesin. Review of Systems: Review of Systems is not available for this patient. Vital Signs: Performed on Oct 01, 2021 15:28 Height - 69.50 in Weight - 297.8 lbs (LOW) BSA - 2.46 sq.m BMI - 43.35 (HIGH) Temperature - 97.9 F (LOW) Pulse - 89 /min Respiration - 18 /min BP - 122/89 mm(hg) O2 Sat - 99 % Pain - 0 Fatigue - 0 Performance Status: 0 - Fully active, able to carry on all predisease activities without restrictions. (ECOG) Physical Examination: ENMT - No mouth sores, no thrush, no jaundice, Respiratory - Poor air entry otherwise clear, Cardiovascular - Regular rate and rhythm of heart, Abdomen - Soft, bowel sounds present, Extremities - No visible edema. Lab/Imaging: Most recent lab results are not available for this patient. Impression: Polycythemia vera, Benja 2 mutation positive, diagnosed in 2016 in hematology clinic at [facility] in [facility] which she initially presented with hematocrit more than 60, treated with aggressive phlebotomies to get hematocrit below 43. Underwent bone marrow evaluation in November 2019 for hydroxyurea therapy, and patient was started on hydroxyurea thousand milligrams p.o. daily, which she tolerated well and then ran out of prescription in March 2020, since then she is off, Restarted on June 18, 2020 History of tiny subsegmental pulmonary embolism diagnosed in October 2019, on Eliquis 5 mg p.o. twice daily History of diverticulitis Obesity. Questionable sleep apnea CT scan of abdomen pelvis done on December 10, 2020 showed soft tissue thickening and endocervical area and patient underwent endometrial curettage on February 06, 2021 which shows no atypia, hyperplasia or malignancy identified Plan: Discussed with patient regarding her labs white blood count 6.8 hemoglobin 12.9 g compared to 10.4 previously hematocrit 43 platelets 320,000 iron studies shows iron saturation 5.2% ferritin 14 iron 18 TIBC 343 Clinically, patient is doing reasonably well, tolerating oral iron well, patient is recovering from recent Covid infection and now awaiting pulmonology evaluation for dyspnea on exertion and mild cough. Patient was advised to hold hydroxyurea as it can lower her immune system and let her recover fully from Covid infection we will also discontinue oral iron as patient has history of polycythemia along with iron deficiency which was multifactorial including heavy menses and frequent phlebotomies. Patient will return to clinic in 1 month with CBC hopefully by that time her post Covid infection symptoms would resolve and then will consider restarting her on hydroxyurea. And will also discontinue her oral iron as it may make her hemoglobin/hematocrit go up and cause need for phlebotomy. Signed By: Kris Garcia M.D. <<Signature on File>>
== END 2021-10-01 13:03 | disposition home or self-care (01) ==
LOC: ONCMED 13:03
PROVIDERS: PCP Nurse Practitioner; Visit Provider Internal Medicine Hematology & Oncology
DX: D45 Polycythemia vera (principal); I26.99 Other pulmonary embolism without acute cor pulmonale; Z79.01 Long term (current) use of anticoagulants; E66.9 Obesity, unspecified; G47.33 Obstructive sleep apnea (adult) (pediatric); Z87.19 Personal history of other diseases of the digestive system; Z79.899 Other long term (current) drug therapy
CPT/HCPCS: 36415; 82728; 83540; 83550; 85025; 99214

== ENCOUNTER 2021-11-11 10:43 | Outpatient (CLI) | payer OTHER, SELFPAY ==
[2021-11-11 11:33] LABS: Basophils # 0.1 10^3/uL (0.0-0.1); Basophils % 1.1 %; Eosinophils # 0.3 10^3/uL (0.0-0.8); Eosinophils % 3.6 %; Hematocrit 47.4 % (37.0-47.0); Hemoglobin 13.7 g/dL (11.5-15.3); Lymphocytes # 1.3 10^3/uL (0.8-4.8); Lymphocytes % 17.2 %; Mean Corpuscular HGB Conc 28.9 g/dL (30.0-36.0); Mean Corpuscular Hemoglobin 22.6 pg (28.0-34.0); Mean Corpuscular Volume 78.1 fl (81-99); Mean Platelet Volume 10.6 fL (7.4-10.4); Monocytes # 0.5 10^3/uL (0.2-0.9); Monocytes % 6.2 %; Neutrophils # 5.45 10^3/uL (1.8-7.7); Neutrophils % 71.6 %; Nucleated Red Blood Cells % 0 %; Platelet Count 381 10^3/cmm (130-400); Red Blood Count 6.07 10^6/uL (4.1-5.3); Red Cell Distribution Width 17.2 % (12.1-15.1); White Blood Count 7.6 10^3/uL (4.0-10.0)
--- NOTE | 2021-11-11 17:05 | ONC FU_ITS ---
Dr. Garcia follow up note Patient: Reta Gipson Unit #: [id number]: 1980 Dicatated By: Kris Garcia M.D.Date of Visit:Nov 11, 2021 Onc Med Follow-up/Prog Note History of Present Illness: Ms. Ms. Dulce Gipson, is a 41 -year-old female with a history of polycythemia vera Benja 2+, history of tiny subsegmental pulmonary embolism diagnosed in October 2019 since then she is on Eliquis 5 mg twice a day.As per patient she has history of diverticulitis and In addition to abdominal pain she was also having some chest pain so underwent CT scan of chest abdomen pelvis in October [address] scan of the chest showed small blood clot As per patient in 2016, she was having progressive headaches for which she went for evaluation found to have 'thick' blood, subsequently she was diagnosed with polycythemia as her hematocrit was more than 60, underwent twice a week phlebotomy initially followed by weekly and then every 2 weeks for 6 months to get her hematocrit to the target range e.g. 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 daily, which she took till March 2020 and then stopped taking as she ran out of prescription and she moved to [place] from [place] thus could not get prescription. Patient denies smoking, occasional alcohol. Tolerating hydroxyurea, Phlebotomy done on January 13, 2021 for hematocrit more than 45 she went to [facility] on December 10, 2020 with abdominal pain and CT scan of abdomen was done which showed enhancing left ovarian cyst measuring 2.5 x 3.1 cm. Soft tissue thickening at endocervical junction and internal cervical os, neoplasm is not excluded, as per patient she is being followed by [employer] WORKER for excessive menses,And underwent D&C on February 06, 2021, as per patient no abnormality was seen, On July 30, 2021 she underwent hysterectomy but no oophorectomy for heavy menstrual periods, Because of generalized weakness and fatigue, hydroxyurea was put on hold on October 01, 2021 as patient was recovering from Covid infection and was restarted on November 11, 2021 at a dose of 500 mg p.o. daily Instead of 1000 mg p.o. daily she was taking prior to Covid infection Came for follow-up, denies any specific complaints, no fever chills, no nausea vomiting, no diarrhea constipation, now feeling much better, regaining her strength, as per patient she also got new CPAP machine for sleep apnea, right now trying different masks. No headaches, no chest heaviness, no blurred vision or double vision. Medications: Eliquis 1 Tablet (of 5 mg) Oral b.i.d., Gabapentin 1 Capsule (of 300 mg) Oral b.i.d., Hydroxyurea 1 Capsule (of 500 mg) Oral b.i.d., Terbinafine HCl 1 Tablet (of 250 mg) Oral daily Allergies: Esthela Allergy, Flagyl, and guaiFENesin. Review of Systems: Review of Systems is not available for this patient. Vital Signs: Performed on Nov 11, 2021 13:02 Height - 69.50 in Weight - 291.0 lbs (LOW) BSA - 2.44 sq.m BMI - 42.36 (HIGH) Temperature - 97.6 F (LOW) Pulse - 81 /min Respiration - 16 /min BP - 122/89 mm(hg) O2 Sat - 98 % Pain - 0 Fatigue - 4 Performance Status: 0 - Fully active, able to carry on all predisease activities without restrictions. (ECOG) Physical Examination: ENMT - No mouth sores, no thrush, no jaundice, Respiratory - Lungs are clear to auscultation, Cardiovascular - Regular rate and rhythm of heart, Abdomen - Soft, bowel sounds present, Extremities - No visible edema. Lab/Imaging: Most recent lab results are not available for this patient. Impression: Polycythemia vera, Benja 2 mutation positive, diagnosed in 2016 in hematology clinic at [facility] in [facility] which she initially presented with hematocrit more than 60, treated with aggressive phlebotomies to get hematocrit below 43. Underwent bone marrow evaluation in November 2019 for hydroxyurea therapy, and patient was started on hydroxyurea thousand milligrams p.o. daily, which she tolerated well and then ran out of prescription in March 2020, since then she is off, Restarted on June 18, 2020, Hydroxyurea was held on October 01, 2021 because of Covid infection related signs symptoms, was restarted on November 11, 2021 at 500 mg p.o. daily instead of 1000 mg prior to Covid infection History of tiny subsegmental pulmonary embolism diagnosed in October 2019, on Eliquis 5 mg p.o. twice daily History of diverticulitis Obesity. Sleep apnea CT scan of abdomen pelvis done on December 10, 2020 showed soft tissue thickening and endocervical area and patient underwent endometrial curettage on February 06, 2021 which shows no atypia, hyperplasia or malignancy identified Status post hysterectomy with no oophorectomy on July 30, 2021 for heavy menstrual.'s Plan: Discussed with patient regarding her labs white blood count 7.6 hemoglobin 30.7 hematocrit 47.4 platelets 381,000 iron studies shows iron 5.2 ferritin 14 TIBC 343 Clinically, patient is doing reasonably well, now recovering from Covid infection, now more energetic, her hydroxyurea was held in September 2021, now we will restart her on hydroxyurea 500 mg p.o. daily. Also consider oral iron for severe iron deficiency anemia which could be multifactorial including repeated phlebotomies for polycythemia and also patient has history of heavy menses for which she underwent hysterectomy in July 2021. Patient was also diagnosed with sleep apnea, now trying different CPAP machine. Her follow-up lab work-up shows iron deficiency anemia continue to improve as no more heavy menstrual since hysterectomy. Oral iron being restarted for severe iron deficiency. And will monitor hematocrit, polycythemia may improve with CPAP machine but will monitor and consider phlebotomy on as-needed basis Return to clinic in 1 month with CBC and iron studies Signed By: Kris Garcia M.D. <<Signature on File>>
== END 2021-11-11 10:44 | disposition home or self-care (01) ==
LOC: ONCMED 10:45
PROVIDERS: PCP Nurse Practitioner; Visit Provider Internal Medicine Hematology & Oncology
DX: I26.93 Single subsegmental thrombotic pulmonary embolism without acute cor pulmonale (principal); Z86.16 Personal history of COVID-19; Z90.710 Acquired absence of both cervix and uterus; R53.1 Weakness; R53.83 Other fatigue
CPT/HCPCS: 36415; 85025; 99214

== ENCOUNTER 2021-11-28 14:08 | Emergency (ER) | payer OTHER, MEDICARE, SELFPAY ==
[2021-11-28 14:49] VITALS: BP 135/88; PULSE 81; RESP 16; TEMP 36.6; O2SAT 99
--- NOTE | 2021-11-28 15:06 | USCV_ITS ---
Reta Gipson Age: 41 Gender: F : 1980 Exam Date: 11/28/2021 15:52 Ordering Phys: Felicia Ferro Technologist: SHAINA Exam Location: [facility] [place] Indication: Blood clot, numbness HISTORY: Lower extremity numbness. PROCEDURES: Venous duplex imaging was performed in only the right lower extremity. The following venous structures were evaluated: common femoral vein, profunda vein, proximal portion of the greater saphenous vein, superficial femoral vein, and the popliteal vein. In addition, the posterior tibial and peroneal trunk were evaluated. FINDINGS: Normal 2-D Doppler and augmentation and compressibility throughout the lower extremity venous structures. Additional imaging through the proximal calf veins also reveals no thrombus. Limited evaluation of the greater saphenous vein is patent with no thrombus.. CONCLUSIONS No evidence of right lower extremity DVT. Dion Quijano MD (Electronically Signed) Final Date: 28 November 2021 17:21 S
--- NOTE | 2021-11-28 17:34 | ED_ITS ---
HPI - Extremity Problem General: Chief complaint: Extremity Problem,Nontraumatic Stated complaint: right upper thigh numb pains in knee Time Seen by Provider: 11/28/21 17:34 History of Present Illness: HPI Narrative: 41-year-old female comes in today with complaints of right hip pain radiating into the right knee with some numbness on the lateral side of the leg knee. Patient denies any falls or injury. Patient has recently had a vaginal hysterectomy, history of polycythemia, and history of DVT. Patient denies any loss of bowel or bladder function. Patient denies any fever. Patient appears well. Patient appears in mild discomfort/pain. Review of Systems Musc: Reports: extremity pain PFSH ED PFSH: Medical History Acute respiratory distress syndrome (ARDS) Acute respiratory failure with hypoxia Acute respiratory failure with hypoxia Diverticulitis Diagnosed in 2018- Enlarged thyroid gland This is currently being evaluated and managed by Dr. Ferro. She thinks that her thyroid levels were normal. Multifocal pneumonia No pertinent past medical history Denies diabetes, asthma, seizures, DVT. PMD: ABI [place] Pneumonia due to COVID-19 virus Polycythemia vera Has had symptoms since about 2013 and was diagnosed in 2016. She currently sees heme oncology-Dr. Garcia and is on medication for this. Pulmonary embolism In November 2019 and she has been on Eliquis since then managed by her primary care provider. Denies history of DVT. Surgical History History of tubal ligation March 2009--laparoscopic procedure Status post hysteroscopy 02/06/2021--hysteroscopy performed for possible endometrial polyp on ultrasound-performed by Dr. Ambrose at [facility]. At hysteroscopy no obvious in tracavitary abnormalities including polyp identified. D&C performed and pathology showed secretory and proliferative endometrium without atypia hyperplasia or malignancy. Family History Father Chronic kidney disease (CKD) Hypertension Sister Chronic kidney disease (CKD) Psychiatric illness Mother Thyroid disease Grandmother Thyroid disease Maternal Denies family history of Colon cancer Ovarian cancer Diabetes Heart disease Breast cancer Bleeding disorder Uterine cancer Stroke Social History (Updated 09/09/21 @ 08:40 by Angelina Childress RN) Smoking and tobacco status: never smoked Alcohol intake: former Female Reproductive History: Date of last menstrual period: 07/18/21 Physical Exam Const: COMMON NORMALS: healthy appearing HENMT: COMMON NORMALS: normocephalic HEAD & SCALP: normocephalic Neck/C-Spine: COMMON NORMALS: full ROM Resp: COMMON NORMALS: normal respiratory effort Cardio: COMMON NORMALS: regular rate and regular rhythm RATE: regular rate RHYTHM: regular rhythm Back/Pelvis: LUMBAR SPINE/LOWER BACK: Yes lumbar spinal tenderness Lumbar spinal tenderness location: L5 and Yes paraspinal muscle tenderness Lumbar paraspinal muscle tenderness: right Right lumbar paraspinal muscle tenderness: L5 Extremity: COMMON NORMALS: normal to inspection Skin: COMMON NORMALS: no rashes or lesions noted GENERAL SKIN EXAM: no inés hes or lesions noted Course Vital Signs: Vital signs: Vital Signs Temperature 97.9 F 11/28/21 14:49 Pulse Rate 81 11/28/21 14:49 Respiratory Rate 16 11/28/21 14:49 Blood Pressure 135/88 11/28/21 14:49 Pulse Oximetry 99 11/28/21 14:49 MDM - Extremity (Nontraumatic) MDM Narrative: Medical decision making narrative: 41-year-old female comes in today with right hip pain radiating to her knee. Patient has had a history of a recent hysterectomy, and polycythemia, and previous DVT. Patient was concerned that she may be developing another DVT. On exam patient has some tenderness of the L5 area of the lumbar spine on palpation. The muscle tenderness is also noted to the right paraspinous muscles. Negative leg lift test. Distal pulses and sensations are intact. No significant edema is noted. Differential diagnosis includes DVT, intervertebral disc disease, facet arthropathy, muscle strain. Ultrasound for DVT was negative for any signs of blood clot. Symptoms seem to be more along the lines of a sciatica, reviewed exam and recommendations for treatment and follow-up with primary care. Patient reported understanding and agreed to plan. Discharge Plan Discharge Patient Disposition: Home Clinical Impression: Lower leg pain Qualifiers: Laterality: right Qualified Code(s): M79.661 - Pain in right lower leg Sciatica Qualifiers: Laterality: right Qualified Code(s): M54.31 - Sciatica, right side Condition: Stable Prescriptions: No Action Eliquis 5 mg tablet 5 mg PO BID RF: 0 gabapentin 300 mg capsule 600 mg PO BEDTIME@2100 RF: 0 (DME) oxygen-air delivery systems Device See Rx Instructions .Route RF: 0 chlorpheniramine-codeine 2-9 mg/5 mL liquid 5 ml PO Q8H PRN (Reason: cough) 21 Days Qty: 315 RF: 0 hydroxyurea 500 mg capsule See Rx Instructions .ROUTE .COMPLEX RF: 0 Hold Instructions: Resume on 09/14/21. Tylenol Extra Strength 500 mg Tablet 1,000 mg PO Q4H PRN (Reason: Pain) RF: 0 hydrocortisone acetate 25 mg Suppository 25 mg TN BID PRN (Reason: Hemorrhoids) RF: 0 iron 325 mg (65 mg iron) Tablet 325 mg PO DAILY RF: 0 ProAir HFA 90 mcg/actuation HFA aerosol inhaler 1 inh inhalation Q6H PRN (Reason: shortness of breath or wheezing) Qty: 8.5 RF: 0 Discharge Orders: Discharge ED (Routine); Ordered 11/28/21 Ordered By: Jay Longoria Referrals: Viviana Gill FNP [Primary Care Provider] - Discharge Diet: Usual diet Discharge Activity: Increase activity as tolerated Patient Instructions: Sciatica (ED) Coding Level of Care Code ED Electronics Tech for Ezequiel Ulrich
== END 2021-11-28 18:05 | disposition home or self-care (01) ==
PROVIDERS: Emergency Provider Nurse Practitioner Family; PCP Nurse Practitioner
DX: M54.31 Sciatica, right side (principal); M79.661 Pain in right lower leg; Z79.01 Long term (current) use of anticoagulants; Z86.711 Personal history of pulmonary embolism
CPT/HCPCS: 93971; 99281

== ENCOUNTER 2021-12-12 08:23 | Outpatient (CLI) | payer OTHER, SELFPAY ==
[2021-12-12 08:55] LABS: Basophils # 0.1 10^3/uL (0.0-0.1); Basophils % 0.9 %; Eosinophils # 0.2 10^3/uL (0.0-0.8); Eosinophils % 2.5 %; Hematocrit 51.4 % (37.0-47.0); Hemoglobin 14.8 g/dL (11.5-15.3); Lymphocytes # 1.3 10^3/uL (0.8-4.8); Lymphocytes % 16.4 %; Mean Corpuscular HGB Conc 28.8 g/dL (30.0-36.0); Mean Corpuscular Hemoglobin 22.8 pg (28.0-34.0); Mean Corpuscular Volume 79.3 fl (81-99); Monocytes # 0.4 10^3/uL (0.2-0.9); Monocytes % 5.5 %; Nucleated Red Blood Cells % 0 %; Platelet Count 300 10^3/cmm (130-400); Red Blood Count 6.48 10^6/uL (4.1-5.3); Red Cell Distribution Width 21.1 % (12.1-15.1); White Blood Count 7.7 10^3/uL (4.0-10.0)
[2021-12-12 09:18] LABS: Ferritin 17 ng/mL (15-150); Iron 20 ug/dL (37-145); Percent Saturation 6.2 % (20-50); Total Iron Binding Capacity 322 mcg/dl; Unsaturated Iron Binding 302 ug/dL (112-347)
[2021-12-12] MEDS: sodium chloride 0.9% 250 ML 999 ML IV (10:50)
--- NOTE | 2021-12-12 11:26 | ONC FU_ITS ---
Dr. Garcia follow up note Patient: Reta Gipson Unit #: [id number]: 1980 Dicatated By: Kris Garcia M.D.Date of Visit:Dec 12, 2021 Onc Med Follow-up/Prog Note History of Present Illness: Ms. Ms. Dulce Gipson, is a 41 -year-old female with a history of polycythemia vera Benja 2+, history of tiny subsegmental pulmonary embolism diagnosed in October 2019 since then she is on Eliquis 5 mg twice a day.As per patient she has history of diverticulitis and In addition to abdominal pain she was also having some chest pain so underwent CT scan of chest abdomen pelvis in October [address] scan of the chest showed small blood clot As per patient in 2016, she was having progressive headaches for which she went for evaluation found to have 'thick' blood, subsequently she was diagnosed with polycythemia as her hematocrit was more than 60, underwent twice a week phlebotomy initially followed by weekly and then every 2 weeks for 6 months to get her hematocrit to the target range e.g. below 43 patient was referred to health care manager and [facility] in [facility] where she underwent genetic testing and Benja 2 mutation came back positive., As per patient she was treated with aspirin and phlebotomies on as-needed basis and last phlebotomy was done in November 2019, in December 2019 she also underwent bone marrow evaluation as her health care manager was considering hydroxyurea so she was started on hydroxyurea 1000 mg p.o. daily, which she took till March 2020 and then stopped taking as she ran out of prescription and she moved to [place] from [place] thus could not get prescription. Patient denies smoking, occasional alcohol. Tolerating hydroxyurea, Phlebotomy done on January 13, 2021 for hematocrit more than 45 she went to [facility] on December 10, 2020 with abdominal pain and CT scan of abdomen was done which showed enhancing left ovarian cyst measuring 2.5 x 3.1 cm. Soft tissue thickening at endocervical junction and internal cervical os, neoplasm is not excluded, as per patient she is being followed by [employer] for excessive menses,And underwent D&C on February 06, 2021, as per patient no abnormality was seen, On July 30, 2021 she underwent hysterectomy but no oophorectomy for heavy menstrual periods, Because of generalized weakness and fatigue, hydroxyurea was put on hold on October 01, 2021 as patient was recovering from Covid infection and was restarted on November 11, 2021 at a dose of 500 mg p.o. daily Instead of 1000 mg p.o. daily she was taking prior to Covid infection, Increased to 1000 mg p.o. on Wednesday and Wednesday and to continue with 500 mg p.o. daily on remaining days Came for follow-up, complaining of generalized weakness and fatigue, patient is not using her CPAP because of ill fitting mask and now new mask has been ordered and she is waiting. Denies any headaches blurred vision double vision, denies any chest pain or heaviness denies any palpitation denies any focal weakness denies any nausea or vomiting denies any diarrhea or constipation, patient is tolerating oral iron well for iron deficiency, Also on hydroxyurea 500 mg p.o. daily Medications: Cranberry 1 Tablet Oral daily, Daily Vitamin 1 Tablet Oral daily, Eliquis 1 Tablet (of 5 mg) Oral b.i.d., Gabapentin 1 Capsule (of 300 mg) Oral b.i.d., Hydroxyurea 1 Capsule (of 500 mg) Oral b.i.d., Terbinafine HCl 1 Tablet (of 250 mg) Oral daily, Vitamin E 1 Tablet Oral daily Allergies: Esthela Allergy, Flagyl, and guaiFENesin. Review of Systems: Review of Systems is not available for this patient. Vital Signs: Performed on Dec 12, 2021 09:45 Height - 69.50 in Weight - 291.4 lbs (HIGH) BSA - 2.44 sq.m BMI - 42.42 (HIGH) Temperature - 97.5 F (LOW) Pulse - 78 /min Respiration - 16 /min BP - 132/82 mm(hg) O2 Sat - 98 % Pain - 5 Fatigue - 7 Performance Status: 0 - Fully active, able to carry on all predisease activities without restrictions. (ECOG) Physical Examination: ENMT - No mouth sores, no thrush, no jaundice, Respiratory - Lungs are clear to auscultation, Cardiovascular - Regular rate and rhythm of heart, Abdomen - Soft, bowel sounds present, Extremities - No visible edema. Lab/Imaging: Most recent lab results are not available for this patient. Impression: Polycythemia vera, Benja 2 mutation positive, diagnosed in 2016 in hematology clinic at [facility] in [facility] which she initially presented with hematocrit more than 60, treated with aggressive phlebotomies to get hematocrit below 43. Underwent bone marrow evaluation in November 2019 for hydroxyurea therapy, and patient was started on hydroxyurea thousand milligrams p.o. daily, which she tolerated well and then ran out of prescription in March 2020, since then she is off, Restarted on June 18, 2020, Hydroxyurea was held on October 01, 2021 because of Covid infection related signs symptoms, was restarted on November 11, 2021 at 500 mg p.o. daily instead of 1000 mg prior to Covid infection, On December 12, 2021 increased to 1000 mg p.o. on Wednesday, Wednesday and Wednesday and continue with 500 mg p.o. daily on remaining days History of tiny subsegmental pulmonary embolism diagnosed in October 2019, on Eliquis 5 mg p.o. twice daily History of diverticulitis Obesity. Sleep apnea CT scan of abdomen pelvis done on December 10, 2020 showed soft tissue thickening and endocervical area and patient underwent endometrial curettage on February 06, 2021 which shows no atypia, hyperplasia or malignancy identified Status post hysterectomy with no oophorectomy on July 30, 2021 for heavy menstrual.'s Plan: Discussed with patient regarding her labs white blood count 7.7 hemoglobin 14.8 hematocrit 51.4 platelets 300,000 iron studies shows iron saturation 6.2% ferritin 17 compared to 14 previously iron 20 TIBC 322 Clinically, patient is doing reasonably well, now with persistent generalized weakness and fatigue which could be multifactorial including noncompliance with CPAP and iron deficiency, patient is on oral iron, with that her hematocrit is going up, which could be, in addition to underlying sleep apnea. Patient was advised to be compliant with her CPAP machine once she receives her new mask, in the meantime, continue with oral iron as iron deficiency can also cause generalized weakness and fatigue. And has her CBC shows adequate white blood cell and platelet count and now progressive polycythemia which appears multifactorial, will consider increasing her hydroxyurea dose to 1000 mg on Wednesday, Wednesday and Wednesday and she will continue with 500 mg p.o. daily on remaining days and we will monitor her CBC especially white blood count and platelets and adjust her hydroxyurea dose accordingly to minimize need for phlebotomies. Patient was advised to maintain hydration, she was advised to continue with her daily aspirin and we will proceed with phlebotomy with 500 cc and replaced with 250 normal saline and then she will return to clinic in 1 month with CBC Signed By: Kris Garcia M.D. <<Signature on File>>
== END 2021-12-12 08:24 | disposition home or self-care (01) ==
PROVIDERS: PCP Nurse Practitioner; Visit Provider Internal Medicine Hematology & Oncology
DX: D45 Polycythemia vera (principal); K57.92 Diverticulitis of intestine, part unspecified, without perforation or abscess without bleeding; E66.9 Obesity, unspecified; G47.30 Sleep apnea, unspecified; Z90.710 Acquired absence of both cervix and uterus; Z79.82 Long term (current) use of aspirin; Z79.899 Other long term (current) drug therapy
CPT/HCPCS: 36415; 82728; 83540; 83550; 85025; 96360; 99195; 99215; J7050

== ENCOUNTER 2022-01-01 07:46 | Emergency (ER) | payer OTHER, MEDICARE, SELFPAY ==
[2022-01-01 07:52] VITALS: BP 126/89; PULSE 73; RESP 15; TEMP 36.4; O2SAT 95; BMI 42.8
--- NOTE | 2022-01-01 08:09 | ECG_ITS ---
[facility] Test Date: 2022-01-01 Pat Name: Reta Gipson Department: Room: Gender: Female Personal Injury Paralegal: : 1980 Requested By: Robin Deleon Order Number: [id number] Markel MD: Joel Voss M.D. Measurements Intervals [place] Rate: 73 P: 42 CT: 171 QRS: -18 QRSD: 95 T: 37 QT: 382 QTc: 421 Interpretive Statements SINUS RHYTHM POSSIBLE LEFT ATRIAL ENLARGEMENT [-0.1mV P-WAVE IN V1/V2] LOW QRS VOLTAGE IN PRECORDIAL LEADS [QRS DEFLECTION < 1.0 mV IN CHEST LEADS] INCOMPLETE RIGHT BUNDLE BRANCH BLOCK [90+ ms QRS DURATION, TERMINAL R IN V1/V2, 40+ ms S IN I/aVL/V4/V5/V6] POSSIBLE ANTERIOR MYOCARDIAL INFARCTION , PROBABLY OLD [30 ms Q WAVE IN V3/V4, OR R < 0.2 mV IN V4] Compared to ECG 08/06/2021 16:29:14 Incomplete right bundle-branch block now present Myocardial infarct finding still present Electronically Signed On 01-01-2022 20:51:49 HEALTHCARE CONSULTANT by Joel Voss M.D. [email or web address] Commando[facility] biloxiRed Balloon Securitythe [email or web address]/[id number]
--- NOTE | 2022-01-01 08:10 | ED_ITS ---
HPI - General Adult General: Chief complaint: General Medical Stated complaint: L lag pain, Heartburn Time Seen by Provider: 01/01/22 07:48 History of Present Illness: 41-year-old female presents to the emergency room at the direction of the CT clinic. She previously had a PE and is currently on apixaban. She has been taking 200 mg twice a day she has some discomfort in her leg occasionally. Will get some intermittent swelling. She had discussed this with her primary care doctor and was referred to the emergency room. She has not missed any doses of her Eliquis. She not had any chest pain or tightness. She does have a lot of epigastric pain and heartburn. This has been going on for greater than 1 week. She has no history of coronary disease is not previous had any cardiac work-up. She has not noticed the discomfort to be related to any exertional activities. She was referred to the ER 1 month ago for the same complaint and venous duplex at that time was negative. Onset (ago): week(s) Location: abdomen and lower extremity Radiation: non-radiation Severity: mild Quality: aching Pain Consistency: intermittent Relieving factors: none Exacerbating factors: none Associated symptoms: Deny chest pain, confusion, cough, diaphoresis, decreased appetite, dyspnea, fevers/chills, headache(s), malaise, nausea, rash, palpitations, seizures, short of breath, syncope, vomiting or weakness Treatments prior to arrival: none Review of Systems Const: Denies: malaise or diaphoresis ENMT: Denies: throat pain, ear or mastoid pain, nasal discharge or nasal congestion Card: Denies: chest pain, palpitations or syncope Resp: Denies: dyspnea GI: Denies: nausea or vomiting : Denies: flank pain, difficulty voiding, dysuria, urinary frequency or urinary urgency Skin/Breast: Denies: rash Neuro: Denies: headache(s) or confusion PFSH ED PFSH: Medical History Acute respiratory distress syndrome (ARDS) Acute respiratory failure with hypoxia Acute respiratory failure with hypoxia Diverticulitis Diagnosed in 2019- Enlarged thyroid gland This is currently being evaluated and managed by Dr. Ferro. She thinks that her thyroid levels were normal. Multifocal pneumonia No pertinent past medical history Denies diabetes, asthma, seizures, DVT. PMD: ABI [place] Pneumonia due to COVID-19 virus Polycythemia vera Has had symptoms since about 2014 and was diagnosed in 2016. She currently sees heme oncology-Dr. Garcia and is on medication for this. Pulmonary embolism Surgical History History of tubal ligation March 2009--laparoscopic procedure Status post hysteroscopy 02/06/2021--hysteroscopy performed for possible endometrial polyp on ultrasound-performed by Dr. Ambrose at [facility]. At hysteroscopy no obvious intracavitary abnormalities including polyp identified. D&C performed and pathology showed secretory and proliferative endometrium without atypia hyperplasia or malignancy. Family History Father Chronic kidney disease (CKD) Hypertension Sister Chronic kidney disease (CKD) Psychiatric illness Mother Thyroid disease Grandmother Thyroid disease Maternal Denies family history of Colon cancer Ovarian cancer Diabetes Heart disease Breast cancer Bleeding disorder Uterine cancer Stroke Social History Alcohol intake: former Female Reproductive History: Date of last menstrual period: 07/18/21 Physical Exam Const: COMMON NORMALS: no acute distress GENERAL APPEARANCE: cooperative and comfortable ORIENTATION/CONSCIOUSNESS: Yes awake, Yes oriented to person, Yes oriented to place and Yes oriented to time HENMT: COMMON NORMALS: normocephalic, atraumatic and hearing grossly normal bilaterally HEAD & SCALP: normocephalic and atraumatic Neck/C-Spine: COMMON NORMALS: no JVD Resp: COMMON NORMALS: normal respiratory effort, No retractions, No use of accessory muscles and clear to auscultation bilaterally AUSCULTATION: clear to auscultation bilaterally Cardio: COMMON NORMALS: no JVD, regular rate, regular rhythm and No murmurs present (Cardio) RATE: regular rate RHYTHM: regular rhythm GI: COMMON NORMALS: Soft to palpation and No hepatosplenomegaly present AUSCULTATION: Yes normoactive bowel sounds PALPATION: Yes Soft to palpation, No Tenderness to palpation present (GI), No Guarding due to palpation present (GI) and Yes No hepatosplenomegaly present Extremity: COMMON NORMALS: normal to inspection, capillary refill normal, no clubbing, cyanosis or edema, no calf tenderness and no pedal edema Neuro: SENSORIUM/ORIENTATION: Yes oriented to person, Yes oriented to place and Yes oriented to time Skin: COMMON NORMALS: no rashes or lesions noted GENERAL SKIN EXAM: no rashes or lesions noted Course Vital Signs: Vital signs: Vital Signs Temperature 97.6 F 01/01/22 07:52 Pulse Rate 70 01/01/22 10:21 Respiratory Rate 13 01/01/22 10:21 Blood Pressure 129/79 01/01/22 10:21 Pulse Oximetry 97 01/01/22 10:21 [facility] - General Adult Medical Decision Making Exam normal. No evidence of DVT. Last month patient had similar presentation. She is still currently taking her apixaban. Ultrasound done last month was negative. There is no clinical signs of DVT on exam today will discharge home can follow-up with outpatient primary care physician. For her heartburn symptoms start pantoprazole. Reviewed visit with patient she is agreeable. Medical Records I reviewed the patient's medical records. Lab Data I reviewed the patient's lab results. : 01/01/22 08:35 01/01/22 08:35 Laboratory Results WBC 6.6 10^3/uL (4.0-10.0) 01/01/22 08:35 RBC 6.64 10^6/uL (4.1-5.3) H 01/01/22 08:35 Hgb 15.9 g/dL (11.5-15.3) H 01/01/22 08:35 Hct 55.2 % (37.0-47.0) H 01/01/22 08:35 MCV 83.1 fl (81-99) 01/01/22 08:35 MCH 23.9 pg (28.0-34.0) L 01/01/22 08:35 MCHC 28.8 g/dL (30.0-36.0) L 01/01/22 08:35 RDW 25.7 % (12.1-15.1) H 01/01/22 08:35 Plt Count 341 10^3/cmm (130-400) 01/01/22 08:35 MPV 9.8 fL (7.4-10.4) 01/01/22 08:35 Neut % (Auto) 69.8 % 01/01/22 08:35 Lymph % (Auto) 19.4 % 01/01/22 08:35 [place] % (Auto) 6.8 % 01/01/22 08:35 Eos % (Auto) 2.0 % 01/01/22 08:35 Baso % (Auto) 1.7 % 01/01/22 08:35 Neut # (Auto) 4.60 10^3/uL (1.8-7.7) 01/01/22 08:35 Lymph # (Auto) 1.3 10^3/uL (0.8-4.8) 01/01/22 08:35 [place] # (Auto) 0.5 10^3/uL (0.2-0.9) 01/01/22 08:35 Eos # (Auto) 0.1 10^3/uL (0.0-0.8) 01/01/22 08:35 Baso # (Auto) 0.1 10^3/uL (0.0-0.1) 01/01/22 08:35 Nucleated RBC % (auto) 0 % 01/01/22 08:35 Nucleated RBCs # 0.0 /100WBC 01/01/22 08:35 Sodium 139 mmol/L (136-145) 01/01/22 08:35 Potassium 4.6 mmol/L (3.5-5.1) 01/01/22 08:35 Chloride 104 mmol/L (98-107) 01/01/22 08:35 Carbon Dioxide 24 mmol/L (22-29) 01/01/22 08:35 Anion Gap 15.6 (5-19) 01/01/22 08:35 BUN 11 mg/dL (6-20) 01/01/22 08:35 Creatinine 0.8 mg/dL (0.5-0.9) 01/01/22 08:35 GFR Calculation 79.0 mL/min (90-130) L 01/01/22 08:35 Glucose 88 mg/dL (65-115) 01/01/22 08:35 Calculated Osmolality 287 mOsm/kg (285-295) 01/01/22 08:35 Calcium 9.4 mg/dL (8.5-10.5) 01/01/22 08:35 Total Bilirubin 0.5 mg/dL (0.15-1.2) 01/01/22 08:35 AST 23 U/L (0-32) 01/01/22 08:35 ALT 35 U/L (0-33) H 01/01/22 08:35 Alkaline Phosphatase 95 IU/L (35-105) 01/01/22 08:35 Troponin T Baseline 6 ng/L (0-10) 01/01/22 08:35 Total Protein 6.6 g/dL (6.6-8.7) 01/01/22 08:35 Albumin 4.6 g/dL (3.5-5.2) 01/01/22 08:35 Globulin 2.0 g/dL (1.3-4.6) 01/01/22 08:35 Discharge Plan Discharge Patient Disposition: Home Clinical Impression: Chest pain due to GERD, Leg pain Condition: Stable Prescriptions: New pantoprazole 40 mg tablet,delayed release (DR/EC) 40 mg PO DAILY 56 Days 0RF No Action gabapentin 300 mg capsule 600 mg PO BID 0RF Eliquis 5 mg tablet 5 mg PO DAILY 0RF iron 18 mg Tablet 18 mg PO DAILY 0RF Multi For Her 18 mg iron-600 mcg-40 mcg Capsule 1 tab-cap PO DAILY 0RF hydroxyurea 500 mg capsule See Rx Instructions .ROUTE .COMPLEX 0RF Hold Instructions: Resume on 09/14/21. Rx Instructions: 500 MG PO DAILY ON SUN,TUE,THUR,SAT.- 500 MG BID MON,WED,FRI. acetaminophen [Tylenol Extra Strength] 500 mg Tablet 1,000 mg PO Q4H PRN (Reason: Pain) 0RF Discharge Orders: Discharge ED (Routine); Ordered 01/01/22 Ordered By: Robin Santana Referrals: Viviana Gill FNP [Primary Care Provider] - Discharge Diet: Usual diet Discharge Activity: Resume usual activity Patient Instructions: Opioid Safety Activity Restrictions/Additional Instructions: Follow-up with your primary care doctor. Coding Level of Care Code ED [facility] Nurse Practitioner for Ezequiel Fwmilagro Exam Comprehensive
[2022-01-01 08:13] VITALS: BP 120/83; PULSE 79; O2SAT 96
[2022-01-01 08:46] LABS: Basophils # 0.1 10^3/uL (0.0-0.1); Basophils % 1.7 %; Eosinophils # 0.1 10^3/uL (0.0-0.8); Hematocrit 55.2 % (37.0-47.0); Hemoglobin 15.9 g/dL (11.5-15.3); Lymphocytes # 1.3 10^3/uL (0.8-4.8); Lymphocytes % 19.4 %; Mean Corpuscular HGB Conc 28.8 g/dL (30.0-36.0); Mean Corpuscular Hemoglobin 23.9 pg (28.0-34.0); Mean Corpuscular Volume 83.1 fl (81-99); Mean Platelet Volume 9.8 fL (7.4-10.4); Monocytes # 0.5 10^3/uL (0.2-0.9); Monocytes % 6.8 %; Neutrophils % 69.8 %; Nucleated Red Blood Cells % 0 %; Platelet Count 341 10^3/cmm (130-400); Red Blood Count 6.64 10^6/uL (4.1-5.3); Red Cell Distribution Width 25.7 % (12.1-15.1); White Blood Count 6.6 10^3/uL (4.0-10.0)
[2022-01-01 09:52] LABS: Alanine Aminotransferase 35 U/L (0-33); Albumin Level 4.6 g/dL (3.5-5.2); Alkaline Phosphatase 95 IU/L (35-105); Aspartate Amino Transferase 23 U/L (0-32); Blood Urea Nitrogen 11 mg/dL (6-20); Calcium 9.4 mg/dL (8.5-10.5); Carbon Dioxide 24 mmol/L (22-29); Chloride 104 mmol/L (98-107); Glucose 88 mg/dL (65-115); Osmolality Calculated 287 mOsm/kg (285-295); Sodium 139 mmol/L (136-145); Total Bilirubin 0.5 mg/dL (0.15-1.2); Total Protein 6.6 g/dL (6.6-8.7)
[2022-01-01 09:53] LABS: Troponin(5th) Baseline 6 ng/L (0-10)
[2022-01-01 09:57] LABS: Anion Gap 15.6 (5-19); Potassium 4.6 mmol/L (3.5-5.1)
--- NOTE | 2022-01-01 10:00 | PC.NURSE ---
while at doorway pt is in nad. pt denies any needs at this time.
[2022-01-01 10:21] VITALS: BP 129/79; PULSE 70; RESP 13; O2SAT 97
== END 2022-01-01 10:24 | disposition home or self-care (01) ==
PROVIDERS: Emergency Provider Family Medicine; PCP Nurse Practitioner
DX: M79.605 Pain in left leg (principal); K21.9 Gastro-esophageal reflux disease without esophagitis; Z79.01 Long term (current) use of anticoagulants; Z86.711 Personal history of pulmonary embolism
CPT/HCPCS: 80053; 84484; 85025; 93005; 99283

== ENCOUNTER 2022-01-12 13:20 | Outpatient (CLI) | payer OTHER, SELFPAY ==
[2022-01-12 14:04] LABS: Basophils # 0.1 10^3/uL (0.0-0.1); Basophils % 1.5 %; Eosinophils # 0.2 10^3/uL (0.0-0.8); Hematocrit 54.7 % (37.0-47.0); Hemoglobin 16.2 g/dL (11.5-15.3); Lymphocytes # 1.4 10^3/uL (0.8-4.8); Lymphocytes % 18.2 %; Mean Corpuscular HGB Conc 29.6 g/dL (30.0-36.0); Mean Corpuscular Hemoglobin 25.2 pg (28.0-34.0); Mean Corpuscular Volume 85.2 fl (81-99); Mean Platelet Volume 9.8 fL (7.4-10.4); Monocytes # 0.5 10^3/uL (0.2-0.9); Monocytes % 6.2 %; Neutrophils # 5.67 10^3/uL (1.8-7.7); Neutrophils % 71.8 %; Nucleated Red Blood Cells % 0 %; Platelet Count 313 10^3/cmm (130-400); Red Blood Count 6.42 10^6/uL (4.1-5.3); Red Cell Distribution Width 26.6 % (12.1-15.1); White Blood Count 7.9 10^3/uL (4.0-10.0)
--- NOTE | 2022-01-12 16:07 | ONC FU_ITS ---
Hortensia Hathaway Progress Note Patient: Reta Gipson Unit #: [id number]: [id number] Dicatated By: Hortensia Hathaway N.P.Date of Visit:Jan 12, 2022 Onc MED Follow-up/Prog Note Chief Complaint: Polycythemia vera History of Present Illness: . Ms. Dulce Gipson, is a 41 -year-old female with a history of polycythemia vera Benja 2+, history of tiny subsegmental pulmonary embolism diagnosed in October 2019 since then she is on Eliquis 5 mg twice a day.As per patient she has history of diverticulitis and In addition to abdominal pain she was also having some chest pain so underwent CT scan of chest abdomen pelvis in October [address] scan of the chest showed small blood clot As per patient in 2016, she was having progressive headaches for which she went for evaluation found to have 'thick' blood, subsequently she was diagnosed with polycythemia as her hematocrit was more than 60, underwent twice a week phlebotomy initially followed by weekly and then every 2 weeks for 6 months to get her hematocrit to the target range e.g. below 43 patient was referred to traffic operations engineer and [facility] in [facility] where she underwent genetic testing and Benja 2 mutation came back positive., As per patient she was treated with aspirin and phlebotomies on as-needed basis and last phlebotomy was done in November 2019, in December 2019 she also underwent bone marrow evaluation as her traffic operations engineer was considering hydroxyurea so she was started on hydroxyurea 1000 mg p.o. daily, which she took till March 2020 and then stopped taking as she ran out of prescription and she moved to [place] from [place] thus could not get prescription. Patient denies smoking, occasional alcohol. Tolerating hydroxyurea, Phlebotomy done on January 13, 2021 for hematocrit more than 45 she went to [facility] on December 10, 2020 with abdominal pain and CT scan of abdomen was done which showed enhancing left ovarian cyst measuring 2.5 x 3.1 cm. Soft tissue thickening at endocervical junction and internal cervical os, neoplasm is not excluded, as per patient she is being followed by HAND TACKER for excessive menses,And underwent D&C on February 06, 2021, as per patient no abnormality was seen, On July 30, 2021 she underwent hysterectomy but no oophorectomy for heavy menstrual periods, Because of generalized weakness and fatigue, hydroxyurea was put on hold on October 01, 2021 as patient was recovering from Covid infection and was restarted on November 11, 2021 at a dose of 500 mg p.o. daily Instead of 1000 mg p.o. daily she was taking prior to Covid infection, Increased to 1000 mg p.o. on Wednesday and Wednesday and to continue with 500 mg p.o. daily on remaining days Patient presents today for follow-up. She states that her fatigue has increased. Her appetite has been good. No fever, chills, night sweats. No shortness of breath, cough, chest pain no GI or problems no headaches. No dizziness, numbness or paresthesias. She is currently taking hydroxyurea 1000 mg p.o. on Wednesday and Wednesday and 500 mg p.o. daily on remaining days. Review Of Symptoms: See above. Past Medical History: Diverticulitis Covid 19 in 2020 Past Surgical History: Tubal ligation Covid vaccine #1 - Moderna in 2021 Allergies: Esthela Allergy, Flagyl, and guaiFENesin. Medications: Cranberry 1 Tablet Oral daily Daily Vitamin 1 Tablet Oral daily Eliquis 1 Tablet (of 5 mg) Oral b.i.d. Gabapentin 1 Capsule (of 300 mg) Oral b.i.d. Hydroxyurea 1 Capsule (of 500 mg) Oral b.i.d. Terbinafine HCl 1 Tablet (of 250 mg) Oral daily Vitamin E 1 Tablet Oral daily Family History: Ms. Gipson's mother is alive. Ms. Gipson's father at age 78: melanoma. Social History: Ms. Gipson is and she is a disabled. Ms. Gipson has never smoked. Ms. Gipson reports the following support systems: lives with spouse, significant other, family, or friends, lives in own house, supportive family/friends willing to assist with needs, and adequate transportation available for expected visits. Her diet consists of regular meals. She indicates her activity level as: regular exercise. Physical Examination: Performed on Jan 12, 2022 15:36: Height - 69.50 in, Weight - 292.0 lbs (HIGH), BSA - 2.44 sq.m, BMI - 42.50 (HIGH), Temperature - 97.6 F (LOW), Pulse - 52 /min (LOW), Respiration - 16 /min, BP - 119/79 mm(hg), O2 Sat - 98 %, Pain - 3, and Fatigue - 8. Performance Status: 0 - Fully active, able to carry on all predisease activities without restrictions. (ECOG) Constitutional Alert, cooperative, oriented. Mood and affect appropriate. Appears close to chronological age. Well nourished. Well developed. Head Normocephalic; no scars. ENMT Sinuses are nontender. No oral exudates, ulcers, masses, thrush or mucositis. Oropharynx clear. Tongue normal. Neck Supple without masses or thyromegaly. No jugular venous distension. Respiratory Lungs are clear to auscultation without rhonchi or wheezing. Cardiovascular Regular rate and rhythm of heart without murmurs, gallops or rubs. Abdomen Non-tender, non-distended, no masses, ascites or hepatosplenomegaly. Good bowel sounds. No guarding or rebound tenderness. Extremities No visible deformities, no cyanosis, clubbing or edema. Pulses 3+ and equal bilaterally. Musculoskeletal No tenderness or swelling, normal range of motion without obvious weakness. Psychiatric Alert and oriented times three. Coherent speech. Verbalizes understanding of our discussions today. Laboratory: Test performed on Jan 12, 2022 13:45 WBC 7.9 10 3/uL RBC 6.42 10 6/uL HGB 16.2 g/dL HCT 54.7 % MCV 85.2 fl MCH 25.2 pg MCHC 29.6 g/dL RDW 26.6 % Platelet Count 313 10 3/cmm MPV 9.8 fL Neutrophils 5.67 10 3/uL Lymphocytes 1.4 10 3/uL Monocytes 0.5 10 3/uL Eosinophils 0.2 10 3/uL Basophils 0.1 10 3/uL Neutrophil % 71.8 % Lymphocyte % 18.2 % Monocyte % 6.2 % Eosinophil % 2.0 % Basophils % 1.5 % NRBC % 0 % Impression: Polycythemia vera, Benja 2 mutation positive, diagnosed in 2016 in hematology clinic at [facility] in [facility] which she initially presented with hematocrit more than 60, treated with aggressive phlebotomies to get hematocrit below 43. Underwent bone marrow evaluation in November 2019 for hydroxyurea therapy, and patient was started on hydroxyurea thousand milligrams p.o. daily, which she tolerated well and then ran out of prescription in March 2020, since then she is off, Restarted on June 18, 2020, Hydroxyurea was held on October 01, 2021 because of Covid infection related signs symptoms, was restarted on November 11, 2021 at 500 mg p.o. daily instead of 1000 mg prior to Covid infection, On December 12, 2021 increased to 1000 mg p.o. on Wednesday, Wednesday and Wednesday and continue with 500 mg p.o. daily on remaining days History of tiny subsegmental pulmonary embolism diagnosed in October 2019, on Eliquis 5 mg p.o. twice daily History of diverticulitis Obesity. Sleep apnea CT scan of abdomen pelvis done on December 10, 2020 showed soft tissue thickening and endocervical area and patient underwent endometrial curettage on February 06, 2021 which shows no atypia, hyperplasia or malignancy identified Status post hysterectomy with no oophorectomy on July 30, 2021 for heavy menstrual.'s Plan: Labs were discussed with patient with WBC at 7.9, hemoglobin 16.2, hematocrit 54.7, and platelets 313,000 Clinically patient is doing fairly well. She does continue to have fatigue. She is currently on oral iron for iron deficiency anemia. Because her hematocrit is at 54.7 we will increase her hydroxyurea to 1000 mg p.o. daily. She will receive a phlebotomy today with 500 cc removed and replaced with 250 cc normal saline. She is to continue her Eliquis at 2.5 mg p.o. twice daily. She will return to the clinic in 2 weeks with CBC and dependent upon labs she may receive another phlebotomy at that time. Signed By: Hortensia Hathaway, N.P. <<Signature on File>>
== END 2022-01-12 13:21 | disposition home or self-care (01) ==
LOC: ONCMED 13:20
PROVIDERS: PCP Nurse Practitioner; Visit Provider Nurse Practitioner Family
DX: D45 Polycythemia vera (principal); D50.9 Iron deficiency anemia, unspecified; E66.9 Obesity, unspecified; G47.33 Obstructive sleep apnea (adult) (pediatric); Z79.899 Other long term (current) drug therapy; Z86.711 Personal history of pulmonary embolism; Z86.16 Personal history of COVID-19
CPT/HCPCS: 85025; 99195; 99214

== ENCOUNTER 2022-01-29 08:23 | Outpatient (CLI) | payer OTHER, SELFPAY ==
[2022-01-29 08:54] LABS: Basophils # 0.1 10^3/uL (0.0-0.1); Basophils % 1.4 %; Eosinophils # 0.2 10^3/uL (0.0-0.8); Eosinophils % 2.7 %; Hematocrit 53.1 % (37.0-47.0); Lymphocytes # 1.5 10^3/uL (0.8-4.8); Lymphocytes % 18.9 %; Mean Corpuscular HGB Conc 30.1 g/dL (30.0-36.0); Mean Corpuscular Volume 89.7 fl (81-99); Mean Platelet Volume 9.8 fL (7.4-10.4); Monocytes # 0.6 10^3/uL (0.2-0.9); Monocytes % 8.1 %; Neutrophils # 5.25 10^3/uL (1.8-7.7); Neutrophils % 68.4 %; Nucleated Red Blood Cells % 0 %; Platelet Count 325 10^3/cmm (130-400); Red Blood Count 5.92 10^6/uL (4.1-5.3); Red Cell Distribution Width 26.1 % (12.1-15.1); White Blood Count 7.7 10^3/uL (4.0-10.0)
--- NOTE | 2022-01-31 12:13 | ONC FU_ITS ---
Dr. Garcia follow up note Patient: Reta Gipson Unit #: [id number]: [id number] Dicatated By: Kris Garcia M.D.Date of Visit:Jan 29, 2022 Onc Med Follow-up/Prog Note History of Present Illness: Ms. Ms. Dulce Gipson, is a 41 -year-old female with a history of polycythemia vera Benja 2+, history of tiny subsegmental pulmonary embolism diagnosed in October 2019 since then she is on Eliquis 5 mg twice a day.As per patient she has history of diverticulitis and In addition to abdominal pain she was also having some chest pain so underwent CT scan of chest abdomen pelvis in October [address] scan of the chest showed small blood clot As per patient in 2016, she was having progressive headaches for which she went for evaluation found to have 'thick' blood, subsequently she was diagnosed with polycythemia as her hematocrit was more than 60, underwent twice a week phlebotomy initially followed by weekly and then every 2 weeks for 6 months to get her hematocrit to the target range e.g. below 43 patient was referred to roll forger and [facility] in [facility] where she underwent genetic testing and Benja 2 mutation came back positive., As per patient she was treated with aspirin and phlebotomies on as-needed basis and last phlebotomy was done in November 2019, in December 2019 she also underwent bone marrow evaluation as her roll forger was considering hydroxyurea so she was started on hydroxyurea 1000 mg p.o. daily, which she took till March 2020 and then stopped taking as she ran out of prescription and she moved to [place] from [place] thus could not get prescription. Patient denies smoking, occasional alcohol. Tolerating hydroxyurea, Phlebotomy done on January 13, 2021 for hematocrit more than 45 she went to [facility] on December 10, 2020 with abdominal pain and CT scan of abdomen was done which showed enhancing left ovarian cyst measuring 2.5 x 3.1 cm. Soft tissue thickening at endocervical junction and internal cervical os, neoplasm is not excluded, as per patient she is being followed by FOUR SLIDE MACHINE SETTER for excessive menses,And underwent D&C on February 06, 2021, as per patient no abnormality was seen, On July 30, 2021 she underwent hysterectomy but no oophorectomy for heavy menstrual periods, Because of generalized weakness and fatigue, hydroxyurea was put on hold on October 01, 2021 as patient was recovering from Covid infection and was restarted on November 11, 2021 at a dose of 500 mg p.o. daily Instead of 1000 mg p.o. daily she was taking prior to Covid infection, Increased to 1000 mg p.o. on Wednesday and Wednesday and to continue with 500 mg p.o. daily on remaining days, Which was increased to 1000 mg p.o. daily. Came for follow-up, denies any specific complaints except right leg numbness especially in the lateral thigh and right knee, as per patient she has this numbness since July 2021, at that time she underwent partial hysterectomy and also diagnosed with Covid infection. Initially this numbness was off and on but now progressive and also complaining of off and on burning/pain sensationdenies any back pain, denies any fever chills denies any nausea or vomiting denies any diarrhea constipation denies any headaches blurred or double vision denies any chest pain or heaviness. Tolerating hydroxyurea 1000 mg p.o. daily well Medications: Cranberry 1 Tablet Oral daily, Eliquis 0.5 Tablet (of 5 mg) Oral b.i.d., Ferrous Sulfate 1 Tablet (of 325 (65 fe) mg) Oral daily, Gabapentin 1 Capsule (of 300 mg) Oral b.i.d., Hydroxyurea 1 Capsule (of 500 mg) Oral b.i.d., Terbinafine HCl 1 Tablet (of 250 mg) Oral daily PRN, Vitamin E 1 Tablet Oral daily Allergies: Esthela Allergy, Flagyl, and guaiFENesin. Review of Systems: Review of Systems is not available for this patient. Vital Signs: Performed on Jan 29, 2022 11:25 Height - 69.50 in Weight - 292.4 lbs (HIGH) BSA - 2.44 sq.m BMI - 42.56 (HIGH) Temperature - 97.3 F (LOW) Pulse - 71 /min Respiration - 18 /min BP - 136/85 mm(hg) O2 Sat - 99 % Pain - 4 Fatigue - 5 Performance Status: 0 - Fully active, able to carry on all predisease activities without restrictions. (ECOG) Physical Examination: ENMT - No mouth sores, no thrush, no jaundice, Respiratory - Lungs are clear to auscultation, Cardiovascular - Regular rate and rhythm of heart, Abdomen - Soft, bowel sounds present, Extremities - No visible edema. Lab/Imaging: Test performed on Jan 12, 2022 13:45 WBC 7.9 10 3/uL RBC 6.42 10 6/uL HGB 16.2 g/dL HCT 54.7 % MCV 85.2 fl MCH 25.2 pg MCHC 29.6 g/dL RDW 26.6 % Platelet Count 313 10 3/cmm MPV 9.8 fL Neutrophils 5.67 10 3/uL Lymphocytes 1.4 10 3/uL Monocytes 0.5 10 3/uL Eosinophils 0.2 10 3/uL Basophils 0.1 10 3/uL Neutrophil % 71.8 % Lymphocyte % 18.2 % Monocyte % 6.2 % Eosinophil % 2.0 % Basophils % 1.5 % NRBC % 0 % Impression: Polycythemia vera, Benja 2 mutation positive, diagnosed in 2016 in hematology clinic at [facility] in [facility] which she initially presented with hematocrit more than 60, treated with aggressive phlebotomies to get hematocrit below 43. Underwent bone marrow evaluation in November 2019 for hydroxyurea therapy, and patient was started on hydroxyurea thousand milligrams p.o. daily, which she tolerated well and then ran out of prescription in March 2020, since then she is off, Restarted on June 18, 2020, Hydroxyurea was held on October 01, 2021 because of Covid infection related signs symptoms, was restarted on November 11, 2021 at 500 mg p.o. daily instead of 1000 mg prior to Covid infection, On December 12, 2021 increased to 1000 mg p.o. on Wednesday, Wednesday and Wednesday and continue with 500 mg p.o. daily on remaining days History of tiny subsegmental pulmonary embolism diagnosed in October 2019, on Eliquis 5 mg p.o. twice daily History of diverticulitis Obesity. Sleep apnea CT scan of abdomen pelvis done on December 10, 2020 showed soft tissue thickening and endocervical area and patient underwent endometrial curettage on February 06, 2021 which shows no atypia, hyperplasia or malignancy identified Status post hysterectomy with no oophorectomy on July 30, 2021 for heavy menstrual.'s Plan: Discussed with patient regarding her labs white blood count 7.7 hemoglobin 16 g hematocrit 53.1 platelets 325,000 Clinically, patient is done well with no new signs symptoms her follow-up CBC shows progressive polycythemia while on hydroxyurea 1000 mg p.o. daily, at this point we will proceed with phlebotomy with 500 cc and 250 normal saline replacement and increase her hydroxyurea dose to 1500 mg on Wednesday and continue with 1000 mg on remaining days and the goal is to keep her hematocrit less than 42 and she will return to clinic in 2 weeks with CBC Patient is using her CPAP machine for sleep apnea on regular basis. As far as her right leg numbness is concerned, etiology unclear could be lumbosacral area pathology like disc prolapse or nerve impingement, will consider MRI scan lumbar spine and also consider referral to neurology for evaluation. Patient was advised in case there is a worsening of symptoms, she need to go to the ER for evaluation. Signed By: Kris Garcia M.D. <<Signature on File>>
== END 2022-01-29 08:24 | disposition home or self-care (01) ==
PROVIDERS: PCP Nurse Practitioner; Visit Provider Nurse Practitioner Family
DX: D75.1 Secondary polycythemia (principal)
CPT/HCPCS: 36415; 85025; 99195; 99214

== ENCOUNTER 2022-02-08 11:21 | Emergency (ER) | payer OTHER, MEDICARE, SELFPAY ==
[2022-02-08 11:36] VITALS: BP 134/79; PULSE 87; RESP 16; TEMP 36.7; O2SAT 98; BMI 42.8
--- NOTE | 2022-02-08 12:12 | XRR_ITS ---
PROCEDURE INFORMATION: Exam: XR Chest Exam date and time: 02/08/2022 12:50 PM Age: 41 years old Clinical indication: Cough TECHNIQUE: Imaging protocol: XR of the chest. Views: 1 view. COMPARISON: CR XR chest 1V portable [id number] 08/11/2021 4:54 AM FINDINGS: Lungs: Unremarkable. No consolidation. Pleural spaces: Unremarkable. No pleural effusion. No pneumothorax. Heart/Mediastinum: Unremarkable. No cardiomegaly. Bones/joints: Unremarkable. XR/XR chest 1V portable [id number] IMPRESSION: No acute findings.
--- NOTE | 2022-02-08 12:24 | W.ED.GENADLT ---
HPI - General Adult General: Chief complaint: Abdominal Pain Stated complaint: Cough, Pain in left side, Time Seen by Provider: 02/08/22 11:47 Source: patient Mode of arrival: ambulatory Limitations: no limitations History of Present Illness: Patient is a 41-year-old female who presents to ED today stating that several days ago she began having nasal congestion and a runny nose. She states since then she has had a scratchy throat, some mild dysphagia and a nonproductive cough. She has not been running fevers. She does not complain of chest pain or obvious shortness of breath. She does states she chronically has shortness of breath following a previous COVID infection. She is complaining of pain to her left abdomen. She is not sure if maybe she strained something in her abdomen secondary to coughing. She reports a history of diverticulitis that has felt similar previously so was concerned for this. She has not had any changes to bowel movements. No vomiting. Onset (ago): day(s) Associated symptoms: Reports dyspnea; Deny chest pain, headache(s), malaise, nausea, rash, palpitations, syncope or vomiting Treatments prior to arrival: none Review of Systems Const: Denies: fever(s), chills, body aches, fatigue or malaise Eyes: Denies: change in vision or blurry vision ENMT: Reports: hoarseness, nasal discharge, nasal congestion and other (hoarseness); Denies: throat pain, uvular edema, enlarged tonsils, odynophagia, mouth pain, swelling of lips/tongue, oral sores, bleeding gums, ear or mastoid pain, post nasal drip or sinus pain Card: Denies: chest pain, palpitations, irregular heart rhythm, edema, swelling of feet/ankles, syncope, pre-syncope, orthopnea, leg pain with exertion or acrocyanosis Resp: Reports: dyspnea and non-productive cough; Denies: productive cough, wheezing, stridor, pain on inspiration, hemoptysis or chest congestion GI: Reports: abdominal pain; Denies: nausea, vomiting or diarrhea : Denies: flank pain, dysuria, hematuria or pelvic pain Musc: Denies: neck pain, back pain, extremity pain or joint pain Skin/Breast: Denies: rash Neuro: Denies: headache(s), numbness in extremities, weakness in extremities, sensory changes, difficulty walking or dizziness PFS ED PFSH: Medical History Acute respiratory distress syndrome (ARDS) Acute respiratory failure with hypoxia Acute respiratory failure with hypoxia Diverticulitis Diagnosed in 2019- Enlarged thyroid gland This is currently being evaluated and managed by Dr. Ferro. She thinks that her thyroid levels were normal. Multifocal pneumonia No pertinent past medical history Denies diabetes, asthma, seizures, DVT. PMD: ABI [place] Pneumonia due to COVID-19 virus Polycythemia vera Has had symptoms since about 2013 and was diagnosed in 2016. She currently sees heme oncology-Dr. Garcia and is on medication for this. Pulmonary embolism Surgical History History of tubal ligation March 2009--laparoscopic procedure Status post hysteroscopy 02/06/2021--hysteroscopy performed for possible endometrial polyp on [place] [facility] [place] no obvious intracavitary abnormalities including polyp identified. D&C performed and pathology showed secretory and proliferative endometrium without atypia hyperplasia or malignancy. Family History Father Chronic kidney disease (CKD) Hypertension Sister Chronic kidney disease (CKD) Psychiatric illness Mother Thyroid disease Grandmother Thyroid disease Maternal Denies family history of Colon cancer Ovarian cancer Diabetes Heart disease Breast cancer Bleeding disorder Uterine cancer Stroke Social History Alcohol intake: former Female Reproductive History: Date of last menstrual period: 07/18/21 Physical Exam Const: COMMON NORMALS: no acute distress, patient oriented x3, no limitations and alert GENERAL APPEARANCE: cooperative NUTRITIONAL APPEARANCE: obese morbidly obese ORIENTATION/CONSCIOUSNESS: Yes awake, Yes oriented to person, Yes oriented to place and Yes oriented to time HENMT: COMMON NORMALS: normocephalic and atraumatic HEAD & SCALP: normal to inspection, normocephalic and atraumatic FACE & SINUS: normal facial exam MOUTH: Normal oral and palatal mucosa present, lip normal and tongue normal THROAT: posterior oropharynx normal, tonsils normal and uvula midline; no uvular edema OTHER: hoarseness Eye: COMMON NORMALS: Equal, round and reactive pupils present and EOMs intact bilaterally GENERAL EYE: appearance normal, both eyes and all related structures PUPIL: Yes Equal, round and reactive pupils present Neck/C-Spine: COMMON NORMALS: full ROM, no lymphadenopathy, no meningeal signs and Thyroid normal GENERAL: Yes normal visual inspection, No anterior neck swelling, No tender, No tracheal deviation, No submandibular swelling and No Mass present (neck) THYROID: Thyroid normal CERVICAL SPINE: Yes cervical ROM normal Chest: COMMONS NORMALS: normal inspection of the chest and normal palpation of entire chest wall Resp: COMMON NORMALS: normal respiratory effort and clear to auscultation bilaterally AUSCULTATION: clear to auscultation bilaterally Cardio: COMMON NORMALS: regular rate and regular rhythm RATE: regular rate RHYTHM: regular rhythm GI: COMMON NORMALS: Normal to inspection, nondistended, normoactive bowel sounds present, Soft to palpation and no masses INSPECTION: Yes normal to inspection AUSCULTATION: Yes normoactive bowel sounds PALPATION: Yes Soft to palpation and Yes Tenderness to palpation present (GI) (throughout abdomen but mainly to L side) OTHER: exam limited secondary to body habitus : COMMON NORMALS: Yes no CVA tenderness BLADDER/KIDNEY EXAM: Yes no CVA tenderness Back/Pelvis: COMMON NORMALS: no CVA tenderness Extremity: COMMON NORMALS: normal to inspection GENERAL: Yes normal exam except as noted Neuro: ALEXIS COMA SCALE: document GCS findings Alexis coma scale eye opening: Spontaneous [place] coma scale verbal response: Orientated Alexis coma scale motor response: Obey commands Alexis coma scale total score: 15 COMMON NORMALS: patient oriented x3, moves all extremities, no focal motor deficits, no sensory deficits noted and gait normal SENSORIUM/ORIENTATION: Yes alert, Yes oriented to person, Yes oriented to place and Yes oriented to time MENINGEAL SIGNS: Yes no meningeal signs Skin: COMMON NORMALS: no rashes or lesions noted GENERAL SKIN EXAM: no rashes or lesions noted Course Vital Signs: Vital signs: Vital Signs Temperature 98.1 F 02/08/22 11:36 Pulse Rate 85 02/08/22 14:01 Respiratory Rate 14 02/08/22 14:01 Blood Pressure 123/75 02/08/22 14:01 Pulse Oximetry 95 02/08/22 14:01 [facility] - General Adult Medical Decision Making Patient appears in no acute distress. Her CXR is normal. Blood work consisting of CBC, CMP, D-dimer, UA are all unremarkable. CT imaging of her abdomen/pelvis reveals no diverticulitis or other acute abnormality. She does have a small ventral hernia-possibly source of her pain during coughing? Hernia is not incarcerated or strangulated. It was not palpated on physical exam. Other symptoms could be related to viral upper respiratory infection. She does randomly mention an appointment with ENT tomorrow in regards to her thyroid. I did not appreciate an obvious goiter today however this could be somewhat masked given her body habitus. Patient herself has not noticed any neck swelling. We did discuss how rarely goiters can cause exertional dyspnea, cough, dysphagia, and laryngeal nerve compression/hoarseness so I would like her to keep this appointment with Dr. Mendoza tomorrow to see if he felt like any of her symptoms could be related. Return to ED precautions given. Lab Data : 02/08/22 13:00 02/08/22 13:00 Radiology Impressions Chest X-Ray 02/08/22 12:12 IMPRESSION: No acute findings. Abdomen/Pelvis CT 02/08/22 13:56 IMPRESSION: Hepatosplenomegaly stable since prior Sigmoid colon diverticulosis. Small ventral hernia anterior central abdomen Laboratory Results WBC 8.4 10^3/uL (4.0-10.0) 02/08/22 13:00 RBC 5.82 10^6/uL (4.1-5.3) H 02/08/22 13:00 Hgb 16.0 g/dL (11.5-15.3) H 02/08/22 13:00 Hct 52.2 % (37.0-47.0) H 02/08/22 13:00 MCV 89.7 fl (81-99) 02/08/22 13:00 MCH 27.5 pg (28.0-34.0) L 02/08/22 13:00 MCHC 30.7 g/dL (30.0-36.0) 02/08/22 13:00 RDW 23.5 % (12.1-15.1) H 02/08/22 13:00 Plt Count 291 10^3/cmm (130-400) 02/08/22 13:00 MPV 9.7 fL (7.4-10.4) 02/08/22 13:00 Neut % (Auto) 72.4 % 02/08/22 13:00 Lymph % (Auto) 17.0 % 02/08/22 13:00 Dale % (Auto) 7.6 % 02/08/22 13:00 Eos % (Auto) 1.8 % 02/08/22 13:00 Baso % (Auto) 1.0 % 02/08/22 13:00 Neut # (Auto) 6.06 10^3/uL (1.8-7.7) 02/08/22 13:00 Lymph # (Auto) 1.4 10^3/uL (0.8-4.8) 02/08/22 13:00 Dale # (Auto) 0.6 10^3/uL (0.2-0.9) 02/08/22 13:00 Eos # (Auto) 0.2 10^3/uL (0.0-0.8) 02/08/22 13:00 Baso # (Auto) 0.1 10^3/uL (0.0-0.1) 02/08/22 13:00 Nucleated RBC % (auto) 0 % 02/08/22 13:00 Nucleated RBCs # 0.0 /100WBC 02/08/22 13:00 D-Dimer 0.42 ug/mIFEU (0-0.59) 02/08/22 13:18 Sodium 136 mmol/L (136-145) 02/08/22 13:00 Potassium 4.5 mmol/L (3.5-5.1) 02/08/22 13:00 Chloride 104 mmol/L (98-107) 02/08/22 13:00 Carbon Dioxide 25 mmol/L (22-29) 02/08/22 13:00 Anion Gap 11.5 (5-19) 02/08/22 13:00 BUN 11 mg/dL (6-20) 02/08/22 13:00 Creatinine 0.7 mg/dL (0.5-0.9) 02/08/22 13:00 GFR Calculation 92.2 mL/min (90-130) 02/08/22 13:00 Glucose 82 mg/dL (65-115) 02/08/22 13:00 Calculated Osmolality 280 mOsm/kg (285-295) L 02/08/22 13:00 Calcium 9.7 mg/dL (8.5-10.5) 02/08/22 13:00 Total Bilirubin 0.4 mg/dL (0.15-1.2) 02/08/22 13:00 AST 19 U/L (0-32) 02/08/22 13:00 ALT 25 U/L (0-33) 02/08/22 13:00 Alkaline Phosphatase 89 IU/L (35-105) 02/08/22 13:00 Total Protein 6.8 g/dL (6.6-8.7) 02/08/22 13:00 Albumin 4.3 g/dL (3.5-5.2) 02/08/22 13:00 Globulin 2.5 g/dL (1.3-4.6) 02/08/22 13:00 Lipase 22 U/L (13-60) 02/08/22 13:00 Urine Color Yellow (Yellow) 02/08/22 12:32 Urine Appearance Clear (CLEAR) 02/08/22 12:32 Urine pH 5 (5-7) 02/08/22 12:32 Ur Specific Manley 1.025 (1.005-1.030) 02/08/22 12:32 Urine Protein Neg (Negative) 02/08/22 12:32 Urine Glucose (UA) Norm (Normal) 02/08/22 12:32 Urine Ketones Negative (Negative) 02/08/22 12:32 Urine Blood Neg (Negative) 02/08/22 12:32 Urine Nitrate Negative (Negative) 02/08/22 12:32 Urine Bilirubin Neg (Negative) 02/08/22 12:32 Urine Urobilinogen Norm mg/dL (Negative) 02/08/22 12:32 Ur Leukocyte Esterase Negative (Negative) 02/08/22 12:32 Discharge Plan Discharge Patient Disposition: Home Clinical Impression: Viral URI with cough Abdominal pain Qualifiers: Abdominal location: left lower quadrant Qualified Code(s): R10.32 - Left lower quadrant pain Condition: Stable Prescriptions: No Action gabapentin 300 mg capsule 600 mg PO BID 0RF Eliquis 5 mg tablet 5 mg PO DAILY 0RF iron 18 mg Tablet 18 mg PO DAILY 0RF Multi For Her 18 mg iron-600 mcg-40 mcg Capsule 1 tab-cap PO DAILY 0RF pantoprazole 40 mg tablet,delayed release (DR/EC) 40 mg PO DAILY 56 Days 0RF hydroxyurea 500 mg capsule See Rx Instructions .ROUTE .COMPLEX 0RF Hold Instructions: Resume on 09/14/21. Rx Instructions: 500 MG PO DAILY ON WED,E,,SAT.- 500 MG BID MON,WED,FRI. 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
--- NOTE | 2022-02-08 12:30 | PC.NURSE ---
Patient here today for lower left sided abdominal pain that started a few days ago. Patient states pain increases when she coughs. Patient alert and oriented. Patient states she has intermittent constipation. Patient ambulated to bathroom for urine sample. Patient observed to have steady gait.
[2022-02-08 13:12] LABS: Basophils # 0.1 10^3/uL (0.0-0.1); Eosinophils # 0.2 10^3/uL (0.0-0.8); Eosinophils % 1.8 %; Hematocrit 52.2 % (37.0-47.0); Lymphocytes # 1.4 10^3/uL (0.8-4.8); Mean Corpuscular HGB Conc 30.7 g/dL (30.0-36.0); Mean Corpuscular Hemoglobin 27.5 pg (28.0-34.0); Mean Corpuscular Volume 89.7 fl (81-99); Mean Platelet Volume 9.7 fL (7.4-10.4); Monocytes # 0.6 10^3/uL (0.2-0.9); Monocytes % 7.6 %; Neutrophils # 6.06 10^3/uL (1.8-7.7); Neutrophils % 72.4 %; Nucleated Red Blood Cells % 0 %; Platelet Count 291 10^3/cmm (130-400); Red Blood Count 5.82 10^6/uL (4.1-5.3); Red Cell Distribution Width 23.5 % (12.1-15.1); White Blood Count 8.4 10^3/uL (4.0-10.0)
[2022-02-08 13:41] LABS: Alanine Aminotransferase 25 U/L (0-33); Albumin Level 4.3 g/dL (3.5-5.2); Alkaline Phosphatase 89 IU/L (35-105); Anion Gap 11.5 (5-19); Aspartate Amino Transferase 19 U/L (0-32); Blood Urea Nitrogen 11 mg/dL (6-20); Calcium 9.7 mg/dL (8.5-10.5); Carbon Dioxide 25 mmol/L (22-29); Chloride 104 mmol/L (98-107); Globulin 2.5 g/dL (1.3-4.6); Glomerular Filtration Rate 92.2 mL/min (90-130); Glucose 82 mg/dL (65-115); Lipase 22 U/L (13-60); Osmolality Calculated 280 mOsm/kg (285-295); Potassium 4.5 mmol/L (3.5-5.1); Sodium 136 mmol/L (136-145); Total Bilirubin 0.4 mg/dL (0.15-1.2); Total Protein 6.8 g/dL (6.6-8.7)
[2022-02-08 13:49] LABS: D Dimer 0.42 ug/mIFEU (0-0.59)
[2022-02-08 13:52] LABS: Add Urine Microscopic? NO; Charge for UA Resulting for Rev
--- NOTE | 2022-02-08 13:56 | CTR_ITS ---
PROCEDURE INFORMATION: Exam: CT Abdomen And Pelvis With Contrast Exam date and time: 02/08/2022 2:11 PM Age: 41 years old Clinical indication: Abdominal pain; Localized; Left lower quadrant (llq); Prior surgery; Surgery date: 6+ months; Surgery type: Tubal, hysteroscopy; Patient HX: C/O llq abd pain for a few days; Additional info: Abdominal pain; HX diverticulitis TECHNIQUE: Imaging protocol: Computed tomography of the abdomen and pelvis with contrast. Radiation optimization: All CT scans at this facility use at least one of these dose optimization techniques: automated exposure control; mA and/or kV adjustment per patient size (includes targeted exams where dose is matched to clinical indication); or iterative reconstruction. Contrast material: OMNI 300; Contrast volume: 95 ml; Contrast route: INTRAVENOUS (IV); COMPARISON: CT abdomen pelvis w con* [id number] 02/10/2021 3:49 PM RADIATION DOSE METRICS: Total DLP (mGy-cm): 2087.56 FINDINGS: Liver: Normal. No mass. There is stable hepatomegaly the liver span is 19.6 cm. Gallbladder and bile ducts: Normal. No calcified stones. No ductal dilation. Pancreas: Normal. No ductal dilation. Spleen: There is stable splenomegaly. The spleen measures 16 cm. Adrenal glands: Normal. No mass. Kidneys and ureters: Normal. No hydronephrosis. Stomach and bowel: Unremarkable. No obstruction. No mucosal thickening. Prior sigmoid colon diverticulitis has now resolved. Sigmoid colon diverticulosis is seen. Appendix: No evidence of appendicitis. Intraperitoneal space: Unremarkable. No free air. No significant fluid collection. Vasculature: Unremarkable. No abdominal aortic aneurysm. Lymph nodes: Unremarkable. No enlarged lymph nodes. Urinary bladder: Unremarkable as visualized. Reproductive: Unremarkable as visualized. Bones/joints: Unremarkable. No acute fracture. Soft tissues: There is a small ventral hernia seen in the anterior central abdomen CT/CT abdomen pelvis w con* [id number] IMPRESSION: Hepatosplenomegaly stable since prior Sigmoid colon diverticulosis. Small ventral hernia anterior central abdomen
[2022-02-08 14:01] VITALS: BP 123/75; PULSE 85; RESP 14; O2SAT 95
[2022-02-08 14:08] LABS: Bilirubin Urine Neg (Negative); Blood Urine Neg (Negative); Glucose Urine UA Norm (Normal); Ketones Urine Negative (Negative); Leukocyte Esterase Urine Negative (Negative); Nitrate Urine Negative (Negative); Protein Urine Neg (Negative); Specific Gravity, Urine 1.025 (1.005-1.030); Urine Appearance Clear (CLEAR); Urine Color Yellow (Yellow); Urobilinogen Urine Norm (Negative); pH Urine 5 (5-7)
[2022-02-08] MEDS: iohexol 300 mg/mL 100 mL Btl IV (14:10)
[2022-02-08 15:27] VITALS: BP 118/78; PULSE 80; RESP 16; O2SAT 96
== END 2022-02-08 15:28 | disposition home or self-care (01) ==
PROVIDERS: Emergency Provider Physician Assistant; PCP Nurse Practitioner
DX: R10.32 Left lower quadrant pain (principal); J06.9 Acute upper respiratory infection, unspecified; Z79.01 Long term (current) use of anticoagulants
CPT/HCPCS: 71045; 74177; 80053; 81003; 83690; 85025; 85378; 99283; Q9967

== ENCOUNTER 2022-02-12 08:03 | Outpatient (CLI) | payer OTHER, SELFPAY ==
[2022-02-12 08:25] LABS: Basophils # 0.1 10^3/uL (0.0-0.1); Basophils % 1.4 %; Eosinophils # 0.2 10^3/uL (0.0-0.8); Eosinophils % 2.9 %; Hematocrit 53.5 % (37.0-47.0); Hemoglobin 16.2 g/dL (11.5-15.3); Lymphocytes # 1.1 10^3/uL (0.8-4.8); Lymphocytes % 17.1 %; Mean Corpuscular HGB Conc 30.3 g/dL (30.0-36.0); Mean Corpuscular Hemoglobin 27.7 pg (28.0-34.0); Mean Corpuscular Volume 91.6 fl (81-99); Mean Platelet Volume 9.8 fL (7.4-10.4); Monocytes # 0.4 10^3/uL (0.2-0.9); Monocytes % 6.2 %; Neutrophils # 4.81 10^3/uL (1.8-7.7); Neutrophils % 72.1 %; Nucleated Red Blood Cells % 0 %; Platelet Count 255 10^3/cmm (130-400); Red Blood Count 5.84 10^6/uL (4.1-5.3); Red Cell Distribution Width 22.3 % (12.1-15.1); White Blood Count 6.7 10^3/uL (4.0-10.0)
--- NOTE | 2022-02-13 12:08 | ONC FU_ITS ---
Dr. Garcia follow up note Patient: Reta Gipson Unit #: [id number]: 1980 Dicatated By: Kris Garcia M.D.Date of Visit:Feb 12, 2022 Onc Med Follow-up/Prog Note History of Present Illness: Ms. Ms. Dulce Gipson, is a 41 -year-old female with a history of polycythemia vera Benja 2+, history of tiny subsegmental pulmonary embolism diagnosed in October 2019 since then she is on Eliquis 5 mg twice a day.As per patient she has history of diverticulitis and In addition to abdominal pain she was also having some chest pain so underwent CT scan of chest abdomen pelvis in October [address] scan of the chest showed small blood clot As per patient in 2016, she was having progressive headaches for which she went for evaluation found to have 'thick' blood, subsequently she was diagnosed with polycythemia as her hematocrit was more than 60, underwent twice a week phlebotomy initially followed by weekly and then every 2 weeks for 6 months to get her hematocrit to the target range e.g. 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 daily, which she took till March 2020 and then stopped taking as she ran out of prescription and she moved to [place] from [place] thus could not get prescription. Patient denies smoking, occasional alcohol. Tolerating hydroxyurea, Phlebotomy done on January 13, 2021 for hematocrit more than 45 she went to [facility] on December 10, 2020 with abdominal pain and CT scan of abdomen was done which showed enhancing left ovarian cyst measuring 2.5 x 3.1 cm. Soft tissue thickening at endocervical junction and internal cervical os, neoplasm is not excluded, as per patient she is being followed by [facility] for excessive menses,And underwent D&C on February 06, 2021, as per patient no abnormality was seen, On July 30, 2021 she underwent hysterectomy but no oophorectomy for heavy menstrual periods, Because of generalized weakness and fatigue, hydroxyurea was put on hold on October 01, 2021 as patient was recovering from Covid infection and was restarted on November 11, 2021 at a dose of 500 mg p.o. daily Instead of 1000 mg p.o. daily she was taking prior to Covid infection, Increased to 1000 mg p.o. on Wednesday and Wednesday and to continue with 500 mg p.o. daily on remaining days, Which was increased to 1000 mg p.o. daily. On February 12, 2022, her hydroxyurea dose was increased to 1500 mg p.o. daily from 1500 mg p.o. Wednesday, Wednesday and Wednesday and 1000 mg on remaining days. Came for follow-up, complaining of generalized weakness and fatigue, no nausea or vomiting, no diarrhea constipation, mild headaches, as per patient anytime her 'blood' goes up she will get this kind of symptoms. Now trying to use her CPAP machine as recommended by PMD, patient said she is using humidifier as earlier with CPAP machine she was experiencing some dryness in upper airways. Tolerating hydroxyurea well along with phlebotomy Medications: Biotene Dry Mouth Liquid Mouth/throat daily, Cranberry 1 Tablet Oral daily, Daily Vitamins 1 Tablet Oral daily, Eliquis 0.5 Tablet (of 5 mg) Oral b.i.d., Gabapentin 1 Capsule (of 300 mg) Oral b.i.d., Hydroxyurea (500 mg) Capsule Oral Take as Directed, Terbinafine HCl 1 Tablet (of 250 mg) Oral daily PRN Allergies: Esthela Allergy, Flagyl, and guaiFENesin. Review of Systems: Review of Systems is not available for this patient. Vital Signs: Performed on Feb 12, 2022 11:41 Height - 69.50 in Weight - 289.4 lbs (LOW) BSA - 2.43 sq.m BMI - 42.12 (HIGH) Temperature - 97.5 F (LOW) Pulse - 88 /min Respiration - 16 /min BP - 116/82 mm(hg) O2 Sat - 98 % Pain - 2 Fatigue - 7 Performance Status: 0 - Fully active, able to carry on all predisease activities without restrictions. (ECOG) Physical Examination: ENMT - No mouth sores, no thrush, no jaundice, Respiratory - Poor air entry otherwise clear, Cardiovascular - Regular rate and rhythm of heart, Abdomen - Soft, bowel sounds present, Extremities - No visible edema. Lab/Imaging: Test performed on Jan 12, 2022 13:45 WBC 7.9 10 3/uL RBC 6.42 10 6/uL HGB 16.2 g/dL HCT 54.7 % MCV 85.2 fl MCH 25.2 pg MCHC 29.6 g/dL RDW 26.6 % Platelet Count 313 10 3/cmm MPV 9.8 fL Neutrophils 5.67 10 3/uL Lymphocytes 1.4 10 3/uL Monocytes 0.5 10 3/uL Eosinophils 0.2 10 3/uL Basophils 0.1 10 3/uL Neutrophil % 71.8 % Lymphocyte % 18.2 % Monocyte % 6.2 % Eosinophil % 2.0 % Basophils % 1.5 % NRBC % 0 % Impression: Polycythemia vera, Benja 2 mutation positive, diagnosed in 2016 in hematology clinic at [facility] in [facility] which she initially presented with hematocrit more than 60, treated with aggressive phlebotomies to get hematocrit below 43. Underwent bone marrow evaluation in November 2019 for hydroxyurea therapy, and patient was started on hydroxyurea thousand milligrams p.o. daily, which she tolerated well and then ran out of prescription in March 2020, since then she is off, Restarted on June 18, 2020, Hydroxyurea was held on October 01, 2021 because of Covid infection related signs symptoms, was restarted on November 11, 2021 at 500 mg p.o. daily instead of 1000 mg prior to Covid infection, On December 12, 2021 increased to 1000 mg p.o. on Wednesday, Wednesday and Wednesday and continue with 500 mg p.o. daily on remaining days History of tiny subsegmental pulmonary embolism diagnosed in October 2019, on Eliquis 5 mg p.o. twice daily History of diverticulitis Obesity. Sleep apnea CT scan of abdomen pelvis done on December 10, 2020 showed soft tissue thickening and endocervical area and patient underwent endometrial curettage on February 06, 2021 which shows no atypia, hyperplasia or malignancy identified Status post hysterectomy with no oophorectomy on July 30, 2021 for heavy menstrual.'s Plan: Discussed with patient regarding her labs white blood count 6.7 hemoglobin 16.2 hematocrit 53.5 compared to 53.1 prior to phlebotomy done on January 29, 2022, platelets 255,000 Clinically, patient is doing reasonably well with no new signs symptom except headaches but no chest pain or heaviness no palpitation. Her follow-up lab work-up shows persistent polycythemia, at this point we will increase her hydroxyurea dose to 1500 mg p.o. daily in an effort to minimize phlebotomy requirement which is causing severe iron deficiency, which may be contributing to her generalized weakness and fatigue. Patient was told etiology of her generalized weakness and fatigue appears to be multifactorial including underlying sleep apnea. She was encouraged to use CPAP machine as recommended by PMD and we will continue with phlebotomy on a weekly basis in an effort to get her hematocrit below 42 and continue to monitor her blood counts while on hydroxyurea. Return to clinic in 1 month with CBC while continue with phlebotomy on a weekly basis. Signed By: Kris Garcia M.D. <<Signature on File>>
== END 2022-02-12 08:04 | disposition home or self-care (01) ==
PROVIDERS: PCP Nurse Practitioner; Visit Provider Nurse Practitioner Family
DX: D45 Polycythemia vera (principal); E66.9 Obesity, unspecified; G47.33 Obstructive sleep apnea (adult) (pediatric); Z79.899 Other long term (current) drug therapy
CPT/HCPCS: 85025; 99195; 99214

== ENCOUNTER 2022-03-05 06:42 | Outpatient (RCR) | payer OTHER, SELFPAY ==
[2022-02-26 12:07] LABS: Basophils # 0.1 10^3/uL (0.0-0.1); Basophils % 1.5 %; Eosinophils # 0.1 10^3/uL (0.0-0.8); Eosinophils % 1.8 %; Hemoglobin 15.7 g/dL (11.5-15.3); Lymphocytes # 1.3 10^3/uL (0.8-4.8); Lymphocytes % 22.1 %; Mean Corpuscular HGB Conc 30.8 g/dL (30.0-36.0); Mean Corpuscular Hemoglobin 28.3 pg (28.0-34.0); Mean Corpuscular Volume 92.1 fl (81-99); Mean Platelet Volume 9.8 fL (7.4-10.4); Monocytes # 0.4 10^3/uL (0.2-0.9); Monocytes % 7.3 %; Neutrophils # 4.03 10^3/uL (1.8-7.7); Neutrophils % 67.1 %; Nucleated Red Blood Cells % 0 %; Platelet Count 199 10^3/cmm (130-400); Red Blood Count 5.54 10^6/uL (4.1-5.3); Red Cell Distribution Width 17.9 % (12.1-15.1)
[2022-03-05 09:33] LABS: Basophils # 0.1 10^3/uL (0.0-0.1); Basophils % 1.1 %; Eosinophils # 0.1 10^3/uL (0.0-0.8); Eosinophils % 1.8 %; Hematocrit 48.2 % (37.0-47.0); Hemoglobin 14.7 g/dL (11.5-15.3); Lymphocytes # 1.1 10^3/uL (0.8-4.8); Lymphocytes % 19.2 %; Mean Corpuscular HGB Conc 30.5 g/dL (30.0-36.0); Mean Corpuscular Hemoglobin 28.2 pg (28.0-34.0); Mean Corpuscular Volume 92.5 fl (81-99); Mean Platelet Volume 9.7 fL (7.4-10.4); Monocytes # 0.3 10^3/uL (0.2-0.9); Monocytes % 5.3 %; Neutrophils # 3.96 10^3/uL (1.8-7.7); Neutrophils % 72.2 %; Nucleated Red Blood Cells % 0 %; Platelet Count 159 10^3/cmm (130-400); Red Blood Count 5.21 10^6/uL (4.1-5.3); White Blood Count 5.5 10^3/uL (4.0-10.0)
[2022-03-05] MEDS: sodium chloride 0.9% 250 ML 999 ML IV (11:45)
== END 2022-03-14 23:59 | disposition home or self-care (01) ==
LOC: ONCMED 06:42
PROVIDERS: PCP Nurse Practitioner; Visit Provider Internal Medicine Hematology & Oncology
DX: D75.1 Secondary polycythemia (principal); Z79.899 Other long term (current) drug therapy
CPT/HCPCS: 85025; 96360; 99195; J7050

== ENCOUNTER → 2022-03-26 09:49 | Outpatient (BNVA) | payer OTHER, SELFPAY | PROVIDERS: PCP Nurse Practitioner; Visit Provider Podiatrist Foot & Ankle Surgery | DX: L60.0 Ingrowing nail (principal); L60.8 Other nail disorders | CPT/HCPCS: 99213 ==

== ENCOUNTER 2022-03-30 10:14 | Outpatient (CLI) | payer OTHER, SELFPAY ==
--- NOTE | 2022-03-30 10:35 | MM_ITS ---
WS: [id number] BILATERAL SCREENING DIGITAL BREAST TOMOSYNTHESIS MAMMOGRAM WITH CAD HISTORY: SCREENING COMPARISON: 01/22/2021 and 12/28/2017 Bilateral CC and MLO views with tomosynthesis and synthetic mammography submitted. Computer aided det ection analyzed. Breast composition: There are scattered areas of fibroglandular density. No suspicious masses, microc alcifications or architectural distortion. MM/[place] [id number] IMPRESSION: BI-RADS: 1-Negative FOLLOW UP: 1 Year Follow-up
== END 2022-03-30 10:15 | disposition home or self-care (01) ==
LOC: RAD 10:19
PROVIDERS: PCP Nurse Practitioner; Visit Provider Nurse Practitioner
DX: Z12.31 Encounter for screening mammogram for malignant neoplasm of breast (principal)
CPT/HCPCS: 77063; 77067

== ENCOUNTER 2022-04-07 11:00 | Oncology outpatient (recurring) (ONCR) | payer OTHER, SELFPAY ==
[2022-04-07 11:54] LABS: Basophils # 0.1 10^3/uL (0.0-0.1); Basophils % 1.1 %; Eosinophils # 0.1 10^3/uL (0.0-0.8); Eosinophils % 2.6 %; Hematocrit 39.8 % (37.0-47.0); Hemoglobin 12.6 g/dL (11.5-15.3); Lymphocytes # 1.1 10^3/uL (0.8-4.8); Lymphocytes % 23.9 %; Mean Corpuscular HGB Conc 31.7 g/dL (30.0-36.0); Mean Corpuscular Volume 97.8 fl (81-99); Mean Platelet Volume 10.4 fL (7.4-10.4); Monocytes # 0.4 10^3/uL (0.2-0.9); Monocytes % 8.6 %; Neutrophils # 2.89 10^3/uL (1.8-7.7); Neutrophils % 63.4 %; Nucleated Red Blood Cells % 0 %; Platelet Count 184 10^3/cmm (130-400); Red Blood Count 4.07 10^6/uL (4.1-5.3); Red Cell Distribution Width 17.1 % (12.1-15.1); White Blood Count 4.6 10^3/uL (4.0-10.0)
== END 2022-04-14 23:59 | disposition home or self-care (01) ==
PROVIDERS: PCP Nurse Practitioner; Visit Provider Internal Medicine Hematology & Oncology
DX: D45 Polycythemia vera (principal); G44.89 Other headache syndrome; N92.6 Irregular menstruation, unspecified; R53.1 Weakness; R53.82 Chronic fatigue, unspecified; I26.99 Other pulmonary embolism without acute cor pulmonale; Z79.01 Long term (current) use of anticoagulants; M72.2 Plantar fascial fibromatosis; F10.20 Alcohol dependence, uncomplicated; Z79.899 Other long term (current) drug therapy; Z86.16 Personal history of COVID-19; Z87.01 Personal history of pneumonia (recurrent)
CPT/HCPCS: 85025; 99214; 99999

== ENCOUNTER 2022-04-09 05:46 | Emergency (ER) | payer OTHER, MEDICARE, SELFPAY ==
[2022-04-09 05:51] VITALS: BP 149/97; PULSE 75; RESP 18; TEMP 36.2; O2SAT 99; BMI 42.8
[2022-04-09 06:29] VITALS: BP 119/89; PULSE 69; RESP 16; O2SAT 97
--- NOTE | 2022-04-09 06:29 | W.ED.EXTPRO ---
HPI - Extremity Problem General: Chief complaint: Extremity Problem,Nontraumatic Stated complaint: R leg numb Time Seen by Provider: 04/09/22 06:12 History of Present Illness: Patient comes in with right lower back pain that radiates into her right leg. States that she has had numbness in the right thigh since her hysterectomy 8 months ago. States that she was referred to the emergency department by her physician due to concern that something might be wrong. Patient states she does not know specifically what the concern was. States she has been dealing with this for about 8 months and was told that it did not sound like it was her sciatic nerve. She describes the pain as sharp/burning starting in her right lower back and radiating into her right thigh. States it is gotten worse recently. On physical exam she has a positive straight leg raise test on the right. She denies perianal numbness, urinary retention, or leg weakness. Her symptoms are very consistent with sciatic nerve pain. She states she has an appointment to see a specialist and get an MRI in 2 months. Associated symptoms: Deny chest pain, fever(s) or rash Review of Systems Const: Denies: fever(s) or body aches Eyes: Denies: change in vision or blurry vision ENMT: Denies: throat pain or odynophagia Card: Denies: chest pain or palpitations Resp: Denies: dyspnea or productive cough GI: Denies: abdominal pain, nausea or vomiting : Denies: flank pain or dysuria Musc: Denies: neck pain or back pain Skin/Breast: Denies: rash or pruritus Neuro: Denies: headache(s) or numbness in extremities Psych: Denies: anxiety or change in appetite Endo: Denies: polyuria or excessive sweating PFS ED PFSH: Medical History (Updated 04/09/22 @ 06:28 by Josué Graham MD) Acute respiratory distress syndrome (ARDS) Acute respiratory failure with hypoxia Acute respiratory failure with hypoxia Diverticulitis Diagnosed in 2019- Enlarged thyroid gland This is currently being evaluated and managed by Dr. Ferro. She thinks that her thyroid levels were normal. Multifocal pneumonia No pertinent past medical history Denies diabetes, asthma, seizures, DVT. PMD: ABI [place] Pneumonia due to COVID-19 virus Polycythemia vera Has had symptoms since about 2013 and was diagnosed in 2016. She currently sees heme oncology-Dr. Garcia and is on medication for this. Polycythemia vera Pulmonary embolism Surgical History History of tubal ligation March 2009--laparoscopic procedure Status post hysteroscopy 02/06/2021--hysteroscopy performed for possible endometrial polyp on ultrasound[place] [facility] [place]oscopy no obvious intracavitary abnormalities including polyp identified. D&C performed and pathology showed secretory and proliferative endometrium without atypia hyperplasia or malignancy. Family History Father Chronic kidney disease (CKD) Hypertension Sister Chronic kidney disease (CKD) Psychiatric illness Mother Thyroid disease Grandmother Thyroid disease Maternal Denies family history of Colon cancer Ovarian cancer Diabetes Heart disease Breast cancer Bleeding disorder Uterine cancer Stroke Social History (Updated 04/07/22 @ 13:31 by Harmony Burrell LPN) Smoking and tobacco status: never smoked Alcohol intake: former Female Reproductive History: Date of last menstrual period: 07/18/21 Physical Exam Const: COMMON NORMALS: no acute distress, patient oriented x3, healthy appearing and alert HENMT: COMMON NORMALS: normocephalic and atraumatic HEAD & SCALP: normocephalic and atraumatic Eye: COMMON NORMALS: Equal, round and reactive pupils present and EOMs intact bilaterally PUPIL: Yes Equal, round and reactive pupils present Neck/C-Spine: COMMON NORMALS: full ROM and supple Resp: COMMON NORMALS: normal respiratory effort, No retractions and No use of accessory muscles Cardio: COMMON NORMALS: regular rate and regular rhythm RATE: regular rate RHYTHM: regular rhythm GI: COMMON NORMALS: Normal to inspection, nondistended, normoactive bowel sounds present, Soft to palpation and non-tender PALPATION: Yes Soft to palpation Back/Pelvis: OTHER: Positive straight leg raise test on the right Extremity: COMMON NORMALS: normal to inspection and full ROM Neuro: COMMON NORMALS: patient oriented x3 SENSORIUM/ORIENTATION: Yes alert Psych: COMMON NORMALS: mental status grossly normal and cooperative Skin: COMMON NORMALS: no rashes or lesions noted and no wounds GENERAL SKIN EXAM: no rashes or lesions noted Course Vital Signs: Vital signs: Vital Signs Temperature 97.2 F L 04/09/22 05:51 Pulse Rate 75 04/09/22 05:51 Respiratory Rate 18 04/09/22 05:51 Blood Pressure 149/97 04/09/22 05:51 Pulse Oximetry 99 04/09/22 05:51 MDM - Extremity (Nontraumatic) Medical Decision Making Patient comes in with right lower back pain that radiates into her right leg. States that she has had numbness in the right thigh since her hysterectomy 8 months ago. States that she was referred to the emergency department by her physician due to concern that something might be wrong. Patient states she does not know specifically what the concern was. States she has been dealing with this for about 8 months and was told that it did not sound like it was her sciatic nerve. She describes the pain as sharp/burning starting in her right lower back and radiating into her right thigh. States it is gotten worse recently. On physical exam she has a positive straight leg raise test on the right. She denies perianal numbness, urinary retention, or leg weakness. Her symptoms are very consistent with sciatic nerve pain. She states she has an appointment to see a specialist and get an MRI in 2 months. We will start her on steroids, anti-inflammatories, and encouraged her to follow-up with her physician regarding the MRI of her lower back sooner. Will discharge home at this time. Discharge Plan Discharge Patient Disposition: Home Clinical Impression: Sciatic nerve pain Condition: Stable Prescriptions: New prednisone 20 mg tablet 60 mg PO DAILY 5 Days Qty: 15 0RF naproxen 500 mg tablet 500 mg PO BID Qty: 10 0RF No Action silver sulfadiazine 1 % cream 1 applic topical BID 14 Days Qty: 50 2RF Rx Instructions: apply a 1.5 mm thickness gabapentin 300 mg capsule 600 mg PO BID 0RF Eliquis 5 mg tablet 2.5 mg PO BID 0RF hydroxyurea 500 mg capsule See Rx Instructions PO BID 0RF Rx Instructions: 1000mg AM, 500mg PM PO twice a day; cephalexin 500 mg capsule 500 mg PO BID 7 Days Qty: 14 0RF acetaminophen-codeine 300-30 mg tablet 1 tab PO Q6H PRN (Reason: pain) 7 Days Qty: 20 0RF (DME) Low Profile Custom Orthotics See Rx Instructions .Route .MEDSUPPLY Qty: 1 0RF Rx Instructions: As directed acetaminophen [Tylenol Extra Strength] 500 mg Tablet 1,000 mg PO Q4H PRN (Reason: Pain) 0RF Discharge Orders: Discharge ED (Routine); Ordered 04/09/22 Ordered By: Josué Graham Referrals: Viviana Gill FNP [Primary Care Provider] - Patient Instructions: Lumbar Radiculopathy (ED), Lower Back Exercises (ED), Sciatica Coding Level of Care Code ED Folder Tier for Ezequiel Ulrich
[2022-04-09 06:40] VITALS: BP 119/89; PULSE 71; RESP 16; O2SAT 98
== END 2022-04-09 06:37 | disposition home or self-care (01) ==
PROVIDERS: Emergency Provider Emergency Medicine; PCP Nurse Practitioner
DX: M54.30 Sciatica, unspecified side (principal)
CPT/HCPCS: 99283

== ENCOUNTER → 2022-04-21 13:54 | Outpatient (BNVA) | payer OTHER, SELFPAY | PROVIDERS: PCP Nurse Practitioner; Visit Provider Podiatrist Foot & Ankle Surgery | DX: L60.0 Ingrowing nail (principal); L60.8 Other nail disorders; M72.2 Plantar fascial fibromatosis; M21.41 Flat foot [pes planus] (acquired), right foot; M21.42 Flat foot [pes planus] (acquired), left foot | CPT/HCPCS: 99213 ==

== ENCOUNTER 2022-04-29 14:56 | Outpatient (CLI) | payer MEDICARE, SELFPAY ==
--- NOTE | 2022-04-29 15:06 | US_ITS ---
WS: [id number] TRANSABDOMINAL PELVIC AND TRANSVAGINAL PELVIC ULTRASOUND HISTORY: ABD PAIN/PELVIC PAIN COMPARISON: None available. Patient is status post hysterectomy. No midline uterine tissue is identified. No solid mass. Urinary bladder is moderately well distended on transabdominal imaging. No free fluid. Neither ovary is ident ified on transabdominal or transvaginal imaging. No abnormality identified. US/US pelvic with transvaginal IMPRESSION: Status post hysterectomy. No abnormality identified. Neither ovary is identifie d either.
== END 2022-04-29 14:57 | disposition home or self-care (01) ==
LOC: RAD 15:01
PROVIDERS: PCP Nurse Practitioner; Visit Provider Obstetrics & Gynecology
DX: R10.9 Unspecified abdominal pain (principal); R10.2 Pelvic and perineal pain
CPT/HCPCS: 76830; 76856

== ENCOUNTER → 2022-05-08 09:45 | Outpatient (BNVA) | payer MEDICARE, SELFPAY | PROVIDERS: PCP Nurse Practitioner; Visit Provider Emergency Medicine | DX: J04.0 Acute laryngitis (principal) | CPT/HCPCS: 87071; 87880 ==

== ENCOUNTER 2022-05-12 12:43 | Oncology outpatient (recurring) (ONCR) | payer OTHER, SELFPAY ==
[2022-05-12 13:29] LABS: Basophils % 0.7 %; Eosinophils # 0.1 10^3/uL (0.0-0.8); Eosinophils % 1.8 %; Hematocrit 39.4 % (37.0-47.0); Hemoglobin 13.4 g/dL (11.5-15.3); Lymphocytes # 1.2 10^3/uL (0.8-4.8); Lymphocytes % 21.9 %; Mean Corpuscular Hemoglobin 34.3 pg (28.0-34.0); Mean Corpuscular Volume 100.8 fl (81-99); Monocytes # 0.3 10^3/uL (0.2-0.9); Monocytes % 5.9 %; Neutrophils # 3.77 10^3/uL (1.8-7.7); Neutrophils % 69.5 %; Nucleated Red Blood Cells % 0 %; Platelet Count 227 10^3/cmm (130-400); Red Blood Count 3.91 10^6/uL (4.1-5.3); Red Cell Distribution Width 18.1 % (12.1-15.1); White Blood Count 5.4 10^3/uL (4.0-10.0)
== END 2022-05-14 23:59 | disposition home or self-care (01) ==
PROVIDERS: PCP Nurse Practitioner; Visit Provider Internal Medicine Hematology & Oncology
DX: D45 Polycythemia vera (principal); Z79.899 Other long term (current) drug therapy; I26.99 Other pulmonary embolism without acute cor pulmonale; Z79.01 Long term (current) use of anticoagulants
CPT/HCPCS: 36415; 85025; 99214

== ENCOUNTER 2022-05-17 10:09 | Emergency (ER) | payer OTHER, MEDICARE, SELFPAY ==
[2022-05-17 10:21] VITALS: BP 128/87; PULSE 84; RESP 16; TEMP 37.1; O2SAT 98; BMI 42.8
--- NOTE | 2022-05-17 10:25 | ECG_ITS ---
[facility] Test Date: 2022-05-17 Pat Name: Reta Gipson Department: Room: Gender: Female [employer]: : 1980 Requested By: Lloyd eLrner Order Number: [id number] Markel MD: Emil Noriega M.D. Measurements Intervals [place] Rate: 83 P: 44 AL: 155 QRS: -31 QRSD: 91 T: 37 QT: 353 QTc: 416 Interpretive Statements SINUS RHYTHM LEFT AXIS DEVIATION [QRS AXIS < -30] POSSIBLE ANTERIOR MYOCARDIAL INFARCTION , PROBABLY OLD [30 ms Q WAVE IN V3/V4, OR R < 0.2 mV IN V4] INTERPRETATION BASED ON A DEFAULT AGE OF 40 YEARS Compared to ECG 01/01/2022 08:24:27 Left-axis deviation now present Incomplete right bundle-branch block no longer present Myocardial infarct finding still present Electronically Signed On 05-18-2022 8:38:36 CDT by Emil Noriega M.D. [email or web address]
--- NOTE | 2022-05-17 10:25 | XRR_ITS ---
PROCEDURE INFORMATION: Exam: XR Chest Exam date and time: 05/17/2022 10:34 AM Age: 41 years old Clinical indication: Other: Palpitations TECHNIQUE: Imaging protocol: Radiologic exam of the chest. Views: 1 view. COMPARISON: CR XR chest 1V portable [id number] 02/08/2022 12:50 PM FINDINGS: Lungs: No focal airspace disease. Pleural spaces: Unremarkable. No pleural effusion. No pneumothorax. Heart/Mediastinum: Cardiomediastinal silhouette is within normal limits. Bones/joints: Unremarkable. XR/XR chest 1V portable [id number] IMPRESSION: No acute cardiopulmonary abnormality.
--- NOTE | 2022-05-17 10:34 | W.ED.ARRPALP ---
HPI - Arrhythmia/Palpitations General: Chief Complaint: Arrhythmia/Palpitations Stated Complaint: Heart racing, dizzy Time Seen by Provider: 05/17/22 10:34 History of Present Illness: 41-year-old presents with palpitations. States this started yesterday. She has. History of PE but denies any chest pain or shortness of breath. Denies any fevers or chills. Illicit substances. Denies increased caffeine intake. Denies any syncopal episodes. Review of Systems Narrative: - CONSTITUTIONAL: Denies weight loss, fever and chills. - HEENT: Denies changes in vision and hearing. - RESPIRATORY: Denies SOB and cough. - CV: As above - GI: Denies abdominal pain, nausea, vomiting and diarrhea. - : Denies dysuria and urinary frequency. - MSK: Denies myalgia and joint pain. - SKIN: Denies rash and pruritus. - NEUROLOGICAL: Denies headache, weakness, numbness and syncope. - PSYCHIATRIC: Denies suicidal ideation [facility] ED PFSH: Medical History Acute respiratory distress syndrome (ARDS) Diverticulitis Diagnosed in 2019- Enlarged thyroid gland This is currently being evaluated and managed by Dr. Ferro. She thinks that her thyroid levels were normal. Multifocal pneumonia No pertinent past medical history Denies diabetes, asthma, seizures, DVT. PMD: ABI [place] Pneumonia due to COVID-19 virus Polycythemia vera Has had symptoms since about 2014 and was diagnosed in 2016. She currently sees heme oncology-Dr. Garcia and is on medication for this. Polycythemia vera Pulmonary embolism Surgical History History of tubal ligation March 2009--laparoscopic procedure Status post hysteroscopy 02/06/2021--hysteroscopy performed for possible endometrial polyp on ultrasound-performed by Dr. Ambrose at [facility] [place]. At hysteroscopy no obvious intracavitary abnormalities including polyp identified. D&C performed and pathology showed secretory and proliferative endometrium without atypia hyperplasia or malignancy. Family History Father Chronic kidney disease (CKD) Hypertension Sister Chronic kidney disease (CKD) Psychiatric illness Mother Thyroid disease Grandmother Thyroid disease Maternal Denies family history of Colon cancer Ovarian cancer Diabetes Heart disease Breast cancer Bleeding disorder Uterine cancer Stroke Social History Smoking and tobacco status: never smoked Female Reproductive History: Date of last menstrual period: 07/18/21 Physical Exam Narrative: EXAM NARRATIVE: - GENERAL: Alert and oriented x 3. No acute distress. Well-nourished. - EYES: EOMI. Anicteric. - HENT: Atraumatic, no C-spine tenderness. Moist mucous membranes. No scleral icterus. No cervical lymphadenopathy. - LUNGS: Clear to auscultation bilaterally. No accessory muscle use. Equal lung sounds bilaterally. No respiratory distress. - CARDIOVASCULAR: Regular rate and rhythm. No murmur. No JVD. - ABDOMEN: Soft, non-tender and non-distended. Negative CVA tenderness bilaterally, no rebound or guarding, negative Tovar sign. No palpable masses. - EXTREMITIES: No edema. Non-tender. - SKIN: No rashes or lesions. Warm. - NEUROLOGIC: No meningismus or focal neurological deficits. CN II-XII grossly intact. - PSYCHIATRIC: Cooperative. Appropriate mood and affect. Course Vital Signs: Vital signs: Vital Signs Temperature 98.7 F 05/17/22 10:21 Pulse Rate 84 05/17/22 10:21 Respiratory Rate 16 05/17/22 10:21 Blood Pressure 128/87 05/17/22 10:21 Pulse Oximetry 98 05/17/22 10:21 MDM - Arrhythmia/Palpitations Medical Decision Making 41-year-[facility] Denies any chest pain or shortness of breath. Denies any syncopal episodes. EKG does not reveal any sign of arrhythmia. D-dimer is negative. Troponin unremarkable. Remainder of lab work unremarkable. X-ray does not reveal any pneumothorax consolidation or other acute abnormality. At this time I believe patient would be safe for discharge and outpatient follow-up. Return precautions provided. Plan was reviewed with the patient who expressed understanding. Questions answered. Patient will follow up with PCP. Patient discharged in stable condition. Lab Data : 05/17/22 10:45 05/17/22 11:51 Radiology Impressions Chest X-Ray 05/17/22 10:25 IMPRESSION: No acute cardiopulmonary abnormality. Laboratory Results WBC 5.5 10^3/uL (4.0-10.0) 05/17/22 10:45 RBC 3.81 10^6/uL (4.1-5.3) L 05/17/22 10:45 Hgb 13.4 g/dL (11.5-15.3) 05/17/22 10:45 Hct 39.1 % (37.0-47.0) 05/17/22 10:45 MCV 102.6 fl (81-99) H 05/17/22 10:45 MCH 35.2 pg (28.0-34.0) H 05/17/22 10:45 MCHC 34.3 g/dL (30.0-36.0) 05/17/22 10:45 RDW 18.2 % (12.1-15.1) H 05/17/22 10:45 Plt Count 179 10^3/cmm (130-400) 05/17/22 10:45 MPV 10.2 fL (7.4-10.4) 05/17/22 10:45 Neut % (Auto) 68.9 % 05/17/22 10:45 Lymph % (Auto) 21.7 % 05/17/22 10:45 Rhea % (Auto) 7.6 % 05/17/22 10:45 Eos % (Auto) 0.9 % 05/17/22 10:45 Baso % (Auto) 0.7 % 05/17/22 10:45 Neut # (Auto) 3.81 10^3/uL (1.8-7.7) 05/17/22 10:45 Lymph # (Auto) 1.2 10^3/uL (0.8-4.8) 05/17/22 10:45 Rhea # (Auto) 0.4 10^3/uL (0.2-0.9) 05/17/22 10:45 Eos # (Auto) 0.1 10^3/uL (0.0-0.8) 05/17/22 10:45 Baso # (Auto) 0.0 10^3/uL (0.0-0.1) 05/17/22 10:45 Nucleated RBC % (auto) 0 % 05/17/22 10:45 Nucleated RBCs # 0.0 /100WBC 05/17/22 10:45 D-Dimer 0.45 ug/mIFEU (0-0.59) 05/17/22 11:44 Sodium 138 mmol/L (136-145) 05/17/22 11:51 Potassium 4.3 mmol/L (3.5-5.1) 05/17/22 11:51 Chloride 104 mmol/L (98-107) 05/17/22 11:51 Carbon Dioxide 25 mmol/L (22-29) 05/17/22 11:51 Anion Gap 13.3 (5-19) 05/17/22 11:51 BUN 11 mg/dL (6-20) 05/17/22 11:51 Creatinine 0.8 mg/dL (0.5-0.9) 05/17/22 11:51 GFR Calculation 79.0 mL/min (90-130) L 05/17/22 11:51 Glucose 94 mg/dL (65-115) 05/17/22 11:51 Calculated Osmolality 285 mOsm/kg (285-295) 05/17/22 11:51 Calcium 8.7 mg/dL (8.5-10.5) 05/17/22 11:51 Total Bilirubin 0.5 mg/dL (0.15-1.2) 05/17/22 11:51 AST 18 U/L (0-32) 05/17/22 11:51 ALT 19 U/L (0-33) 05/17/22 11:51 Alkaline Phosphatase 76 IU/L (35-105) 05/17/22 11:51 Troponin T Baseline 6 ng/L (0-10) 05/17/22 11:51 Total Protein 6.7 g/dL (6.6-8.7) 05/17/22 11:51 Albumin 4.0 g/dL (3.5-5.2) 05/17/22 11:51 Globulin 2.7 g/dL (1.3-4.6) 05/17/22 11:51 TSH 4.04 uIU/mL (0.27-4.20) 05/17/22 11:51 Free T4 1.03 ng/dL (0.82-1.77) 05/17/22 11:51 Urine Color Yellow (Yellow) 05/17/22 12:55 Urine Appearance Hazy (CLEAR) A 05/17/22 12:55 Urine pH 6 (5-7) 05/17/22 12:55 Ur Specific [place] 1.020 (1.005-1.030) 05/17/22 12:55 Urine Protein Neg (Negative) 05/17/22 12:55 Urine Glucose (UA) Norm (Normal) 05/17/22 12:55 Urine Ketones Negative (Negative) 05/17/22 12:55 Urine Blood Neg (Negative) 05/17/22 12:55 Urine Nitrate Negative (Negative) 05/17/22 12:55 Urine Bilirubin Neg (Negative) 05/17/22 12:55 Urine Urobilinogen Norm mg/dL (Negative) 05/17/22 12:55 Ur Leukocyte Esterase Negative (Negative) 05/17/22 12:55 Urine RBC None /hpf (0-2) 05/17/22 12:55 Urine WBC 0-4 /hpf (0-5) H 05/17/22 12:55 Ur Squamous Epith Cells 10-15 /hpf (0-5) H 05/17/22 12:55 Amorphous Sediment Not Reportable 05/17/22 12:55 Urine Bacteria 2+ /hpf (NONE) H 05/17/22 12:55 Urine Opiates Screen Negative ng/mL (Negative) 05/17/22 12:55 Ur Barbiturates Screen Negative ng/mL (Negative) 05/17/22 12:55 Ur Phencyclidine Scrn Negative ng/mL (Negative) 05/17/22 12:55 Ur Amphetamines Screen Negative ng/mL (Negative) 05/17/22 12:55 U Benzodiazepines Scrn Negative ng/mL (Negative) 05/17/22 12:55 Urine Cocaine Screen Negative ng/mL (Negative) 05/17/22 12:55 U Marijuana (THC) Screen Negative ng/mL (Negative) 05/17/22 12:55 EKG Data EKG 1: Other EKG comments: Chest X-Ray 05/17/22 10:25 IMPRESSION: No acute cardiopulmonary abnormality. Normal sinus rhythm, rate of 83, no signs of Brugada, WPW, prolonged QT, HOCM, or acute ischemia Discharge Plan Discharge Condition: Stable Prescriptions: No Action Eliquis 5 mg tablet 2.5 mg PO BID 0RF gabapentin 300 mg capsule 300 mg PO .COMPLEX 0RF Rx Instructions: Take 300mg in the morning and 600 mg in the evening cholecalciferol (vitamin D3) 250 mcg (10,000 unit) capsule 250 mcg PO DAILY 0RF tramadol 50 mg tablet 50 mg PO Q4H PRN (Reason: pain) Qty: 30 0RF hydroxyurea 500 mg capsule See Rx Instructions .ROUTE .COMPLEX 0RF Rx Instructions: Take 1,000 mg in the morning and 500 mg in the evening Referrals: Viviana Gill FNP [Primary Care Provider] - Coding Level of Care Code ED [place] Rigger for Ezequiel Ulrich
[2022-05-17 10:54] LABS: Basophils % 0.7 %; Eosinophils # 0.1 10^3/uL (0.0-0.8); Eosinophils % 0.9 %; Hematocrit 39.1 % (37.0-47.0); Hemoglobin 13.4 g/dL (11.5-15.3); Lymphocytes # 1.2 10^3/uL (0.8-4.8); Lymphocytes % 21.7 %; Mean Corpuscular HGB Conc 34.3 g/dL (30.0-36.0); Mean Corpuscular Hemoglobin 35.2 pg (28.0-34.0); Mean Corpuscular Volume 102.6 fl (81-99); Mean Platelet Volume 10.2 fL (7.4-10.4); Monocytes # 0.4 10^3/uL (0.2-0.9); Monocytes % 7.6 %; Neutrophils # 3.81 10^3/uL (1.8-7.7); Neutrophils % 68.9 %; Nucleated Red Blood Cells % 0 %; Platelet Count 179 10^3/cmm (130-400); Red Blood Count 3.81 10^6/uL (4.1-5.3); Red Cell Distribution Width 18.2 % (12.1-15.1); White Blood Count 5.5 10^3/uL (4.0-10.0)
[2022-05-17 12:03] LABS: D Dimer 0.45 ug/mIFEU (0-0.59)
[2022-05-17 12:16] LABS: Troponin(5th) Baseline 6 ng/L (0-10)
[2022-05-17 12:31] LABS: Alanine Aminotransferase 19 U/L (0-33); Alkaline Phosphatase 76 IU/L (35-105); Anion Gap 13.3 (5-19); Aspartate Amino Transferase 18 U/L (0-32); Blood Urea Nitrogen 11 mg/dL (6-20); Calcium 8.7 mg/dL (8.5-10.5); Carbon Dioxide 25 mmol/L (22-29); Chloride 104 mmol/L (98-107); Free T4 Free Thyroxine 1.03 ng/dL (0.82-1.77); Globulin 2.7 g/dL (1.3-4.6); Glucose 94 mg/dL (65-115); Osmolality Calculated 285 mOsm/kg (285-295); Potassium 4.3 mmol/L (3.5-5.1); Sodium 138 mmol/L (136-145); Thyroid Stimulating Hormone 4.04 uIU/mL (0.27-4.20); Total Bilirubin 0.5 mg/dL (0.15-1.2); Total Protein 6.7 g/dL (6.6-8.7)
[2022-05-17 13:07] LABS: Bilirubin Urine Neg (Negative); Blood Urine Neg (Negative); Glucose Urine UA Norm (Normal); Ketones Urine Negative (Negative); Leukocyte Esterase Urine Negative (Negative); Nitrate Urine Negative (Negative); Protein Urine Neg (Negative); Urine Appearance Hazy (CLEAR); Urine Color Yellow (Yellow); Urobilinogen Urine Norm (Negative); pH Urine 6 (5-7)
[2022-05-17 13:16] LABS: Amphetamines Screen Urine Negative (Negative); Barbiturates Screen Urine Negative (Negative); Benzodiazepines Screen Urine Negative (Negative); Cocaine Screen Urine Negative (Negative); Opiate Screen Urine Negative (Negative); PCP Screen Urine Negative (Negative); THC Screen Urine Negative (Negative)
[2022-05-17 13:17] LABS: Add Urine Culture? No; Bacteria Urine 2+ /hpf; WBC Urine 0-4 /hpf (0-5)
[2022-05-17 14:39] LABS: Troponin 5 2HR Delta 0 ABS# (0-10)
== END 2022-05-17 14:14 | disposition home or self-care (01) ==
PROVIDERS: Emergency Provider Emergency Medicine; PCP Nurse Practitioner
DX: R00.2 Palpitations (principal); Z79.01 Long term (current) use of anticoagulants
CPT/HCPCS: 36415; 71045; 80053; 80306; 81001; 84439; 84443; 84484; 85025; 85378; 93005; 99284

== ENCOUNTER 2022-05-21 11:59 | Inpatient (IN) | payer OTHER, MEDICARE, SELFPAY ==
[2022-05-21 12:13] VITALS: BP 127/93; PULSE 96; RESP 14; TEMP 36.6; O2SAT 98; BMI 42.5
--- NOTE | 2022-05-21 12:15 | W.ED.PSYCHS ---
HPI - Psych General: Chief Complaint: Psychiatric Symptoms Stated Complaint: SI/ PSYCH EVAL Time Seen by Provider: 05/21/22 12:03 Source: patient and EMS Mode of arrival: EMS Limitations: no limitations History of Present Illness: Patient is a 41-year-old female who was sent here [place] after she went to their facility for treatment and evaluation of suicidal ideations. Patient states she has felt suicidal for several months now. She attributes this to feeling very lonely and not having a very good support system. She states she lost her mother in July 2021. Patient tells me yesterday she turned off the [employer] services on her cell phone and drove her car to the middle of nowhere with a bottle of Tylenol 3s and a 9mm gun with a plan to OD and kill herself. She states she did not go through with it as she has 2 daughters and she does not have life insurance. Patient states she has never sought psychiatric help previously. She does not take any psychiatric medications. Patient denies homicidal ideations. No hallucinations. Denies drug or alcohol use. MD complaint: suicidal ideation and feels depressed Onset (ago): week(s) Duration: constant Relieving factors: none Exacerbating factors: none Associated psychiatric symptoms: depression and suicidal ideation Associated symptoms: Reports depression and suicidal ideation Treatments prior to arrival: none If self harm: admits thoughts of self harm and has acted on plan Review of Systems Const: Denies: fever(s) or chills Card: Denies: chest pain, palpitations, lightheadedness or syncope Resp: Denies: dyspnea GI: Denies: abdominal pain, nausea, vomiting or diarrhea Skin/Breast: Denies: rash Neuro: Denies: headache(s) Psych: Reports: depression, hopelessness and suicidal ideation [facility] PFSH: Medical History Acute respiratory distress syndrome (ARDS) Diverticulitis Diagnosed in 2019- Enlarged thyroid gland This is currently being evaluated and managed by Dr. Ferro. She thinks that her thyroid levels were normal. Multifocal pneumonia No pertinent past medical history Denies diabetes, asthma, seizures, DVT. PMD: [place], [place] Pneumonia due to COVID-19 virus Polycythemia vera Has had symptoms since about 2013 and was diagnosed in 2015. She currently sees heme oncology-Dr. Garcia and is on medication for this. Polycythemia vera Pulmonary embolism Surgical History History of tubal ligation March 2009--laparoscopic procedure Status post hysteroscopy 02/06/2021--hysteroscopy performed for possible endometrial polyp on ultrasound-performed by Dr. Ambrose at [facility]. At hysteroscopy no obvious intracavitary abnormalities including polyp identified. D&C performed and pathology showed secretory and proliferative endometrium without atypia hyperplasia or malignancy. Family History Father Chronic kidney disease (CKD) Hypertension Sister Chronic kidney disease (CKD) Psychiatric illness Mother Thyroid disease Grandmother Thyroid disease Maternal Denies family history of Colon cancer Ovarian cancer Diabetes Heart disease Breast cancer Bleeding disorder Uterine cancer Stroke Social History Smoking and tobacco status: never smoked Female Reproductive History: Date of last menstrual period: 07/18/21 Physical Exam Const: COMMON NORMALS: no acute distress, patient oriented x3, no limitations, alert and well nourished GENERAL APPEARANCE: cooperative and well kempt ORIENTATION/CONSCIOUSNESS: Yes oriented to person, Yes oriented to place and Yes oriented to time Resp: COMMON NORMALS: normal respiratory effort and clear to auscultation bilaterally AUSCULTATION: clear to auscultation bilaterally Cardio: COMMON NORMALS: regular rate and regular rhythm RATE: regular rate RHYTHM: regular rhythm Neuro: ALEXIS COMA SCALE: document GCS findings Girard coma scale eye opening: Spontaneous Girard coma scale verbal response: Orientated Girard coma scale motor response: Obey commands Alexis coma scale total score: 15 COMMON NORMALS: patient oriented x3 SENSORIUM/ORIENTATION: Yes alert, Yes oriented to person, Yes oriented to place and Yes oriented to time Psych: COMMON NORMALS: mental status grossly normal, Normal thought process present, cooperative, speech normal, activity/motor behavior normal, denies hallucinations and denies homicidal ideation APPEARANCE: Yes grossly normal and Yes well kempt ATTITUDE: Yes calm ACTIVITY/MOTOR BEHAVIOR: Yes appropriate eye contact and No psychomotor agitation SPEECH: Yes normal speech MOOD & AFFECT: Yes Flat affect present THOUGHT PROCESS: Normal thought process present ATTENTION/CONCENTRATION: Yes attention grossly intact and Yes concentration grossly intact MEMORY/COGNITION: Yes memory grossly intact and Yes cognition grossly intact INSIGHT: Good insight present (Psych) JUDGEMENT: Good judgement present (Psych) Course Consultations: Consultation #1: Dr. Sanchez-accepts to NPU Vital Signs: Vital signs: Vital Signs Temperature 97.8 F 05/21/22 12:13 Pulse Rate 96 05/21/22 12:13 Respiratory Rate 14 05/21/22 12:13 Blood Pressure 127/93 05/21/22 12:13 Pulse Oximetry 98 05/21/22 12:13 MDM - Psych Medical Decision Making Patient will be voluntary with affidavit to NPU to Dr. Sanchez for treatment of depression/suicidal ideations. Lab Data : 05/21/22 12:29 05/21/22 12:29 Laboratory Results WBC 7.2 10^3/uL (4.0-10.0) 05/21/22 12:29 RBC 3.82 10^6/uL (4.1-5.3) L 05/21/22 12:29 Hgb 13.4 g/dL (11.5-15.3) 05/21/22 12:29 Hct 40.5 % (37.0-47.0) 05/21/22 12:29 MCV 106.0 fl (81-99) H 05/21/22 12:29 MCH 35.1 pg (28.0-34.0) H 05/21/22 12:29 MCHC 33.1 g/dL (30.0-36.0) 05/21/22 12:29 RDW 17.3 % (12.1-15.1) H 05/21/22 12:29 Plt Count 204 10^3/cmm (130-400) 05/21/22 12:29 MPV 9.7 fL (7.4-10.4) 05/21/22 12:29 Neut % (Auto) 71.6 % 05/21/22 12:29 Lymph % (Auto) 18.5 % 05/21/22 12:29 Whitman % (Auto) 7.9 % 05/21/22 12:29 Eos % (Auto) 0.7 % 05/21/22 12:29 Baso % (Auto) 0.7 % 05/21/22 12:29 Neut # (Auto) 5.16 10^3/uL (1.8-7.7) 05/21/22 12:29 Lymph # (Auto) 1.3 10^3/uL (0.8-4.8) 05/21/22 12:29 Whitman # (Auto) 0.6 10^3/uL (0.2-0.9) 05/21/22 12:29 Eos # (Auto) 0.1 10^3/uL (0.0-0.8) 05/21/22 12:29 Baso # (Auto) 0.1 10^3/uL (0.0-0.1) 05/21/22 12:29 Nucleated RBC % (auto) 0 % 05/21/22 12:29 Nucleated RBCs # 0.0 /100WBC 05/21/22 12:29 Sodium 140 mmol/L (136-145) 05/21/22 12:29 Potassium 3.8 mmol/L (3.5-5.1) 05/21/22 12:29 Chloride 104 mmol/L (98-107) 05/21/22 12:29 Carbon Dioxide 23 mmol/L (22-29) 05/21/22 12:29 Anion Gap 16.8 (5-19) 05/21/22 12:29 BUN 11 mg/dL (6-20) 05/21/22 12:29 Creatinine 0.7 mg/dL (0.5-0.9) 05/21/22 12:29 GFR Calculation 92.2 mL/min (90-130) 05/21/22 12:29 Glucose 134 mg/dL (65-115) H 05/21/22 12:29 Calculated Osmolality 291 mOsm/kg (285-295) 05/21/22 12:29 Calcium 9.1 mg/dL (8.5-10.5) 05/21/22 12:29 Total Bilirubin 0.6 mg/dL (0.15-1.2) 05/21/22 12:29 AST 15 U/L (0-32) 05/21/22 12:29 ALT 16 U/L (0-33) 05/21/22 12:29 Alkaline Phosphatase 72 IU/L (35-105) 05/21/22 12:29 Total Protein 6.8 g/dL (6.6-8.7) 05/21/22 12:29 Albumin 4.3 g/dL (3.5-5.2) 05/21/22 12:29 Globulin 2.5 g/dL (1.3-4.6) 05/21/22 12:29 HCG, Qual Negative (Negative) 05/21/22 12:29 Salicylates < 0.3 mg/dL (3-10) L 05/21/22 12:29 Acetaminophen < 5.0 ug/mL (10-30) L 05/21/22 12:29 Ethyl Alcohol < 10 mg/dL (0-10) 05/21/22 12:29 Discharge Plan Discharge Patient Disposition: Admitted As Inpatient Clinical Impression: Suicidal ideation, Depression Condition: Stable Coding Level of Care Code ED Terminologist for Ezequiel Fwd Exam Detailed
[2022-05-21 12:34] LABS: Basophils # 0.1 10^3/uL (0.0-0.1); Basophils % 0.7 %; Eosinophils # 0.1 10^3/uL (0.0-0.8); Eosinophils % 0.7 %; Hematocrit 40.5 % (37.0-47.0); Hemoglobin 13.4 g/dL (11.5-15.3); Lymphocytes # 1.3 10^3/uL (0.8-4.8); Lymphocytes % 18.5 %; Mean Corpuscular HGB Conc 33.1 g/dL (30.0-36.0); Mean Corpuscular Hemoglobin 35.1 pg (28.0-34.0); Mean Platelet Volume 9.7 fL (7.4-10.4); Monocytes # 0.6 10^3/uL (0.2-0.9); Monocytes % 7.9 %; Neutrophils # 5.16 10^3/uL (1.8-7.7); Neutrophils % 71.6 %; Nucleated Red Blood Cells % 0 %; Platelet Count 204 10^3/cmm (130-400); Red Blood Count 3.82 10^6/uL (4.1-5.3); Red Cell Distribution Width 17.3 % (12.1-15.1); White Blood Count 7.2 10^3/uL (4.0-10.0)
[2022-05-21 12:55] LABS: Alanine Aminotransferase 16 U/L (0-33); Albumin Level 4.3 g/dL (3.5-5.2); Alkaline Phosphatase 72 IU/L (35-105); Anion Gap 16.8 (5-19); Aspartate Amino Transferase 15 U/L (0-32); Blood Urea Nitrogen 11 mg/dL (6-20); Calcium 9.1 mg/dL (8.5-10.5); Carbon Dioxide 23 mmol/L (22-29); Chloride 104 mmol/L (98-107); Globulin 2.5 g/dL (1.3-4.6); Glomerular Filtration Rate 92.2 mL/min (90-130); Glucose 134 mg/dL (65-115); Osmolality Calculated 291 mOsm/kg (285-295); Potassium 3.8 mmol/L (3.5-5.1); Sodium 140 mmol/L (136-145); Total Bilirubin 0.6 mg/dL (0.15-1.2); Total Protein 6.8 g/dL (6.6-8.7)
[2022-05-21 12:56] LABS: Acetaminophen < 5.0 ug/mL (10-30); Alcohol Level < 10 mg/dL (0-10); Salicylate < 0.3 mg/dL (3-10)
[2022-05-21 12:58] LABS: HCG, Serum Qual Negative (Negative)
[2022-05-21 13:42] LABS: Amphetamines Screen Urine Negative (Negative); Barbiturates Screen Urine Negative (Negative); Benzodiazepines Screen Urine Negative (Negative); Cocaine Screen Urine Negative (Negative); Opiate Screen Urine Negative (Negative); PCP Screen Urine Negative (Negative); THC Screen Urine Negative (Negative)
[2022-05-21 13:47] VITALS: PULSE 89; RESP 16; O2SAT 97
[2022-05-21 14:06] VITALS: BP 136/77; PULSE 86; RESP 20; TEMP 36.8; O2SAT 96
[2022-05-21 20:23] VITALS: BP 125/89; PULSE 90; RESP 16; TEMP 36.6; O2SAT 97
[2022-05-21] MEDS: gabapentin 300 mg Capsule 600 MG PO (20:41)
[2022-05-21 21:36] VITALS: BP 125/89; PULSE 90; RESP 16; TEMP 36.6; O2SAT 97
[2022-05-22 06:00] VITALS: BP 96/66; PULSE 83; RESP 16; TEMP 36.6; O2SAT 95
[2022-05-22] MEDS: gabapentin 300 mg Capsule 600 MG PO ×3 (09:04→20:33)
[2022-05-22] MEDS: apixaban 5 mg Tablet 2.5 MG PO ×2 (09:04→18:02)
[2022-05-22] MEDS: cholecalciferol (vitamin D3) 5,000 unit Tablet 10000 UNIT PO (09:04)
[2022-05-22] MEDS: hydroxyurea 500 mg Capsule 1000 MG PO (09:40)
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
[2022-05-22 13:27] VITALS: BP 92/57; PULSE 74; RESP 17; TEMP 36.6; O2SAT 97
[2022-05-22] MEDS: fluoxetine 20 mg Capsule PO (18:02)
[2022-05-22] MEDS: hydroxyurea 500 mg Capsule PO (18:28)
[2022-05-22 19:36] VITALS: BP 100/72; PULSE 78; RESP 18; TEMP 36.8; O2SAT 97
[2022-05-22] MEDS: acetaminophen 325 mg Tablet 650 MG PO (20:32)
[2022-05-22 21:45] VITALS: PULSE 78; O2SAT 97
[2022-05-23 05:58] VITALS: BP 95/61; PULSE 70; RESP 16; TEMP 36.6; O2SAT 98
[2022-05-23] MEDS: gabapentin 300 mg Capsule 600 MG PO ×3 (09:22→21:19)
[2022-05-23] MEDS: hydroxyurea 500 mg Capsule 1000 MG PO (09:22)
[2022-05-23] MEDS: fluoxetine 20 mg Capsule PO (09:23)
[2022-05-23] MEDS: cholecalciferol (vitamin D3) 5,000 unit Tablet 10000 UNIT PO (09:23)
[2022-05-23] MEDS: apixaban 5 mg Tablet 2.5 MG PO ×2 (09:24→17:30)
--- NOTE | 2022-05-23 11:51 | P.NPUPN_ITS ---
Subjective NPU Subjective: 41 year old male female with major depressive disorder along with multiple medical problems admitted with suicidal ideation with plan with depressed mood. She reports improved mood with the first 2 days being on her Prozac. She reports that energy has been better. She did not endorse any side effects from her medication. She did not endorse any thoughts of hurting anyone else. She had endorsed having a difficult year with managing her medical issues with increased burden mentally from depression over the last few months. She had been eating adequately on the unit some sleep continuity disruption but otherwise reported that she was feeling better. Mental Status Exam MSE Comments: Patient has a casually dressed white female who appears her stated age. She appeared in no acute distress and appeared to be a good historian.? She endorsed her mood as better? Her affect was brighter but still appeared somewhat flat. Her thought process appeared linear logical and goal- directed.? Her thought content showed passive suicidal ideation but did not reveal any plan.? She did not endorse any homicidal ideation.? There was no clear evidence of delusional thinking.? She was alert and oriented to person place and time. Her recent remote and immediate memory all appeared intact. Her insight appeared guarded her judgment at this time was limited. Vitals/I&O/Wt Last Vital Signs Temp 97.9 F 05/23/22 13:41 Pulse 77 05/23/22 13:41 Resp 17 05/23/22 13:41 BP 109/79 05/23/22 13:41 Pulse Ox 98 05/23/22 13:41 Data NPU : 05/21/22 12:29 05/21/22 12:29 A&P Assessment and plan (1) Major depressive disorder without psychotic features: Status: Acute (2) Suicidal ideation: Status: Acute (3) Polycythemia vera: Status: Acute Plan Patient is a 41-year-old white female with a history of a significant medical illness that appears to be exacerbating her mood with a new onset of major depressive disorder without psychotic features with suicidal ideation.? 1. Prozac 20mg in am 2. Encourage individual, group and milieu therapy 3. Continue q-15 minute check for safety 4. Will attempt to gather collateral information and provide psychoeducation regarding depression. 5. Work with referral for follow up care with safety planning to be discussed. ? Involuntary Hold Information 96 Hour Hold: 96 Hour Involuntary Admission: No Attestations NPU Medical Necessity Statement*: Inpatient hospitalization is medically necessary and the clinically appropriate intervention at this time. We will monitor medications and make changes as indicated Coding Level of Care Code Established Pt Acute Supervisor Electrolytic Tinning for Chg Fwd Patient Type Established History Problem Focused Exam Problem Focused Medical Decision Making Straight Forward Diagnoses Major depressive disorder without psychotic features F32.9 Suicidal ideation R45.851 Polycythemia vera D45
[2022-05-23 13:41] VITALS: BP 109/79; PULSE 77; RESP 17; TEMP 36.6; O2SAT 98
[2022-05-23] MEDS: hydroxyurea 500 mg Capsule PO (17:31)
[2022-05-23 20:03] VITALS: BP 115/79; PULSE 67; RESP 20; TEMP 36.6; O2SAT 95
[2022-05-24 06:00] VITALS: BP 106/66; PULSE 86; RESP 20; TEMP 36.4; O2SAT 93
--- NOTE | 2022-05-24 08:41 | PC.NURSE ---
PT UP IN DAY AREA. STATES, I NEED TO TALK TO THE DRSelena BECAUSE I AM SO MUCH BETTER I WOULD LIKE TO LEAVE. INFORMED PT THAT DR. BERMEO WOULD BE HERE AND SHE COULD SPEAK TO HIM THEN. PT DENIES PAIN. DENIES SI/HI AND AVH AT THIS TIME. SUPPORT VOICED.
[2022-05-24] MEDS: apixaban 5 mg Tablet 2.5 MG PO ×2 (08:59→21:00)
[2022-05-24] MEDS: gabapentin 300 mg Capsule 600 MG PO ×3 (08:59→21:00)
[2022-05-24] MEDS: hydroxyurea 500 mg Capsule 1000 MG PO (08:59)
[2022-05-24] MEDS: fluoxetine 20 mg Capsule PO (08:59)
[2022-05-24] MEDS: cholecalciferol (vitamin D3) 5,000 unit Tablet 10000 UNIT PO (08:59)
[2022-05-24 13:55] VITALS: BP 113/83; PULSE 81; RESP 17; TEMP 36.3; O2SAT 97
--- NOTE | 2022-05-24 15:48 | P.NPUPN_ITS ---
Subjective NPU Subjective: 41 year old male female with major depressive disorder and PCV admitted with suicidal ideation and depressed mood worsening since August 2021. She reports that energy has been better on Prozac 40mg in am. She did not endorse any side effects from her medication.? She did not endorse any thoughts of hurting anyone else.? ?She reports feeling more optimistic about returning home. She reports motivation to receive psychotherapy for continued treatment of MDD as well. She reports no thoughts of hurting self and reports improving motivation and improving concentration. Mental Status Exam MSE Comments: Patient has a casually dressed white female who appears her stated age.? She appeared in no acute distress and appeared to be a good historian.? She endorsed her mood as good today. Her affect was brighter today. ? Her thought process appeared linear logical and goal-directed.? Her thought content showed no homicidal or suicidal ideation. There was no clear evidence of delusional thinking.? She was alert and oriented to person place and time.? Her recent and remote memory all appeared intact. Her insight appeared fair. Her judgment at this time appeared fair at this time. Vitals/I&O/Wt Last Vital Signs Temp 97.3 F L 05/24/22 13:55 Pulse 81 05/24/22 13:55 Resp 17 05/24/22 13:55 BP 113/83 05/24/22 13:55 Pulse Ox 97 05/24/22 13:55 Weight last 48 hrs Weight 132.959 kg Data NPU : 05/21/22 12:29 05/21/22 12:29 A&P Assessment and plan (1) Major depressive disorder without psychotic features: Status: Acute (2) Suicidal ideation: Status: Acute (3) Depression: Status: Acute (4) Palpitations: Status: Acute Plan Patient is a 41-year-old white female with a history of a significant medical illness that appears to be exacerbating her mood with a new onset of major depressive disorder without psychotic features with suicidal ideation.? 1. Increase Prozac 30mg in am 2. Encourage individual, group and milieu therapy 3. Continue q-15 minute check for safety 4. Will attempt to gather collateral information and provide psychoeducation regarding depression. 5. Work with referral for follow up care with safety planning to be discussed. ?Likely discharge tommorow. Involuntary Hold Information 96 Hour Hold: 96 Hour Involuntary Admission: No Attestations NPU Medical Necessity Statement*: Inpatient hospitalization is medically necessary and the clinically appropriate intervention at this time. We will monitor medications and make changes as indicated Coding Level of Care Code Established Pt Acute Automotive Parts Clerk for Chg Fwd Patient Type Established History Problem Focused Exam Problem Focused Medical Decision Making Straight Forward Diagnoses Major depressive disorder without psychotic features F32.9 Suicidal ideation R45.851 Depression F32.A Palpitations R00.2
[2022-05-24 20:25] VITALS: BP 107/75; PULSE 75; RESP 16; TEMP 36.4; O2SAT 97
[2022-05-24] MEDS: hydroxyurea 500 mg Capsule PO (21:00)
--- NOTE | 2022-05-24 22:00 | PC.NURSE ---
PT INFORMED STAFF THAT SHE DID NOT WANT TO USE HER C-PAP AT BEDTIME. PT EDUCATED THAT IF SHE WERE TO CHANGE HER MIND, THAT IT CAN BE SET UP AT ANY TIME.
--- NOTE | 2022-05-25 00:10 | PC.NURSE ---
PT AWAKENED AND QUESTIONED IF SHE WOULD LIKE HER C-PAP PLACED, PT STATED SHE DID NOT.
[2022-05-25 06:00] VITALS: BP 92/59; PULSE 75; RESP 18; TEMP 36.7; O2SAT 97
[2022-05-25] MEDS: apixaban 5 mg Tablet 2.5 MG PO (08:36)
[2022-05-25] MEDS: hydroxyurea 500 mg Capsule 1000 MG PO (08:36)
[2022-05-25] MEDS: gabapentin 300 mg Capsule 600 MG PO (08:36)
[2022-05-25] MEDS: cholecalciferol (vitamin D3) 5,000 unit Tablet 10000 UNIT PO (08:36)
[2022-05-25] MEDS: fluoxetine 10 mg Capsule 30 MG PO (08:37)
--- NOTE | 2022-05-25 12:18 | DCPLANNER ---
JAIMEE completed on 05/25/22 @ 3405. Pt was given a copy of rights and she stated she understood her rights.
[2022-05-25 12:21] VITALS: BP 92/59; PULSE 75; RESP 18; TEMP 36.7; O2SAT 97
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
== END 2022-05-25 12:41 | disposition home or self-care (01) | DRG 881 ==
LOC: ER 12:51 → NP 13:30
PROVIDERS: Admitting Provider Psychiatry & Neurology Psychiatry; Emergency Provider Physician Assistant; PCP Nurse Practitioner; Visit Provider Psychiatry & Neurology Psychiatry
DX: F32.9 Major depressive disorder, single episode, unspecified (principal); R45.851 Suicidal ideations; R00.2 Palpitations; Z87.01 Personal history of pneumonia (recurrent); Z86.16 Personal history of COVID-19; Z86.711 Personal history of pulmonary embolism; F10.11 Alcohol abuse, in remission; D45 Polycythemia vera; Z79.01 Long term (current) use of anticoagulants; Z79.899 Other long term (current) drug therapy
CPT/HCPCS: 80053; 80306; 80307; 84703; 85025; 97165; 99285; J8999

== ENCOUNTER 2022-06-17 10:43 | Oncology outpatient (recurring) (ONCR) | payer OTHER, SELFPAY ==
[2022-06-17 11:44] LABS: Basophils % 0.4 %; Eosinophils # 0.1 10^3/uL (0.0-0.8); Hemoglobin 12.6 g/dL (11.5-15.3); Lymphocytes # 1.2 10^3/uL (0.8-4.8); Lymphocytes % 23.8 %; Mean Corpuscular HGB Conc 34.1 g/dL (30.0-36.0); Mean Corpuscular Hemoglobin 36.7 pg (28.0-34.0); Mean Corpuscular Volume 107.9 fl (81-99); Mean Platelet Volume 10.1 fL (7.4-10.4); Monocytes # 0.3 10^3/uL (0.2-0.9); Monocytes % 5.9 %; Neutrophils # 3.36 10^3/uL (1.8-7.7); Neutrophils % 68.5 %; Nucleated Red Blood Cells % 0 %; Platelet Count 208 10^3/cmm (130-400); Red Blood Count 3.43 10^6/uL (4.1-5.3); Red Cell Distribution Width 14.4 % (12.1-15.1); White Blood Count 4.9 10^3/uL (4.0-10.0)
[2022-06-17 11:56] LABS: Alanine Aminotransferase 25 U/L (0-33); Albumin Level 4.1 g/dL (3.5-5.2); Alkaline Phosphatase 78 IU/L (35-105); Anion Gap 15.2 (5-19); Aspartate Amino Transferase 19 U/L (0-32); Blood Urea Nitrogen 10 mg/dL (6-20); Calcium 8.6 mg/dL (8.5-10.5); Carbon Dioxide 24 mmol/L (22-29); Chloride 104 mmol/L (98-107); Globulin 2.4 g/dL (1.3-4.6); Glomerular Filtration Rate 92.2 mL/min (90-130); Glucose 120 mg/dL (65-115); Osmolality Calculated 288 mOsm/kg (285-295); Potassium 4.2 mmol/L (3.5-5.1); Sodium 139 mmol/L (136-145); Total Bilirubin 0.7 mg/dL (0.15-1.2); Total Protein 6.5 g/dL (6.6-8.7)
== END 2022-07-15 23:59 | disposition home or self-care (01) ==
PROVIDERS: Nurse Practitioner; PCP Nurse Practitioner; Visit Provider Internal Medicine Hematology & Oncology
DX: D45 Polycythemia vera (principal); F10.20 Alcohol dependence, uncomplicated; R53.1 Weakness; R53.83 Other fatigue; Z79.899 Other long term (current) drug therapy; Z86.16 Personal history of COVID-19; Z79.01 Long term (current) use of anticoagulants; Z86.711 Personal history of pulmonary embolism
CPT/HCPCS: 36415; 80053; 85025; 99214

== ENCOUNTER → 2022-07-08 10:44 | Outpatient (BNVA) | payer OTHER, SELFPAY | PROVIDERS: PCP Nurse Practitioner; Visit Provider Internal Medicine Cardiovascular Disease | DX: R00.2 Palpitations (principal); D45 Polycythemia vera; I26.99 Other pulmonary embolism without acute cor pulmonale; Z79.01 Long term (current) use of anticoagulants; F32.9 Major depressive disorder, single episode, unspecified | CPT/HCPCS: 99204 ==

== ENCOUNTER 2022-07-22 12:51 | Oncology outpatient (recurring) (ONCR) | payer OTHER, SELFPAY ==
[2022-07-22 13:20] LABS: Basophils # 0.1 10^3/uL (0.0-0.1); Eosinophils # 0.1 10^3/uL (0.0-0.8); Eosinophils % 1.3 %; Hemoglobin 13.4 g/dL (11.5-15.3); Lymphocytes # 1.5 10^3/uL (0.8-4.8); Lymphocytes % 24.3 %; Mean Corpuscular HGB Conc 34.4 g/dL (30.0-36.0); Mean Corpuscular Hemoglobin 37.5 pg (28.0-34.0); Mean Corpuscular Volume 109.2 fl (81-99); Mean Platelet Volume 9.5 fL (7.4-10.4); Monocytes # 0.4 10^3/uL (0.2-0.9); Monocytes % 6.2 %; Neutrophils # 4.02 10^3/uL (1.8-7.7); Neutrophils % 66.9 %; Nucleated Red Blood Cells % 0 %; Platelet Count 268 10^3/cmm (130-400); Red Blood Count 3.57 10^6/uL (4.1-5.3); Red Cell Distribution Width 11.9 % (12.1-15.1)
[2022-07-22 14:43] LABS: Alanine Aminotransferase 77 U/L (0-33); Alkaline Phosphatase 141 U/L (35-105); Aspartate Amino Transferase 21 U/L (0-32); Blood Urea Nitrogen 11 mg/dL (6-20); Carbon Dioxide 24 mmol/L (22-29); Chloride 102 mmol/L (98-107); Globulin 2.8 g/dL (1.3-4.6); Glomerular Filtration Rate 78.7 mL/min (90-130); Glucose 94 mg/dL (65-115); Osmolality Calculated 283 mOsm/kg (285-295); Sodium 137 mmol/L (136-145); Total Bilirubin 0.5 mg/dL (0.15-1.2); Total Protein 6.8 g/dL (6.6-8.7)
[2022-07-22 14:52] LABS: Anion Gap 15.1 (5-19); Potassium 4.1 mmol/L (3.5-5.1)
== END 2022-08-14 23:59 | disposition home or self-care (01) ==
PROVIDERS: Nurse Practitioner; PCP Nurse Practitioner; Visit Provider Internal Medicine Hematology & Oncology
DX: D45 Polycythemia vera (principal); R53.1 Weakness; R53.83 Other fatigue; I26.99 Other pulmonary embolism without acute cor pulmonale; Z79.899 Other long term (current) drug therapy
CPT/HCPCS: 36415; 80053; 85025; 99214

== ENCOUNTER → 2022-08-05 12:55 | Outpatient (BNVA) | payer OTHER, SELFPAY | PROVIDERS: PCP Nurse Practitioner; Visit Provider Specialist | DX: M25.512 Pain in left shoulder (principal) | CPT/HCPCS: 73030; 99203; J1170 ==

== ENCOUNTER 2022-08-18 18:08 | Inpatient (IN) | payer OTHER, SELFPAY ==
[2022-08-18 18:08] VITALS: BP 117/69; PULSE 79; RESP 16; TEMP 36.8; O2SAT 98; BMI 42.0
--- NOTE | 2022-08-18 18:11 | XRR_ITS ---
PROCEDURE INFORMATION: Exam: XR Chest Exam date and time: 08/18/2022 6:21 PM Age: 42 years old Clinical indication: Chest wall pain; Additional info: Cp TECHNIQUE: Imaging protocol: Radiologic exam of the chest. Views: 1 view. COMPARISON: CR (CHEST, ) 05/17/2022 10:34 AM FINDINGS: Lungs: Unremarkable. No consolidation. Pleural spaces: Unremarkable. No pleural effusion. No pneumothorax. Heart/Mediastinum: Unremarkable. No cardiomegaly. Bones/joints: Moderate thoracic spondylosis. Other findings: Patient rotation to the right. XR/XR chest 1V portable [id number] IMPRESSION: No acute findings.
--- NOTE | 2022-08-18 18:16 | ECG_ITS ---
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 Measurements Intervals [place] Rate: 74 P: 49 ND: 153 QRS: -23 QRSD: 97 T: 50 QT: 396 QTc: 440 Interpretive Statements SINUS RHYTHM LEFT AXIS DEVIATION POSSIBLE RIGHT VENTRICULAR CONDUCTION DELAY [RSR (QR) IN V1/V2] POSSIBLE ANTERIOR MYOCARDIAL INFARCTION , PROBABLY OLD Compared to ECG 05/17/2022 10:29:50 Left-axis deviation no longer present Myocardial infarct finding still present Electronically Signed On 08-18-2022 20:26:08 CDT by Emilee Garcia M.D. [id number]
--- NOTE | 2022-08-18 18:25 | ED_ITS ---
HPI - Chest Pain General: Chief Complaint: Chest Pain Stated Complaint: CHEST PAIN Time Seen by Provider: 08/18/22 18:09 Source: patient Mode of arrival: ambulatory Limitations: no limitations History of Present Illness: 42-year-old female states has been having chest pain for the last 2 days states pain is been sharp in nature she does have a history of reflux states she had 1 vomiting episode yesterday. Patient was given nitro aspirin in route states that her pain is currently a 0. She denies any shortness of breath denies any nausea or diaphoresis. Associated symptoms: Deny abdominal pain, dyspnea, fever(s), nausea or vomiting Review of Systems Const: Denies: fever(s), chills, body aches or change in appetite Eyes: Denies: blurry vision or eye discomfort ENMT: Denies: throat pain or dental pain Card: Reports: chest pain Resp: Denies: dyspnea GI: Denies: abdominal pain, nausea, vomiting or diarrhea : Denies: dysuria Musc: Denies: neck pain or back pain Skin/Breast: Denies: rash Neuro: Denies: headache(s) Psych: Denies: depression [place]/Lymph: Denies: easy bruising All/Imm: Denies: urticaria PFSH ED PFSH: Medical History Acute respiratory distress syndrome (ARDS) Diverticulitis Diagnosed in 2019- Enlarged thyroid gland This is currently being evaluated and managed by Dr. Ferro. She thinks that her thyroid levels were normal. Multifocal pneumonia No pertinent past medical history Denies diabetes, asthma, seizures, DVT. PMD: ABI [place] Pneumonia due to COVID-19 virus Polycythemia vera Has had symptoms since about 2013 and was diagnosed in 2016. She currently sees heme oncology-Dr. Garcia and is on medication for this. Polycythemia vera Pulmonary embolism Surgical History History of tubal ligation March 2009--laparoscopic procedure Status post hysteroscopy 02/06/2021--hysteroscopy performed for possible endometrial polyp on ultrasou [place] [facility] [place] At hysteroscopy no obvious intracavitary abnormalities including polyp identified. D&C performed and pathology showed secretory and proliferative endometrium without atypia hyperplasia or malignancy. Family History Father Chronic kidney disease (CKD) Hypertension Sister Chronic kidney disease (CKD) Psychiatric illness Mother Thyroid disease Grandmother Thyroid disease Maternal Denies family history of Colon cancer Ovarian cancer Diabetes Heart disease Breast cancer Bleeding disorder Uterine cancer Stroke Social History Smoking and tobacco status: never smoked Alcohol intake: never Female Reproductive History: Date of last menstrual period: 07/16/21 Physical Exam Const: COMMON NORMALS: no acute distress, patient oriented x3 and healthy appearing HENMT: COMMON NORMALS: normocephalic and atraumatic HEAD & SCALP: normocephalic and atraumatic Eye: COMMON NORMALS: Equal, round and reactive pupils present and EOMs intact bilaterally PUPIL: Yes Equal, round and reactive pupils present Neck/C-Spine: COMMON NORMALS: full ROM and supple Chest: COMMONS NORMALS: normal inspection of the chest and normal palpation of entire chest wall Resp: COMMON NORMALS: normal respiratory effort, No retractions, No use of accessory muscles and clear to auscultation bilaterally AUSCULTATION: clear to auscultation bilaterally Cardio: COMMON NORMALS: regular rate, regular rhythm and No murmurs present (Cardio) RATE: regular rate RHYTHM: regular rhythm GI: COMMON NORMALS: Normal to inspection, nondistended, normoactive bowel so unds present, Soft to palpation and no masses PALPATION: Yes Soft to palp ation and Yes Tenderness to palpation present (GI) Details: RUQ Extremity: COMMON NORMALS: normal to inspection and full ROM Neuro: COMMON NORMALS: patient oriented x3, moves all extremities and no focal motor deficits Psych: COMMON NORMALS: mental status grossly normal, Normal thought process present and cooperative THOUGHT PROCESS: Normal thought process present Skin: COMMON NORMALS: no rashes or lesions noted and no wounds GENERAL SKIN EXAM: no rashes or lesions noted Course Vital Signs: Vital signs: Vital Signs Temperature 98.2 F 08/18/22 18:08 Pulse Rate 79 08/18/22 18:08 Respiratory Rate 22 H 08/19/22 01:01 Blood Pressure 117/69 08/18/22 18:08 Pulse Oximetry 96 08/19/22 01:01 Oxygen Delivery Me thod 08/18/22 18:08 MDM - Chest Pain Medical Decision Making Patient presents here with abdominal pain ultrasound shows findings of cholecystitis she is tender in the right upper quadrant she does have elevated liver enzymes bili and lipase MRCP here shows no common bile duct dilatation or stone in the bile duct. I spoke to surgeon on-call Dr. Harrison along with hospitalist will admit at this time on IV antibiotics. Lab Data : 08/18/22 18:18 08/18/22 18:18 Radiology Impressions Chest X-Ray 08/18/22 18:11 IMPRESSION: No acute findings. Chest/Abdomen/Pelvis CT 08/18/22 19:01 IMPRESSION: No pulmonary embolus or aortic dissection. IMPRESSION: No acute findings. Gallbladder Ultrasound 08/18/22 19:31 IMPRESSION: 1. Multiple large gallstones within the gallbladder. 2. Sonographically positive Tovar's sign suggesting possible cholecystitis. 3. 5 mm gallbladder wall thickening most consistent with cholecystitis. 4. Tail the pancreas obscured by bowel gas. 5. Otherwise radiographically normal pancreas which does not rule out clinical pancreatitis. Cholangiopancreatography MRI 08/18/22 21:21 IMPRESSION: 1. Nondistended gallbladder containing stones. Acute cholecystitis is unlikely without gallbladder distension. 2. No biliary dilation. 3. Moderate splenic enlargement. Laboratory Results WBC 6.1 10^3/uL (4.0-10.0) 08/18/22 18:18 RBC 3.55 10^6/uL (4.1-5.3) L 08/18/22 18:18 Hgb 12.9 g/dL (11.5-15.3) 08/18/22 18:18 Hct 39.5 % (37.0-47.0) 08/18/22 18:18 MCV 111.3 fl (81-99) H 08/18/22 18:18 MCH 36.3 pg (28.0-34.0) H 08/18/22 18:18 MCHC 32.7 g/dL (30.0-36.0) 08/18/22 18:18 RDW 12.5 % (12.1-15.1) 08/18/22 18:18 Plt Count 228 10^3/cmm (130-400) 08/18/22 18:18 MPV 10.6 fL (7.4-10.4) H 08/18/22 18:18 Neut % (Auto) 73.0 % 08/18/22 18:18 Lymph % (Auto) 15.8 % 08/18/22 18:18 [place] % (Auto) 7.3 % 08/18/22 18:18 Eos % (Auto) 2.4 % 08/18/22 18:18 Baso % (Auto) 1.0 % 08/18/22 18:18 Neut # (Auto) 4.48 10^3/uL (1.8-7.7) 08/18/22 18:18 Lymph # (Auto) 1.0 10^3/uL (0.8-4.8) 08/18/22 18:18 [place] # (Auto) 0.5 10^3/uL (0.2-0.9) 08/18/22 18:18 Eos # (Auto) 0.2 10^3/uL (0.0-0.8) 08/18/22 18:18 Baso # (Auto) 0.1 10^3/uL (0.0-0.1) 08/18/22 18:18 Nucleated RBC % (auto) 0 % 08/18/22 18:18 Nucleated RBCs # 0.0 /100WBC 08/18/22 18:18 PT 14.10 SECONDS (12.1-14.9) 08/18/22 18:18 INR 1.06 (0.8-1.2) 08/18/22 18:18 D-Dimer 0.80 ug/mIFEU (0-0.59) H 08/18/22 18:18 Sodium 136 mmol/L (136-145) 08/18/22 18:18 Potassium 3.8 mmol/L (3.5-5.1) 08/18/22 18:18 Chloride 104 mmol/L (98-107) 08/18/22 18:18 Carbon Dioxide 22 mmol/L (22-29) 08/18/22 18:18 Anion Gap 13.8 (5-19) 08/18/22 18:18 BUN 9 mg/dL (6-20) 08/18/22 18:18 Creatinine 0.6 mg/dL (0.5-0.9) 08/18/22 18:18 GFR Calculation 109.6 mL/min (90-130) 08/18/22 18:18 Glucose 130 mg/dL (65-115) H 08/18/22 18:18 Calculated Osmolality 282 mOsm/kg (285-295) L 08/18/22 18:18 Calcium 8.2 mg/dL (8.5-10.5) L 08/18/22 18:18 Total Bilirubin 2.1 mg/dL (0.15-1.2) H 08/18/22 18:18 AST 292 U/L (0-32) H 08/18/22 18:18 ALT 455 U/L (0-33) H 08/18/22 18:18 Alkaline Phosphatase 245 U/L (35-105) H 08/18/22 18:18 Troponin T Baseline 6 ng/L (0-10) 08/18/22 18:18 Troponin T 120 Minute 6.00 ng/L (0-10) 08/18/22 19:45 Delta Troponin T 0 ABS# (0-10) 08/18/22 19:45 Troponin T Hi Sens 6Hr 6.00 ng/L (0-10) 08/19/22 00:54 Total Protein 6.4 g/dL (6.6-8.7) L 08/18/22 18:18 Albumin 3.6 g/dL (3.5-5.2) 08/18/22 18:18 Globulin 2.8 g/dL (1.3-4.6) 08/18/22 18:18 Lipase 1441 U/L (13-60) H 08/18/22 18:18 Hepatitis A IgM Ab Non-reactive (Nonreactive) 08/18/22 19:43 Hep Bs Antigen Non-reactive (Nonreactive) 08/18/22 19:43 Hep Bs Antibody 137.3 (11.5-1000) 08/18/22 19:43 Hep B Core Total Ab Non-reactive (Nonreactive) 08/18/22 19:43 Hepatitis C Antibody Non-reactive (Nonreactive) 08/18/22 19:43 EKG Data EKG 1: I personally reviewed and interpreted this EKG as follows: EKG interpretation date: 08/18/22 EKG interpretation time: 18:16 Interpretation: nsr hr [address] or t wave abnormalities qrs 97 qtc 423 EKG 2: I personally reviewed and interpreted this EKG as follows: EKG interpretation date: 08/18/22 EKG interpretation time: 20:14 Interpretation: nsr hr [address] or t wave abnormalities qrs 94 qtc 415 Discharge Plan Discharge Patient Disposition: Admitted As Inpatient Clinical Impression: Acute cholecystitis Condition: Stable Coding Level of Care Code ED Coiled Tubing Supervisor for Chg Fwd Exam Comprehensive
--- NOTE | 2022-08-18 18:34 | PC.NURSE ---
pt placed on continuous spo2, nibp, and cm.
[2022-08-18 18:46] LABS: Basophils # 0.1 10^3/uL (0.0-0.1); Eosinophils # 0.2 10^3/uL (0.0-0.8); Eosinophils % 2.4 %; Hematocrit 39.5 % (37.0-47.0); Hemoglobin 12.9 g/dL (11.5-15.3); Lymphocytes % 15.8 %; Mean Corpuscular HGB Conc 32.7 g/dL (30.0-36.0); Mean Corpuscular Hemoglobin 36.3 pg (28.0-34.0); Mean Corpuscular Volume 111.3 fl (81-99); Mean Platelet Volume 10.6 fL (7.4-10.4); Monocytes # 0.5 10^3/uL (0.2-0.9); Monocytes % 7.3 %; Neutrophils # 4.48 10^3/uL (1.8-7.7); Nucleated Red Blood Cells % 0 %; Platelet Count 228 10^3/cmm (130-400); Red Blood Count 3.55 10^6/uL (4.1-5.3); Red Cell Distribution Width 12.5 % (12.1-15.1); White Blood Count 6.1 10^3/uL (4.0-10.0)
--- NOTE | 2022-08-18 18:56 | PC.NURSE ---
report given to becca salinas assumed care.
[2022-08-18 18:58] LABS: INR 1.06 (0.8-1.2)
--- NOTE | 2022-08-18 19:01 | CTR_ITS ---
PROCEDURE INFORMATION: Exam: CTA Chest With Contrast Exam date and time: 08/18/2022 7:51 PM Age: 42 years old Clinical indication: Pain and abnormal findings; Abnormal lab test; Other: N/a; Nausea and vomiting; Abnormal diagnostic tests; Elevated d-dimer; Chest pressure; Prior surgery; Surgery type: Tubal ligation. Hysterectomy; Patient HX: C/O chest pain with n/v. Elevated d dimer. History of diverticulitis and polycythemia vera. ; Additional info: Cp/abd pain TECHNIQUE: Imaging protocol: Computed tomographic angiography of the chest with contrast. 3D rendering (Not supervised by radiologist): MIP and/or 3D reconstructed images were created by the technologist. Radiation optimization: All CT scans at this facility use at least one of these dose optimization techniques: automated exposure control; mA and/or kV adjustment per patient size (includes targeted exams where dose is matched to clinical indication); or iterative reconstruction. Contrast material: OMNI 350; Contrast volume: 95 ml; Contrast route: INTRAVENOUS (IV); COMPARISON: CT angio chest PE protcl [id number] 08/06/2021 3:19 PM RADIATION DOSE METRICS: Total DLP (mGy-cm): 2036. FINDINGS: Pulmonary arteries: No pulmonary embolus or aortic dissection. Aorta: See Pulmonary arteries finding. Lungs: Right discoid atelectasis and/or scarring. Pleural spaces: Unremarkable. No pneumothorax. No pleural effusion. Heart: Unremarkable. No cardiomegaly. No pericardial effusion. Lymph nodes: Stable right calcified hilar nodes and/or mediastinal nodes and/or lung nodules consistent with old granulomatous disease. Bones/joints: Levoscoliosis. Moderate thoracic spondylosis. Soft tissues: Unremarkable. PROCEDURE INFORMATION: Exam: CT Abdomen And Pelvis With Contrast Exam date and time: 08/18/2022 7:51 PM Age: 42 years old Clinical indication: Pain and abnormal findings; Abnormal lab test; Other: N/a; Nausea and vomiting; Abnormal diagnostic tests; Elevated d-dimer; Chest pressure; Prior surgery; Surgery type: Tubal ligation. Hysterectomy; Patient HX: C/O chest pain with n/v. Elevated d dimer. History of diverticulitis and polycythemia vera. ; Additional info: Cp/abd pain TECHNIQUE: Imaging protocol: Computed tomography of the abdomen and pelvis with contrast. Radiation optimization: All CT scans at this facility use at least one of these dose optimization techniques: automated exposure control; mA and/or kV adjustment per patient size (includes targeted exams where dose is matched to clinical indication); or iterative reconstruction. Contrast material: OMNI 350; Contrast volume: 95 ml; Contrast route: INTRAVENOUS (IV); COMPARISON: CT abdomen pelvis w con* [id number] 02/08/2022 2:11 PM RADIATION DOSE METRICS: Total DLP (mGy-cm): 2036. FINDINGS: Liver: Normal. No mass. Gallbladder and bile ducts: Normal. No calcified stones. No ductal dilation. Pancreas: Normal. No ductal dilation. Spleen: Normal. No splenomegaly. Adrenal glands: Normal. No mass. Kidneys and ureters: Normal. No hydronephrosis. Stomach and bowel: Severe descending and/or sigmoid colon diverticulosis without diverticulitis. Appendix: No evidence of appendicitis. Intraperitoneal space: Unremarkable. No free air. No significant fluid collection. Vasculature: One or more calcified pelvic phleboliths. Lymph nodes: Unremarkable. No enlarged lymph nodes. Urinary bladder: Unremarkable as visualized. Reproductive: Status post hysterectomy. Bones/joints: Unremarkable. No acute fracture. Soft tissues: Unremarkable. CT/CT angio chest w abd pel w con IMPRESSION: No pulmonary embolus or aortic dissection. IMPRESSION: No acute findings.
[2022-08-18 19:10] LABS: Troponin(5th) Baseline 6 ng/L (0-10)
[2022-08-18 19:11] LABS: Alanine Aminotransferase 455 U/L (0-33); Albumin Level 3.6 g/dL (3.5-5.2); Alkaline Phosphatase 245 U/L (35-105); Aspartate Amino Transferase 292 U/L (0-32); Blood Urea Nitrogen 9 mg/dL (6-20); Calcium 8.2 mg/dL (8.5-10.5); Carbon Dioxide 22 mmol/L (22-29); Chloride 104 mmol/L (98-107); Globulin 2.8 g/dL (1.3-4.6); Glomerular Filtration Rate 109.6 mL/min (90-130); Glucose 130 mg/dL (65-115); Osmolality Calculated 282 mOsm/kg (285-295); Sodium 136 mmol/L (136-145); Total Bilirubin 2.1 mg/dL (0.15-1.2); Total Protein 6.4 g/dL (6.6-8.7)
[2022-08-18 19:13] LABS: Anion Gap 13.8 (5-19); Potassium 3.8 mmol/L (3.5-5.1)
[2022-08-18] MEDS: iohexol 350 mg/mL 100 mL Btl IV (19:17)
[2022-08-18 19:25] LABS: Lipase 1441 U/L (13-60)
--- NOTE | 2022-08-18 19:31 | USR_ITS ---
PROCEDURE INFORMATION: Exam: US Abdomen, Limited; Right Upper Quadrant Exam date and time: 08/18/2022 8:18 PM Age: 42 years old Clinical indication: Abdominal pain; Patient HX: Epigastric and chest pain x 2 days; Additional info: Abd pain TECHNIQUE: Imaging protocol: Real time ultrasound of the abdomen with image documentation. Limited exam focused on the right upper quadrant. COMPARISON: CT angio chest w abd pel w con 08/18/2022 7:51 PM FINDINGS: Liver: Normal. No masses. Gallbladder: Multiple large gallstones within the gallbladder. Sonographically positive Tovar's sign suggesting possible cholecystitis. 5 mm gallbladder wall thickening most consistent with cholecystitis. Biliary ducts: Normal 5 mm common bile duct. Pancreas: Tail the pancreas obscured by bowel gas. Otherwise radiographically normal pancreas which does not rule out clinical pancreatitis. Right kidney: Normal. No mass. No hydronephrosis. US/US gall bladder [id number] IMPRESSION: 1. Multiple large gallstones within the gallbladder. 2. Sonographically positive Tovar's sign suggesting possible cholecystitis. 3. 5 mm gallbladder wall thickening most consistent with cholecystitis. 4. Tail the pancreas obscured by bowel gas. 5. Otherwise radiographically normal pancreas which does not rule out clinical pancreatitis.
--- NOTE | 2022-08-18 20:11 | ECG_ITS ---
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 Measurements Intervals [place]comb Rate: 67 P: 41 KS: 165 QRS: -31 QRSD: 94 T: 10 QT: 399 QTc: 423 Interpretive Statements SINUS RHYTHM LEFT AXIS DEVIATION [QRS AXIS < -30] INCOMPLETE RIGHT BUNDLE BRANCH BLOCK Compared to ECG 08/18/2022 18:16:21 Left-axis deviation now present Incomplete right bundle-branch block now present Myocardial infarct finding no longer present Electronically Signed On 08-18-2022 20:33:54 CDT by Emilee Garcia M.D. [id number]
--- NOTE | 2022-08-18 21:21 | MRR_ITS ---
PROCEDURE INFORMATION: Exam: MR Abdomen Without Contrast Exam date and time: 08/18/2022 10:55 PM Age: 42 years old Clinical indication: Abdominal pain; Localized; Right upper quadrant (ruq); Prior surgery; Surgery type: Tubal ligation. Hysterectomy; Patient HX: C/O ruq pain. Multiple gallstones with wall thickening noted on US. ; Additional info: Cholithiasis TECHNIQUE: Imaging protocol: Magnetic resonance imaging of the abdomen without contrast. COMPARISON: 1. CT angio chest w abd pel w con 08/18/2022 7:51 PM 2. US gall bladder [id number] 08/18/2022 8:18 PM FINDINGS: Liver: There is a 14 mm cyst in the inferior right lobe of the liver. Gallbladder and bile ducts: The gallbladder is nondistended. There are numerous small stones in the gallbladder fundus in addition to a solitary 19 mm stone in the neck. Assessment of gallbladder wall thickness is limited. Pancreas: The pancreas is unremarkable. Spleen: The spleen is moderately enlarged. Adrenal glands: The adrenal glands are unremarkable. Kidneys and ureters: Visible portions of the kidneys are unremarkable. Stomach and bowel: Visible portions of the small bowel and colon are unremarkable. Intraperitoneal space: No free fluid. Vasculature: The visible portion of the abdominal aorta is unremarkable. Bones/joints: Unremarkable. Soft tissues: Unremarkable. MR/MR MRCP [id number] IMPRESSION: 1. Nondistended gallbladder containing stones. Acute cholecystitis is unlikely without gallbladder distension. 2. No biliary dilation. 3. Moderate splenic enlargement.
[2022-08-18 21:37] LABS: Hepatitis A Antibody IgM Non-Reactive (Nonreactive); Hepatitis B Core AB, Total Non-Reactive (Nonreactive); Hepatitis B Surface AB 137.3 (11.5-1000); Hepatitis B Surface Antigen Non-Reactive (Nonreactive); Hepatitis C Virus Antibody Non-Reactive (Nonreactive)
[2022-08-18] MEDS: piperacillin-tazobactam 3.375 GM in sodium chloride 0.9% (plus) 50 ML IV (21:56)
[2022-08-18 22:08] LABS: Troponin 5 2HR Delta 0 ABS# (0-10)
[2022-08-19] VITALS (12 sets, daily range): BP systolic 99–117; BP diastolic 63–79; PULSE 52–72; RESP 18–22; TEMP 36.4–36.7; O2SAT 94–100
[2022-08-19] MEDS: HYDROmorphone 1 mg/mL INJ 1 mL 0.5 MG IVP (01:01)
--- NOTE | 2022-08-19 01:03 | PC.NURSE ---
Patient c/o headache that she rates 4/10. Requesting something for the pain. Dr. Gonzales notified and placed an order for Dilaudid.
[2022-08-19 01:55] LABS: Troponin 5 6HR Delta 0 ng/L (0-12)
--- NOTE | 2022-08-19 03:12 | ECG_ITS ---
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 Measurements Intervals [place] Rate: 56 P: 55 SD: 175 QRS: 0 QRSD: 94 T: 43 QT: 429 QTc: 416 Interpretive Statements SINUS BRADYCARDIA Compared to ECG 08/18/2022 20:14:23 Sinus rhythm no longer present Left-axis deviation no longer present Incomplete right bundle-branch block no longer present Electronically Signed On 08-19-2022 20:58:21 CDT by Francine Robertson M.D. [id number]
--- NOTE | 2022-08-19 04:59 | P.HP_ITS ---
Providers/Chief Complaint Admitting Physician: Odette Wheeler MD Primary Care Provider: JAIME Gonzáles Chief Complaint: CHEST PAIN History of Present Illness Reta Gipson is a 42 year old female with a past medical history of JAK2 positive polycythemia vera on hydroxyurea, history of subsegmental PE, chronically on Eliquis 2.5 mg p.o. twice daily. She presents to the emergency room with chief complaints of chest pain in the last 2 days. Describes this pain as being in the center of the chest, sharp in nature, radiating upwards. She received nitro and aspirin by EMS and pain had resolved by the time she presented into the emergency room. She denied any nausea diaphoresis or vomiting. No dyspnea. Upon evaluation she was found to have deranged LFTs, T bili of 2.1, AST ALT 292 and 455 respectively, elevated alkaline phosphatase. Lipase was at 1441. CT of her chest abdomen and pelvis ruled out PE or aortic dissection. Gallbladder ultrasound revealed multiple large gallstones within the gallbladder with a positive Tovar sign suggestive of possible c holecystitis. MRCP was additionally performed which showed a nondistended gallbladder containing stones, no biliary dilatation. There are numerous small stones in the gallbladder in addition to a solitary 19 mm stone in the neck. Troponin series negative with a level of 6 at baseline, 2 hours and 6 hours. EKG with sinus bradycardia with heart rate of 56/min, no acute ST-T wave changes. Review of Systems General: Reports: 10 or more systems reviewed and unremarkable except in HPI and below Const: Denies: fever(s), chills or body aches Eyes: Denies: change in vision, blurry vision or photophobia ENMT: Reports: hoarseness; Denies: throat pain, enlarged tonsils, odynophagia or nasal congestion Card: Denies: chest pain, palpitations, irregular heart rhythm, edema, swelling of feet/ankles, lightheadedness, pre-syncope, dyspnea on exertion or orthopnea Resp: Denies: dyspnea, productive cough, non-productive cough, wheezing, stridor, pain on inspiration, change in phlegm color, hemoptysis or chest congestion GI: Denies: abdominal pain, nausea, vomiting, hematemesis, coffee ground emesis, dysphagia, heartburn, diarrhea, constipation, GI cramping, change in stool character, hematochezia or melena : Denies: flank pain, difficulty voiding, dysuria, urinary frequency, urinary urgency, urinary hesitancy or hematuria Musc: Denies: neck pain, back pain, extremity pain, joint swelling, joint warmth or deformity Neuro: Denies: headache(s), numbness in extremities, weakness in extremities, sensory changes, difficulty walking, frequent falls, dizziness, vertigo, behavioral changes, Slurred speech present or seizure-like activity Psych: Denies: anxiety, depression, suicidal ideation or homicidal ideation Endo: Denies: polyuria, polydipsia, tired all the time, cold intolerance or hot flashes Tirso/Lymph: Denies: easy bruising or easy bleeding Medications/Allergies Home Medications Medication Instructions Recorded Confirmed Last Taken Type apixaban 5 mg tablet (Eliquis) 2.5 mg PO BID 04/07/22 08/05/22 05/21/22 History cholecalciferol (vitamin D3) 250 250 mcg PO DAILY 04/28/22 08/05/22 05/21/22 History mcg (10,000 unit) capsule gabapentin 300 mg capsule 300 mg PO .COMPLEX 04/28/22 08/05/22 05/21/22 History fluoxetine 10 mg capsule 10 mg PO DAILY 06/17/22 08/05/22 Unknown History vitamin E 200 unit capsule See Rx Instructions PO DAILY 06/17/22 08/05/22 U nknown History hydroxyurea 500 mg capsule See Rx Instructions .Route .COMPLEX 07/08/22 08/05/22 Unknown History Allergies Allergy/AdvReac Type Severity Reaction Status Date / Time guaifenesin Allergy ALGY-Hives Verified 08/05/22 12:58 metronidazole [From Flagyl] AdvReac LIghtheaded, Verified 08/05/22 12:58 flushed tioconazole AdvReac Vaginal Verified 08/05/22 12:58 [From Monistat 1 burning (tioconazole)] PFSH Acute PFSH: Medical History Acute respiratory distress syndrome (ARDS) Diverticulitis Diagnosed in 2019- Enlarged thyroid gland This is currently being evaluated and managed by Dr. Ferro. She thinks that her thyroid levels were normal. Multifocal pneumonia No pertinent past medical history Denies diabetes, asthma, seizures, DVT. PMD: [place] Pneumonia due to COVID-19 virus Polycythemia vera Has had symptoms since about 2013 and was diagnosed in 2016. She currently sees heme oncology-Dr. Garcia and is on medication for this. Polycythemia vera Pulmonary embolism Surgical History History of tubal ligation March 2009--laparoscopic procedure Status post hysteroscopy 02/06/2021--hysteroscopy performed for possible endometrial polyp on ultrasound[place] [facility] [place] At hysteroscopy no obvious intracavitary abnormalities including polyp identified. D&C performed and pathology showed secretory and proliferative endometrium without atypia hyperplasia or malignancy. Family History Father Chronic kidney disease (CKD) Hypertension Sister Chronic kidney disease (CKD) Psychiatric illness Mother Thyroid disease Grandmother Thyroid disease Maternal Denies family history of Colon cancer Ovarian cancer Diabetes Heart disease Breast cancer Bleeding disorder Uterine cancer Stroke Social History Smoking and tobacco status: never smoked Alcohol intake: never Female Reproductive History: Date of last menstrual period: 07/16/21 Vitals/I&O/Wt Last Vital Signs Temp 97.9 F 08/19/22 04:00 Pulse 63 08/19/22 04:00 Resp 18 08/19/22 04:00 BP 110/74 08/19/22 04:00 Pulse Ox 97 08/19/22 04:00 O2 Del Method 08/19/22 02:00 08/18/22 08/18/22 08/19/22 14:59 22:59 06:59 Intake Total 50 / 50 Balance 50 / 50 Weight last 48 hrs Weight 129.274 kg Physical Exam Narrative: General: No acute distress, AO x3 HEENT: PERRLA, pupils bilaterally equal and reactive, pallors not present Chest: Normal vesicular breath sounds, no added sounds, equal good air entry bilaterally CVS: S1-S2 regular, no murmurs, no tachycardia, no gallops, no rubs Abdomen: discomfort to palpation over epigastric region and RUQ. Neuro: No focal deficits, no facial deformity, AO x3, power 5/5 in all limbs Data : 08/18/22 18:18 10/04/22 18:18 Other Labs: Radiology Impressions Chest X-Ray 08/18/22 18:11 IMPRESSION: No acute findings. Chest/Abdomen/Pelvis CT 08/18/22 19:01 IMPRESSION: No pulmonary embolus or aortic dissection. IMPRESSION: No acute findings. Gallbladder Ultrasound 08/18/22 19:31 IMPRESSION: 1. Multiple large gallstones within the gallbladder. 2. Sonographically positive Tovar's sign suggesting possible cholecystitis. 3. 5 mm gallbladder wall thickening most consistent with cholecystitis. 4. Tail the pancreas obscured by bowel gas. 5. Otherwise radiographically normal pancreas which does not rule out clinical pancreatitis. Cholangiopancreatography MRI 08/18/22 21:21 IMPRESSION: 1. Nondistended gallbladder containing stones. Acute cholecystitis is unlikely without gallbladder distension. 2. No biliary dilation. 3. Moderate splenic enlargement. Laboratory Results WBC 6.1 10^3/uL (4.0-10.0) 08/18/22 18:18 RBC 3.55 10^6/uL (4.1-5.3) L 08/18/22 18:18 Hgb 12.9 g/dL (11.5-15.3) 08/18/22 18:18 Hct 39.5 % (37.0-47.0) 08/18/22 18:18 MCV 111.3 fl (81-99) H 08/18/22 18:18 MCH 36.3 pg (28.0-34.0) H 08/18/22 18:18 MCHC 32.7 g/dL (30.0-36.0) 08/18/22 18:18 RDW 12.5 % (12.1-15.1) 08/18/22 18:18 Plt Count 228 10^3/cmm (130-400) 08/18/22 18:18 MPV 10.6 fL (7.4-10.4) H 08/18/22 18:18 Neut % (Auto) 73.0 % 08/18/22 18:18 Lymph % (Auto) 15.8 % 08/18/22 18:18 Jessamine % (Auto) 7.3 % 08/18/22 18:18 Eos % (Auto) 2.4 % 08/18/22 18:18 Baso % (Auto) 1.0 % 08/18/22 18:18 Neut # (Auto) 4.48 10^3/uL (1.8-7.7) 08/18/22 18:18 Lymph # (Auto) 1.0 10^3/uL (0.8-4.8) 08/18/22 18:18 Jessamine # (Auto) 0.5 10^3/uL (0.2-0.9) 08/18/22 18:18 Eos # (Auto) 0.2 10^3/uL (0.0-0.8) 08/18/22 18:18 Baso # (Auto) 0.1 10^3/uL (0.0-0.1) 08/18/22 18:18 Nucleated RBC % (auto) 0 % 08/18/22 18:18 Nucleated RBCs # 0.0 /100WBC 08/18/22 18:18 PT 14.10 SECONDS (12.1-14.9) 08/18/22 18:18 INR 1.06 (0.8-1.2) 08/18/22 18:18 D-Dimer 0.80 ug/mIFEU (0-0.59) H 08/18/22 18:18 Sodium 136 mmol/L (136-145) 08/18/22 18:18 Potassium 3.8 mmol/L (3.5-5.1) 08/18/22 18:18 Chloride 104 mmol/L (98-107) 08/18/22 18:18 Carbon Dioxide 22 mmol/L (22-29) 08/18/22 18:18 Anion Gap 13.8 (5-19) 08/18/22 18:18 BUN 9 mg/dL (6-20) 08/18/22 18:18 Creatinine 0.6 mg/dL (0.5-0.9) 08/18/22 18:18 GFR Calculation 109.6 mL/min (90-130) 08/18/22 18:18 Glucose 130 mg/dL (65-115) H 08/18/22 18:18 Calculated Osmolality 282 mOsm/kg (285-295) L 08/18/22 18:18 Calcium 8.2 mg/dL (8.5-10.5) L 08/18/22 18:18 Total Bilirubin 2.1 mg/dL (0.15-1.2) H 08/18/22 18:18 AST 292 U/L (0-32) H 08/18/22 18:18 ALT 455 U/L (0-33) H 08/18/22 18:18 Alkaline Phosphatase 245 U/L (35-105) H 08/18/22 18:18 Troponin T Baseline 6 ng/L (0-10) 08/18/22 18:18 Troponin T 120 Minute 6.00 ng/L (0-10) 08/18/22 19:45 Delta Troponin T 0 ABS# (0-10) 08/18/22 19:45 Troponin T Hi Sens 6Hr 6.00 ng/L (0-10) 08/19/22 00:54 Troponin T Hi Sens 6Hr Delta 0 ng/L (0-12) 08/19/22 00:54 Total Protein 6.4 g/dL (6.6-8.7) L 08/18/22 18:18 Albumin 3.6 g/dL (3.5-5.2) 08/18/22 18:18 Globulin 2.8 g/dL (1.3-4.6) 08/18/22 18:18 Lipase 1441 U/L (13-60) H 08/18/22 18:18 Hepatitis A IgM Ab Non-reactive (Nonreactive) 08/18/22 19:43 Hep Bs Antigen Non-reactive (Nonreactive) 08/18/22 19:43 Hep Bs Antibody 137.3 (11.5-1000) 08/18/22 19:43 Hep B Core Total Ab Non-reactive (Nonreactive) 08/18/22 19:43 Hepatitis C Antibody Non-reactive (Nonreactive) 08/18/22 19:43 A&P Assessment and plan (1) Acute cholecystitis: Presenting today with epigastric and right upper quadrant pain with deranged LFTs and elevated lipase. Sonographic Tovar sign was positive upon ultrasound of the abdomen. Ultrasound concerning for possible cholecystitis. MRCP without any obstructing stones or pancreatitis. Clinical picture concerning for acute cholecystitis. Surgery consult obtained. N.p.o. until surgery assessment. Empiric antibiotic coverage with piperacillin tazobactam. Pain management with alternating IV Dilaudid and IV Toradol. IV fluids to D5 normal saline at 75 cc an hour. ACS ruled out with normal EKG and troponins (2) Polycythemia vera: Continue hydroxyurea once able to tolerate p.o. intake. Plan History of pulmonary embolism: Holding Eliquis for now in case surgical intervention is warranted. CT of the chest without signs of PE. Attestations Medical Necessity Statement*: Anticipate greater than 2 midnight admission for the management of acute cholecystitis Coding Level of Care Code Acute Broker for [facility] Diagnoses Acute cholecystitis K81.0 Polycythemia vera D45
[2022-08-19] MEDS: pantoprazole 40 mg SDV IVP (06:44)
[2022-08-19] MEDS: piperacillin-tazobactam 3.375 GM in sodium chloride 0.9% (plus) 50 ML IV ×3 (06:44→21:29)
--- NOTE | 2022-08-19 06:49 | PM.CONSULT ---
Providers/Reason For Consult Consulting Physician/Specialty*: Kal Harrison MD Reason for Consult*: Biliary pancreatitis Requesting Physician: Dr. Gonzales Attending Physician: Odette Wheeler MD Primary Care Provider: JAIME Gonzáles History of Present Illness History of Present Illness Ms. Reta Gipson is a pleasant 42 year old female resents to the emergency department with acute onset of chest pain, sharp and radiating upwards patient received nitro and aspirin by EMS and pain had resolved on her way to the ER. Patient gives history of polycythemia rubra vera and being on hydroxyurea and history of subsegmental pulmonary embolism and being on chronic anticoagulation in the form of Eliquis 2.5 mg p.o. twice a day. And last dose was received yesterday. Further work-up in the emergency department showed; LFTs, T bili of 2.1, AST ALT 292 and 455 respectively, elevated alkaline phosphatase.? Lipase was at 1441.? CT chest abdomen pelvis FINDINGS: Liver: Normal. No mass. Gallbladder and bile ducts: Normal. No calcified stones. No ductal dilation. Pancreas: Normal. No ductal dilation. Spleen: Normal. No splenomegaly. Adrenal glands: Normal. No mass. Kidneys and ureters: Normal. No hydronephrosis. Stomach and bowel: Severe descending and/or sigmoid colon diverticulosis without diverticulitis. Appendix: No evidence of appendicitis. Intraperitoneal space: Unremarkable. No free air. No significant fluid collection. Vasculature: One or more calcified pelvic phleboliths. Lymph nodes: Unremarkable. No enlarged lymph nodes. Urinary bladder: Unremarkable as visualized. Reproductive: Status post hysterectomy. Bones/joints: Unremarkable. No acute fracture. Soft tissues: Unremarkable. CT/CT angio chest w abd pel w con IMPRESSION: No pulmonary embolus or aortic dissection. Ultrasound gallbladder 1. Multiple large gallstones within the gallbladder. 2. Sonographically positive Tovar's sign suggesting possible cholecystitis. 3. 5 mm gallbladder wall thickening most consistent with cholecystitis. 4. Tail the pancreas obscured by bowel gas. 5. Otherwise radiographically normal pancreas which does not rule out clinical pancreatitis. MRCP 1. Nondistended gallbladder containing stones. Acute cholecystitis is unlikely without gallbladder distension. 2. No biliary dilation. 3. Moderate splenic enlargement. Subsequently the general surgery service was consulted for further evaluation, patient reports to me that she had some pain on the left upper quadrant as well. Being dull nothing seems to make it better or worse. Review of Systems General: Reports: 10 or more systems reviewed and unremarkable except in HPI and below Medications/Allergies Home Medications Medication Instructions Recorded Confirmed Last Taken Type apixaban 5 mg tablet (Eliquis) 2.5 mg PO BID 04/07/22 08/20/22 05/21/22 History cholecalciferol (vitamin D3) 250 250 mcg PO DAILY 04/28/22 08/20/22 05/21/22 History mcg (10,000 unit) capsule gabapentin 300 mg capsule 300 mg PO .COMPLEX 04/28/22 08/20/22 05/21/22 History fluoxetine 10 mg capsule 10 mg PO DAILY 06/17/22 08/20/22 Unknown History hydroxyurea 500 mg capsule 500 mg PO BID 07/08/22 08/20/22 Unknown History cetirizine 10 mg tablet 10 mg PO DAILY 08/19/22 08/20/22 Unknown History mirtazapine 30 mg tablet 15 mg PO BEDTIME 08/19/22 08/20/22 Unknown History omeprazole 40 mg capsule,delayed 40 mg PO DAILY 08/19/22 08/20/22 Unknown History release vitamin E 268 mg (400 unit) capsule 268 mg PO DAILY 08/19/22 08/20/22 Unknown History Allergies Allergy/AdvReac Type Severity Reaction Status Date / Time guaifenesin Allergy ALGY-Hives Verified 08/20/22 16:33 metronidazole [From Flagyl] AdvReac LIghtheaded, Verified 08/20/22 16:33 flushed tioconazole AdvReac Vaginal Verified 08/20/22 16:33 [From Monistat 1 burning (tioconazole)] Current Medications Generic Name Dose Route Start Last Admin Trade Name Freq PRN Reason Stop Dose Admin Piperacillin Sod/Tazobactam 50 mls @ 12.5 mls/hr 08/19/22 06:00 08/19/22 06:44 Sod 3.375 gm/ Sodium Chloride IV 12.5 mls/hr Q8H ISADORA Administration Protocol Pantoprazole Sodium 40 mg 08/19/22 05:00 08/19/22 06:44 Pantoprazole 40 Mg Sdv IVP 40 mg Q24H ISADORA Administration PFSH Acute PFSH: Medical History Acute respiratory distress syndrome (ARDS) Diverticulitis Diagnosed in 2019- Enlarged thyroid gland This is currently being evaluated and managed by Dr. Ferro. She thinks that her thyroid levels were normal. Multifocal pneumonia No pertinent past medical history Denies diabetes, asthma, seizures, DVT. PMD: [place] Pneumonia due to COVID-19 virus Polycythemia vera Has had symptoms since about 2013 and was diagnosed in 2015. She currently sees heme oncology-Dr. Garcia and is on medication for this. Polycythemia vera Pulmonary embolism Surgical History History of tubal ligation March 2009--laparoscopic procedure Status post hysteroscopy 02/06/2021--hysteroscopy performed for possible endometrial polyp on ultrasound-performed [place]. Ambrose [place] [facility] [place] At hysteroscopy no obvious intracavitary abnormalities including polyp identified. D&C performed and pathology showed secretory and proliferative endometrium without atypia hyperplasia or malignancy. Family History Father Chronic kidney disease (CKD) Hypertension Sister Chronic kidney disease (CKD) Psychiatric illness Mother Thyroid disease Grandmother Thyroid disease Maternal Denies family history of Colon cancer Ovarian cancer Diabetes Heart disease Breast cancer Bleeding disorder Uterine cancer Stroke Social History Smoking and tobacco status: never smoked Alcohol intake: never Female Reproductive History: Date of last menstrual period: 07/16/21 Vitals/I&O/Wt Last Vital Signs Temp 97.9 F 08/19/22 05:00 Pulse 63 08/19/22 05:00 Resp 18 08/19/22 05:00 BP 110/74 08/19/22 05:00 Pulse Ox 97 08/19/22 05:00 O2 Del Method 08/19/22 02:00 08/18/22 08/18/22 08/19/22 14:59 22:59 06:59 Intake Total 50 / 50 Balance 50 / 50 Weight last 48 hrs Weight 285 lb Physical Exam Const: COMMON NORMALS: no acute distress and patient oriented x3 GENERAL APPEARANCE: cooperative ORIENTATION/CONSCIOUSNESS: Yes awake, Yes oriented to person, Yes oriented to place and Yes oriented to time HENMT: COMMON NORMALS: normocephalic HEAD & SCALP: normocephalic Eye: COMMON NORMALS: Equal, round and reactive pupils present and no scleral icterus PUPIL: Yes Equal, round and reactive pupils present Lymph: LYMPHATIC: no lymphadenopathy noted Chest: COMMONS NORMALS: normal inspection of the chest Resp: COMMON NORMALS: normal respiratory effort and clear to auscultation bilaterally AUSCULTATION: clear to auscultation bilaterally Cardio: COMMON NORMALS: S1 normal heart sound present and S2 normal heart sound present; negative for No murmurs present (Cardio) HEART SOUNDS: S1 normal heart sound present and S2 normal heart sound present GI: COMMON NORMALS: Soft to palpation; negative for No hepatosplenomegaly present INSPECTION: Yes normal to inspection PALPATION: Yes Soft to palpation, No Firmness to palpation present (GI), Yes Tenderness to palpation present (GI) Details: LUQ and RUQ, No Guarding due to palpation present (GI), No Rigid due to palpation and No No hepatosplenomegaly present Neuro: COMMON NORMALS: patient oriented x3 SENSORIUM/ORIENTATION: Yes oriented to person, Yes oriented to place and Yes oriented to time Psych: COMMON NORMALS: mental status grossly normal Skin: COMMON NORMALS: no rashes or lesions noted GENERAL SKIN EXAM: no rashes or lesions noted Data : 08/20/22 02:58 08/20/22 02:58 A&P Assessment and plan (1) Biliary acute pancreatitis: After thorough history physical examination and reviewing the chart and images with my personal interpretation. Likely the patient had a smaller stone migrated and caused biliary pancreatitis. I did discuss with the patient her options and the general recommendation is to perform laparoscopic cholecystectomy within the same hospitalization after normalization and trending down of serum lipase. Will continue coordinating care with hospitalist service and patient should be on Lovenox N.p.o. on IV fluid resuscitation Will follow on repeat labs Assurance and education All questions have been answered and all concerns have been addressed to patient's satisfaction. Consult Attestations Medical Necessity Statement: per admitting service Time Spent in Patient Care: 16 - 35 minutes Coding Level of Care Code Acute Credit Administration Manager for [facility] Fwd Exam Comprehensive Diagnoses Biliary acute pancreatitis K85.10
--- NOTE | 2022-08-19 09:34 | PC.CHAP ---
Pastoral Care Encounter/Spiritual Assessment Type of Contact [] Declined pneumatic riveter visit [] Patient/Family/Request visit [] Outpatient visit [] Follow-up visit [] Physician referral [] Code/Alert [x] Routine visit [] Staff referral [] Actively dying [] Patient sleeping [] Family support [] [] Out of room [] Palliative care [] [x] Receiving care in room [] Pre-surgical visit [] Trauma [] Long length of stay [] ICU visit [] Other: Relational/Emotional Strength [] Patient feels connected with others/family/visitors/staff [] Distress [] Loneliness/isolation [] Abandonment Spirituality of Patient [] Person of Lzia [] Attends Jew of their Liza [] Believes in Prayer [] Reads Bible or Yazidism materials [] There are Spiritual issues to be addressed Lamination Assembler Interventions [] Prayer [] Active listening [] Non-anxious presence [] Spiritual/emotional support [] Crisis/trauma care [] Spiritual counseling [] Bereavement support [] Provided bereavement packet [] Provided Bible/devotional materials [] Provided toy/stuffed animal, coloring book to patient or family member [] Provided Communion [] Anointing/[place] [] Salvation [] Completed spiritual assessment [] Other: Impact on Illness or Injury [] Angry [] Fearful [] Anxious [] Often cries [] Exhaustion [] Unable to work [] Unable to attend moravian [] Unable to walk/stand [] Unable to read [] Unable to drive [] Unable to eat/drink [] Unable to sleep [] Unable to be with family [] Patient intubated [] Other: Summary Time spent with patient
[2022-08-19] MEDS: dextrose 5%-sod chloride 0.9% 1,000 ML 75 ML IV (10:13)
--- NOTE | 2022-08-19 11:50 | PM.MISC ---
Miscellaneous Note Note: Patient was seen and examined Pain is well controlled She is n.p.o. Dr. Harrison is planning to do surgery in next 24 to 48 hours I will start her on D5 normal saline Pain is well managed Morbidly obese Awake and alert No active distress Abdomen soft tenderness in his right upper quadrant and midepigastric region No active swelling EOMI, PERRLA S1, S2 Currently on room air N.p.o. Plan for laparoscopic cholecystectomy Afebrile No acute signs of sepsis Continue antibiotics Pain well managed Continue Protonix I will give her a dose of Lovenox as DVT prophylaxis today
[2022-08-19] MEDS: enoxaparin 60 mg/0.6 mL Syringe 50 MG SUBCUT (16:47)
[2022-08-20] VITALS: BP 102/69; PULSE 71; RESP 18; TEMP 36.8; O2SAT 95
[2022-08-20] MEDS: dextrose 5%-sod chloride 0.9% 1,000 ML 75 ML IV (00:26)
[2022-08-20 03:24] LABS: Basophils # 0.1 10^3/uL (0.0-0.1); Basophils % 1.3 %; Eosinophils # 0.2 10^3/uL (0.0-0.8); Eosinophils % 2.7 %; Hematocrit 41.5 % (37.0-47.0); Hemoglobin 13.3 g/dL (11.5-15.3); Lymphocytes # 1.3 10^3/uL (0.8-4.8); Lymphocytes % 24.1 %; Mean Corpuscular Hemoglobin 35.6 pg (28.0-34.0); Monocytes # 0.4 10^3/uL (0.2-0.9); Monocytes % 6.8 %; Neutrophils # 3.55 10^3/uL (1.8-7.7); Neutrophils % 64.7 %; Nucleated Red Blood Cells % 0 %; Platelet Count 200 10^3/cmm (130-400); Red Blood Count 3.74 10^6/uL (4.1-5.3); Red Cell Distribution Width 12.5 % (12.1-15.1); White Blood Count 5.5 10^3/uL (4.0-10.0)
[2022-08-20 03:52] LABS: Alanine Aminotransferase 327 U/L (0-33); Albumin Level 3.5 g/dL (3.5-5.2); Alkaline Phosphatase 218 U/L (35-105); Aspartate Amino Transferase 100 U/L (0-32); Blood Urea Nitrogen 5 mg/dL (6-20); Calcium 8.7 mg/dL (8.5-10.5); Carbon Dioxide 25 mmol/L (22-29); Chloride 105 mmol/L (98-107); Globulin 2.4 g/dL (1.3-4.6); Glomerular Filtration Rate 68.7 mL/min (90-130); Glucose 91 mg/dL (65-115); Lipase 29 U/L (13-60); Osmolality Calculated 287 mOsm/kg (285-295); Sodium 140 mmol/L (136-145); Total Protein 5.9 g/dL (6.6-8.7)
[2022-08-20 04:00] VITALS: BP 115/72; PULSE 62; RESP 18; TEMP 36.8; O2SAT 95
[2022-08-20] MEDS: pantoprazole 40 mg SDV IVP (05:36)
[2022-08-20] MEDS: piperacillin-tazobactam 3.375 GM in sodium chloride 0.9% (plus) 50 ML IV ×3 (05:37→21:05)
[2022-08-20 07:48] VITALS: BP 135/79; PULSE 58; RESP 17; TEMP 36.5; O2SAT 97
--- NOTE | 2022-08-20 08:56 | P.PN_ITS ---
Subjective Subjective: Patient has remained afebrile Hemodynamically stable Lipase and liver enzymes are normal Patient is not complaining active pain Will touch base with Dr. Harrison if he is planning for surgery today I was told by the patient that it might be scheduled for Wednesday I have kept her n.p.o. for now Vitals/I&O/Wt Last Vital Signs Temp 97.7 F 08/20/22 07:48 Pulse 58 L 08/20/22 07:48 Resp 17 08/20/22 07:48 BP 135/79 08/20/22 07:48 Pulse Ox 97 08/20/22 07:48 O2 Del Method 08/20/22 07:48 08/19/22 08/20/22 08/20/22 22:59 06:59 14:59 Intake Total 170 / 220 1050 / 1270 Balance 170 / 220 1050 / 1270 Weight last 48 hrs Weight 129.274 kg Physical Exam Narrative: Patient is hemodynamically stable Laying supine Abdomen pain has not worsened Abdomen is soft No active signs of peritonitis Awake and alert Looks hydrated S1, S2 Continue on room air Pleasant and cooperative Nonfocal neuro exam Data : 08/20/22 02:58 08/20/22 02:58 A&P Assessment and plan (1) Biliary acute pancreatitis: (2) Acute cholecystitis: (3) Shoulder pain: Qualifiers: Chronicity: acute Laterality: left Qualified Code(s): M25.512 - Pain in left shoulder (4) Morbid obesity with BMI of 40.0-44.9, adult: Plan Biliary pancreatitis Gallstones Patient will need laparoscopic cholecystectomy She is n.p.o. Will touch base with general surgery If surgery is tomorrow I will let her have low-fat diet today She was given DVT prophylaxis dose yesterday, She is full code Continue antibiotics Currently she is on D5 normal saline Afebrile hemodynamically stable Attestations Medical Necessity Statement*: Awaiting surgery Time Spent in Patient Care: 40 Coding Level of Care Code Acute International Recruiter for g Fwd Diagnoses Biliary acute pancreatitis K85.10 Acute cholecystitis K81.0 Shoulder pain M25.512 Chronicity: acute Laterality: left Morbid obesity with BMI of 40.0-44.9, adult E66.01; Z68.41
--- NOTE | 2022-08-20 11:00 | PC.CHAP ---
Pastoral Care Encounter/Spiritual Assessment Type of Contact [] Declined waste cotton cleaner visit [] Patient/Family/Request visit [] Outpatient visit [] Follow-up visit [] Physician referral [] Code/Alert [x] Routine visit [] Staff referral [] Actively dying [] Patient sleeping [] Family support [] [] Out of room [] Palliative care [] [x] Receiving care in room [] Pre-surgical visit [] Trauma [] Long length of stay [] ICU visit [] Other: Relational/Emotional Strength [x] Patient feels connected with others/family/visitors/staff [] Distress [] Loneliness/isolation [] Abandonment Spirituality of Patient [x] Person of Liza [] Attends Latter-Day of their Liza [x] Believes in Prayer [] Reads Bible or Sabianism materials [] There are Spiritual issues to be addressed Disk Operator Interventions [x] Spiritual counseling [x] Bereavement support [x] Provided bereavement packet [x] Provided Bible/devotional materials [x] Provided toy/stuffed animal, coloring book to patient or family member [] Provided Communion [] Anointing/[place] [] Salvation [x] Completed spiritual assessment [] Other: Impact on Illness or Injury [] Angry [] Fearful [] Anxious [] Often cries [] Exhaustion [] Unable to work [] Unable to attend synagogue [] Unable to walk/stand [] Unable to read [] Unable to drive [] Unable to eat/drink [] Unable to sleep [] Unable to be with family [] Patient intubated [] Other: Summary = 1 back surgery WELL GO HOME AT SOME POINT HAS A GOOD attitude Time spent with patient 10 mins
[2022-08-20 11:42] VITALS: BP 101/64; PULSE 77; RESP 17; TEMP 36.6; O2SAT 96
[2022-08-20 15:30] VITALS: BP 125/69; PULSE 79; RESP 17; TEMP 36.6; O2SAT 95
--- NOTE | 2022-08-20 16:35 | PM.PN ---
Subjective Subjective: Patient overall feels better, numbers are trending down regarding liver function tests. Medications: Reviewed: Yes Vitals/I&O/Wt Last Vital Signs Temp 97.9 F 08/20/22 15:30 Pulse 79 08/20/22 15:30 Resp 17 08/20/22 15:30 BP 125/69 08/20/22 15:30 Pulse Ox 95 08/20/22 15:30 O2 Del Method 08/20/22 15:30 08/20/22 08/20/22 08/20/22 06:59 14:59 22:59 Intake Total 1050 / 1270 50 / 50 Balance 1050 / 1270 50 / 50 Weight last 48 hrs Weight 285 lb Physical Exam Narrative: Patient is conscious alert oriented X3 No apparent distress BMI 42.1 Head and neck examination PERRLA no masses no cervical lymphadenopathy no jaundice Abdomen nontender nondistended soft no organomegaly guarding or rigidity/no signs of peritonitis Data : 08/20/22 02:58 08/20/22 02:58 A&P Assessment and plan (1) Biliary acute pancreatitis: Plan of care; After thorough history physical examination and reviewing the chart and images with my personal intrepreatation.I counseled the patient for laparoscopic cholecystectomy possible open, indications risks including but not limited injury to the common bile duct and/or other viscera,that may require potential future surgical interventions including but not limited to ERCP and or laparatomy that may include Hepatobiliary surgery.Benefits and alternatives all discussed with the patient, and patient did agree to proceed accordingly. All questions have been answered and all concerns have been addressed to patient's satisfaction. Rationale was carefully and clearly discussed with the patient.Appropriate informed consent have been reviewed and signed. After holding Eliquis for 48 hours, we will plan to proceed with laparoscopic cholecystectomy tomorrow. Attestations Medical Necessity Statement*: Per admitting service Time Spent in Patient Care: 16 - 35 minutes Coding Level of Care Code Acute Medical Billing Manager for Ezequiel Ulrich Diagnoses Biliary acute pancreatitis K85.10
[2022-08-20 20:00] VITALS: BP 129/79; PULSE 64; RESP 17; TEMP 36.7; O2SAT 91
[2022-08-20] MEDS: sodium chloride 0.9% 1,000 ML 100 ML IV (21:06)
[2022-08-21] VITALS (34 sets, daily range): BP systolic 94–180; BP diastolic 61–98; PULSE 66–100; RESP 8–19; TEMP 36.3–37.1; O2SAT 92–100
[2022-08-21 04:02] LABS: Alanine Aminotransferase 224 U/L (0-33); Albumin Level 3.4 g/dL (3.5-5.2); Alkaline Phosphatase 184 U/L (35-105); Anion Gap 13.8 (5-19); Aspartate Amino Transferase 55 U/L (0-32); Blood Urea Nitrogen 6 mg/dL (6-20); Calcium 8.6 mg/dL (8.5-10.5); Carbon Dioxide 25 mmol/L (22-29); Chloride 104 mmol/L (98-107); Globulin 2.5 g/dL (1.3-4.6); Glomerular Filtration Rate 78.7 mL/min (90-130); Glucose 78 mg/dL (65-115); Osmolality Calculated 284 mOsm/kg (285-295); Potassium 3.8 mmol/L (3.5-5.1); Sodium 139 mmol/L (136-145); Total Bilirubin 0.9 mg/dL (0.15-1.2); Total Protein 5.9 g/dL (6.6-8.7)
[2022-08-21] MEDS: sodium chloride 0.9% 1,000 ML 100 ML IV ×3 (05:30→21:10)
[2022-08-21] MEDS: pantoprazole 40 mg SDV IVP (05:30)
[2022-08-21] MEDS: piperacillin-tazobactam 3.375 GM in sodium chloride 0.9% (plus) 50 ML IV ×3 (05:31→21:10)
--- NOTE | 2022-08-21 06:18 | P.ANESASSM_ITS ---
Pre-Anesthetic Assessment Height/Weight: Height 1.75 m Weight 129.274 kg Temp Pulse Resp BP Pulse Ox O2 Del Method 97.7 F 75 18 107/69 96 08/21/22 04:00 08/21/22 04:00 08/21/22 04:00 08/21/22 04:00 08/21/22 04:00 08/20/22 20:00 Preop Diagnosis: Abnormal uterine bleeding: Menorrhagia Operation Date: 08/21/22 09:30 Proposed Procedures p Laparoscopic Cholecystectomy(Not Applicable) - Kal Harrison MD Familial anesthetic complications: none Was Beta Ricki taken within 24 hours: N/A Was Clonidine taken within 24 hours: N/A Last intake: 08/20/22 Social No alcohol and No tobacco Exam alert, oriented x 3, clear to auscultation bilaterally and regular rate & rhythm Airway Submandibular: within normal limits Cervical ROM: within normal limits Mallampati: Class II Comments: Comments: Abnormal upper teeth arrangement Pulmonary Sleep Apnea (Uses CPAP ) and Shortness of Breath Hx of ARDS, PCN Hx of PE Chronic respiratory failure with hypoxia CV/HEM Polycythemia vera - denies hx of liver dysfunction or other known iron deposition disease SOB with flight of stairs Holter Report 06/2022 Conclusion: 1.? Baseline rhythm is sinus rhythm.? Heart rate ranged from 55 to 138 bpm with average heart rate of 74 bpm. 2.? Patient activated symptom did not correlate with any arrhythmia. 3.? Normal event monitor. TTE 2020 CONCLUSIONS ?LV systolic function is normal with EF of 55-60% ?Diastolic function is normal ?No significant valvular heart disease ?No comparison studies are available Hx of neophrolithiasis Hepatic Elevated AST, ALT Alk phos GI Acute biliary pancreatitis Metabolic Morbid Obesity Musc/skel Plantar fasciitis Neuropsych Depression Anesthetic Plan ASA status: 3 Anesthesia: Anesthesia Evaluation and General Other: We discussed risk and benefits of general anesthesia including PONV, sore throat (sometimes severe), corneal abrasion, positioning and peripheral nerve injuries, life threatening allergic reaction, post operative ICU admission requiring pr olonged intubation, aspiration, stroke, heart attack, , and rare incidences of recall. Patient consents to proceed with general anesthesia. Risk of > 500 ml blood loss (7ml/kg in children): No Medications/Allergies Home Medications Medication Instructions Recorded Confirmed Last Taken Type apixaban 5 mg tablet (Eliquis) 2.5 mg PO BID 04/07/22 08/20/22 05/21/22 History cholecalciferol (vitamin D3) 250 250 mcg PO DAILY 04/28/22 08/20/22 05/21/22 History mcg (10,000 unit) capsule gabapentin 300 mg capsule 300 mg PO .COMPLEX 04/28/22 08/20/22 05/21/22 History fluoxetine 10 mg capsule 10 mg PO DAILY 06/17/22 08/20/22 Unknown History hydroxyurea 500 mg capsule 500 mg PO BID 07/08/22 08/20/22 Unknown History cetirizine 10 mg tablet 10 mg PO DAILY 08/19/22 08/20/22 Unknown History mirtazapine 30 mg tablet 15 mg PO BEDTIME 08/19/22 08/20/22 Unknown History omeprazole 40 mg capsule,delayed 40 mg PO DAILY 08/19/22 08/20/22 Unknown History release vitamin E 268 mg (400 unit) capsule 268 mg PO DAILY 08/19/22 08/20/22 Unknown History Allergies Allergy/AdvReac Type Severity Reaction Status Date / Time guaifenesin Allergy ALGY-Hives Verified 08/20/22 16:33 metronidazole [From Flagyl] AdvReac LIghtheaded, Verified 08/20/22 16:33 flushed tioconazole AdvReac Vaginal Verified 08/20/22 16:33 [From Monistat 1 burning (tioconazole)] Current Medications Generic Name Dose Route Start Last Admin Trade Name Freq PRN Reason Stop Dose Admin Piperacillin Sod/Tazobactam 50 mls @ 12.5 mls/hr 08/19/22 06:00 08/21/22 05:31 Sod 3.375 gm/ Sodium Chloride IV 12.5 mls/hr Q8H ISADORA Administration Protocol Sodium Chloride 1,000 mls @ 100 mls/hr 08/20/22 18:45 08/21/22 05:30 Sodium Chloride 0.9% IV 100 mls/hr .Q10H ISADORA Administration Pantoprazole Sodium 40 mg 08/19/22 05:00 08/21/22 05:30 Pantoprazole 40 Mg Sdv IVP 40 mg Q24H ISADORA Administration PFSH Anesthesia Medical History Acute respiratory distress syndrome (ARDS) Diverticulitis Diagnosed in 2019- Enlarged thyroid gland This is currently being evaluated and managed by Dr. Ferro. She thinks that her thyroid levels were normal. Multifocal pneumonia No pertinent past medical history Denies diabetes, asthma, seizures, DVT. PMD: ABI [place] Pneumonia due to COVID-19 virus Polycythemia vera Has had symptoms since about 2014 and was diagnosed in 2016. She currently sees heme oncology-Dr. Garcia and is on medication for this. Polycythemia vera Pulmonary embolism Surgical History History of tubal ligation March 2009--laparoscopic procedure Status post hysteroscopy 02/06/2021--hysteroscopy performed for possible endometrial polyp on ultrasound-performed by Dr. Ambrose at [facility] [place]. At hysteroscopy no obvious intracavitary abnormalities including polyp identified. D&C performed and pathology showed secretory and proliferative endometrium without atypia hyperplasia or malignancy. Family History Father Chronic kidney disease (CKD) Hypertension Sister Chronic kidney disease (CKD) Psychiatric illness Mother Thyroid disease Grandmother Thyroid disease Maternal Denies family history of Colon cancer Ovarian cancer Diabetes Heart disease Breast cancer Bleeding disorder Uterine cancer Stroke Social History Smoking and tobacco status: never smoked Alcohol intake: never Female Reproductive History Date of last menstrual period: 07/16/21 Data Anesthesia : 08/20/22 02:58 08/21/22 03:00 Short CBC 08/20/22 Range/Units 02:58 WBC 5.5 (4.0-10.0) 10^3/uL Hgb 13.3 (11.5-15.3) g/dL Hct 41.5 (37.0-47.0) % MCV 111.0 H (81-99) fl Plt Count 200 (130-400) 10^3/cmm Neut % (Auto) 64.7 % Neut # (Auto) 3.55 (1.8-7.7) 10^3/uL BMP 08/20/22 08/21/22 02:58 03:00 Sodium 140 139 Potassium 4.0 3.8 Chloride 105 104 Carbon Dioxide 25 25 BUN 5 L 6 Creatinine 0.9 0.8 Glucose 91 78 Calcium 8.7 8.6 Liver Function 08/20/22 08/21/22 Range/Units 02:58 03:00 Total Bilirubin 1.0 0.9 (0.15-1.2) mg/dL AST 100 H 55 H (0-32) U/L ALT 327 H 224 H (0-33) U/L Alkaline Phosphatase 218 H 184 H (35-105) U/L Albumin 3.5 3.4 L (3.5-5.2) g/dL Cardiac Studies: Echocardiogram 08/08/21 Cardiac Event Monitor 07/08/22
--- NOTE | 2022-08-21 07:45 | PC.NURSE ---
Report received from PRABHU Trent, at shift change.
[2022-08-21] MEDS: sodium chloride 0.9% 1,000 ML 30 ML IV (09:20)
[2022-08-21] MEDS: scopolamine 1.5 Patch 1 PATCH TRANSDERMA (09:31)
[2022-08-21] MEDS: acetaminophen 1,000 MG/100 ML PIGGYBACK 400 MG IV (09:31)
--- NOTE | 2022-08-21 09:33 | PM.PN ---
Subjective Subjective: Patient did have a good night. Patient reports that she had numbness onto the anterolateral aspect of the right thigh since her last surgery in the form of hysterectomy. Denies any neurological deficits Vitals/I&O/Wt Last Vital Signs Temp 98.0 F 08/21/22 09:32 Pulse 66 08/21/22 09:32 Resp 14 08/21/22 09:32 BP 94/61 08/21/22 09:32 Pulse Ox 95 08/21/22 09:32 O2 Del Method 08/21/22 09:32 08/20/22 08/21/22 08/21/22 22:59 06:59 14:59 Intake Total 50 / 100 890 / 990 Balance 50 / 100 890 / 990 Physical Exam Narrative: Patient is conscious alert oriented X3 No apparent distress BMI 42.1 Head and neck examination PERRLA no masses no cervical lymphadenopathy no jaundice Abdomen nontender nondistended soft no organomegaly guarding or rigidity/no signs of peritonitis No evidence of neurological deficits of bilateral lower extremities Mild paresthesia over the anterolateral aspect of the right thigh. Examination was done in the presence of female petrophysical engineer nursing staff Kathy Data : 08/20/22 02:58 08/21/22 03:00 A&P Assessment and plan (1) Biliary acute pancreatitis: Plan of care; After thorough history physical examination and reviewing the chart and images with my personal intrepreatation.I counseled the patient for laparoscopic cholecystectomy possible open, indications risks including but not limited injury to the common bile duct and/or other viscera,that may require potential future surgical interventions including but not limited to ERCP and or laparatomy that may include Hepatobiliary surgery.Benefits and alternatives all discussed with the patient, and patient did agree to proceed accordingly. All questions have been answered and all concerns have been addressed to patient's satisfaction. Rationale was carefully and clearly discussed with the patient.Appropriate informed consent have been reviewed and signed. After holding Eliquis for 48 hours, we will plan to proceed with laparoscopic cholecystectomy tomorrow. Attestations Medical Necessity Statement*: Per admitting service Coding Level of Care Code Acute Grinder Carbon Plant for Ezequiel Ulrich Diagnoses Biliary acute pancreatitis K85.10
--- NOTE | 2022-08-21 09:33 | PC.NURSE ---
Patient off unit for surgery at this time
[2022-08-21] MEDS: lidocaine 2% INJ 20 mL INJECTION (10:09)
--- NOTE | 2022-08-21 11:13 | PM.PN ---
Subjective Subjective: Patient is scheduled for laparoscopic cholecystectomy No overnight fever Liver enzymes trending down Vitals/I&O/Wt Last Vital Signs Temp 98.0 F 08/21/22 09:32 Pulse 66 08/21/22 09:32 Resp 14 08/21/22 09:32 BP 94/61 08/21/22 09:32 Pulse Ox 95 08/21/22 09:32 O2 Del Method 08/21/22 09:32 08/20/22 08/21/22 08/21/22 22:59 06:59 14:59 Intake Total 50 / 100 890 / 990 150 / 150 Balance 50 / 100 890 / 990 150 / 150 Physical Exam Narrative: Patient is awake and alert Nonfocal neuro exam Abdomen soft Full code Currently on room air No signs of peritonitis Pleasant and cooperative EOMI, PERRLA Data : 08/20/22 02:58 08/21/22 03:00 A&P Assessment and plan (1) Biliary acute pancreatitis: (2) Acute cholecystitis: (3) Shoulder pain: Qualifiers: Chronicity: acute Laterality: left Qualified Code(s): M25.512 - Pain in left shoulder (4) Morbid obesity with BMI of 40.0-44.9, adult: Plan Laparoscopic cholecystectomy postop day 0 Monitor for postop complications 1 pain management with opioids Added bowel regimen Advance diet slowly Patient has history of DVT, polycythemia vera, anticoagulating agent can be started 6 to 8 hours after surgery She has remained stable on room air Full code Attestations Medical Necessity Statement*: Discharge later today versus tomorrow Time Spent in Patient Care: 40 Coding Level of Care Code Acute Motorboat Mechanic Inboard for Ezequiel Ulrich Diagnoses Biliary acute pancreatitis K85.10 Acute cholecystitis K81.0 Shoulder pain M25.512 Chronicity: acute Laterality: left Morbid obesity with BMI of 40.0-44.9, adult E66.01; Z68.41
--- NOTE | 2022-08-21 11:38 | PM.OP ---
Operative Report Date of procedure: August 21, 2022 Pre-op diagnosis: Preop Diagnosis Biliary pancreatitis Post-op findings: Morbidly obese Intra-abdominal falciform ligament with extensive fatty tissues Fatty liver Procedure done: 1-Laparoscopic cholecystectomy 2-Takedown of falciform ligament and excision of ligamentum Teres Implants: Surgicel at the gallbladder fossa Specimens removed/disposition: Falciform ligament Gallbladder and contents Surgeon: Kal Harrison MD Assistant Laboratory Director: Surgical techs and and Kayla Circulating nurse Marlen Anesthesia: General (CASINO CHANGE ATTENDANT Angelina) Estimated blood loss (mL): 50 IV fluids (mL): 1,100 Procedure: Patient was identified in the holding area and taken back to the operative suite, placed in supine position intubated by anesthesia . Time-out was done verifying the patient's name/date of /planned procedure and destination after the procedure, all were in agreement. SCDs confirmed to be functioning, preoperative antibiotics administered per protocol, and beta rikki protocol was confirmed. Patient was appropriately secured to the table and all pressure points were appropriately padded, footboard was applied to the OR table, before prep and drape anesthesia was asked to tilt the table back and forth to make sure that the patient is appropriately secured and she was. Prep and drape of the abdomen was done under the usual sterile technique, followed by that supraumbilical skin incision,skin incision was done by a 15 blade knife, and stay sutures were applied to the fascia and Naqvi trocar technique was attempted yet the patient did have thick abdominal wall and excessive subcutaneous tissues. At this point I decided to go from the right upper quadrant using a 5 mm Optiview trocar on a 0/5 mm scope. A safe entrance to the abdominal cavity was achieved.without injuring any abdominal viscera, started by low flow gas insufflation followed by a high flow, started with a 10 mm laparoscope and under direct vision there was no evidence of any injuries, the scope then switched to a 30? 5 mm scope was introduced and under direct visualization a 12 mm trocar was introduced at the supraumbilical previously created incision. And no injuries noted at that site. Noticed to have excessive fat with the falciform ligament/ligamentum Teres that was taken down all the way and 2 clips were applied onto the ligamentum Teres, at that point Takedown of falciform ligament and excision of ligamentum Teres was achieved. And the fatty tissues were excised and sent for permanent pathology. A LigaSure device was used to take redundant fatty tissue was done. I added an additional 5 mm trocar towards the far right lateral and the index 5 mm trocar was far from the gallbladder and I had to add an additional 5 mm trocar more cephalad to it. To facilitate countertraction on the gallbladder. Gallbladder showed chronic cholecystitis and Fatty Liver, also taking down the falciform ligament facilitated the exposure of the gallbladder. Patient was then positioned in the head up and tilted to the left. Ratcheted forceps were introduced into the lateral most 5mm port and was applied unto the fundus of the gallbladder cephalad and using Bullet forceps the infundibulum of the gallbladder was retracted laterally. I had to switch the scope for a longer 1 with a 45 mm degree to have a better visualization. Using [place] forceps then L-hook cautery to dissect the peritoneum overlying the Calot's triangle which was then opened medially and laterally until the cystic duct and the cystic artery were skeletonized. Dissection was carried along the body of the gallbladder and after ensuring critical view of safety was identfied. Cystic duct and cystic artery where seen connected to the gallbladder. Clips were applied on the cystic duct towards the common bile duct 1 towards the gallbladder then divided is in sharp scissors, 2 clips were then applied onto the cystic artery and 1 towards the gallbladder and divided by sharp scissors. Additional vessel was clipped and divided Dissection was then carried along of the gallbladder from the gallbladder fossa using cautery as well as sharp dissection with heat energy. The gallbladder then was dissected out from the gallbladder fossa totally , cholecystectomy was then achieved and was placed in an Endo Catch bag and then retrieved from the Naqvi trocar site under direct visualization using a 5 mm 30? scope through the epigastric trocar, specimen was then passed to the circulating nurse to go for permanent pathology,irrigation and hemostasis was done to the gallbladder fossa after hemostasis was secured and hemostasis was finalized by application of 3 pieces of Surgicel, final survey laparoscopy was done that showed no injuries. Suction irrigation was obtained The supraumbilical fascial defect was then closed using interrupted number one PDS sutures using a fascial closure device ;Prabhakar Corley under direct visualization following that Gas was allowed to deflate,Trocars were then taken out under direct vision there was no evidence of bleeding. Specimens were passed to the circulating nurse for permanent pathology. No drains were placed and the supraumbilical incision as well as all trocar sites were closed by 3/0 Vicryl followed by skin timoteo to approximate the skin edges of the incisions , dressing was applied in the form of Band-Aids and the patient patient got extubated and was taken to recovery area in a stable condition. Count of sponges,needles and instruments were completed at the end of the procedure I was present for the whole entire procedure.
[2022-08-21] MEDS: fentaNYL 50 mcg/mL INJ 2mL IVP (12:07)
--- NOTE | 2022-08-21 12:25 | ECG_ITS ---
[facility] Test Date: 2022-08-21 Pat Name: Reta Gipson Department: Room: 271 Gender: Female Field Return Repairer: : 1980 Requested By: Lara Murcia Order Number: [id number] Markel MD: Joel Voss M.D. Measurements Intervals [place] Rate: 80 P: 52 MS: 163 QRS: -24 QRSD: 97 T: 10 QT: 390 QTc: 450 Interpretive Statements SINUS RHYTHM BORDERLINE LEFT AXIS DEVIATION [QRS AXIS < -20] Compared to ECG 08/19/2022 03:12:17 Sinus bradycardia no longer present Electronically Signed On 08-21-2022 14:47:08 CDT by Joel Voss M.D. [id number]
--- NOTE | 2022-08-21 12:57 | PM.PACU ---
PACU note Narrative: Called by phase I RN recovering patient for chest pain post op. On evaluation patient complained of non-specific chest pain w/o radiation to jaw or arm that the patient felt was somewhat like GERD. On exam VSS on RA, patient lying in bed appearing overall comfortable. Pain no reproducible. EKG did not such ischemia. Troponins, CXR, D-dimer ordered. I requested the PACU ask the patient's hospitalist to evaluate her prior to discharge from PACU. I do think this is likely diaphragmatic pain associated with abdominal insufflation.
--- NOTE | 2022-08-21 13:00 | XRR_ITS ---
PROCEDURE INFORMATION: Exam: XR Chest Exam date and time: 08/21/2022 1:27 PM Age: 42 years old Clinical indication: Pain; Angina pectoris; Prior surgery; Surgery date: Post-operative (0-2 days); Additional info: Chest pain TECHNIQUE: Imaging protocol: Radiologic exam of the chest. Views: 1 view. COMPARISON: CR (CHEST, ) 08/18/2022 6:21 PM FINDINGS: Lungs: The lung volumes are low. No acute pneumonia or edema. Pleural spaces: Unremarkable. No pleural effusion. No pneumothorax. Heart/Mediastinum: Unremarkable. No cardiomegaly. Bones/joints: Unremarkable. XR/XR chest 1V portable [id number] IMPRESSION: There are no acute concerning abnormalities.
[2022-08-21 13:11] LABS: Troponin T (5th) Once 6 ng/L (0-10)
--- NOTE | 2022-08-21 13:27 | SUR.PHASEI ---
Upon waking up in PACU patient stated she didn't feel right. said her chest felt weird and her tummy hurt. VS and rhythm on monitor looked good. Pain was treated. Patient continued stating she didn't feel right, still had pain in abdmen but didn't want any more pain medication as she didn't like how it made her feel. An EKG was done, and Dr Castaneda was notified. He ordered labs, and chest xray in addition to ekg. All completed in PACU. Patient is eating ice chips, alerted and oriented. States the chest feeling is improving.
[2022-08-21 13:47] LABS: D Dimer 0.45 ug/mIFEU (0-0.59)
--- NOTE | 2022-08-21 13:57 | SUR.PHASEI ---
Dr Miller came to pacu and evaluated patient. Labs, xray, ekg all WNL Report was called to 2N, patient will be transferred to floor
--- NOTE | 2022-08-21 15:34 | ANE.PACU2 ---
Inpatient post-anesthesia follow up: Airway intact: Yes Vital signs: Temperature 97.9 F Pulse Rate 79 Respiratory Rate 16 Blood Pressure 121/79 Pulse Oximetry 94 Oxygen Delivery Me thod Room Air Oxygen Flow Rate 1 Fraction of Inspir ed Oxygen Hydration adequate: Yes Nausea and vomiting: No Pain level: 3 Mental status: Baseline Additional Comments: D dimer, CXR, troponin WNL. Gas pain improved with time.
[2022-08-21] MEDS: HYDROmorphone 1 mg/mL INJ 1 mL 0.5 MG IVP ×2 (15:35→21:09)
[2022-08-21] MEDS: ketorolac 30 mg/mL INJ 15 MG IVP (23:51)
[2022-08-22 00:29] VITALS: BP 117/72; PULSE 69; RESP 15; TEMP 36.6; O2SAT 92
[2022-08-22 03:16] LABS: Basophils % 0.1 %; Hemoglobin 13.1 g/dL (11.5-15.3); Lymphocytes # 0.7 10^3/uL (0.8-4.8); Lymphocytes % 7.6 %; Mean Corpuscular HGB Conc 32.8 g/dL (30.0-36.0); Mean Corpuscular Hemoglobin 35.8 pg (28.0-34.0); Mean Corpuscular Volume 109.3 fl (81-99); Mean Platelet Volume 10.2 fL (7.4-10.4); Monocytes # 0.4 10^3/uL (0.2-0.9); Neutrophils # 7.42 10^3/uL (1.8-7.7); Neutrophils % 86.9 %; Nucleated Red Blood Cells % 0 %; Platelet Count 244 10^3/cmm (130-400); Red Blood Count 3.66 10^6/uL (4.1-5.3); Red Cell Distribution Width 11.9 % (12.1-15.1); White Blood Count 8.5 10^3/uL (4.0-10.0)
[2022-08-22 03:38] LABS: Alanine Aminotransferase 200 U/L (0-33); Albumin Level 3.5 g/dL (3.5-5.2); Alkaline Phosphatase 181 U/L (35-105); Aspartate Amino Transferase 64 U/L (0-32); Blood Urea Nitrogen 8 mg/dL (6-20); Calcium 8.3 mg/dL (8.5-10.5); Carbon Dioxide 22 mmol/L (22-29); Chloride 104 mmol/L (98-107); Creatinine Clr Calc Pharmacy 151.1128; Globulin 2.8 g/dL (1.3-4.6); Glomerular Filtration Rate 91.8 mL/min (90-130); Glucose 96 mg/dL (65-115); Osmolality Calculated 280 mOsm/kg (285-295); Sodium 136 mmol/L (136-145); Total Bilirubin 0.8 mg/dL (0.15-1.2); Total Protein 6.3 g/dL (6.6-8.7)
[2022-08-22] MEDS: piperacillin-tazobactam 3.375 GM in sodium chloride 0.9% (plus) 50 ML IV (04:49)
[2022-08-22] MEDS: pantoprazole 40 mg SDV IVP (04:49)
[2022-08-22 05:48] VITALS: BP 108/67; PULSE 66; RESP 18; TEMP 36.6; O2SAT 93
[2022-08-22] MEDS: ketorolac 30 mg/mL INJ 15 MG IVP (06:37)
[2022-08-22 08:00] VITALS: BP 110/71; PULSE 63; RESP 16; TEMP 36.7; O2SAT 95
[2022-08-22] MEDS: apixaban 5 mg Tablet 2.5 MG PO (08:12)
--- NOTE | 2022-08-22 09:34 | PC.SOCIAL ---
IMM update IMM updated with patient. Verbalized an understanding. Copy Pg 2 provided. Initialled, dated, timed, and placed in chart.
--- NOTE | 2022-08-22 09:38 | PM.PN ---
Subjective Subjective: Patient overall doing well and tolerating p.o. intake Medications: Reviewed: Yes Vitals/I&O/Wt Last Vital Signs Temp 98.0 F 08/22/22 08:00 Pulse 63 08/22/22 08:00 Resp 16 08/22/22 08:00 BP 110/71 08/22/22 08:00 Pulse Ox 95 08/22/22 08:00 O2 Del Method 08/22/22 08:00 O2 Flow Rate 1 08/21/22 13:40 08/21/22 08/22/22 08/22/22 22:59 06:59 14:59 Intake Total 1616.666 / 2866.666 50 / 2916.666 Balance 1616.666 / 2816.666 50 / 2866.666 Physical Exam Narrative: Patient is conscious alert oriented X3 No apparent distress BMI 42.1 Head and neck examination PERRLA no masses no cervical lymphadenopathy no jaundice Abdomen nontender except slightly at the incision sites and Band-Aids in place nondistended soft no organomegaly guarding or rigidity/no signs of peritonitis Data : 08/22/22 02:40 08/22/22 02:40 A&P Assessment and plan (1) Biliary acute pancreatitis: Condition resolved and from surgical standpoint of view patient can be discharged home today Avoid NSAIDs Hold off blood thinners for tonight and resume tomorrow Patient was educated about side effects of NSAIDs Return to surgery office in 10 days Advance diet as tolerated More education 1. Patient can shower after 48 hours from surgery 2. Remove secondary dressing can take down after 48 hours. 3. Up and walking as tolerated 4. Do lift more than 5 pounds first 2 weeks after surgery and not more than 25 pounds 6 to 8 weeks after surgery. 5. Do not operate heavy machinery or drive while using pain medications. 6.Contact the office or return to the ER for worsening nausea vomiting fevers or chills, or noticing any redness around incision sites or discharge. Attestations Medical Necessity Statement*: Per admitting service Coding Level of Care Code Acute Resource Conservationist for Ezequiel Ulrich Diagnoses Biliary acute pancreatitis K85.10
--- NOTE | 2022-08-22 09:56 | P.DS_ITS ---
Discharge Providers Date of Admission: 08/19/22 01:59 Date of Discharge: August 22, 2022 Attending Provider at Admission: Odette Wheeler MD Attending Provider at Discharge: Fabiola Miller MD Primary Care Provider: JAIME Gonzáles Diagnoses at Discharge Discharge Diagnosis (1) Biliary acute pancreatitis: Status: Resolved Reason for Visit Reason for Visit: CHEST PAIN Hospital Course Hospital Course 42-year-old female who presented to the hospital with chief complaint of worsening of abdominal pain she was diagnosed with gallstone induced pancreatitis, secondary to use of Eliquis we had to give her 48 hours before laparoscopic cholecystectomy. Dr. Harrison did the surgery on 08/21, after the surgery she did experience abdominal bloating and chest discomfort, D-dimer, troponin, EKG unremarkable chest x-ray was also unremarkable no signs of perfo rated viscus. She is hemodynamically stable at the time of discharge she has been instructed to resume her Eliquis from 08/23. I will give her opioids along bowel regimen. She will follow-up with Dr. Harrison within 10 days. Physical Exam Narrative: Morbidly obese female Abdomen soft Surgical scars with Dermabond No active signs of cellulitis Mild oozing noted Tolerating diet No active emesis or nausea S1, S2 Currently on room air Discharge Data Studies Completed and Pending Completed Studies During Hospitalization Category Date Time Status CT angio chest w abd pel w con Stat Cat Scan 08/18/22 19:01 Completed CXRP [XR chest 1V portable [id number]] Stat Exams 08/21/22 13:00 Completed XR chest 1V portable [id number] Stat Exams 08/18/22 18:11 Completed MR MRCP [id number] Stat MRI 08/18/22 21:21 Completed US gall bladder [id number] Stat Ultrasound 08/18/22 19:31 Completed Pending at discharge Category Date Time Status ES surgery / GI images Routine Exams 08/21/22 08:50 Taken Pathology: Surgical [PTH] Routine Pth 08/21/22 11:56 Received Radiology Impressions Chest/Abdomen/Pelvis CT 08/18/22 19:01 IMPRESSION: No pulmonary embolus or aortic dissection. IMPRESSION: No acute findings. Gallbladder Ultrasound 08/18/22 19:31 IMPRESSION: 1. Multiple large gallstones within the gallbladder. 2. Sonographically positive Tovar's sign suggesting possible cholecystitis. 3. 5 mm gallbladder wall thickening most consistent with cholecystitis. 4. Tail the pancreas obscured by bowel gas. 5. Otherwise radiographically normal pancreas which does not rule out clinical pancreatitis. Cholangiopancreatography MRI 08/18/22 21:21 IMPRESSION: 1. Nondistended gallbladder containing stones. Acute cholecystitis is unlikely without gallbladder distension. 2. No biliary dilation. 3. Moderate splenic enlargement. Chest X-Ray 08/21/22 13:00 IMPRESSION: There are no acute concerning abnormalities. Laboratory Results WBC 8.5 10^3/uL (4.0-10.0) 08/22/22 02:40 RBC 3.66 10^6/uL (4.1-5.3) L 08/22/22 02:40 Hgb 13.1 g/dL (11.5-15.3) 08/22/22 02:40 Hct 40.0 % (37.0-47.0) 08/22/22 02:40 MCV 109.3 fl (81-99) H 08/22/22 02:40 MCH 35.8 pg (28.0-34.0) H 08/22/22 02:40 MCHC 32.8 g/dL (30.0-36.0) 08/22/22 02:40 RDW 11.9 % (12.1-15.1) L 08/22/22 02:40 Plt Count 244 10^3/cmm (130-400) 08/22/22 02:40 MPV 10.2 fL (7.4-10.4) 08/22/22 02:40 Neut % (Auto) 86.9 % 08/22/22 02:40 Lymph % (Auto) 7.6 % 08/22/22 02:40 [place] % (Auto) 5.0 % 08/22/22 02:40 Eos % (Auto) 0.0 % 08/22/22 02:40 Baso % (Auto) 0.1 % 08/22/22 02:40 Neut # (Auto) 7.42 10^3/uL (1.8-7.7) 08/22/22 02:40 Lymph # (Auto) 0.7 10^3/uL (0.8-4.8) L 08/22/22 02:40 [place] # (Auto) 0.4 10^3/uL (0.2-0.9) 08/22/22 02:40 Eos # (Auto) 0.0 10^3/uL (0.0-0.8) 08/22/22 02:40 Baso # (Auto) 0.0 10^3/uL (0.0-0.1) 08/22/22 02:40 Nucleated RBC % (auto) 0 % 08/22/22 02:40 Nucleated RBCs # 0.0 /100WBC 08/22/22 02:40 PT 14.10 SECONDS (12.1-14.9) 08/18/22 18:18 INR 1.06 (0.8-1.2) 08/18/22 18:18 D-Dimer 0.45 ug/mIFEU (0-0.59) 08/21/22 13:25 Sodium 136 mmol/L (136-145) 08/22/22 02:40 Potassium 4.0 mmol/L (3.5-5.1) 08/22/22 02:40 Chloride 104 mmol/L (98-107) 08/22/22 02:40 Carbon Dioxide 22 mmol/L (22-29) 08/22/22 02:40 Anion Gap 14.0 (5-19) 08/22/22 02:40 BUN 8 mg/dL (6-20) 08/22/22 02:40 Creatinine 0.7 mg/dL (0.5-0.9) 08/22/22 02:40 GFR Calculation 91.8 mL/min (90-130) 08/22/22 02:40 Glucose 96 mg/dL (65-115) 08/22/22 02:40 Calculated Osmolality 280 mOsm/kg (285-295) L 08/22/22 02:40 Calcium 8.3 mg/dL (8.5-10.5) L 08/22/22 02:40 Total Bilirubin 0.8 mg/dL (0.15-1.2) 08/22/22 02:40 AST 64 U/L (0-32) H 08/22/22 02:40 ALT 200 U/L (0-33) H 08/22/22 02:40 Alkaline Phosphatase 181 U/L (35-105) H 08/22/22 02:40 Troponin T Gen 5 ng/L 6 ng/L (0-10) 08/21/22 12:42 Troponin T Baseline 6 ng/L (0-10) 08/18/22 18:18 Troponin T 120 Minute 6.00 ng/L (0-10) 08/18/22 19:45 Delta Troponin T 0 ABS# (0-10) 08/18/22 19:45 Troponin T Hi Sens 6Hr 6.00 ng/L (0-10) 08/19/22 00:54 Troponin T Hi Sens 6Hr Delta 0 ng/L (0-12) 08/19/22 00:54 Total Protein 6.3 g/dL (6.6-8.7) L 08/22/22 02:40 Albumin 3.5 g/dL (3.5-5.2) 08/22/22 02:40 Globulin 2.8 g/dL (1.3-4.6) 08/22/22 02:40 Lipase 29 U/L (13-60) 08/20/22 02:58 Hepatitis A IgM Ab Non-reactive (Nonreactive) 08/18/22 19:43 Hep Bs Antigen Non-reactive (Nonreactive) 08/18/22 19:43 Hep Bs Antibody 137.3 (11.5-1000) 08/18/22 19:43 Hep B Core Total Ab Non-reactive (Nonreactive) 08/18/22 19:43 Hepatitis C Antibody Non-reactive (Nonreactive) 08/18/22 19:43 Vitals Last Vital Signs Temp 98.0 F 08/22/22 08:00 Pulse 63 08/22/22 08:00 Resp 16 08/22/22 08:00 BP 110/71 08/22/22 08:00 Pulse Ox 95 08/22/22 08:00 O2 Del Method 08/22/22 08:00 O2 Flow Rate 1 08/21/22 13:40 Discharge Plan Discharge Patient Disposition: Home Condition: Stable Prescriptions: New hydrocodone-acetaminophen 5-325 mg Tablet 1 tab PO Q4H PRN (Reason: Moderate Pain) Qty: 14 0RF omeprazole 20 mg capsule,delayed release(DR/EC) 20 mg PO DAILY Qty: 30 0RF Senna-S 8.6-50 mg tablet 1 tab-cap PO DAILY Qty: 60 0RF Continued Eliquis 5 mg tablet 2.5 mg PO BID gabapentin 300 mg capsule 300 mg PO .COMPLEX Rx Instructions: 1 CAP AM AND 4 CAPS PM fluoxetine 10 mg capsule 10 mg PO DAILY cholecalciferol (vitamin D3) 250 mcg (10,000 unit) capsule 250 mcg PO DAILY hydroxyurea 500 mg capsule 500 mg PO BID vitamin E 268 mg (400 unit) Capsule 268 mg PO DAILY cetirizine 10 mg Tablet 10 mg PO DAILY omeprazole 40 mg Capsule,Delayed Release(Dr/Ec) 40 mg PO DAILY mirtazapine 30 mg Tablet 15 mg PO BEDTIME Discharge Orders: Discharge Order (Routine); Ordered 08/22/22 Ordered By: Fabiola Miller Referrals: Kal Harrison MD [Physician] - 7-10 days (Return to surgery office in 10 days) Viviana Gill FNP [Primary Care Provider] - 7-10 days (Please call and schedule a follow up appointment for one week) Discharge Diet: Advance as tolerated Discharge Activity: Limit activity as instructed Patient Instructions: Hydrocodone/Acetaminophen (By mouth), Omeprazole (By mouth), Senna (By mouth), Pancreatitis (ED), Laparoscopic Cholecystectomy (DC), Opioid Safety, Post Anesthesia Care Activity Restrictions/Additional Instructions: 1. Patient can shower after 48 hours from surgery 2. Remove secondary dressing can take down after 48 hours. 3. Up and walking as tolerated 4. Do not lift more than 5 pounds first 2 weeks after surgery and not more than 25 pounds 6 to 8 weeks after surgery. 5. Do not operate heavy machinery or drive while using pain medications. 6.Contact the office or return to the ER for worsening nausea vomiting fevers or chills, or noticing any redness around incision sites or discharge. Discharge Attestations Time Spent in Discharge Care*: less than 30 min Status at Discharge: Cognitive status at discharge: cognitively intact , Behavioral status at discharge: cooperative , Quality Metrics Clinical Quality Measures [ No reported AMI, CVA or VTE this stay] Coding Level of Care Code Acute Chg FW DC note Diagnoses Biliary acute pancreatitis K85.10
[2022-08-22 11:06] VITALS: BP 110/71; PULSE 63; RESP 16; TEMP 36.7; O2SAT 95
== END 2022-08-22 11:22 | disposition home or self-care (01) | DRG 418 ==
LOC: ER 08-19 01:32 → MEDSURG 08-19 02:00
PROVIDERS: Anesthesiology; Surgery; Admitting Provider Student in an Organized Health Care Education/Training Program; Emergency Provider Emergency Medicine; PCP Nurse Practitioner; Visit Provider Internal Medicine
PROC: 0FT44ZZ Resection of Gallbladder, Percutaneous Endoscopic Approach (ICD-10-PCS; CPT 47562; principal; 2022-08-21 09:30)
DX: K85.10 Biliary acute pancreatitis without necrosis or infection (principal); K80.10 Calculus of gallbladder with chronic cholecystitis without obstruction; Z68.41 Body mass index [BMI] 40.0-44.9, adult; D45 Polycythemia vera; Z79.899 Other long term (current) drug therapy; Z86.711 Personal history of pulmonary embolism; Z79.01 Long term (current) use of anticoagulants; Z87.01 Personal history of pneumonia (recurrent); Z86.16 Personal history of COVID-19; M25.512 Pain in left shoulder; E66.9 Obesity, unspecified; K76.0 Fatty (change of) liver, not elsewhere classified
CPT/HCPCS: 36415; 71045; 71275; 74177; 74181; 76705; 80053; 83690; 84484; 85025; 85378; 85610; 86705; 86706; 86709; 86803; 87340; 88304; 93005; 94660; 96365; 96372; 99285; C9113; J1100; J1170; J1650; J1885; J2250; J2370; J2405; J2543; J2704; J3010; J3490; J7030; Q9967

== ENCOUNTER 2022-08-26 11:45 | Oncology outpatient (recurring) (ONCR) | payer OTHER, SELFPAY ==
[2022-08-26 12:25] LABS: Basophils # 0.1 10^3/uL (0.0-0.1); Basophils % 0.6 %; Eosinophils # 0.2 10^3/uL (0.0-0.8); Eosinophils % 1.7 %; Hematocrit 39.9 % (37.0-47.0); Hemoglobin 13.5 g/dL (11.5-15.3); Lymphocytes # 1.4 10^3/uL (0.8-4.8); Lymphocytes % 14.7 %; Mean Corpuscular HGB Conc 33.8 g/dL (30.0-36.0); Mean Corpuscular Hemoglobin 35.8 pg (28.0-34.0); Mean Corpuscular Volume 105.8 fl (81-99); Mean Platelet Volume 10.3 fL (7.4-10.4); Monocytes # 0.8 10^3/uL (0.2-0.9); Monocytes % 8.2 %; Neutrophils # 6.89 10^3/uL (1.8-7.7); Neutrophils % 74.5 %; Nucleated Red Blood Cells % 0 %; Platelet Count 321 10^3/cmm (130-400); Red Blood Count 3.77 10^6/uL (4.1-5.3); Red Cell Distribution Width 11.9 % (12.1-15.1); White Blood Count 9.3 10^3/uL (4.0-10.0)
== END 2022-09-14 23:59 | disposition home or self-care (01) ==
PROVIDERS: PCP Nurse Practitioner; Visit Provider Internal Medicine Hematology & Oncology
DX: D45 Polycythemia vera (principal); Z79.899 Other long term (current) drug therapy; Z86.16 Personal history of COVID-19
CPT/HCPCS: 36415; 85025; 99214

== ENCOUNTER → 2022-08-27 15:13 | Outpatient (BNVA) | payer OTHER, SELFPAY | PROVIDERS: PCP Nurse Practitioner; Visit Provider Surgery | DX: Z48.89 Encounter for other specified surgical aftercare (principal); K76.0 Fatty (change of) liver, not elsewhere classified | CPT/HCPCS: 99024 ==

== ENCOUNTER 2022-12-02 13:56 | Oncology outpatient (recurring) (ONCR) | payer OTHER, SELFPAY ==
[2022-12-02 14:49] LABS: Basophils # 0.1 10^3/uL (0.0-0.1); Basophils % 1.1 %; Eosinophils # 0.1 10^3/uL (0.0-0.8); Hemoglobin 14.5 g/dL (11.5-15.3); Lymphocytes # 1.3 10^3/uL (0.8-4.8); Lymphocytes % 19.7 %; Mean Corpuscular HGB Conc 30.2 g/dL (30.0-36.0); Mean Corpuscular Hemoglobin 28.9 pg (28.0-34.0); Mean Corpuscular Volume 95.8 fl (81-99); Mean Platelet Volume 10.4 fL (7.4-10.4); Monocytes # 0.5 10^3/uL (0.2-0.9); Monocytes % 8.1 %; Neutrophils # 4.42 10^3/uL (1.8-7.7); Neutrophils % 68.9 %; Nucleated Red Blood Cells % 0 %; Platelet Count 248 10^3/cmm (130-400); Red Blood Count 5.01 10^6/uL (4.1-5.3); Red Cell Distribution Width 16.8 % (12.1-15.1); White Blood Count 6.4 10^3/uL (4.0-10.0)
[2022-12-02 15:02] LABS: Alanine Aminotransferase 20 U/L (0-33); Albumin Level 4.1 g/dL (3.5-5.2); Alkaline Phosphatase 90 U/L (35-105); Aspartate Amino Transferase 27 U/L (0-32); Blood Urea Nitrogen 10 mg/dL (6-20); Calcium 8.4 mg/dL (8.5-10.5); Carbon Dioxide 24 mmol/L (22-29); Chloride 107 mmol/L (98-107); Globulin 2.6 g/dL (1.3-4.6); Glomerular Filtration Rate 78.7 mL/min (90-130); Glucose 89 mg/dL (65-115); Osmolality Calculated 289 mOsm/kg (285-295); Sodium 140 mmol/L (136-145); Total Bilirubin 0.4 mg/dL (0.15-1.2); Total Protein 6.7 g/dL (6.6-8.7)
[2022-12-02 15:03] LABS: Anion Gap 13.3 (5-19); Potassium 4.3 mmol/L (3.5-5.1)
[2022-12-02 16:26] VITALS: BP 120/77; PULSE 78; RESP 18; TEMP 36.4; O2SAT 98
== END 2022-12-15 23:59 | disposition home or self-care (01) ==
PROVIDERS: PCP Nurse Practitioner; Visit Provider Internal Medicine Hematology & Oncology
DX: D45 Polycythemia vera (principal); I26.99 Other pulmonary embolism without acute cor pulmonale; Z79.01 Long term (current) use of anticoagulants; Z79.899 Other long term (current) drug therapy; Z91.14 Patient's other noncompliance with medication regimen
CPT/HCPCS: 80053; 85025; 99195; 99214

== ENCOUNTER 2022-12-30 11:50 | Oncology outpatient (recurring) (ONCR) | payer OTHER, SELFPAY ==
[2022-12-30 12:50] LABS: Basophils # 0.1 10^3/uL (0.0-0.1); Basophils % 0.7 %; Eosinophils # 0.1 10^3/uL (0.0-0.8); Eosinophils % 1.7 %; Hematocrit 45.4 % (37.0-47.0); Hemoglobin 13.9 g/dL (11.5-15.3); Lymphocytes # 1.3 10^3/uL (0.8-4.8); Lymphocytes % 16.4 %; Mean Corpuscular HGB Conc 30.6 g/dL (30.0-36.0); Mean Corpuscular Hemoglobin 29.1 pg (28.0-34.0); Mean Platelet Volume 10.1 fL (7.4-10.4); Monocytes # 0.6 10^3/uL (0.2-0.9); Monocytes % 7.4 %; Neutrophils # 5.88 10^3/uL (1.8-7.7); Neutrophils % 73.4 %; Nucleated Red Blood Cells % 0 %; Platelet Count 229 10^3/cmm (130-400); Red Blood Count 4.78 10^6/uL (4.1-5.3); Red Cell Distribution Width 17.1 % (12.1-15.1)
[2022-12-30 17:28] VITALS: BP 129/84; PULSE 66; RESP 16; TEMP 36.7; O2SAT 98
== END 2023-01-12 23:59 | disposition home or self-care (01) ==
PROVIDERS: PCP Nurse Practitioner; Visit Provider Internal Medicine Hematology & Oncology
DX: D45 Polycythemia vera (principal); Z79.899 Other long term (current) drug therapy; Z86.16 Personal history of COVID-19; I26.99 Other pulmonary embolism without acute cor pulmonale; Z79.01 Long term (current) use of anticoagulants
CPT/HCPCS: 36415; 85025; 99195; 99214

== ENCOUNTER 2023-01-27 13:44 | Oncology outpatient (recurring) (ONCR) | payer OTHER, SELFPAY ==
[2023-01-27 14:42] LABS: Basophils # 0.1 10^3/uL (0.0-0.1); Basophils % 0.8 %; Eosinophils # 0.1 10^3/uL (0.0-0.8); Eosinophils % 1.6 %; Hematocrit 46.7 % (37.0-47.0); Hemoglobin 14.3 g/dL (11.5-15.3); Lymphocytes # 1.4 10^3/uL (0.8-4.8); Lymphocytes % 16.3 %; Mean Corpuscular HGB Conc 30.6 g/dL (30.0-36.0); Mean Corpuscular Hemoglobin 28.8 pg (28.0-34.0); Mean Platelet Volume 10.1 fL (7.4-10.4); Monocytes # 0.5 10^3/uL (0.2-0.9); Monocytes % 6.2 %; Neutrophils # 6.25 10^3/uL (1.8-7.7); Neutrophils % 74.6 %; Nucleated Red Blood Cells % 0 %; Platelet Count 264 10^3/cmm (130-400); Red Blood Count 4.97 10^6/uL (4.1-5.3); Red Cell Distribution Width 16.3 % (12.1-15.1); White Blood Count 8.4 10^3/uL (4.0-10.0)
[2023-01-27] MEDS: sodium chloride 0.9% 250 ML IV (16:00)
== END 2023-02-12 23:59 | disposition home or self-care (01) ==
PROVIDERS: Nurse Practitioner Family; PCP Nurse Practitioner; Visit Provider Internal Medicine Hematology & Oncology
DX: D45 Polycythemia vera (principal); I26.99 Other pulmonary embolism without acute cor pulmonale; Z79.01 Long term (current) use of anticoagulants; Z79.899 Other long term (current) drug therapy; Z86.16 Personal history of COVID-19
CPT/HCPCS: 36415; 85025; 99195; 99214; J7050

== ENCOUNTER 2023-02-25 11:22 | Oncology outpatient (recurring) (ONCR) | payer OTHER, SELFPAY ==
[2023-02-25 12:04] LABS: Basophils # 0.1 10^3/uL (0.0-0.1); Basophils % 1.1 %; Eosinophils # 0.2 10^3/uL (0.0-0.8); Eosinophils % 2.2 %; Hematocrit 46.3 % (37.0-47.0); Hemoglobin 14.3 g/dL (11.5-15.3); Lymphocytes # 1.5 10^3/uL (0.8-4.8); Lymphocytes % 20.3 %; Mean Corpuscular HGB Conc 30.9 g/dL (30.0-36.0); Mean Corpuscular Hemoglobin 29.5 pg (28.0-34.0); Mean Corpuscular Volume 95.5 fl (81-99); Mean Platelet Volume 9.8 fL (7.4-10.4); Monocytes # 0.5 10^3/uL (0.2-0.9); Monocytes % 7.2 %; Neutrophils # 4.98 10^3/uL (1.8-7.7); Neutrophils % 68.6 %; Nucleated Red Blood Cells % 0 %; Platelet Count 258 10^3/cmm (130-400); Red Blood Count 4.85 10^6/uL (4.1-5.3); Red Cell Distribution Width 15.2 % (12.1-15.1); White Blood Count 7.3 10^3/uL (4.0-10.0)
[2023-02-25 14:30] VITALS: BP 112/60; PULSE 66; RESP 16; TEMP 36.1
== END 2023-03-14 23:59 | disposition home or self-care (01) ==
PROVIDERS: PCP Nurse Practitioner; Visit Provider Internal Medicine Hematology & Oncology
DX: D45 Polycythemia vera (principal); I26.99 Other pulmonary embolism without acute cor pulmonale; Z79.01 Long term (current) use of anticoagulants; Z79.899 Other long term (current) drug therapy; Z86.16 Personal history of COVID-19
CPT/HCPCS: 36415; 85025; 99195; 99214

== ENCOUNTER 2023-03-07 11:36 | Emergency (ER) | payer OTHER, SELFPAY ==
[2023-03-07 11:40] VITALS: BP 132/91; PULSE 90; TEMP 36.6; O2SAT 97; BMI 42.8
[2023-03-07 12:36] LABS: Basophils # 0.1 10^3/uL (0.0-0.1); Basophils % 1.1 %; Eosinophils # 0.2 10^3/uL (0.0-0.8); Hematocrit 46.6 % (37.0-47.0); Hemoglobin 13.6 g/dL (11.5-15.3); Lymphocytes # 1.5 10^3/uL (0.8-4.8); Lymphocytes % 18.9 %; Mean Corpuscular HGB Conc 29.2 g/dL (30.0-36.0); Mean Corpuscular Hemoglobin 28.5 pg (28.0-34.0); Mean Corpuscular Volume 97.5 fl (81-99); Mean Platelet Volume 10.2 fL (7.4-10.4); Monocytes # 0.5 10^3/uL (0.2-0.9); Monocytes % 6.1 %; Neutrophils # 5.62 10^3/uL (1.8-7.7); Neutrophils % 71.6 %; Nucleated Red Blood Cells % 0 %; Platelet Count 200 10^3/cmm (130-400); Red Blood Count 4.78 10^6/uL (4.1-5.3); Red Cell Distribution Width 14.6 % (12.1-15.1); White Blood Count 7.9 10^3/uL (4.0-10.0)
[2023-03-07 12:53] LABS: HCG, Serum Qual Negative (Negative)
[2023-03-07 13:14] LABS: Alanine Aminotransferase 15 U/L (0-33); Albumin Level 3.8 g/dL (3.5-5.2); Alkaline Phosphatase 94 U/L (35-105); Aspartate Amino Transferase 21 U/L (0-32); Blood Urea Nitrogen 12 mg/dL (6-20); Calcium 8.3 mg/dL (8.5-10.5); Carbon Dioxide 19 mmol/L (22-29); Creatinine Clr Calc Pharmacy 152.6122; Globulin 2.8 g/dL (1.3-4.6); Glomerular Filtration Rate 91.8 mL/min (90-130); Glucose 134 mg/dL (65-115); Lipase 24 U/L (13-60); Total Bilirubin 0.4 mg/dL (0.15-1.2); Total Protein 6.6 g/dL (6.6-8.7)
[2023-03-07 13:24] LABS: Anion Gap 14.7 (5-19); Chloride 98 mmol/L (98-107); Osmolality Calculated 268 mOsm/kg (285-295); Potassium 3.7 mmol/L (3.5-5.1); Sodium 128 mmol/L (136-145)
--- NOTE | 2023-03-07 14:45 | W.ED.ABDPA2 ---
HPI - Abdominal Pain General: Chief Complaint: Abdominal Pain Stated Complaint: blood in stool Time Seen by Provider: 03/07/23 14:45 History of Present Illness: Ms. Gipson is a 42-year-old lady with complex past medical history including polycythemia vera, history of DVT on Eliquis, and history of diverticulitis presenting to the emergency department for abdominal pain and blood in stool. She first noticed blood in stool a few days ago. No pain with bowel movements however subsequently developed more diarrhea today and left-sided abdominal pain. Denies nausea or vomiting. Intensity symptoms is moderate. No other specific changes in health, exacerbating, or alleviating factors identified. Onset (ago): day(s) Pain Consistency: constant Location: LLQ Severity: moderate Associated Symptoms: Reports diarrhea Review of Systems General: Reports: 10 or more systems reviewed and unremarkable except in HPI and below GI: Reports: diarrhea PFSH ED PFSH: Medical History Acute cholecystitis Acute respiratory distress syndrome (ARDS) Biliary acute pancreatitis Diverticulitis Diagnosed in 2019- Enlarged thyroid gland This is currently being evaluated and managed by Dr. Ferro. She thinks that her thyroid levels were normal. Morbid obesity with BMI of 40.0-44.9, adult Multifocal pneumonia No pertinent past medical history Denies diabetes, asthma, seizures, DVT. PMD: ABI [place] Pneumonia due to COVID-19 virus Polycythemia vera Has had symptoms since about 2014 and was diagnosed in 2016. She currently sees heme oncology-Dr. Garcia and is on medication for this. Polycythemia vera Pulmonary embolism October 2019 Shoulder pain Surgical History History of tubal ligation March 2009--laparoscopic procedure Status post hysteroscopy 02/06/2021--hysteroscopy performed for possible endometrial polyp on ultrasound-performed by Dr. Ambrose at [facility] [place]. At hysteroscopy no obvious intracavitary abnormalities including polyp identified. D&C performed and pathology showed secretory and proliferative endometrium without atypia hyperplasia or malignancy. Family History Father Chronic kidney disease (CKD) Hypertension Sister Chronic kidney disease (CKD) Psychiatric illness Mother Thyroid disease Grandmother Thyroid disease Maternal Denies family history of Colon cancer Ovarian cancer Diabetes Heart disease Breast cancer Bleeding disorder Uterine cancer Stroke Social History Smoking and tobacco status: never smoked Alcohol intake: never Substance/Drug Use: never Physical Exam Const: COMMON NORMALS: alert GENERAL APPEARANCE: cooperative and well developed HENMT: COMMON NORMALS: normocephalic and atraumatic HEAD & SCALP: normocephalic and atraumatic THROAT: posterior oropharynx normal Eye: COMMON NORMALS: conjunctivae normal CONJUNCTIVA: Yes conjunctivae normal SCLERA: sclerae normal Neck/C-Spine: COMMON NORMALS: supple GENERAL: Yes trachea midline Resp: COMMON NORMALS: normal respiratory effort EFFORT & INSPECTION: Yes able to speak in complete sentences Cardio: COMMON NORMALS: regular rate and regular rhythm RATE: regular rate RHYTHM: regular rhythm GI: COMMON NORMALS: Soft to palpation PALPATION: Yes Soft to palpation, Yes Tenderness to palpation present (GI), No Guarding due to palpation present (GI) and No Rigid due to palpation Extremity: GENERAL: Yes normal exam except as noted and No edema Neuro: COMMON NORMALS: moves all extremities SENSORIUM/ORIENTATION: Yes alert and No Orientation impaired Psych: COMMON NORMALS: mental status grossly normal and Normal thought process present THOUGHT PROCESS: Normal thought process present Course Vital Signs: Vital signs: Vital Signs Temperature 97.8 F 03/07/23 11:40 Pulse Rate 74 03/07/23 16:00 Respiratory Rate 20 H 03/07/23 15:41 Blood Pressure 139/76 03/07/23 16:00 Pulse Oximetry 100 03/07/23 16:00 Oxygen Delivery Me thod Room Air 03/07/23 16:00 MDM - Abdominal Pain Medical Decision Making 42-year-old lady presenting with abdominal symptoms and small bouts of bleeding per rectum. Exam as above, she is vitally satisfactory. No evidence of active hemorrhage or acute surgical abdomen. Labs notable for no leukocytosis, hemoglobin and platelet count are normal. Mild dehydration on metabolic panel, hCG is negative. CT imaging demonstrates no evidence of active bleeding though she does have evidence of diverticulitis. Patient treated with analgesia and IV fluids and feels improved. She is able to tolerate p.o. intake. Most likely etiology of symptoms is diverticulitis. The results of ED evaluation were discussed with the patient including prescriptions and/or symptomatic cares (if applicable) including appropriate and responsible use, followup plan, and return precautions. The patient verbalized understanding and felt safe for discharge. Medical Records I reviewed the patient's medical records. Lab Data I reviewed the patient's lab results. 03/07/23 12:20 03/07/23 12:20 Labs/Radiology: Radiology Impressions Abdomen/Pelvis CTA 03/07/23 15:05 IMPRESSION: Findings are consistent with sigmoid colon diverticulitis.Clinical correlation is advised. Laboratory Results WBC 7.9 10^3/uL (4.0-10.0) 03/07/23 12:20 RBC 4.78 10^6/uL (4.1-5.3) 03/07/23 12:20 Hgb 13.6 g/dL (11.5-15.3) 03/07/23 12:20 Hct 46.6 % (37.0-47.0) 03/07/23 12:20 MCV 97.5 fl (81-99) 03/07/23 12:20 MCH 28.5 pg (28.0-34.0) 03/07/23 12:20 MCHC 29.2 g/dL (30.0-36.0) L 03/07/23 12:20 RDW 14.6 % (12.1-15.1) 03/07/23 12:20 Plt Count 200 10^3/cmm (130-400) 03/07/23 12:20 MPV 10.2 fL (7.4-10.4) 03/07/23 12:20 Neut % (Auto) 71.6 % 03/07/23 12:20 Lymph % (Auto) 18.9 % 03/07/23 12:20 [place] % (Auto) 6.1 % 03/07/23 12:20 Eos % (Auto) 2.0 % 03/07/23 12:20 Baso % (Auto) 1.1 % 03/07/23 12:20 Neut # (Auto) 5.62 10^3/uL (1.8-7.7) 03/07/23 12:20 Lymph # (Auto) 1.5 10^3/uL (0.8-4.8) 03/07/23 12:20 [place] # (Auto) 0.5 10^3/uL (0.2-0.9) 03/07/23 12:20 Eos # (Auto) 0.2 10^3/uL (0.0-0.8) 03/07/23 12:20 Baso # (Auto) 0.1 10^3/uL (0.0-0.1) 03/07/23 12:20 Nucleated RBC % (auto) 0 % 03/07/23 12:20 Nucleated RBCs # 0.0 /100WBC 03/07/23 12:20 Sodium 128 mmol/L (136-145) L 03/07/23 12:20 Potassium 3.7 mmol/L (3.5-5.1) 03/07/23 12:20 Chloride 98 mmol/L (98-107) 03/07/23 12:20 Carbon Dioxide 19 mmol/L (22-29) L 03/07/23 12:20 Anion Gap 14.7 (5-19) 03/07/23 12:20 BUN 12 mg/dL (6-20) 03/07/23 12:20 Creatinine 0.7 mg/dL (0.5-0.9) 03/07/23 12:20 GFR Calculation 91.8 mL/min (90-130) 03/07/23 12:20 Glucose 134 mg/dL (65-115) H 03/07/23 12:20 Calculated Osmolality 268 mOsm/kg (285-295) L 03/07/23 12:20 Calcium 8.3 mg/dL (8.5-10.5) L 03/07/23 12:20 Total Bilirubin 0.4 mg/dL (0.15-1.2) 03/07/23 12:20 AST 21 U/L (0-32) 03/07/23 12:20 ALT 15 U/L (0-33) 03/07/23 12:20 Alkaline Phosphatase 94 U/L (35-105) 03/07/23 12:20 Total Protein 6.6 g/dL (6.6-8.7) 03/07/23 12:20 Albumin 3.8 g/dL (3.5-5.2) 03/07/23 12:20 Globulin 2.8 g/dL (1.3-4.6) 03/07/23 12:20 Lipase 24 U/L (13-60) 03/07/23 12:20 HCG, Qual Negative (Negative) 03/07/23 12:20 Discharge Plan Discharge Patient Disposition: Home Clinical Impression: Abdominal pain, Diverticulitis, Rectal bleeding, Acute dehydration Condition: Stable Prescriptions: New ondansetron 4 mg tablet,disintegrating 4 mg PO Q8H PRN (Reason: nausea and vomiting) Qty: 15 0RF oxycodone 5 mg tablet 5 mg PO Q4H PRN (Reason: pain) Qty: 10 0RF No Action Eliquis 5 mg tablet 2.5 mg PO BID gabapentin 300 mg capsule 300 mg PO .COMPLEX Rx Instructions: 1 CAP AM AND 4 CAPS PM fluoxetine 10 mg capsule 20 mg PO DAILY vitamin E acetate 134 mg (200 unit) capsule 134 mg PO DAILY hydroxyurea 500 mg capsule 500 mg PO BID Qty: 60 3RF cholecalciferol (vitamin D3) 250 mcg (10,000 unit) capsule 250 mcg PO DAILY cetirizine 10 mg Tablet 10 mg PO DAILY Discharge Orders: Discharge ED (Routine); Ordered 03/07/23 Ordered By: Carter Mead Referrals: Viviana Gill, BODY CORPORATE MANAGER [Primary Care Provider] - Discharge Diet: Advance as tolerated and Clear Liquid Discharge Activity: Increase activity as tolerated Patient Instructions: Diverticulitis (ED), Rectal Bleeding (ED), Abdominal Pain (ED), Opioid Safety Activity Restrictions/Additional Instructions: Thank you for visiting the emergency department. You were seen and evaluated for abdominal pain with blood per rectum. The most likely cause of your symptoms is diverticulitis. This will be treated with antibiotics. I will also prescribe pain medication and antinausea medication. I would expect improvement in the next few days. I recommend follow-up with your primary care provider. Return to the emergency department for uncontrolled symptoms, lightheadedness, dizziness, chest pain, shortness of breath, racing heart, inability to tolerate medications or liquids, or anything else that you are concerned about and feel needs emergency department evaluation. Coding Level of Care Code ED Talent Development Director for Ezequiel Ulrich
--- NOTE | 2023-03-07 15:05 | CTR_ITS ---
PROCEDURE INFORMATION: Exam: CTA Abdomen and Pelvis With Contrast Exam date and time: 03/07/2023 3:20 PM Age: 42 years old Clinical indication: Abdominal pain; Generalized; Prior surgery; Surgery type: Hyst; Emilia; Patient HX: PT C/O left sided abd pain; Additional info: L sided pain, gi bleed on eliquis TECHNIQUE: Imaging protocol: Computed tomographic angiography of the abdomen and pelvis with contrast. 3D rendering (Not supervised by radiologist): MIP and/or 3D reconstructed images were created by the technologist. Radiation optimization: All CT scans at this facility use at least one of these dose optimization techniques: automated exposure control; mA and/or kV adjustment per patient size (includes targeted exams where dose is matched to clinical indication); or iterative reconstruction. Contrast material: OMNI 350; Contrast volume: 100 ml; Contrast route: INTRAVENOUS (IV); REPORTING DATA: Count of CT and Cardiac NM exams in prior 12 months: This patient has received [address] and 0 known cardiac nuclear medicine studies in the 12 months prior to the current study. COMPARISON: CT angio chest w abd pel w con 08/18/2022 7:51 PM RADIATION DOSE METRICS: Total DLP (mGy-cm): 1245.35 FINDINGS: Aorta: No aortic aneurysm. No aortic dissection. Celiac trunk and mesenteric arteries: No occlusion or significant stenosis. Renal arteries: No occlusion or significant stenosis. Right iliac arteries: No occlusion or significant stenosis. Left iliac arteries: No occlusion or significant stenosis. Liver: Findings consistent with fatty infiltration of the liver are identified. Gallbladder and bile ducts: There has been a cholecystectomy. Pancreas: Unremarkable. No mass. No ductal dilation. Spleen: Unremarkable. No splenomegaly. Adrenal glands: Unremarkable. No mass. Kidneys and ureters: Unremarkable. No solid mass. No hydronephrosis. Stomach and bowel: There is wall thickening of sigmoid colon with associated inflammatory change. There are colon diverticula. No bowel obstruction. Appendix: The appendix is visualized and appears normal. Intraperitoneal space: Unremarkable. No free air. No significant fluid collection. Lymph nodes: Unremarkable. No enlarged lymph nodes. Urinary bladder: Unremarkable. No mass. Reproductive: Unremarkable as visualized. Bones/joints: No acute fracture. Soft tissues: Unremarkable. CT/CT angio abdomen pelvis [id number] IMPRESSION: Findings are consistent with sigmoid colon diverticulitis.Clinical correlation is advised.
[2023-03-07 15:13] VITALS: BP 119/78; PULSE 79; O2SAT 99
[2023-03-07] MEDS: iohexol 350 mg/mL 500 mL Btl (per mL) IV (15:24)
[2023-03-07 15:30] VITALS: BP 113/71; O2SAT 97
[2023-03-07 15:41] VITALS: RESP 20; O2SAT 100
[2023-03-07] MEDS: morphine 4 mg/mL SDV 1 mL IVP (15:41)
[2023-03-07] MEDS: sodium chloride 0.9% 1,000 ML 999 ML IV (15:42)
[2023-03-07 16:00] VITALS: BP 139/76; PULSE 74; O2SAT 100
== END 2023-03-07 16:41 | disposition home or self-care (01) ==
PROVIDERS: Emergency Medicine; Emergency Provider Emergency Medicine; PCP Nurse Practitioner
DX: K57.92 Diverticulitis of intestine, part unspecified, without perforation or abscess without bleeding (principal); K62.5 Hemorrhage of anus and rectum; E86.0 Dehydration; Z79.01 Long term (current) use of anticoagulants
CPT/HCPCS: 36415; 74174; 80053; 83690; 84703; 85025; 96361; 96375; 99285; J2270; J7030; Q9967

== ENCOUNTER 2023-03-29 10:43 | Oncology outpatient (recurring) (ONCR) | payer OTHER, SELFPAY ==
[2023-03-29 11:46] LABS: Basophils # 0.1 10^3/uL (0.0-0.1); Eosinophils # 0.2 10^3/uL (0.0-0.8); Hematocrit 47.8 % (37.0-47.0); Lymphocytes # 1.5 10^3/uL (0.8-4.8); Lymphocytes % 18.5 %; Mean Corpuscular HGB Conc 29.3 g/dL (30.0-36.0); Mean Corpuscular Hemoglobin 28.2 pg (28.0-34.0); Mean Corpuscular Volume 96.4 fl (81-99); Mean Platelet Volume 10.5 fL (7.4-10.4); Monocytes # 0.6 10^3/uL (0.2-0.9); Monocytes % 7.6 %; Neutrophils # 5.66 10^3/uL (1.8-7.7); Neutrophils % 70.5 %; Nucleated Red Blood Cells % 0 %; Platelet Count 305 10^3/cmm (130-400); Red Blood Count 4.96 10^6/uL (4.1-5.3); Red Cell Distribution Width 15.2 % (12.1-15.1)
== END 2023-04-14 23:59 | disposition home or self-care (01) ==
PROVIDERS: Nurse Practitioner Family; PCP Nurse Practitioner; Visit Provider Internal Medicine Hematology & Oncology
DX: D45 Polycythemia vera (principal); I26.99 Other pulmonary embolism without acute cor pulmonale; Z79.01 Long term (current) use of anticoagulants; Z79.899 Other long term (current) drug therapy; Z86.16 Personal history of COVID-19; R53.83 Other fatigue; R51.9 Headache, unspecified; E03.9 Hypothyroidism, unspecified
CPT/HCPCS: 36415; 85025; 99195; 99214

== ENCOUNTER 2023-04-02 08:40 | Outpatient (CLI) | payer MEDICARE, SELFPAY ==
--- NOTE | 2023-04-02 08:52 | MM_ITS ---
WS: [id number] BILATERAL SCREENING DIGITAL TOMOSYNTHESIS MAMMOGRAM WITH CAD HISTORY: SCREENING COMPARISON: 03/30/2022 and 01/22/2021 Bilateral CC and MLO views with tomosynthesis and synthetic mammography submitted. Computer aided det ection analyzed. Breast composition: There are scattered areas of fibroglandular density. No suspicious masses, microc alcifications or architectural distortion. MM/[place] [id number] IMPRESSION: BI-RADS: 1-Negative FOLLOW UP: 1 Year Follow-up
== END 2023-04-02 08:41 | disposition home or self-care (01) ==
PROVIDERS: PCP Nurse Practitioner; Visit Provider Internal Medicine Hematology & Oncology
DX: Z12.31 Encounter for screening mammogram for malignant neoplasm of breast (principal)
CPT/HCPCS: 77063; 77067

== ENCOUNTER 2023-04-15 20:06 | Emergency (ER) | payer OTHER, SELFPAY ==
[2023-04-15 20:17] VITALS: BMI 42.8
[2023-04-15 20:19] VITALS: BP 133/83; PULSE 84; RESP 18; TEMP 36.8; O2SAT 100
--- NOTE | 2023-04-15 20:56 | CTR_ITS ---
PROCEDURE INFORMATION: Exam: CT Abdomen And Pelvis With Contrast Exam date and time: 04/15/2023 9:08 PM Age: 42 years old Clinical indication: Abdominal pain; Localized; Left lower quadrant (llq); Prior surgery; Surgery date: 6+ months; Surgery type: Gb. Partial hysterectomy. Tubal; Patient HX: C/O llq pain with bloody stools. History of diverticulitis. ; Additional info: Rectal and lower gi bleeding TECHNIQUE: Imaging protocol: Computed tomography of the abdomen and pelvis with contrast. Radiation optimization: All CT scans at this facility use at least one of these dose optimization techniques: automated exposure control; mA and/or kV adjustment per patient size (includes targeted exams where dose is matched to clinical indication); or iterative reconstruction. Contrast material: OMNI 350; Contrast volume: 100 ml; Contrast route: INTRAVENOUS (IV); REPORTING DATA: Count of CT and Cardiac NM exams in prior 12 months: This patient has received 2 known CTs and 0 known cardiac nuclear medicine studies in the 12 months prior to the current study. COMPARISON: 08/18/2022 MRCP and 03/07/2023 CT of the abdomen pelvis RADIATION DOSE METRICS: Total DLP (mGy-cm): 1388.33 FINDINGS: Liver: The liver is mildly enlarged. A small 14 mm hypodense lesion is again seen in the tip of the liver, which is likely benign. Gallbladder and bile ducts: The gallbladder has been removed. No biliary ductal dilatation. Pancreas: Normal. No ductal dilation. Spleen: The spleen is mildly enlarged. Adrenal glands: Normal. No mass. Kidneys and ureters: Normal. No hydronephrosis. Stomach and bowel: No intestinal obstruction. Diverticulosis coli is seen, without evidence of diverticulitis. Appendix: No evidence of appendicitis. Intraperitoneal space: Unremarkable. No free air. No significant fluid collection. Vasculature: Unremarkable. No abdominal aortic aneurysm. Lymph nodes: Unremarkable. No enlarged lymph nodes. Urinary bladder: Unremarkable as visualized. Reproductive: The uterus is absent. Bones/joints: Unremarkable. No acute fracture. Soft tissues: A small umbilical hernia containing fat is noted. CT/CT abdomen pelvis w con* [id number] IMPRESSION: 1. No acute abnormality is seen in the abdomen or pelvis. Diverticulosis coli is noted. 2. Mild hepatosplenomegaly. Small hypodense liver lesion is likely benign
--- NOTE | 2023-04-15 20:58 | ED_ITS ---
HPI - Abdominal Pain General: Chief Complaint: Abdominal Pain Stated Complaint: blood in stool Time Seen by Provider: 04/15/23 20:41 Source: patient Mode of arrival: ambulatory Limitations: no limitations History of Present Illness: This patient comes back to the emergency department because of persistent left- sided abdominal pain. She states that she was diagnosed as having diverticulitis about a month ago and has had 2 rounds of antibiotics but still feels like she has similar symptoms. She is also continue to have some rectal bleeding. Both bright red as well as some dark blood. She has a history of polycythemia rubra vera and has had a PE in the past and so still continues to take Eliquis 2.5 mg twice daily. She denies any fevers or chills. She had a prior total hysterectomy as well as a cholecystectomy. He states she does not have hard stools and she does not have not have pain full bowel movements. She denies any change with food intake. No known exposure to infectious disease or recent travel. MD elicited complaint: abdominal pain Associated Symptoms: Reports change in stool character and hematochezia; Denies chills, dysuria, fever(s), hematemesis, melena, nausea, syncope and vomiting Review of Systems Const: Denies: fever(s) or chills Eyes: Denies: change in vision ENMT: Denies: throat pain, odynophagia, nasal discharge or nasal congestion Card: Denies: chest pain, palpitations, syncope or pre-syncope Resp: Denies: dyspnea, productive cough or non-productive cough GI: Reports: abdominal pain, change in stool character and hematochezia; Denies: nausea, vomiting, hematemesis, rectal pain or melena : Denies: difficulty voiding, dysuria or urinary frequency Musc: Denies: neck pain, back pain, extremity pain or extremity swelling Skin/Breast: Denies: rash Neuro: Denies: headache(s), numbness in extremities or weakness in extremities Endo: Denies: polyuria or polydipsia Tirso/Lymph: Reports: easy bruising and easy bleeding; Denies: petechiae or purpura PFS ED PFSH: Medical History Acute cholecystitis Acute respiratory distress syndrome (ARDS) Biliary acute pancreatitis Diverticulitis Diagnosed in 2019- Enlarged thyroid gland This is currently being evaluated and managed by Dr. Ferro. She thinks that her thyroid levels were normal. Morbid obesity with BMI of 40.0-44.9, adult Multifocal pneumonia No pertinent past medical history Denies diabetes, asthma, seizures, DVT. PMD: ABI [place] Pneumonia due to COVID-19 virus Polycythemia rubra vera Polycythemia vera Has had symptoms since about 2013 and was diagnosed in 2015. She currently sees heme oncology-Dr. Garcia and is on medication for this. Polycythemia vera Pulmonary embolism October 2019 Shoulder pain Surgical History History of tubal ligation March 2009--laparoscopic procedure Status post hysteroscopy 02/06/2021--hysteroscopy performed for possible endometrial polyp on ultrasound[place] [facility] [place] At [place]oscopy no obvious intracavitary abnormalities including polyp identified. D&C performed and pathology showed secretory and proliferative endometrium without atypia hyperplasia or malignancy. Family History Father Chronic kidney disease (CKD) Hypertension Sister Chronic kidney disease (CKD) Psychiatric illness Mother Thyroid disease Grandmother Thyroid disease Maternal Denies family history of Colon cancer Ovarian cancer Diabetes Heart disease Breast cancer Bleeding disorder Uterine cancer Stroke Social History Smoking and tobacco status: never smoked Alcohol intake: never Substance/Drug Use: never Physical Exam Narrative: EXAM NARRATIVE: She ambulates transfers unaided. She is in no acute distress makes good eye contact and her speech is goal-directed. Const: COMMON NORMALS: no acute distress, patient oriented x3 and alert GENERAL APPEARANCE: cooperative, comfortable and well kempt NUTRITIONAL APPEARANCE: obese and overweight HENMT: COMMON NORMALS: normocephalic, Normal nasal mucous membranes and tur binates present, moist oral mucous membranes and oropharynx normal HEAD & SCALP: normocephalic NOSE: Normal nasal mucous membranes and turbinates present Eye: COMMON NORMALS: Equal, round and reactive pupils present, EOMs intact bilaterally, conjunctivae normal and no scleral icterus CONJUNCTIVA: Yes conjunctivae normal PUPIL: Yes Equal, round and reactive pupils present Neck/C-Spine: COMMON NORMALS: full ROM, no lymphadenopathy and no JVD Chest: COMMONS NORMALS: normal inspection of the chest Resp: COMMON NORMALS: normal respiratory effort, No retractions, No use of ac cessory muscles and clear to auscultation bilaterally AUSCULTATION: clear to auscultation bilaterally Cardio: COMMON NORMALS: no JVD, regular rate, regular rhythm, No murmurs present (Cardio) and Peripheral pulses 2+ throughout RATE: regular rate RHYTHM: regular rhythm PERIPHERAL PULSES: Peripheral pulses 2+ throughout GI: COMMON NORMALS: Normal to inspection, nondistended, normoactive bowel sounds present INSPECTION: Yes central obesity PALPATION: Yes Tenderness to palpation present (GI) (She has tenderness in the left lower quadrant and left upper quadrant. No ) RECTAL EXAM: normal sphincter tone, External hemorrhoid(s) present (She has a noninflamed hemorrhoidal skin tag. No active bleeding.), No Internal hemorrhoid(s) present and no fissure noted OTHER: Guaiac negative stool Back/Pelvis: COMMON NORMALS: thoracic and lumbar spine normal to inspection, no thoracic nor lumbar tenderness and thoraco-lumbar ROM normal Extremity: COMMON NORMALS: normal to inspection, full ROM and capillary refill normal Neuro: COMMON NORMALS: patient oriented x3, moves all extremities, no focal motor deficits and no sensory deficits noted SENSORIUM/ORIENTATION: Yes alert Psych: COMMON NORMALS: mental status grossly normal APPEARANCE: Yes well kempt Skin: COMMON NORMALS: no rashes or lesions noted, turgor normal, no jaundice and no petechiae GENERAL SKIN EXAM: no rashes or lesions noted and turgor normal Course Reevaluation(s): Reevaluation #1: Patient remains very stable. She is comfortable and no new or focal findings on reexamination. I shared all her current findings with her and their implications and limitations. We also discussed the neck step in her work-up which can be completed as an outpatient. Time: 21:56 Vital Signs: Vital signs: Vital Signs Temperature 98.3 F 04/15/23 20:19 Pulse Rate 88 04/15/23 21:16 Respiratory Rate 18 04/15/23 20:19 Blood Pressure 126/81 04/15/23 21:16 Pulse Oximetry 95 04/15/23 21:16 Oxygen Delivery Me thod Room Air 04/15/23 21:16 MDM - Abdominal Pain Medical Decision Making The patient returns with similar symptoms and continued rectal bleeding. Certainly he is not hemodynamically unstable on initial evaluation and her abdominal examination does reveal tenderness but no peritoneal signs. We will proceed with a work-up to try to further delineate the etiology of her current symptoms. She ultimately may need to colonoscopy however we will proceed with CT scan lab work to need for other potential etiologies at this time. Ancillary studies to include CBC PT PTT and chemistries were all reassuring without any evidence of profound anemia aberration in her platelet count and or clotting factors. Her CT scan did not reveal any evidence of perforation infla mmation obstruction mass etc. at this time. She is clinically stable without any evidence of an ongoing emergency medical condition other than hematochezia on her DOAC. She will need a colonoscopy to further delineate her mucosal pathology if present. She is stable to be discharged for that procedure to be completed as an outpatient with return precautions detailed. All questions were answered and she was appreciative of care. Lab Data I reviewed the patient's lab results. 04/15/23 21:02 04/15/23 21:02 Labs/Radiology: Radiology Impressions Abdomen/Pelvis CT 04/15/23 20:56 IMPRESSION: 1. No acute abnormality is seen in the abdomen or pelvis. Diverticulosis coli is noted. 2. Mild hepatosplenomegaly. Small hypodense liver lesion is likely benign Laboratory Results WBC 7.8 10^3/uL (4.0-10.0) 04/15/23 21: RBC 4.86 10^6/uL (4.1-5.3) 04/15/23 21: Hgb 13.5 g/dL (11.5-15.3) 04/15/23 21: Hct 44.8 % (37.0-47.0) 04/15/23 21: MCV 92.2 fl (81-99) 04/15/23 21: MCH 27.8 pg (28.0-34.0) L 04/15/23 21: MCHC 30.1 g/dL (30.0-36.0) 04/15/23 21: RDW 15.3 % (12.1-15.1) H 04/15/23 21: Plt Count 233 10^3/cmm (130-400) 04/15/23 21: MPV 10.0 fL (7.4-10.4) 04/15/23 21:02 Neut % (Auto) 73.0 % 04/15/23 21:02 Lymph % (Auto) 16.8 % 04/15/23 21:02 [place] % (Auto) 6.6 % 04/15/23 21:02 Eos % (Auto) 1.8 % 04/15/23 21:02 Baso % (Auto) 1.4 % 04/15/23 21:02 Neut # (Auto) 5.72 10^3/uL (1.8-7.7) 04/15/23 21:02 Lymph # (Auto) 1.3 10^3/uL (0.8-4.8) 04/15/23 21:02 [place] # (Auto) 0.5 10^3/uL (0.2-0.9) 04/15/23 21:02 Eos # (Auto) 0.1 10^3/uL (0.0-0.8) 04/15/23 21:02 Baso # (Auto) 0.1 10^3/uL (0.0-0.1) 04/15/23 21:02 Nucleated RBC % (auto) 0 % 04/15/23 21:02 Nucleated RBCs # 0.0 /100WBC 04/15/23 21:02 PT 13.00 SECONDS (12.1-14.9) 04/15/23 21:02 INR 0.96 (0.8-1.2) 04/15/23 21:02 APTT 29.9 SECONDS (23.9-36.7) 04/15/23 21:02 Sodium 138 mmol/L (136-145) 04/15/23 21:02 Potassium 3.9 mmol/L (3.5-5.1) 04/15/23 21:02 Chloride 102 mmol/L (98-107) 04/15/23 21:02 Carbon Dioxide 26 mmol/L (22-29) 04/15/23 21:02 Anion Gap 13.9 (5-19) 04/15/23 21:02 BUN 12 mg/dL (6-20) 04/15/23 21:02 Creatinine 0.9 mg/dL (0.5-0.9) 04/15/23 21:02 GFR Calculation 68.7 mL/min (90-130) L 04/15/23 21:02 Glucose 102 mg/dL (65-115) 04/15/23 21:02 Calculated Osmolality 286 mOsm/kg (285-295) 04/15/23 21:02 Calcium 8.8 mg/dL (8.5-10.5) 04/15/23 21:02 Total Bilirubin 0.6 mg/dL (0.15-1.2) 04/15/23 21:02 AST 19 U/L (0-32) 04/15/23 21:02 ALT 21 U/L (0-33) 04/15/23 21:02 Alkaline Phosphatase 107 U/L (35-105) H 04/15/23 21:02 Total Protein 7.3 g/dL (6.6-8.7) 04/15/23 21:02 Albumin 4.3 g/dL (3.5-5.2) 04/15/23 21:02 Globulin 3.0 g/dL (1.3-4.6) 04/15/23 21:02 Discharge Plan Discharge Patient Disposition: Home Clinical Impression: Hematochezia, Diverticulosis Condition: Stable Prescriptions: No Action Eliquis 5 mg tablet 2.5 mg PO BID gabapentin 300 mg capsule 300 mg PO .COMPLEX Rx Instructions: 1 CAP AM AND 4 CAPS PM fluoxetine 10 mg capsule 20 mg PO DAILY vitamin E acetate 134 mg (200 unit) capsule 134 mg PO DAILY cholecalciferol (vitamin D3) 250 mcg (10,000 unit) capsule 250 mcg PO DAILY hydroxyurea 500 mg capsule 500 mg PO TID Qty: 90 3RF Rx Instructions: Medication dose change to 500mg three times daily cetirizine 10 mg Tablet 10 mg PO DAILY ondansetron 4 mg tablet,disintegrating 4 mg PO Q8H PRN (Reason: nausea and vomiting) Qty: 15 0RF oxycodone 5 mg tablet 5 mg PO Q4H PRN (Reason: pain) Qty: 10 0RF Discharge Orders: Discharge ED (Routine); Ordered 04/15/23 Ordered By: Dino Reid Referrals: Viviana Gill FNP [Primary Care Provider] - Discharge Diet: Usual diet Discharge Activity: Increase activity as tolerated Patient Instructions: Opioid Safety, Pain Management Activity Restrictions/Additional Instructions: As discussed while you are in the emergency department your blood count and other associated lab tests were reassuring and in the normal range. Your CAT scan did not reveal any evidence of infection or inflammation obstruction or oth er concerning issue at this time. The next step in your work-up will be a colonoscopy. [facility] for your continued rectal bleeding. If you have fevers increasing symptoms abdominal pain or any other concerns you are welcome to return to this emergency department for reevaluation. You should continue all your usual medications as prescribed. Coding Level of Care Code ED Follow Up Specialist for Ezequiel Ulrich
[2023-04-15 21:08] LABS: Basophils # 0.1 10^3/uL (0.0-0.1); Basophils % 1.4 %; Eosinophils # 0.1 10^3/uL (0.0-0.8); Eosinophils % 1.8 %; Hematocrit 44.8 % (37.0-47.0); Hemoglobin 13.5 g/dL (11.5-15.3); Lymphocytes # 1.3 10^3/uL (0.8-4.8); Lymphocytes % 16.8 %; Mean Corpuscular HGB Conc 30.1 g/dL (30.0-36.0); Mean Corpuscular Hemoglobin 27.8 pg (28.0-34.0); Mean Corpuscular Volume 92.2 fl (81-99); Monocytes # 0.5 10^3/uL (0.2-0.9); Monocytes % 6.6 %; Neutrophils # 5.72 10^3/uL (1.8-7.7); Nucleated Red Blood Cells % 0 %; Platelet Count 233 10^3/cmm (130-400); Red Blood Count 4.86 10^6/uL (4.1-5.3); Red Cell Distribution Width 15.3 % (12.1-15.1); White Blood Count 7.8 10^3/uL (4.0-10.0)
[2023-04-15] MEDS: iohexol 350 mg/mL 500 mL Btl (per mL) IV (21:11)
[2023-04-15 21:16] VITALS: BP 126/81; PULSE 88; O2SAT 95
[2023-04-15 21:26] LABS: INR 0.96 (0.8-1.2)
[2023-04-15 21:27] LABS: Partial Thromboplastin Time 29.9 SECONDS (23.9-36.7)
[2023-04-15 21:30] LABS: Alanine Aminotransferase 21 U/L (0-33); Albumin Level 4.3 g/dL (3.5-5.2); Alkaline Phosphatase 107 U/L (35-105); Anion Gap 13.9 (5-19); Aspartate Amino Transferase 19 U/L (0-32); Blood Urea Nitrogen 12 mg/dL (6-20); Calcium 8.8 mg/dL (8.5-10.5); Carbon Dioxide 26 mmol/L (22-29); Chloride 102 mmol/L (98-107); Glomerular Filtration Rate 68.7 mL/min (90-130); Glucose 102 mg/dL (65-115); Osmolality Calculated 286 mOsm/kg (285-295); Potassium 3.9 mmol/L (3.5-5.1); Sodium 138 mmol/L (136-145); Total Bilirubin 0.6 mg/dL (0.15-1.2); Total Protein 7.3 g/dL (6.6-8.7)
[2023-04-15 22:09] VITALS: BP 124/80; PULSE 77; O2SAT 100
== END 2023-04-15 22:11 | disposition home or self-care (01) ==
PROVIDERS: Emergency Provider Emergency Medicine; PCP Nurse Practitioner
DX: K57.91 Diverticulosis of intestine, part unspecified, without perforation or abscess with bleeding (principal); Z79.01 Long term (current) use of anticoagulants
CPT/HCPCS: 74177; 80053; 85025; 85610; 85730; 99285; Q9967

== ENCOUNTER → 2023-04-22 09:57 | Outpatient (BNVA) | payer OTHER, SELFPAY | PROVIDERS: PCP Nurse Practitioner; Visit Provider Nurse Practitioner Family | DX: Z53.9 Procedure and treatment not carried out, unspecified reason (principal) | CPT/HCPCS: 99213 ==

== ENCOUNTER 2023-05-06 09:14 | Oncology outpatient (recurring) (ONCR) | payer OTHER, SELFPAY ==
[2023-04-22 10:10] VITALS: BP 134/83; PULSE 91; RESP 16; TEMP 36.3; O2SAT 97
[2023-04-22 10:15] LABS: Basophils # 0.1 10^3/uL (0.0-0.1); Basophils % 1.4 %; Eosinophils # 0.1 10^3/uL (0.0-0.8); Hematocrit 44.9 % (37.0-47.0); Hemoglobin 13.7 g/dL (11.5-15.3); Lymphocytes # 1.4 10^3/uL (0.8-4.8); Lymphocytes % 20.3 %; Mean Corpuscular HGB Conc 30.5 g/dL (30.0-36.0); Mean Corpuscular Hemoglobin 28.2 pg (28.0-34.0); Mean Corpuscular Volume 92.4 fl (81-99); Mean Platelet Volume 10.2 fL (7.4-10.4); Monocytes # 0.5 10^3/uL (0.2-0.9); Monocytes % 6.6 %; Neutrophils # 4.86 10^3/uL (1.8-7.7); Neutrophils % 69.4 %; Nucleated Red Blood Cells % 0 %; Platelet Count 261 10^3/cmm (130-400); Red Blood Count 4.86 10^6/uL (4.1-5.3); Red Cell Distribution Width 15.7 % (12.1-15.1)
[2023-05-06 09:54] VITALS: BP 129/79; PULSE 92; RESP 18; TEMP 36.2; O2SAT 98
[2023-05-06 10:09] LABS: Basophils # 0.1 10^3/uL (0.0-0.1); Basophils % 0.9 %; Eosinophils # 0.1 10^3/uL (0.0-0.8); Eosinophils % 2.1 %; Hematocrit 45.2 % (37.0-47.0); Hemoglobin 13.3 g/dL (11.5-15.3); Lymphocytes % 18.9 %; Mean Corpuscular HGB Conc 29.4 g/dL (30.0-36.0); Mean Corpuscular Hemoglobin 27.7 pg (28.0-34.0); Mean Corpuscular Volume 94.2 fl (81-99); Mean Platelet Volume 9.8 fL (7.4-10.4); Monocytes # 0.4 10^3/uL (0.2-0.9); Monocytes % 7.7 %; Neutrophils # 3.72 10^3/uL (1.8-7.7); Neutrophils % 69.8 %; Nucleated Red Blood Cells % 0 %; Platelet Count 236 10^3/cmm (130-400); Red Cell Distribution Width 15.6 % (12.1-15.1); White Blood Count 5.3 10^3/uL (4.0-10.0)
[2023-05-06 10:54] VITALS: BP 117/81; PULSE 73; RESP 18; TEMP 36.8
[2023-05-06 11:31] VITALS: BP 108/77; PULSE 72; RESP 18; TEMP 36.2; O2SAT 98
== END 2023-05-14 23:59 | disposition home or self-care (01) ==
PROVIDERS: Nurse Practitioner Family; PCP Nurse Practitioner; Visit Provider Internal Medicine Hematology & Oncology
DX: D45 Polycythemia vera (principal); Z86.711 Personal history of pulmonary embolism; Z79.01 Long term (current) use of anticoagulants; G47.30 Sleep apnea, unspecified; R11.0 Nausea; Z79.899 Other long term (current) drug therapy
CPT/HCPCS: 36415; 85025; 99195; 99214

== ENCOUNTER 2023-07-12 11:36 | Oncology outpatient (recurring) (ONCR) | payer OTHER, SELFPAY ==
[2023-07-12 11:42] VITALS: BP 127/79; PULSE 81; RESP 18; TEMP 36.3; O2SAT 97
[2023-07-12 11:56] LABS: Basophils # 0.1 10^3/uL (0.0-0.1); Basophils % 1.1 %; Eosinophils # 0.1 10^3/uL (0.0-0.8); Eosinophils % 2.3 %; Hematocrit 43.5 % (36-47); Lymphocytes # 1.1 10^3/uL (0.8-4.8); Lymphocytes % 18.6 %; Mean Corpuscular HGB Conc 31.3 g/dL (30-55); Mean Corpuscular Hemoglobin 30.5 pg (27-33); Mean Corpuscular Volume 97.5 fl (85-98); Mean Platelet Volume 9.8 fL (7.4-10.4); Monocytes # 0.4 10^3/uL (0.2-0.9); Monocytes % 6.4 %; Neutrophils # 4.02 10^3/uL (1.8-7.7); Neutrophils % 71.2 %; Nucleated Red Blood Cells % 0 %; Platelet Count 210 10^3/cmm (157-399); Red Blood Count 4.46 10^6/uL (3.85-5.65); Red Cell Distribution Width 16.7 % (12.1-15.1); White Blood Count 5.64 10^3/uL (3.29-11.43)
[2023-07-12] MEDS: sodium chloride 0.9% 250 ML 999 ML IV (12:53)
== END 2023-07-15 23:59 | disposition home or self-care (01) ==
PROVIDERS: Internal Medicine Medical Oncology; PCP Nurse Practitioner; Visit Provider Internal Medicine Medical Oncology
DX: D45 Polycythemia vera (principal); Z86.711 Personal history of pulmonary embolism; R53.83 Other fatigue; Z79.01 Long term (current) use of anticoagulants; Z79.899 Other long term (current) drug therapy
CPT/HCPCS: 36415; 85025; 99195; 99213; J7050

== ENCOUNTER 2023-09-13 11:03 | Oncology outpatient (recurring) (ONCR) | payer OTHER, SELFPAY ==
[2023-09-13 11:54] VITALS: BMI 42.7
[2023-09-13 11:55] VITALS: BP 118/83; PULSE 82; RESP 18; TEMP 36.6; O2SAT 97
[2023-09-13 12:24] LABS: Basophils # 0.1 10^3/uL (0.0-0.1); Basophils % 1.1 %; Eosinophils # 0.1 10^3/uL (0.0-0.8); Eosinophils % 1.3 %; Hematocrit 43.7 % (36-47); Lymphocytes # 1.2 10^3/uL (0.8-4.8); Lymphocytes % 18.6 %; Mean Corpuscular HGB Conc 31.4 g/dL (30-55); Mean Corpuscular Hemoglobin 31.6 pg (27-33); Mean Corpuscular Volume 100.9 fl (85-98); Mean Platelet Volume 10.2 fL (7.4-10.4); Monocytes # 0.4 10^3/uL (0.2-0.9); Monocytes % 5.8 %; Neutrophils # 4.51 10^3/uL (1.8-7.7); Nucleated Red Blood Cells % 0 %; Platelet Count 297 10^3/cmm (157-399); Red Blood Count 4.33 10^6/uL (3.85-5.65); Red Cell Distribution Width 14.6 % (12.1-15.1); White Blood Count 6.18 10^3/uL (3.29-11.43)
[2023-09-13 12:50] LABS: Alanine Aminotransferase 23 U/L (0-33); Albumin Level 4.3 g/dL (3.5-5.2); Alkaline Phosphatase 96 U/L (35-105); Anion Gap 15.9 (5-19); Aspartate Amino Transferase 21 U/L (0-32); Blood Urea Nitrogen 9 mg/dL (6-20); Calcium 9.3 mg/dL (8.5-10.5); Carbon Dioxide 23 mmol/L (22-29); Chloride 103 mmol/L (98-107); Globulin 2.8 g/dL (1.3-4.6); Glomerular Filtration Rate 78.3 mL/min (90-130); Glucose 128 mg/dL (65-115); Osmolality Calculated 286 mOsm/kg (285-295); Potassium 3.9 mmol/L (3.5-5.1); Sodium 138 mmol/L (136-145); Total Bilirubin 0.5 mg/dL (0.15-1.2); Total Protein 7.1 g/dL (6.6-8.7)
[2023-09-13 13:58] VITALS: BP 115/81; PULSE 81; O2SAT 96
== END 2023-09-14 23:59 | disposition home or self-care (01) ==
PROVIDERS: PCP Nurse Practitioner; Visit Provider Internal Medicine Medical Oncology
DX: D45 Polycythemia vera (principal); I26.99 Other pulmonary embolism without acute cor pulmonale; Z79.899 Other long term (current) drug therapy
CPT/HCPCS: 80053; 85025; 99195; 99214